=== PATIENT | female | born 1950 | race Caucasian/White ===

== ENCOUNTER 2017-03-28 01:27 | Inpatient (IN) | payer OTHER ==
[~2017-03-28] VITALS: Ht 162.6 cm; Wt 72.2 kg
[~2017-03-28 01:27] MED LIST: CALC-393 PO; CHOL2000 PO; CPR500 PO; GLIP-199 PO; INSU50IN SC; IPRA1AER2 INH; LEVO50TA PO; LISI-461 PO; METR-162 PO; PHEN32.44 PO; PHN/100 PO; PRLSR20 PO; PRT/20 PO; SIMV20TA2 PO; TRAM-10 PO; TRMCR130WC TOP; [UNRECOGNIZED DRUG - CODE] PO
[2017-03-28] MEDS ORDERED: ONDANSETRON INJ 2 MG/ML 2 ML VIAL IV STA (01:39)
[2017-03-28] MEDS ORDERED: SODIUM CHLORIDE 0.9% 1000ML 1,000 ML IV STA (01:39)
[2017-03-28] MEDS ORDERED: HYDROmorphone INJ 1 MG/ML SYR IV STA (01:39)
--- NOTE | 2017-03-28 01:47 | EMERGENCY ROOM VISIT NOTE ---
History Report prepared by Deysi: Ángel Michael Under the Supervision of: Dr. Bon Schreiber M.D. First contact with patient: 01:33 Chief Complaint: ABDOMINAL PAIN Stated Complaint: ABDOMINAL PAIN Nursing Triage Summary: Pt brought by EMS. Pt developed abdominal pain at 8pm. +vomiting. Hx colon cancer History of Present Illness The patient is a 66 year old female who presents to the Emergency Room with complaints of persistent diffuse abdominal pain since approximately 1999 tonight. The pain is rated 10/10 in severity. The patient also complains of nausea and vomiting. Her last bowel movement was this morning. She did not experience diarrhea or blood in her stool. She denies hematemesis. She has not taken anything for pain or nausea. The patient has a history of colon cancer. She had surgery on December 13 per . The patient is not currently receiving chemotherapy or radiation. The patient ate a piece of chicken prior to the onset of her symptoms tonight. Source of History: patient, spouse/significant other Onset: 1999 tonight Position: abdomen Symptom Intensity: 10/10 Timing: other (persistent) Associated Symptoms: + nausea, + vomiting, No diarrhea, No hematochezia Review of Systems See HPI for pertinent positives & negatives. A total of 10 systems reviewed and were otherwise negative. Past Medical & Surgical Medical Problems: (1) CAD (coronary artery disease) (2) Colonic diverticular abscess (3) CVA (cerebral vascular accident) (4) DM2 (diabetes mellitus, type 2) (5) HTN (hypertension) (6) Hyperlipidemia (7) Hypothyroid (8) SBO (small bowel obstruction) (9) Seizure Surgical Problems: (1) Hx of appendectomy (2) Hx of cholecystectomy Family History Diabetes mellitus FHx: heart disease Hypertension Seizures Stroke Social History Smoking Status: Former Smoker Alcohol Use: none Drug Use: none Marital Status: Housing Status: lives with family Occupation Status: retired Current/Historical Medications Scheduled Baclofen (Lioresal), 10 MG PO UD Calcium Carbonate (Calcium), 600 MG PO BID Doxycycline Hyclate (Doxycycline Hyclate), 100 MG PO BID Ferrous Sulfate (Iron), 325 MG PO BID Insulin Lispro Protamine & Lis (Humalog Mix 50/50), 40 UNITS SC BID Ipratropium-Albuterol (Combivent Respimat), 1 PUFFS INH QID Levothyroxine Sodium (Synthroid), 50 MCG PO QAM Lisinopril (Zestril), 10 MG PO QAM Loratadine (Claritin), 10 MG PO DAILY Nitroglycerin (Nitroglycerin Er), 2.5 MG PO QPM Pantoprazole (Protonix), 20 MG PO QAM Phenobarbital (Phenobarbital), 1 TAB PO TID Phenytoin Sodium (Dilantin), 200 MG PO BID Simvastatin (Zocor), 20 MG PO QPM Triamcinolone Acet (Aristocort 0.1%), 1 APPL TOP UD Scheduled PRN Docusate Sodium (Colace), 100 MG PO BID PRN for Constipation Ondansetron Hcl (Zofran), 4 MG PO Q8 PRN for Nausea Tramadol (Ultram), 50 MG PO Q6H PRN for Pain Allergies Coded Allergies: Penicillins (Verified Allergy, Intermediate, HIVES, 03/28/17) BEE STING (Verified Allergy, Mild, ANAPHYLAXIS, 03/28/17) Aspirin (Verified Allergy, Unknown, RASH, 03/28/17) Codeine (Verified Allergy, Unknown, RASH, 03/28/17) Hydrochlorothiazide (Unverified Allergy, Unknown, low calcium, 03/28/17) Iodinated Diagnostic Agents (Unverified Allergy, Unknown, DIZZY AND LIGHTHEADED, 03/28/17) Iodine (Verified Allergy, Unknown, ARM SWELLING, 03/28/17) Morphine (Unverified Allergy, Unknown, "EFFECTS MOVEMENTS", 03/28/17) NSAIDs (Unverified Allergy, Unknown, RASH, 03/28/17) Physical Exam Vital Signs Date Time Temp Pulse Resp B/P Pulse Ox O2 Delivery O2 Flow Rate FiO2 03/28/17 04:02 74 18 159/74 95 Room Air 03/28/17 02:37 74 20 157/65 93 Room Air 03/28/17 02:08 68 16 185/70 98 Room Air 03/28/17 01:44 71 03/28/17 01:31 36.5 70 20 172/91 99 Room Air Physical Exam GENERAL: Patient is uncomfortable and anxious appearing, in moderate distress. HEENT: No acute trauma, normocephalic atraumatic, mucous membranes moist, no nasal congestion, no scleral icterus. NECK: No stridor, no adenopathy, no meningismus, trachea is midline. LUNGS: No dyspnea. Clear to auscultation and equal bilaterally. No wheeze, no rhonchi. HEART: Regular rate and rhythm. No murmurs, rubs, gallops appreciated. ABDOMEN: Moderately tender to palpation over the mid abdomen, diffuse mild tenderness over the rest of the abdomen. Well-healed surgical incisions. BACK: No midline tenderness, no CVA tenderness EXTREMITIES: Normal motion all extremities, no cyanosis, no edema. NEUROLOGIC: Alert and oriented, no acute motor or sensory deficits, no focal weakness, cranial nerves grossly intact. SKIN: No rash, no jaundice, no diaphoresis. Medical Decision & Procedures ER Provider Diagnostic Interpretation: Radiology results and stated below per my review and radiologist interpretation: CT ABDOMEN & PELVIS: Bowel obstruction. Edema and mesenteric that could suggest superimposed inflammation or ischemia. No pneumatosis. Small hiatal hernia. Cholecystectomy. Low attenuation foci in the left kidney. Previous bowel surgery. 9 mm nodule in the right lung base. Radiologist: Ector Cee MD. X ray results are stated below per my interpretation: Chest: 1 view: NG tube extends below the diaphragm and appears to curl in stomach. No infiltrate or effusion. Laboratory Results 03/28/17 01:50 Red Blood Count 4.75, Mean Corpuscular Volume 74.3, Mean Corpuscular Hemoglobin 22.9, Mean Corpuscular Hemoglobin Concent 30.9, Mean Platelet Volume 8.8, Neutrophils (%) (Auto) 90.1, Lymphocytes (%) (Auto) 6.1, Monocytes (%) (Auto) 2.9, Eosinophils (%) (Auto) 0.6, Basophils (%) (Auto) 0.1, Neutrophils # (Auto) 12.79, Lymphocytes # (Auto) 0.86, Monocytes # (Auto) 0.41, Eosinophils # (Auto) 0.08, Basophils # (Auto) 0.02 03/28/17 01:50 Test 03/28/17 01:50 03/28/17 04:17 03/28/17 04:30 White Blood Count 14.19 K/uL (4.8-10.8) Red Blood Count 4.75 M/uL (4.2-5.4) Hemoglobin 10.9 g/dL (12.0-16.0) Hematocrit 35.3 % (37-47) Mean Corpuscular Volume 74.3 fL (80-100) Mean Corpuscular Hemoglobin 22.9 pg (25-34) Mean Corpuscular Hemoglobin Concent 30.9 g/dl (32-36) Platelet Count 468 K/uL (130-400) Mean Platelet Volume 8.8 fL (7.4-10.4) Neutrophils (%) (Auto) 90.1 % Lymphocytes (%) (Auto) 6.1 % Monocytes (%) (Auto) 2.9 % Eosinophils (%) (Auto) 0.6 % Basophils (%) (Auto) 0.1 % Neutrophils # (Auto) 12.79 K/uL (1.4-6.5) Lymphocytes # (Auto) 0.86 K/uL (1.2-3.4) Monocytes # (Auto) 0.41 K/uL (0.11-0.59) Eosinophils # (Auto) 0.08 K/uL (0-0.5) Basophils # (Auto) 0.02 K/uL (0-0.2) RDW Standard Deviation 49.1 fL (36.4-46.3) RDW Coefficient of Variation 18.1 % (11.5-14.5) Immature Granulocyte % (Auto) 0.2 % Immature Granulocyte # (Auto) 0.03 K/uL (0.00-0.02) Anisocytosis PRESENT Activated Partial Thromboplast Time 21.4 SECONDS (21.0-31.0) Partial Thromboplastin Ratio 0.8 Anion Gap 10.0 mmol/L (3-11) Est Creatinine Clear Calc Drug Dose 75.9 ml/min Estimated GFR () 100.9 Estimated GFR (Non- 87.0 BUN/Creatinine Ratio 36.3 (10-20) Calcium Level 8.7 mg/dl (8.5-10.1) Magnesium Level 2.1 mg/dl (1.8-2.4) Total Bilirubin 0.6 mg/dl (0.2-1) Direct Bilirubin 0.2 mg/dl (0-0.2) Aspartate Amino Transf (AST/SGOT) 9 U/L (15-37) Alanine Aminotransferase (ALT/SGPT) 19 U/L (12-78) Alkaline Phosphatase 120 U/L (45-117) Total Protein 8.2 gm/dl (6.4-8.2) Albumin 4.1 gm/dl (3.4-5.0) Lipase 213 U/L (73-393) Beta-Hydroxybutyric Acid 5.02 mg/dL (0.2-2.81) Thyroid Stimulating Hormone (TSH) 2.820 uIu/ml (0.300-4.500) Bedside Glucose 312 mg/dl (70-90) Laboratory results as reviewed by me. Medications Administered Medications (Trade) Dose Ordered Sig/[place] Route Start Time Stop Time Status Last Admin Dose Admin Sodium Chloride (Nss 1000ml) 1,000 ml @ 999 mls/hr Q1H1M STAT IV 03/28/17 01:39 03/28/17 02:39 DC 03/28/17 01:52 999 MLS/HR Hydromorphone HCl (Dilaudid Inj) 1 mg NOW STAT IV 03/28/17 01:39 03/28/17 01:41 DC 03/28/17 01:53 1 MG Ondansetron HCl (Zofran Inj) 4 mg NOW STAT IV 03/28/17 01:39 03/28/17 01:41 DC 03/28/17 01:52 4 MG Lorazepam (Ativan Inj) 0.5 mg NOW STAT IV 03/28/17 03:12 03/28/17 03:13 DC 03/28/17 03:17 0.5 MG Insulin Glargine (Lantus Solostar Pen) 10 unit ONE STAT SC 03/28/17 04:01 03/28/17 04:02 DC 03/28/17 04:17 10 UNIT ED Course 0136: The patient was evaluated in room A11b. A complete history and physical exam was performed. 0139: Ordered Zofran 4 mg IV, Dilaudid 1 mg IV, NSS 1000 ml @ 999 mls/hr. 0310: She is feeling much better after pain medication. Agrees to NG tube and coming into the hospital. 0312: Ordered Ativan 0.5 mg IV. 0336: Discussed the case with Dr. Marley, [facility] Hospitalist. The patient will be evaluated. Medical Decision Differential: Diverticulitis, PUD/Gastritis, UTI, Pyelonephritis, Renal Colic, Bowel Obstruction, Aortic Pathology, Acute Coronary Syndrome, amongst other pathologies entertained. 66 yr old female with abdominal pain/vomiting acutely worsening this evening. She has history of colon ca and surgery several months ago. Denies current chemo/radiation therapy. CT done revealing obstruction. She is vastly improved with single dose pain med and does not exam like ischemic bowel at this time. NG tube placed and will need to come in for further monitoring/ treatment. Consults Time Called: [phone] Consulting Physician: Dr. Marley [facility]. Returned Call: [phone] The patient will be evaluated. Impression Primary Impression: Small bowel obstruction Scribe Attestation The scribe's documentation has been prepared under my direction and personally reviewed by me in its entirety. I confirm that the note above accurately reflects all work, treatment, procedures, and medical decision making performed by me. Departure Information Dispostion Being Evaluated By Hospitalist Referrals Adam Metha M.D. (PCP) Patient Instructions [facility]
[2017-03-28 02:03] LABS: BASO % 0.1 %; BASO ABS # 0.02 K/uL (0-0.2); EOS % 0.6 %; HEMATOCRIT 35.3 % (37-47); IG% 0.2 %; LYMPH % 6.1 %; LYMPH ABS # 0.86 K/uL (1.2-3.4); MEAN CELL VOLUME 74.3 fL (80-100); MEAN CORPUSCULAR HEMOGLOBIN 22.9 pg (25-34); MEAN CORPUSCULAR HGB CONC 30.9 g/dl (32-36); MEAN PLATELET VOLUME 8.8 fL (7.4-10.4); MONO % 2.9 %; NEUT % 90.1 %; PLATELET COUNT 468 K/uL (130-400); RED BLOOD COUNT 4.75 M/uL (4.2-5.4); WHITE BLOOD COUNT 14.19 K/uL (4.8-10.8)
[2017-03-28] MEDS ORDERED: ONDA4TAB46 PO (02:04)
[2017-03-28] MEDS ORDERED: CLR10 PO (02:04)
[2017-03-28] MEDS ORDERED: FERR1TAB23 PO (02:06)
[2017-03-28] MEDS ORDERED: DOCU-94 PO (02:06)
[2017-03-28] MEDS ORDERED: BACL10TA PO (02:07)
[2017-03-28] MEDS ORDERED: VBRT100 PO (02:07)
[2017-03-28 02:24] LABS: ANISOCYTOSIS PRESENT; COMPLETE YES
[2017-03-28 02:26] LABS: BUN/CREATININE RATIO 36.3 (10-20); CALCIUM 8.7 mg/dl (8.5-10.1); CREATININE 0.73 mg/dl (0.60-1.20); POTASSIUM 4.5 mmol/L (3.5-5.1)
[2017-03-28 02:36] LABS: BETA-HYDROXYBUTYRATE 5.02 mg/dL (0.2-2.81)
[2017-03-28] MEDS ORDERED: LORAZEPAM 2 MG/ML 1 ML VIAL IV STA (03:12)
[2017-03-28] MEDS ORDERED: SODIUM CHLORIDE 0.9% 1000ML 1,000 ML IV SCH (04:00)
[2017-03-28] MEDS ORDERED: INSULIN GLARGINE SOLOSTAR 100 UNITS/ML 3 ML PEN SC STA (04:01)
[2017-03-28 04:03] LABS: MAGNESIUM 2.1 mg/dl (1.8-2.4)
[2017-03-28 04:06] LABS: PARTIAL THROMBOPLASTIN RATIO 0.8
[2017-03-28 04:20] LABS: THYROID STIMULATING HORMONE 2.82 uIu/ml (0.300-4.500)
[2017-03-28] MEDS ORDERED: CIPROFLOXACIN 400MG / 200ML D5W IV STA (04:24)
[2017-03-28] MEDS ORDERED: GLUCOSE 10 TABS/TUBE PO PRN (04:45)
[2017-03-28] MEDS ORDERED: OXYCODONE/ACETAMINOPHEN 5-325 TAB PO PRN (04:45)
[2017-03-28] MEDS ORDERED: GLUCOSE 40% GEL 15 GM TUBE PO PRN (04:45)
[2017-03-28] MEDS ORDERED: ACETAMINOPHEN 325 MG TAB PO PRN (04:45)
[2017-03-28] MEDS ORDERED: LORAZEPAM 2 MG/ML 1 ML VIAL IV PRN (04:45)
[2017-03-28] MEDS ORDERED: ONDANSETRON INJ 2 MG/ML 2 ML VIAL IV PRN ×2 (04:45→06:45)
[2017-03-28] MEDS ORDERED: GLUCAGON FOR INJ 1 MG VIAL SQ PRN (04:45)
[2017-03-28] MEDS ORDERED: HYDROmorphone INJ 1 MG/ML SYR IV PRN (04:45)
[2017-03-28] MEDS ORDERED: DEXTROSE 50% 50 ML SYR IV PRN (04:45)
[2017-03-28] MEDS ORDERED: PROMETHAZINE HCL INJ 12.5 MG in SODIUM CHLORIDE 0.9% 50ML 50 ML IV PRN (04:45)
[2017-03-28 05:01] LABS: URINE APPEARANCE CLEAR (CLEAR); URINE BILIRUBIN NEG (NEG); URINE COLOR YELLOW; URINE EPITHELIAL CELL AUTO 20-30 /lpf (0-5); URINE NITRITE NEG (NEG); UROBILINOGEN NEG (NEG); ZZUR CULT IF INDIC CLEAN CATCH NO
[2017-03-28 05:05] LABS: PHENOBARBITAL < 2.1 mcg/mL (15.0-40.0)
[2017-03-28 05:06] LABS: MANUAL MICROSCOPIC REQUIRED? NO; REVIEW REQ? NO
[2017-03-28 05:35] VITALS: BP 156/68; PULSE 82; TEMP 36.8; O2SAT 96; BMI 27.3
[2017-03-28] MEDS ORDERED: NURSING DECISION MEDICATION ORDER SCH (06:00)
[2017-03-28] MEDS ORDERED: PHENYTOIN IV 1,000 MG in SYRINGE 0 ML IV ONE (06:00)
[2017-03-28] MEDS ORDERED: INSULIN ASPART 100 UNITS/ML 3 ML PEN SC ONE (06:00)
[2017-03-28] MEDS ORDERED: CIPROFLOXACIN CONSULT ACTIVE PRN ×2 (06:30)
[2017-03-28] MEDS ORDERED: PHENYTOIN IV INFUSION 1,000 MG in SODIUM CHLORIDE 0.9% 100ML 100 ML IV SCH (06:30)
[2017-03-28] MEDS: PHENOBARBITAL SOD IV SCH ×2 (06:32→19:04)
[2017-03-28] MEDS: SODIUM CHLORIDE 0.9% 1000ML 1,000 ML IV SCH ×2 (06:33→19:03)
[2017-03-28] MEDS ORDERED: LORAZEPAM INJ 0.5 MG in SYRINGE 0.75 ML IV PRN (06:45)
--- NOTE | 2017-03-28 07:03 | DIAGNOSTIC IMAGING REPORT ---
CHEST ONE VIEW PORTABLE CLINICAL HISTORY: NG tube placement COMPARISON STUDY: Chest CT October 20, 2016. FINDINGS: The tip of the nasogastric tube is within the mid body of the stomach. There is no pneumothorax or pleural effusion. No consolidation is identified. Cardiomediastinal silhouette is stable. A 9 mm right middle lobe nodule is noted. This nodule is indeterminate. IMPRESSION: 1. Tip of nasogastric tube within the mid body of the stomach. 2. No acute cardiopulmonary findings. 3. Indeterminate 9 mm right middle lobe nodule. Electronically signed by: Orlando Woods M.D. 03/28/2017 7:01 AM Dictated Date/Time: 03/28/2017 6:57 AM
[2017-03-28 07:20] LABS: INR 0.9 (0.9-1.1)
--- NOTE | 2017-03-28 07:25 | History and Physical ---
History & Physical Date & Time of Service: March 28, 2017 at 07:18 Chief Complaint: SBO Primary Care Physician: Adam Mehta M.D. History of Present Illness Source: patient The patient is a 66 year old female who presents to the Emergency Room with complaints of persistent diffuse abdominal pain since approximately 1999 tonight. The pain is rated 10/10 in severity. The patient also complains of nausea and vomiting. Her last bowel movement was this morning. She did not experience diarrhea or blood in her stool. She denies hematemesis. She has not taken anything for pain or nausea. The patient has a history of colon cancer. She had surgery on December 13 per . The patient is not currently receiving chemotherapy or radiation. The patient ate a piece of chicken prior to the onset of her symptoms tonight. I did history and physical exam on pt, now pt has no abdominal pain, no nausea, no vomiting, pt is on NG tube. pt denies fever, Past Medical/Surgical History Medical Problems: (1) CAD (coronary artery disease) Permanent Comment: s/p [place], [place] per patient Status: Chronic (2) CVA (cerebral vascular accident) Permanent Comment: per patient found incidentally on CT in the Status: Chronic (3) DM2 (diabetes mellitus, type 2) Status: Chronic (4) HTN (hypertension) Status: Chronic (5) Hyperlipidemia Status: Chronic (6) Hypothyroid Status: Chronic (7) Seizure Status: Chronic Surgical Problems: (1) Hx of appendectomy Status: Chronic (2) Hx of cholecystectomy Status: Chronic Family History Diabetes mellitus FHx: heart disease Hypertension Seizures Stroke Social History Smoking Status: Former Smoker Alcohol Use: occasionally Drug Use: none Marital Status: Housing status: lives with family Occupational Status: retired Multi-Drug Resistant Organisms History of MDRO: No Allergies Coded Allergies: Penicillins (Verified Allergy, Intermediate, HIVES, 03/28/17) BEE STING (Verified Allergy, Mild, ANAPHYLAXIS, 03/28/17) Aspirin (Verified Allergy, Unknown, RASH, 03/28/17) Codeine (Verified Allergy, Unknown, RASH, 03/28/17) Hydrochlorothiazide (Unverified Allergy, Unknown, low calcium, 03/28/17) Iodinated Diagnostic Agents (Unverified Allergy, Unknown, DIZZY AND LIGHTHEADED, 03/28/17) Iodine (Verified Allergy, Unknown, ARM SWELLING, 03/28/17) Morphine (Unverified Allergy, Unknown, "EFFECTS MOVEMENTS", 03/28/17) NSAIDs (Unverified Allergy, Unknown, RASH, 03/28/17) Home Medications Scheduled Baclofen (Lioresal), 10 MG PO UD Calcium Carbonate (Calcium), 600 MG PO BID Doxycycline Hyclate (Doxycycline Hyclate), 100 MG PO BID Ferrous Sulfate (Iron), 325 MG PO BID Insulin Lispro Protamine & Lis (Humalog Mix 50/50), 40 UNITS SC BID Ipratropium-Albuterol (Combivent Respimat), 1 PUFFS INH QID Levothyroxine Sodium (Synthroid), 50 MCG PO QAM Lisinopril (Zestril), 10 MG PO QAM Loratadine (Claritin), 10 MG PO DAILY Nitroglycerin (Nitroglycerin Er), 2.5 MG PO QPM Pantoprazole (Protonix), 20 MG PO QAM Phenobarbital (Phenobarbital), 1 TAB PO TID Phenytoin Sodium (Dilantin), 200 MG PO BID Simvastatin (Zocor), 20 MG PO QPM Triamcinolone Acet (Aristocort 0.1%), 1 APPL TOP UD Scheduled PRN Docusate Sodium (Colace), 100 MG PO BID PRN for Constipation Ondansetron Hcl (Zofran), 4 MG PO Q8 PRN for Nausea Tramadol (Ultram), 50 MG PO Q6H PRN for Pain Review of Systems Constitutional: No chills, No fatigue, No fever, No problem reported, No sweats , No weakness, No weight loss Eyes: No diplopia, No discharge, No eye pain, No problem reported, No redness, No worsening of vision ENT: No dental problems, No hearing loss, No nasal symptoms, No problem reported, No sore throat, No tinnitus, No trouble swallowing, No unusual epistaxis Respiratory: No cough, No dyspnea at rest, No dyspnea on exertion, No hemoptysis, No problem reported, No shortness of breath, No sputum, No wheezing Cardiovascular: No PND, No chest pain, No claudication, No edema, No orthopnea , No palpitations, No problem reported Abdomen: No GI bleeding, No constipation, No diarrhea, No nausea, No pain, No problem reported, No vomiting Neurologic: No balance problems, No memory loss, No numbness/tingling, No paralysis, No problem reported, No vertigo, No weakness Psychiatric: No anhedonism, No anxiety, No depression symptoms, No insomnia, No problem reported, No substance abuse Endocrine: + problem reported (DM), No excessive thirst, No excessive urination , No fatigue Physical Exam Vital Signs Date Time Temp Pulse Resp B/P Pulse Ox O2 Delivery O2 Flow Rate FiO2 03/28/17 05:35 36.8 82 18 156/68 96 Room Air 03/28/17 05:19 78 18 132/96 95 03/28/17 04:02 74 18 159/74 95 Room Air 03/28/17 02:37 74 20 157/65 93 Room Air 03/28/17 02:08 68 16 185/70 98 Room Air 03/28/17 01:44 71 03/28/17 01:31 36.5 70 20 172/91 99 Room Air General Appearance: WD/WN Head: normocephalic Eyes: normal inspection Neck: supple, no JVD Respiratory/Chest: chest non-tender, lungs clear, normal breath sounds Cardiovascular: regular rate, rhythm, no edema, no gallop, no JVD Abdomen/GI: normal bowel sounds, non tender, soft, no organomegaly (middle line incision healed well, ) Extremities/Musculoskelatal: normal inspection, no calf tenderness Neurologic/Psych: alert, normal mood/affect Skin: normal color, warm/dry, no rash Diagnostics Laboratory Results Results Past 24 Hours Test 03/28/17 01:50 03/28/17 04:17 03/28/17 04:30 03/28/17 04:35 Range/Units White Blood Count 14.19 4.8-10.8 K/uL Red Blood Count 4.75 4.2-5.4 M/uL Hemoglobin 10.9 12.0-16.0 g/dL Hematocrit 35.3 37-47 % Mean Corpuscular Volume 74.3 80-100 fL Mean Corpuscular Hemoglobin 22.9 25-34 pg Mean Corpuscular Hemoglobin Concent 30.9 32-36 g/dl Platelet Count 468 130-400 K/uL Mean Platelet Volume 8.8 7.4-10.4 fL Neutrophils (%) (Auto) 90.1 % Lymphocytes (%) (Auto) 6.1 % Monocytes (%) (Auto) 2.9 % Eosinophils (%) (Auto) 0.6 % Basophils (%) (Auto) 0.1 % Neutrophils # (Auto) 12.79 1.4-6.5 K/uL Lymphocytes # (Auto) 0.86 1.2-3.4 K/uL Monocytes # (Auto) 0.41 0.11-0.59 K/uL Eosinophils # (Auto) 0.08 0-0.5 K/uL Basophils # (Auto) 0.02 0-0.2 K/uL RDW Standard Deviation 49.1 36.4-46.3 fL RDW Coefficient of Variation 18.1 11.5-14.5 % Immature Granulocyte % (Auto) 0.2 % Immature Granulocyte # (Auto) 0.03 0.00-0.02 K/uL Anisocytosis PRESENT Activated Partial Thromboplast Time 21.4 21.0-31.0 SECONDS Partial Thromboplastin Ratio 0.8 Sodium Level 133 136-145 mmol/L Potassium Level 4.5 3.5-5.1 mmol/L Chloride Level 100 98-107 mmol/L Carbon Dioxide Level 23 21-32 mmol/L Anion Gap 10.0 3-11 mmol/L Blood Urea Nitrogen 26 7-18 mg/dl Creatinine 0.73 0.60-1.20 mg/dl Est Creatinine Clear Calc Drug Dose 75.9 ml/min Estimated GFR () 100.9 Estimated GFR (Non- 87.0 BUN/Creatinine Ratio 36.3 10-20 Random Glucose 310 70-99 mg/dl Calcium Level 8.7 8.5-10.1 mg/dl Magnesium Level 2.1 1.8-2.4 mg/dl Total Bilirubin 0.6 0.2-1 mg/dl Direct Bilirubin 0.2 0-0.2 mg/dl Aspartate Amino Transf (AST/SGOT) 9 15-37 U/L Alanine Aminotransferase (ALT/SGPT) 19 12-78 U/L Alkaline Phosphatase 120 45-117 U/L Total Protein 8.2 6.4-8.2 gm/dl Albumin 4.1 3.4-5.0 gm/dl Lipase 213 73-393 U/L Beta-Hydroxybutyric Acid 5.02 0.2-2.81 mg/dL Thyroid Stimulating Hormone (TSH) 2.820 0.300-4.500 uIu/ml Bedside Glucose 312 70-90 mg/dl Lactic Acid Level 1.3 0.4-2.0 mmol/L Phenytoin (Dilantin) Level < 0.4 10-20 mcg/mL Phenobarbital Level < 2.1 15.0-40.0 mcg/mL Urine Color YELLOW Urine Appearance CLEAR CLEAR Urine pH 6.0 4.5-7.5 Urine Specific Robinson 1.030 1.000-1.030 Urine Protein NEG NEG Urine Glucose (UA) 3+ NEG Urine Ketones TRACE NEG Urine Occult Blood NEG NEG Urine Nitrite NEG NEG Urine Bilirubin NEG NEG Urine Urobilinogen NEG NEG Urine Leukocyte Esterase NEG NEG Urine WBC (Auto) 1-5 0-5 /hpf Urine RBC (Auto) 0-4 0-4 /hpf Urine Hyaline Casts (Auto) 0 0-5 /lpf Urine Epithelial Cells (Auto) 20-30 0-5 /lpf Urine Bacteria (Auto) NEG NEG Test 03/28/17 05:46 03/28/17 06:57 Range/Units Bedside Glucose 307 70-90 mg/dl Diagnostic Radiology CT ABDOMEN & PELVIS: Bowel obstruction. Edema and mesenteric that could suggest superimposed inflammation or ischemia. No pneumatosis. Small hiatal hernia. Cholecystectomy. Low attenuation foci in the left kidney. Previous bowel surgery. 9 mm nodule in the right lung base. Radiologist: Ector Cee MD. Impression Assessment and Plan IMP: SBO I agree with hospitalist treatment plan, NG tube, iv fluid, iv antibiotic, repeat labs in am, will F/U Thanks, Advanced Directives Existing Living Will: No Existing Power of [employer] Craftsman: No VTE Prophylaxis VTE Risk Assessment Done? Y/N: Yes Risk Level: Moderate
[2017-03-28 07:30] VITALS: BP 106/71; PULSE 93; TEMP 37.4; O2SAT 93
[2017-03-28] MEDS ORDERED: LEVOTHYROXINE 50 MCG TAB PO SCH (07:30)
--- NOTE | 2017-03-28 07:32 | DIAGNOSTIC IMAGING REPORT ---
ABDOMEN AND PELVIS CT WITHOUT CONTRAST CT DOSE: 895.30 mGy.cm HISTORY: diffuse abdominal pain. h/o colon ca with resection TECHNIQUE: Multiaxial CT images of the abdomen and pelvis were performed without the use of intravenous and oral contrast according to the standard department stone protocol. COMPARISON STUDY: Abdomen and pelvis CT 09/19/2016. FINDINGS: There is an 8 mm nodule within the right middle lobe which is not significantly changed. Stable 4 mm nodule within the right lower lobe. There is a 5 mm nodular density within the right middle lobe on image 14 of 463 and a possible 3 mm nodular density in image 6. These appear to be new from the prior study. No pneumoperitoneum. No pneumatosis. No suspicious lytic or blastic osseous lesions. Multiple dilated and fluid-filled loops of small bowel seen throughout the abdomen consistent with a small bowel obstruction. The transition point is located at the small bowel anastomosis within the left lower quadrant on image 280. There is mild mesenteric edema and fat stranding within the mid to lower abdomen surrounding the distended loops of small bowel. The bladder, uterus, and ovaries are unremarkable. Prior sigmoid colon resection. Cholecystectomy. Trace perihepatic ascites. No hepatic or splenic masses on this unenhanced study. Bilateral adrenal gland thickening, unchanged. The unenhanced pancreas is unremarkable. No renal stones or hydronephrosis. Small left peripelvic cysts and a small probable cyst within the left kidney measuring 1.7 cm. Technically, this is indeterminate on this noncontrast study. No retroperitoneal lymphadenopathy. IMPRESSION: 1. Small bowel obstruction with the transition point located within the left lower quadrant at the site of prior small bowel anastomosis. There is also mild mesenteric edema adjacent to the dilated loops of small bowel. This raises the possibility of superimposed ischemia. However, there is no pneumatosis at this time. 2. Trace ascites. 3. A few subcentimeter nodules within the right middle lobe and right lower lobe. Dominant nodule measures 8 mm and is not significantly changed. [address] follow-up is recommended to ensure stability. Electronically signed by: Kyler De La Cruz M.D. 03/28/2017 7:31 AM Dictated Date/Time: 03/28/2017 7:18 AM
[2017-03-28] MEDS: METRONIDAZOLE / NSS 500 MG in PREMIXED NSS 100 ML IV SCH ×3 (07:35→21:41)
--- NOTE | 2017-03-28 07:36 | HISTORY & PHYSICAL EXAMINATION ---
DATE OF ADMISSION: 03/28/2017 PRIMARY CARE DOCTOR: Dr. Mehta History was obtained from the patient and records. CHIEF COMPLAINT: Abdominal pain. HISTORY OF PRESENT ILLNESS: Medical history is significant for [place] [place] hypertension, hyperlipidemia, history of seizures, CAD sp angioplasty/CVA as per records, hypothyroidism, DM2 insulin requiring, past tobacco abuse, history of pulmonary nodules, chronic anemia (baseline hemoglobin of 7-9). Recent confinement last September 2016 for acute diverticulitis with abscess. Th Patient was transferred to [facility]. Patient had an outpatient colonoscopy in September 2016, which showed malignant partially obstructing tumor in the ascending colon. Biopsy showed moderately differentiated invasive adenocarcinoma. Last November2016, she underwent sigmoid colectomy and en bloc resection of colonic mass w/ abdominal wall and small intestine, enteroenterostomy. PX subsequently had component separation, retrorectus mesh placement and abd wall closure. Completed Doxycycline course for postop wound[place] [facility] [place] Patient adamantly refused chemotherapy as per records. Last night, after eating chicken the patient noted achy generalized abdominal pain with nausea and vomiting. She had a bowel movement yesterday. No chest pain, no shortness of breath. No fever, no chills. Patient was brought to the Emergency Room. CAT scan initial read; bowel obstruction, poss edema/mesenteric inflammation suggesting superimposed inflammation and ischemia. No pneumatosis, small hiatal hernia, cholecystectomy. Previous bowel surgery. NG tube was placed in the Emergency Room. MEDICAL HISTORY: As above. No recent seizures as per patient. SURGERIES: cholecystectomy, appendectomy, bowel surgery. HOME MEDICATIONS: Include; nitroglycerin in the ER, Protonix, Combivent, lispro, lisinopril, tramadol, phenobarbital, levothyroxine, baclofen, calcium, ferrous sulfate, docusate sodium, Zofran, loratadine, simvastatin and Dilantin. ALLERGIES: TO BEE VENOM, DYE, ASPIRIN, HCTZ, IODINE, MORPHINE, NSAIDS, NUTRITIONAL SUPPLEMENTS AND PENICILLIN. FAMILY HISTORY: Blood clots, heart disease, CVA and leukemia. PERSONAL AND SOCIAL HISTORY: Past tobacco abuse. No chronic intake of alcoholic beverages. Disabled. REVIEW OF SYSTEMS: As per HPI, all other ROS negative. PHYSICAL EXAMINATION: VITAL SIGNS: Blood pressure was noted to be 159/70, pulse rate 74, RR 18, temperature 36.5 and sats 95 on room air. GENERAL: wane, no resp distress SKIN: Pallor. HEENT: Pale palpebral conjunctivae. Dry mucosa. NG tube in place. NECK: Short. CHEST: Decreased breath sounds. HEART: Regular rate and rhythm. ABDOMEN: Abdominal distension, hypogastric tenderness. EXTREMITIES: Minimal LE edema. no tenderness NEUROLOGIC: No gross focality. LABORATORIES: Hemoglobin was noted to be 10.9, hematocrit 35.2 white cell count 14.9 and platelets of 468. Sodium 136, potassium 4.5, chloride 100, CO2 28, BUN 20 creatinine 0.7, glucose of 310. Hemoglobin A1c from February 2017 was 6.9. low phenytoin, phenobarb levels CT of abdomen and pelvis as above. CXR as per my interpretation : no infiltrate, NGT tip in the stomach ASSESSMENT: 1. SBO with question of bowel ischemia on CT initial read. hx bowel surgery for colon cancer [place], [facility] [place] (Patient refused chemotherapy.) no sepsis. 2. hypertension slightly elevated 3. past tobacco abuse 4. anemia, hemoglobin better than baseline likely from hemoconcentration 5. DM2 insulin requiring well-controlled as of recent [id number] markedly hyperglycemic in the ER 6. pulmonary nodules as per records. unrelated to colon cancer as per evaluation. 7. seizure DSO, stable on regimen AED levels markedly subtx PLAN: GMF continue NGT decompression analgesia, bowel rest, IV fluids General Surgery consult RE SBO, abn CT Basal insulin adjusted for NPO/sips status, ISS BG goal 140-180. facilitate AED meds after load, recheck AED levels DVT prophylaxis, Lovenox subQ. Full code. Case was discussed with Dr. Summers (surgeon quality control assessor). He recommends IV Cipro and Flagyl for now. MTDD
[2017-03-28] MEDS ORDERED: FERROUS SULFATE 325 MG TAB PO SCH (08:30)
[2017-03-28] MEDS: LISINOPRIL 10 MG TAB PO SCH (08:51)
[2017-03-28] MEDS ORDERED: PHENOBARBITAL SOD 65 MG/ML VIAL IV SCH (09:00)
[2017-03-28] MEDS ORDERED: PHENYTOIN SODIUM ER 100 MG CAP PO SCH (09:00)
[2017-03-28] MEDS ORDERED: LORATADINE 10 MG TAB PO SCH (09:00)
[2017-03-28] MEDS ORDERED: PANTOprazole SOD 40 MG TAB PO SCH (09:00)
[2017-03-28] MEDS ORDERED: PHENOBARBITAL 32.4 MG TAB PO SCH (09:00)
[2017-03-28] MEDS: IPRATROPIUM BROMIDE/ALBUTEROL respimat INH INH SCH ×4 (09:50→20:34)
[2017-03-28] MEDS: ENOXAPARIN 40 MG/0.4 ML SYR SQ SCH (09:53)
[2017-03-28] MEDS ORDERED: ACETAMINOPHEN IV 650 MG in EMPTY BAG 0 ML IV PRN (11:00)
--- NOTE | 2017-03-28 11:04 | Progress Note ---
Medicine Progress Note Date & Time of Visit: March 28, 2017 at 10:46. Subjective 66 yo F with CRC s/p surgery in Nov presents with SBO -NGT to low,intermittent suction overnight -patient reports feeling better with no abdominal pain or nausea at this time, however, there is pain in the LLQ on exam with palpation -she denies fevers, chest pain, or any other symptoms at this time -she denies a history of feeling poorly over the last few days and states that this issue is acute just from yesterday -she reports a BM that was normal today and yesterday -reports from nurse that there wasn't much output in NGT overnight--appears to have approx 300 out overnight Objective Last 8 Hrs Date Time Temp Pulse Resp B/P Pulse Ox O2 Delivery O2 Flow Rate FiO2 03/28/17 07:30 37.4 93 18 106/71 93 Room Air 03/28/17 07:21 Room Air 03/28/17 05:35 36.8 82 18 156/68 96 Room Air 03/28/17 05:19 78 18 132/96 95 03/28/17 04:02 74 18 159/74 95 Room Air Physical Exam: GEN: WNWD, in no acute distress, alert and appropriate HEENT: NC/AT, normal sclerae, MMM, NGT in place to low intermittent suction. CARDIO: reg rate, S1/2 heard without m/g/r LUNGS: CTA bilaterally, no crackles, rales or wheezes, good diaphragmatic excursion ABD: soft, TTP in LLQ, non-distended, no rebound or guarding, BS present throughout EXTREMITY: no LE swelling or edema, extremities are warm and well-perfused NEURO: CN 2-12 grossly intact MUSC: moves all extremities equally, sits up on her own with ease, no focal deficits SKIN: warm and dry Laboratory Results: 03/28/17 01:50 Red Blood Count 4.75, Mean Corpuscular Volume 74.3, Mean Corpuscular Hemoglobin 22.9, Mean Corpuscular Hemoglobin Concent 30.9, Mean Platelet Volume 8.8, Neutrophils (%) (Auto) 90.1, Lymphocytes (%) (Auto) 6.1, Monocytes (%) (Auto) 2.9, Eosinophils (%) (Auto) 0.6, Basophils (%) (Auto) 0.1, Neutrophils # (Auto) 12.79, Lymphocytes # (Auto) 0.86, Monocytes # (Auto) 0.41, Eosinophils # (Auto) 0.08, Basophils # (Auto) 0.02 03/28/17 01:50 Test 03/28/17 01:50 03/28/17 04:30 03/28/17 04:35 03/28/17 05:46 White Blood Count 14.19 K/uL (4.8-10.8) Red Blood Count 4.75 M/uL (4.2-5.4) Hemoglobin 10.9 g/dL (12.0-16.0) Hematocrit 35.3 % (37-47) Mean Corpuscular Volume 74.3 fL (80-100) Mean Corpuscular Hemoglobin 22.9 pg (25-34) Mean Corpuscular Hemoglobin Concent 30.9 g/dl (32-36) Platelet Count 468 K/uL (130-400) Mean Platelet Volume 8.8 fL (7.4-10.4) Neutrophils (%) (Auto) 90.1 % Lymphocytes (%) (Auto) 6.1 % Monocytes (%) (Auto) 2.9 % Eosinophils (%) (Auto) 0.6 % Basophils (%) (Auto) 0.1 % Neutrophils # (Auto) 12.79 K/uL (1.4-6.5) Lymphocytes # (Auto) 0.86 K/uL (1.2-3.4) Monocytes # (Auto) 0.41 K/uL (0.11-0.59) Eosinophils # (Auto) 0.08 K/uL (0-0.5) Basophils # (Auto) 0.02 K/uL (0-0.2) RDW Standard Deviation 49.1 fL (36.4-46.3) RDW Coefficient of Variation 18.1 % (11.5-14.5) Immature Granulocyte % (Auto) 0.2 % Immature Granulocyte # (Auto) 0.03 K/uL (0.00-0.02) Anisocytosis PRESENT Activated Partial Thromboplast Time 21.4 SECONDS (21.0-31.0) Partial Thromboplastin Ratio 0.8 Anion Gap 10.0 mmol/L (3-11) Est Creatinine Clear Calc Drug Dose 75.9 ml/min Estimated GFR () 100.9 Estimated GFR (Non- 87.0 BUN/Creatinine Ratio 36.3 (10-20) Calcium Level 8.7 mg/dl (8.5-10.1) Magnesium Level 2.1 mg/dl (1.8-2.4) Total Bilirubin 0.6 mg/dl (0.2-1) Direct Bilirubin 0.2 mg/dl (0-0.2) Aspartate Amino Transf (AST/SGOT) 9 U/L (15-37) Alanine Aminotransferase (ALT/SGPT) 19 U/L (12-78) Alkaline Phosphatase 120 U/L (45-117) Total Protein 8.2 gm/dl (6.4-8.2) Albumin 4.1 gm/dl (3.4-5.0) Lipase 213 U/L (73-393) Beta-Hydroxybutyric Acid 5.02 mg/dL (0.2-2.81) Thyroid Stimulating Hormone (TSH) 2.820 uIu/ml (0.300-4.500) Lactic Acid Level 1.3 mmol/L (0.4-2.0) Phenytoin (Dilantin) Level < 0.4 mcg/mL (10-20) Phenobarbital Level < 2.1 mcg/mL (15.0-40.0) Urine Color YELLOW Urine Appearance CLEAR (CLEAR) Urine pH 6.0 (4.5-7.5) Urine Specific Castor 1.030 (1.000-1.030) Urine Protein NEG (NEG) Urine Glucose (UA) 3+ (NEG) Urine Ketones TRACE (NEG) Urine Occult Blood NEG (NEG) Urine Nitrite NEG (NEG) Urine Bilirubin NEG (NEG) Urine Urobilinogen NEG (NEG) Urine Leukocyte Esterase NEG (NEG) Urine WBC (Auto) 1-5 /hpf (0-5) Urine RBC (Auto) 0-4 /hpf (0-4) Urine Hyaline Casts (Auto) 0 /lpf (0-5) Urine Epithelial Cells (Auto) 20-30 /lpf (0-5) Urine Bacteria (Auto) NEG (NEG) Bedside Glucose 307 mg/dl (70-90) Test 03/28/17 06:57 Prothrombin Time 10.0 SECONDS (9.0-12.0) Prothromb Time International Ratio 0.9 (0.9-1.1) Last 24 Hours Test 03/28/17 01:50 03/28/17 04:17 03/28/17 04:30 03/28/17 04:35 White Blood Count 14.19 K/uL Red Blood Count 4.75 M/uL Hemoglobin 10.9 g/dL Hematocrit 35.3 % Mean Corpuscular Volume 74.3 fL Mean Corpuscular Hemoglobin 22.9 pg Mean Corpuscular Hemoglobin Concent 30.9 g/dl Platelet Count 468 K/uL Mean Platelet Volume 8.8 fL Neutrophils (%) (Auto) 90.1 % Lymphocytes (%) (Auto) 6.1 % Monocytes (%) (Auto) 2.9 % Eosinophils (%) (Auto) 0.6 % Basophils (%) (Auto) 0.1 % Neutrophils # (Auto) 12.79 K/uL Lymphocytes # (Auto) 0.86 K/uL Monocytes # (Auto) 0.41 K/uL Eosinophils # (Auto) 0.08 K/uL Basophils # (Auto) 0.02 K/uL RDW Standard Deviation 49.1 fL RDW Coefficient of Variation 18.1 % Immature Granulocyte % (Auto) 0.2 % Immature Granulocyte # (Auto) 0.03 K/uL Anisocytosis PRESENT Activated Partial Thromboplast Time 21.4 SECONDS Partial Thromboplastin Ratio 0.8 Sodium Level 133 mmol/L Potassium Level 4.5 mmol/L Chloride Level 100 mmol/L Carbon Dioxide Level 23 mmol/L Anion Gap 10.0 mmol/L Blood Urea Nitrogen 26 mg/dl Creatinine 0.73 mg/dl Est Creatinine Clear Calc Drug Dose 75.9 ml/min Estimated GFR () 100.9 Estimated GFR (Non- 87.0 BUN/Creatinine Ratio 36.3 Random Glucose 310 mg/dl Calcium Level 8.7 mg/dl Magnesium Level 2.1 mg/dl Total Bilirubin 0.6 mg/dl Direct Bilirubin 0.2 mg/dl Aspartate Amino Transf (AST/SGOT) 9 U/L Alanine Aminotransferase (ALT/SGPT) 19 U/L Alkaline Phosphatase 120 U/L Total Protein 8.2 gm/dl Albumin 4.1 gm/dl Lipase 213 U/L Beta-Hydroxybutyric Acid 5.02 mg/dL Thyroid Stimulating Hormone (TSH) 2.820 uIu/ml Bedside Glucose 312 mg/dl Lactic Acid Level 1.3 mmol/L Phenytoin (Dilantin) Level < 0.4 mcg/mL Phenobarbital Level < 2.1 mcg/mL Urine Color YELLOW Urine Appearance CLEAR Urine pH 6.0 Urine Specific Castor 1.030 Urine Protein NEG Urine Glucose (UA) 3+ Urine Ketones TRACE Urine Occult Blood NEG Urine Nitrite NEG Urine Bilirubin NEG Urine Urobilinogen NEG Urine Leukocyte Esterase NEG Urine WBC (Auto) 1-5 /hpf Urine RBC (Auto) 0-4 /hpf Urine Hyaline Casts (Auto) 0 /lpf Urine Epithelial Cells (Auto) 20-30 /lpf Urine Bacteria (Auto) NEG Test 03/28/17 05:46 03/28/17 06:57 Bedside Glucose 307 mg/dl Prothrombin Time 10.0 SECONDS Prothromb Time International Ratio 0.9 Assessment & Plan 66 yo F with h/o CRC s/p surgery in Nov who presents with SBO s/p NGT overnight 1. SBO 2. CRC 3. HTN 4. Tobacco use 5. Anemia 6. DMII 7. h/o pulmonary nodules 8. h/o seizure d/o-subtherapeutic on two agents PLAN: cont NGT to low intermittent suction until surgery says ok to pull cont anti emetics and pain meds as needed cont maintenance IVF while NPO lactate normal and min tenderness with +BS and bowels moving this morning ISS/sliding scale for sugar control DVT proph: Lovenox SQ Full Code Dispo-cont to monitor on med/surg Marisela Alejandro DO [facility] Hospitalist Current Inpatient Medications: Current Inpatient Medications Medications (Trade) Dose Ordered Sig/Eugene Route Start Time Stop Time Status Last Admin Dose Admin Metronidazole 500 mg/Prmx 100 ml @ 100 mls/hr Q8H IV 03/28/17 06:00 04/07/17 05:59 03/28/17 07:35 100 MLS/HR Sodium Chloride (Nss 1000ml) 1,000 ml @ 75 mls/hr [id number] IV 03/28/17 06:00 04/27/17 05:59 03/28/17 06:33 75 MLS/HR Enoxaparin Sodium (Lovenox Inj) 40 mg Q24H SQ 03/28/17 09:00 04/27/17 08:59 03/28/17 09:53 40 MG Acetaminophen (Tylenol Tab) 650 mg Q4H PRN PO 03/28/17 04:45 04/27/17 04:44 Insulin Aspart (novoLOG ASPART) SLIDING SCALE If C... Q6 SC 03/28/17 12:00 04/27/17 11:59 Glucose (Glucose 40% Gel) 15-30 GRAMS 15 GRAMS... UD PRN PO 03/28/17 04:45 04/27/17 04:44 Glucose (Glucose Chew Tab) 4-8 Tablets 4 Tabl... UD PRN PO 03/28/17 04:45 04/27/17 04:44 Dextrose (Dextrose 50% 50ML Syringe) 25-50ML OF 50% DW IV FOR... UD PRN IV 03/28/17 04:45 04/27/17 04:44 Glucagon (Glucagon Inj) 1 mg UD PRN SQ 03/28/17 04:45 04/27/17 04:44 Hydromorphone HCl (Dilaudid Inj) 0.5 mg Q3H PRN IV 03/28/17 04:45 04/11/17 04:44 Ondansetron HCl 4 mg 4 mg Q6H PRN IV 03/28/17 04:45 04/27/17 04:44 Promethazine HCl/ Sodium Chloride (Phenergan Inj/ Nss 50ml) 50.5 ml @ 204 mls/hr Q6H PRN IV 03/28/17 04:45 04/27/17 04:44 03/28/17 04:56 204 MLS/HR Albuterol/ Ipratropium (Combivent Respimat Inh) 1 puffs QID INH 03/28/17 09:00 04/27/17 08:59 03/28/17 09:50 1 PUFFS Levothyroxine Sodium (Synthroid Tab) 50 mcg DAILYBB PO 03/28/17 07:30 04/27/17 07:29 03/28/17 08:51 50 MCG Lisinopril (Zestril Tab) 10 mg QAM PO 03/28/17 09:00 04/27/17 08:59 03/28/17 08:51 10 MG Loratadine (Claritin Tab) 10 mg DAILY PO 03/28/17 09:00 04/27/17 08:59 03/28/17 08:51 10 MG Nitroglycerin (Nitrobid Cap) 2.5 mg QPM PO 03/28/17 21:00 04/27/17 20:59 Phenobarbital (Phenobarbital Tab) 32.4 mg TID PO 03/29/17 09:00 04/28/17 08:59 Simvastatin (Zocor Tab) 20 mg QPM PO 03/28/17 21:00 04/27/17 20:59 Ferrous Sulfate (Feosol Tab) 325 mg BIDM PO 03/28/17 08:30 04/27/17 08:29 03/28/17 08:51 325 MG Pantoprazole Sodium (Protonix Tab) 40 mg QAM PO 03/28/17 09:00 04/27/17 08:59 03/28/17 08:51 40 MG Oxycodone/ Acetaminophen (Percocet 5-325mg Tab) pain not relieved by tylenol Q4H PRN PO 03/28/17 04:45 04/11/17 04:44 Ciprofloxacin (Consult) 1 ea UD PRN N/A 03/28/17 06:30 04/27/17 06:29 Insulin Glargine (Lantus Solostar Pen) 10 unit BID SC 03/28/17 21:00 04/27/17 20:59 Phenytoin Sodium 200 mg 200 mg BID PO 03/28/17 21:00 04/27/17 20:59 Phenobarbital Sodium 90 mg/ Syringe 1.3846 ml @ 0.923 mls/min Q12H IV 03/28/17 06:30 03/28/17 18:32 03/28/17 06:32 0.923 MLS/MIN Lorazepam 0.5 mg/ Syringe 1 ml @ 1 mls/min Q4H PRN IV 03/28/17 06:45 04/27/17 06:44 Ciprofloxacin/ Dextrose/Prmx (Cipro / D5w/ Premixed D5W) 200 ml @ 100 mls/hr Q12H IV 03/28/17 20:00 04/07/17 19:59 Ondansetron HCl (Zofran Inj) 4 mg Q6H PRN IV 03/28/17 06:45 04/27/17 06:44
[2017-03-28] MEDS: INSULIN ASPART 100 UNITS/ML 3 ML PEN SC SCH ×2 (12:54→18:05)
[2017-03-28 15:32] VITALS: BP 150/70; PULSE 90; TEMP 37.2; O2SAT 95; Ht 162.6 cm; Wt 72.2 kg
[2017-03-28] MEDS ORDERED: NURSING VERBAL MED ORDER ONE (18:30)
[2017-03-28] MEDS ORDERED: CHLORASEPTIC 1.4% SOLN 180 ML BTL MT PRN (18:30)
[2017-03-28] MEDS: CIPROFLOXACIN 400MG / D5W IV SCH (19:40)
[2017-03-28] MEDS: PHENYTOIN SODIUM ER 100 MG CAP PO SCH (20:35)
[2017-03-28] MEDS: INSULIN GLARGINE SOLOSTAR 100 UNITS/ML 3 ML PEN SC SCH (20:41)
[2017-03-28] MEDS ORDERED: SIMVASTATIN 20 MG TAB PO SCH (21:00)
[2017-03-28] MEDS ORDERED: NITROGLYCERIN 2.5 MG PO SCH (21:00)
[2017-03-28 23:46] VITALS: BP 144/76; PULSE 86; TEMP 37.6; O2SAT 97
[2017-03-29] MEDS: INSULIN ASPART 100 UNITS/ML 3 ML PEN SC SCH ×5 (00:12→20:50)
[2017-03-29] MEDS: METRONIDAZOLE / NSS 500 MG in PREMIXED NSS 100 ML IV SCH ×3 (06:04→22:35)
[2017-03-29 07:31] LABS: PHENOBARBITAL 4.6 mcg/mL (15.0-40.0)
[2017-03-29 07:37] LABS: BUN/CREATININE RATIO 25.2 (10-20); CALCIUM 7.6 mg/dl (8.5-10.1); CREATININE 0.55 mg/dl (0.60-1.20); POTASSIUM 3.7 mmol/L (3.5-5.1)
[2017-03-29 08:09] VITALS: BP 125/68; PULSE 79; TEMP 37.2; O2SAT 95
[2017-03-29 08:14] LABS: BASO % 0.1 %; BASO ABS # 0.01 K/uL (0-0.2); EOS % 3.1 %; HEMATOCRIT 31.9 % (37-47); IG% 0.2 %; LYMPH % 14.5 %; LYMPH ABS # 1.18 K/uL (1.2-3.4); MEAN CELL VOLUME 74.9 fL (80-100); MEAN CORPUSCULAR HEMOGLOBIN 21.8 pg (25-34); MEAN CORPUSCULAR HGB CONC 29.2 g/dl (32-36); MEAN PLATELET VOLUME 8.7 fL (7.4-10.4); MONO % 10.8 %; NEUT % 71.3 %; PLATELET COUNT 409 K/uL (130-400); RED BLOOD COUNT 4.26 M/uL (4.2-5.4); WHITE BLOOD COUNT 8.13 K/uL (4.8-10.8)
[2017-03-29] MEDS: LISINOPRIL 10 MG TAB PO SCH (08:22)
[2017-03-29] MEDS: SODIUM CHLORIDE 0.9% 1000ML 1,000 ML IV SCH ×2 (08:22→22:35)
[2017-03-29] MEDS: IPRATROPIUM BROMIDE/ALBUTEROL respimat INH INH SCH ×4 (08:22→20:48)
[2017-03-29] MEDS: CIPROFLOXACIN 400MG / D5W IV SCH ×2 (08:22→20:24)
[2017-03-29] MEDS: PHENYTOIN SODIUM ER 100 MG CAP PO SCH ×2 (08:23→20:49)
[2017-03-29] MEDS: ENOXAPARIN 40 MG/0.4 ML SYR SQ SCH (08:24)
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
[2017-03-29] MEDS: INSULIN GLARGINE SOLOSTAR 100 UNITS/ML 3 ML PEN SC SCH ×2 (08:48→20:50)
[2017-03-29 09:15] LABS: ANISOCYTOSIS PRESENT; COMPLETE YES; HYPOCHROMIA PRESENT
--- NOTE | 2017-03-29 09:16 | Surgery Progress Note ---
Surgery Progress Note Date of Service March 29, 2017. Subjective Post OP Day: HD # 1 + bowel movement, + feeling well, + flatus, + pain controlled, No SOB, No chest pain, No complaints, No nausea, No vomiting Objective Vital Signs: Date Time Temp Pulse Resp B/P Pulse Ox O2 Delivery O2 Flow Rate FiO2 03/29/17 08:09 37.2 79 16 125/68 95 Room Air 03/28/17 23:46 37.6 86 16 144/76 97 Room Air 03/28/17 19:05 Room Air 03/28/17 15:32 37.2 90 16 150/70 95 Room Air General Appearance: WD/WN, no apparent distress Head: normocephalic, atraumatic Neck: trachea midline Respiratory/Chest: normal breath sounds, no respiratory distress, no accessory muscle use Abdomen: non tender, non distended, soft, no organomegaly, + abnormal bowel sounds (hypoactive) Laboratory Results: Results Past 24 Hours Test 03/28/17 12:00 03/28/17 18:00 03/28/17 20:34 03/28/17 23:49 Range/Units Bedside Glucose 273 217 205 185 70-90 mg/dl Test 03/29/17 06:00 03/29/17 06:40 03/29/17 08:02 Range/Units Bedside Glucose 172 155 70-90 mg/dl White Blood Count 8.13 4.8-10.8 K/uL Red Blood Count 4.26 4.2-5.4 M/uL Hemoglobin 9.3 12.0-16.0 g/dL Hematocrit 31.9 37-47 % Mean Corpuscular Volume 74.9 80-100 fL Mean Corpuscular Hemoglobin 21.8 25-34 pg Mean Corpuscular Hemoglobin Concent 29.2 32-36 g/dl Platelet Count 409 130-400 K/uL Mean Platelet Volume 8.7 7.4-10.4 fL Neutrophils (%) (Auto) 71.3 % Lymphocytes (%) (Auto) 14.5 % Monocytes (%) (Auto) 10.8 % Eosinophils (%) (Auto) 3.1 % Basophils (%) (Auto) 0.1 % Neutrophils # (Auto) 5.79 1.4-6.5 K/uL Lymphocytes # (Auto) 1.18 1.2-3.4 K/uL Monocytes # (Auto) 0.88 0.11-0.59 K/uL Eosinophils # (Auto) 0.25 0-0.5 K/uL Basophils # (Auto) 0.01 0-0.2 K/uL RDW Standard Deviation 50.1 36.4-46.3 fL RDW Coefficient of Variation 18.2 11.5-14.5 % Immature Granulocyte % (Auto) 0.2 % Immature Granulocyte # (Auto) 0.02 0.00-0.02 K/uL Sodium Level 140 136-145 mmol/L Potassium Level 3.7 3.5-5.1 mmol/L Chloride Level 108 98-107 mmol/L Carbon Dioxide Level 23 21-32 mmol/L Anion Gap 9.0 3-11 mmol/L Blood Urea Nitrogen 14 7-18 mg/dl Creatinine 0.55 0.60-1.20 mg/dl Est Creatinine Clear Calc Drug Dose 100.7 ml/min Estimated GFR () 114.9 Estimated GFR (Non- 99.1 BUN/Creatinine Ratio 25.2 10-20 Random Glucose 170 70-99 mg/dl Calcium Level 7.6 8.5-10.1 mg/dl Phenytoin (Dilantin) Level 11.4 10-20 mcg/mL Phenobarbital Level 4.6 15.0-40.0 mcg/mL Assessment & Plan SBO History of Colon Cancer s/p resection in [place] - vitals stable - Leukocytosis resolved - abdomen soft and benign - NGT with minimal bilious output - per patient passing flatus and + bowel movement (regular this morning) Plan: D/C NGT Start clear liquids IF any nausea or abdominal pain advised patient to stop with liquids Continue current management per medicine service Dr. Summers has seen and examined patient, agrees with above
[2017-03-29] MEDS: PHENOBARBITAL 32.4 MG TAB PO SCH ×3 (10:11→20:54)
[2017-03-29] MEDS: LEVOTHYROXINE SODIUM INJ 25 MCG in SYRINGE 0 ML IV SCH (10:11)
--- NOTE | 2017-03-29 10:24 | Neurology Consultation ---
Neurology Consultation Date of Consultation: March 29, 2017. Attending Physician: Marisela Alejandro DO Primary Care Physician: Adam Mehta M.D. Reason for Consultation: Patient is a 66-year-old, who was asked to see the request of Dr. Alejandro, for neurologic consultation regarding epilepsy and anticonvulsant levels which are low. History of Present Illness Source: patient, clinic records, hospital records Apparently, the patient had some sort of significant head trauma requiring hospitalization (possible skull fracture) in her 20s or 30s. She has had seizures ever since this time. She first saw Dr. Rivers in April 2005 when she was already well controlled on Dilantin and phenobarbital. He These medications at the same doses and has been following levels intermittently since. He last saw her in October 2016. Her most recent MRI of the brain was in July 2014 and showed some diffuse nonspecific chronic ischemic changes with a 1.4 cm left frontal old area of encephalomalacia, possibly old stroke versus trauma. Dilantin level in April 2017 was 6.4 and phenobarbital level was 8.6 on her admission doses. The patient has been on Dilantin 200 mg twice a day as well as phenobarbital 32.4 mg twice a day. she has had no seizures for many years. Patient has been having issues with colon cancer and was admitted March 28 with a small bowel obstruction. Anticonvulsant levels on admission included a Dilantin level of less than 0.4 and a phenobarbital level less than 2.1 The patient herself has claimed more than once, that she is taking her medications regularly and daily. She was given 1 g of phenytoin IV and kept on 200 mg by mouth twice a day. Her level this morning was 11.4. She was also given 90 mg of phenobarbital IV but is currently on 32.4 mg 3 times a day. Her level this morning was 4.1. Patient has some fatigue and GI discomfort but has no headache, confusion, new vision problems, or any new symptoms in her arms or legs. She has had no seizures since admission. Past Medical/Surgical History Medical Problems: (1) Colitis Status: Acute (2) Dehydration Status: Acute (3) Diverticulitis Status: Acute (4) Intra-abdominal abscess Status: Acute (5) Lung nodule Status: Acute (6) Rash Status: Acute (7) Scabies Status: Acute (8) Small bowel obstruction Status: Acute Remote history of seizures controlled on Dilantin and phenobarbital. Historically she is running low levels of both and not had a seizures. Hypertension Dyslipidemia Type 2 diabetes History of colon cancer post surgery Small bowel obstruction Post appendectomy and cholecystectomy Family History Mother age 50 of an NM. Father age 93 of a blood clot Social History Patient quit cigarette smoking sometime in the past but I have no details regarding how much or how long she smoked. She does not use alcohol. 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 [employer] but has not worked for many years on disability Smoking Status: Former smoker Alcohol Use: occasionally Drug Use: none Marital Status: Housing Status: lives with family Occupation Status: retired, disabled Allergies Coded Allergies: Penicillins (Verified Allergy, Intermediate, HIVES, 03/28/17) BEE STING (Verified Allergy, Mild, ANAPHYLAXIS, 03/28/17) Aspirin (Verified Allergy, Unknown, RASH, 03/28/17) Codeine (Verified Allergy, Unknown, RASH, 03/28/17) Hydrochlorothiazide (Unverified Allergy, Unknown, low calcium, 03/28/17) Iodinated Diagnostic Agents (Unverified Allergy, Unknown, DIZZY AND LIGHTHEADED, 03/28/17) Iodine (Verified Allergy, Unknown, ARM SWELLING, 03/28/17) Morphine (Unverified Allergy, Unknown, "EFFECTS MOVEMENTS", 03/28/17) NSAIDs (Unverified Allergy, Unknown, RASH, 03/28/17) Current Inpatient Medications Current Inpatient Medications Medications (Trade) Dose Ordered Sig/[place] Route Start Time Stop Time Status Last Admin Dose Admin Metronidazole 500 mg/Prmx 100 ml @ 100 mls/hr Q8H IV 03/28/17 06:00 04/07/17 05:59 03/29/17 06:04 100 MLS/HR Sodium Chloride (Nss 1000ml) 1,000 ml @ 75 mls/hr [id number] IV 03/28/17 06:00 04/27/17 05:59 03/29/17 08:22 75 MLS/HR Enoxaparin Sodium (Lovenox Inj) 40 mg Q24H SQ 03/28/17 09:00 04/27/17 08:59 03/29/17 08:24 40 MG Insulin Aspart (novoLOG ASPART) SLIDING SCALE If C... Q6 SC 03/28/17 12:00 04/27/17 11:59 03/29/17 00:12 1 UNITS Glucose (Glucose 40% Gel) 15-30 GRAMS 15 GRAMS... UD PRN PO 03/28/17 04:45 04/27/17 04:44 Glucose (Glucose Chew Tab) 4-8 Tablets 4 Tabl... UD PRN PO 03/28/17 04:45 04/27/17 04:44 Dextrose (Dextrose 50% 50ML Syringe) 25-50ML OF 50% DW IV FOR... UD PRN IV 03/28/17 04:45 04/27/17 04:44 Glucagon (Glucagon Inj) 1 mg UD PRN SQ 03/28/17 04:45 04/27/17 04:44 Hydromorphone HCl (Dilaudid Inj) 0.5 mg Q3H PRN IV 03/28/17 04:45 04/11/17 04:44 Ondansetron HCl 4 mg 4 mg Q6H PRN IV 03/28/17 04:45 04/27/17 04:44 Promethazine HCl/ Sodium Chloride (Phenergan Inj/ Nss 50ml) 50.5 ml @ 204 mls/hr Q6H PRN IV 03/28/17 04:45 04/27/17 04:44 03/28/17 04:56 204 MLS/HR Albuterol/ Ipratropium (Combivent Respimat Inh) 1 puffs QID INH 03/28/17 09:00 04/27/17 08:59 03/29/17 08:22 1 PUFFS Lisinopril (Zestril Tab) 10 mg QAM PO 03/28/17 09:00 04/27/17 08:59 03/29/17 08:22 10 MG Phenobarbital (Phenobarbital Tab) 32.4 mg TID PO 03/29/17 09:00 04/28/17 08:59 Ciprofloxacin (Consult) 1 ea UD PRN N/A 03/28/17 06:30 04/27/17 06:29 Insulin Glargine (Lantus Solostar Pen) 10 unit BID SC 03/28/17 21:00 04/27/17 20:59 03/29/17 08:48 10 UNIT Phenytoin Sodium 200 mg 200 mg BID PO 03/28/17 21:00 04/27/17 20:59 03/29/17 08:23 200 MG Lorazepam 0.5 mg/ Syringe 1 ml @ 1 mls/min Q4H PRN IV 03/28/17 06:45 04/27/17 06:44 Ciprofloxacin/ Dextrose/Prmx (Cipro / D5w/ Premixed D5W) 200 ml @ 100 mls/hr Q12H IV 03/28/17 20:00 04/07/17 19:59 03/29/17 08:22 100 MLS/HR Ondansetron HCl 4 mg 4 mg Q6H PRN IV 03/28/17 06:45 04/27/17 06:44 Acetaminophen 650 mg/Empty Bag 65 ml @ 260 mls/hr Q6H PRN IV 03/28/17 11:00 04/27/17 10:59 Levothyroxine Sodium 25 mcg/ Syringe 1.25 ml @ 2 mls/min DAILY@09 IV 03/29/17 09:00 04/28/17 08:59 Pantoprazole Sodium/Syringe (Protonix Inj/ Syringe) 10 ml @ 5 mls/min NOW ONCE IV 03/29/17 11:00 03/29/17 11:01 Phenol (Chloraseptic 1.4% [place]) 2 sprays Q2H PRN MT 03/28/17 18:30 04/27/17 18:29 03/28/17 19:03 2 SPRAYS Review of Systems Constitutional: + fatigue, + weakness Eyes: No diplopia, No worsening of vision ENT: No hearing loss, No sore throat Respiratory: No cough, No shortness of breath Cardiovascular: No chest pain, No palpitations Abdomen: + nausea, + pain Musculoskeletal: No joint pain, No muscle pain Genitourinary - Female: No dysuria, No urinary incontinence Neurologic: + weakness, No balance problems, No memory loss, No numbness/ tingling, No vertigo Psychiatric: No anxiety, No depression symptoms Endocrine: + fatigue Hematologic / Lymphatic: No abnormal bleeding/bruising Integumentary: No rash Allergic / Immunologic: No hives Physical Exam Vital Signs (Past 24 Hrs): Date Time Temp Pulse Resp B/P Pulse Ox O2 Delivery O2 Flow Rate FiO2 03/29/17 08:09 37.2 79 16 125/68 95 Room Air 03/28/17 23:46 37.6 86 16 144/76 97 Room Air 03/28/17 19:05 Room Air 03/28/17 15:32 37.2 90 16 150/70 95 Room Air The patient is left-handed. The patient is awake and alert. Speech is normal without obvious aphasia or dysarthria. Mentation and thought processes are reasonable but I suspect some underlying cognitive problems. Mood and affect are normal and appropriate, although she appears tired. Appearance and grooming are normal. The discs to difficult to visualize because of dense cataracts bilaterally. Pupils are 2-3mm bilaterally and reactive to light. Extraocular eye muscles are intact without nystagmus, although she does not want to track for very long in any direction. Visual acuity and visual álvarez seem normal grossly to confrontation. There are no deficits to sensation of the face bilaterally. Corneal reflexes are positive bilaterally. Facial strength and symmetry is normal bilaterally. Hearing seems intact grossly to voice and finger rub. Palate moves well without asymmetry. There is normal sternocleidomastoid and trapezius strength bilaterally. Tongue is midline with good strength bilaterally. Neck is with full range of motion without discomfort. There are no cervical bruits. There are no cranial or ocular bruits. Heart is without murmur. Cervical, thoracic, and lumbar spine are nontender to palpation. Gait is narrow-based and stable With outstretched arms there is no drift. There are no resting, postural, or action tremors. There is no ataxia with [id number] testing. There is good facility in the hands. There are no abnormal involuntary movements noted. Motor strength is 5/5 diffusely in the arms bilaterally including deltoids, biceps, brachioradialis, wrist flexors and extensors, spinning mule tender, and intrinsic hand muscles. Motor strength is 5/5 diffusely in the legs bilaterally including hip flexors, quadriceps, hamstring, gastrocnemius, tibialis anterior, tibialis posterior, and peroneii muscles bilaterally. Toe extensors are normal and there is good bulk in the extensor digitorum brevis muscle bilaterally. The limbs have good tone without rigidity or spasticity, and there is no atrophy noted. Muscle bulk is normal, there is no tenderness, no myotonia noted to percussion, and no fasciculations seen. Sensory examination is intact to pin and touch throughout all four limbs. Reflexes are 1/4 in the biceps, triceps, brachioradialis, and quadriceps tendons bilaterally. Achilles reflexes were absent bilaterally. Toes are downgoing with plantar stimulation bilaterally. Peripheral pulses are present and of normal quality distally in all four limbs. There is no peripheral edema noted. Laboratory Results Past 24 Hours: 03/29/17 06:40 Red Blood Count 4.26, Mean Corpuscular Volume 74.9, Mean Corpuscular Hemoglobin 21.8, Mean Corpuscular Hemoglobin Concent 29.2, Mean Platelet Volume 8.7, Neutrophils (%) (Auto) 71.3, Lymphocytes (%) (Auto) 14.5, Monocytes (%) (Auto) 10.8, Eosinophils (%) (Auto) 3.1, Basophils (%) (Auto) 0.1, Neutrophils # (Auto ) 5.79, Lymphocytes # (Auto) 1.18, Monocytes # (Auto) 0.88, Eosinophils # (Auto ) 0.25, Basophils # (Auto) 0.01 03/29/17 06:40 Test 03/29/17 06:40 03/29/17 08:02 White Blood Count 8.13 K/uL (4.8-10.8) Red Blood Count 4.26 M/uL (4.2-5.4) Hemoglobin 9.3 g/dL (12.0-16.0) Hematocrit 31.9 % (37-47) Mean Corpuscular Volume 74.9 fL (80-100) Mean Corpuscular Hemoglobin 21.8 pg (25-34) Mean Corpuscular Hemoglobin Concent 29.2 g/dl (32-36) Platelet Count 409 K/uL (130-400) Mean Platelet Volume 8.7 fL (7.4-10.4) Neutrophils (%) (Auto) 71.3 % Lymphocytes (%) (Auto) 14.5 % Monocytes (%) (Auto) 10.8 % Eosinophils (%) (Auto) 3.1 % Basophils (%) (Auto) 0.1 % Neutrophils # (Auto) 5.79 K/uL (1.4-6.5) Lymphocytes # (Auto) 1.18 K/uL (1.2-3.4) Monocytes # (Auto) 0.88 K/uL (0.11-0.59) Eosinophils # (Auto) 0.25 K/uL (0-0.5) Basophils # (Auto) 0.01 K/uL (0-0.2) RDW Standard Deviation 50.1 fL (36.4-46.3) RDW Coefficient of Variation 18.2 % (11.5-14.5) Immature Granulocyte % (Auto) 0.2 % Immature Granulocyte # (Auto) 0.02 K/uL (0.00-0.02) Hypochromasia PRESENT Anisocytosis PRESENT Anion Gap 9.0 mmol/L (3-11) Est Creatinine Clear Calc Drug Dose 100.7 ml/min Estimated GFR () 114.9 Estimated GFR (Non- 99.1 BUN/Creatinine Ratio 25.2 (10-20) Calcium Level 7.6 mg/dl (8.5-10.1) Phenytoin (Dilantin) Level 11.4 mcg/mL (10-20) Phenobarbital Level 4.6 mcg/mL (15.0-40.0) Bedside Glucose 155 mg/dl (70-90) Impression 1. Long-standing seizure disorder likely secondary to previous head trauma She has been quite stable on low doses of both phenobarbital and Dilantin. On admission her levels were not existent. This could be secondary to noncompliance (although she denies this) or lack of absorption from her GI issues. Levels were improved with IV medication administration. 2. 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 History of colon cancer with small bowel obstruction. Overall she is stable neurologically without focal neurologic findings Plan 1. Keep Dilantin 200 mg by mouth twice a day 2. I would taper her off phenobarbital lowering her to 32.4 mg one half tablet twice a for 1 week and then stop. 3. Follow daily Dilantin levels. 4. I see no need for EEG or MRI in this patient. I will follow.
[2017-03-29] MEDS ORDERED: PANTOprazole INJ 40 MG in SYRINGE 0 ML IV ONE (11:00)
[2017-03-29 15:18] VITALS: BP 107/68; PULSE 88; TEMP 36.8; O2SAT 96
--- NOTE | 2017-03-29 16:16 | Progress Note ---
Subjective Date of Service: March 29, 2017. Subjective Pt evaluation today including: conversation w/ patient, physical exam, lab review, review of studies, review of inpatient medication list Saw/examined the patient in room 357 +passing gas, +bowel movement pain improved tolerated clears for now Problem List Medical Problems: (1) Colitis Status: Acute (2) Dehydration Status: Acute (3) Diverticulitis Status: Acute (4) Intra-abdominal abscess Status: Acute (5) Lung nodule Status: Acute (6) Rash Status: Acute (7) Scabies Status: Acute (8) Small bowel obstruction Status: Acute Review of Systems Constitutional: No chills, No fever, No weakness Respiratory: No cough, No shortness of breath, No sputum Cardiac: No chest pain Abdomen: No GI bleeding, No constipation (resolved), No diarrhea, No nausea, No pain (improved), No vomiting Medications Current Inpatient Medications Medications (Trade) Dose Ordered Sig/[place] Route Start Time Stop Time Status Last Admin Dose Admin Metronidazole 500 mg/Prmx 100 ml @ 100 mls/hr Q8H IV 03/28/17 06:00 04/07/17 05:59 03/29/17 13:59 100 MLS/HR Sodium Chloride (Nss 1000ml) 1,000 ml @ 75 mls/hr [id number] IV 03/28/17 06:00 04/27/17 05:59 03/29/17 08:22 75 MLS/HR Enoxaparin Sodium (Lovenox Inj) 40 mg Q24H SQ 03/28/17 09:00 04/27/17 08:59 03/29/17 08:24 40 MG Insulin Aspart (novoLOG ASPART) SLIDING SCALE If C... Q6 SC 03/28/17 12:00 04/27/17 11:59 03/29/17 13:25 1 UNITS Glucose (Glucose 40% Gel) 15-30 GRAMS 15 GRAMS... UD PRN PO 03/28/17 04:45 04/27/17 04:44 Glucose (Glucose Chew Tab) 4-8 Tablets 4 Tabl... UD PRN PO 03/28/17 04:45 04/27/17 04:44 Dextrose (Dextrose 50% 50ML Syringe) 25-50ML OF 50% DW IV FOR... UD PRN IV 03/28/17 04:45 6/8/17 04:44 Glucagon (Glucagon Inj) 1 mg UD PRN SQ 03/28/17 04:45 04/27/17 04:44 Hydromorphone HCl (Dilaudid Inj) 0.5 mg Q3H PRN IV 03/28/17 04:45 04/11/17 04:44 Ondansetron HCl 4 mg 4 mg Q6H PRN IV 03/28/17 04:45 04/27/17 04:44 Promethazine HCl/ Sodium Chloride (Phenergan Inj/ Nss 50ml) 50.5 ml @ 204 mls/hr Q6H PRN IV 03/28/17 04:45 04/27/17 04:44 03/28/17 04:56 204 MLS/HR Albuterol/ Ipratropium (Combivent Respimat Inh) 1 puffs QID INH 03/28/17 09:00 04/27/17 08:59 03/29/17 13:26 1 PUFFS Lisinopril (Zestril Tab) 10 mg QAM PO 03/28/17 09:00 04/27/17 08:59 03/29/17 08:22 10 MG Phenobarbital (Phenobarbital Tab) 32.4 mg TID PO 03/29/17 09:00 04/28/17 08:59 03/29/17 13:59 32.4 MG Ciprofloxacin (Consult) 1 ea UD PRN N/A 03/28/17 06:30 04/27/17 06:29 Insulin Glargine (Lantus Solostar Pen) 10 unit BID SC 03/28/17 21:00 04/27/17 20:59 03/29/17 08:48 10 UNIT Phenytoin Sodium 200 mg 200 mg BID PO 03/28/17 21:00 04/27/17 20:59 03/29/17 08:23 200 MG Lorazepam 0.5 mg/ Syringe 1 ml @ 1 mls/min Q4H PRN IV 03/28/17 06:45 04/27/17 06:44 Ciprofloxacin/ Dextrose/Prmx (Cipro / D5w/ Premixed D5W) 200 ml @ 100 mls/hr Q12H IV 03/28/17 20:00 04/07/17 19:59 03/29/17 08:22 100 MLS/HR Ondansetron HCl 4 mg 4 mg Q6H PRN IV 03/28/17 06:45 04/27/17 06:44 Acetaminophen 650 mg/Empty Bag 65 ml @ 260 mls/hr Q6H PRN IV 03/28/17 11:00 04/27/17 10:59 Levothyroxine Sodium/Syringe (Synthroid Inj/ Syringe) 1.25 ml @ 2 mls/min DAILY@09 IV 03/29/17 09:00 04/28/17 08:59 03/29/17 10:11 2 MLS/MIN Phenol (Chloraseptic 1.4% [place]) 2 sprays Q2H PRN MT 03/28/17 18:30 04/27/17 18:29 03/28/17 19:03 2 SPRAYS Objective Vital Signs Date Time Temp Pulse Resp B/P Pulse Ox O2 Delivery O2 Flow Rate FiO2 03/29/17 15:18 36.8 88 16 107/68 96 Room Air 03/29/17 08:15 Room Air 03/29/17 08:09 37.2 79 16 125/68 95 Room Air 03/28/17 23:46 37.6 86 16 144/76 97 Room Air 03/28/17 19:05 Room Air Physical Exam General Appearance: no apparent distress Respiratory/Chest: no respiratory distress, no accessory muscle use Cardiovascular: regular rate, rhythm, no murmur Abdomen: normal bowel sounds, non tender, soft, + pertinent finding (no distention, non tender, +normoactive bowel sounds) Laboratory Results Last 24 Hours Test 03/28/17 18:00 03/28/17 20:34 03/28/17 23:49 03/29/17 06:00 Bedside Glucose 217 mg/dl 205 mg/dl 185 mg/dl 172 mg/dl Test 03/29/17 06:40 03/29/17 08:02 White Blood Count 8.13 K/uL Red Blood Count 4.26 M/uL Hemoglobin 9.3 g/dL Hematocrit 31.9 % Mean Corpuscular Volume 74.9 fL Mean Corpuscular Hemoglobin 21.8 pg Mean Corpuscular Hemoglobin Concent 29.2 g/dl Platelet Count 409 K/uL Mean Platelet Volume 8.7 fL Neutrophils (%) (Auto) 71.3 % Lymphocytes (%) (Auto) 14.5 % Monocytes (%) (Auto) 10.8 % Eosinophils (%) (Auto) 3.1 % Basophils (%) (Auto) 0.1 % Neutrophils # (Auto) 5.79 K/uL Lymphocytes # (Auto) 1.18 K/uL Monocytes # (Auto) 0.88 K/uL Eosinophils # (Auto) 0.25 K/uL Basophils # (Auto) 0.01 K/uL RDW Standard Deviation 50.1 fL RDW Coefficient of Variation 18.2 % Immature Granulocyte % (Auto) 0.2 % Immature Granulocyte # (Auto) 0.02 K/uL Hypochromasia PRESENT Anisocytosis PRESENT Sodium Level 140 mmol/L Potassium Level 3.7 mmol/L Chloride Level 108 mmol/L Carbon Dioxide Level 23 mmol/L Anion Gap 9.0 mmol/L Blood Urea Nitrogen 14 mg/dl Creatinine 0.55 mg/dl Est Creatinine Clear Calc Drug Dose 100.7 ml/min Estimated GFR () 114.9 Estimated GFR (Non- 99.1 BUN/Creatinine Ratio 25.2 Random Glucose 170 mg/dl Calcium Level 7.6 mg/dl Phenytoin (Dilantin) Level 11.4 mcg/mL Phenobarbital Level 4.6 mcg/mL Bedside Glucose 155 mg/dl Assessment and Plan This is a 66 year old female with a PMH of colon carcinoma s/p partial resection , CAD s/p stents, HTN, HLD, insulin dependent DM2, hx. of CVA, hypothyroidism, hx. of pulmonary nodules, chronic anemia presents with a small bowel obstruction Small Bowel Obstruction likely secondary to adhesions has had partial resection due to colon carcinoma as well as peritoneal wall surgery was NPO, IVFs, NGT placed NGT removed this AM due to bowel movement, passing gas now on clears, will advance slowly as per general surgery currently on Cipro + Flagyl, which we can continue for now; though does not seem infectious at this time Hx. of Seizure Disorder takes Dilantin + phenobarbital appreciate neurology input will continue Dilantin 200mg BID Phenobarbital down to 37.5mg BID x 1 week, then d/c appreciate neurology input Insulin Dependent DM2 for now, on Lantus 10 units BID insulin sliding scale slowly advancing diet and will adjust insulin dose accordingly CAD s/p stents can restart statin on discharge continue SANDY-I Hypothyroidism continue Synthroid DVT ppx SCDs FULL CODE
[2017-03-29] MEDS ORDERED: NURSING VERBAL MED ORDER ONE (16:30)
[2017-03-29] MEDS ORDERED: POTASSIUM CHLORIDE 10 MEQ TABCR PO ONE (16:45)
[2017-03-29 23:43] VITALS: BP 138/71; PULSE 77; TEMP 36.9; O2SAT 98
[2017-03-30] MEDS ORDERED: NURSING DECISION MEDICATION ORDER SCH (05:30)
[2017-03-30] MEDS: METRONIDAZOLE / NSS 500 MG in PREMIXED NSS 100 ML IV SCH (05:35)
[2017-03-30 06:08] LABS: HEMATOCRIT 33.2 % (37-47); MEAN CELL VOLUME 75.5 fL (80-100); MEAN CORPUSCULAR HGB CONC 29.2 g/dl (32-36); MEAN PLATELET VOLUME 8.5 fL (7.4-10.4); PLATELET COUNT 413 K/uL (130-400); WHITE BLOOD COUNT 6.44 K/uL (4.8-10.8)
[2017-03-30 06:45] LABS: BUN/CREATININE RATIO 18.1 (10-20); CREATININE 0.59 mg/dl (0.60-1.20); MAGNESIUM 2.3 mg/dl (1.8-2.4); POTASSIUM 3.4 mmol/L (3.5-5.1)
[2017-03-30 06:57] LABS: CALCIUM 8.3 mg/dl (8.5-10.1)
[2017-03-30] MEDS: CIPROFLOXACIN 400MG / D5W IV SCH (07:44)
[2017-03-30 07:52] VITALS: BP 130/78; PULSE 72; TEMP 36.8; O2SAT 97
[2017-03-30] MEDS ORDERED: POTASSIUM CHLORIDE 10 MEQ TABCR PO STA (07:58)
[2017-03-30] MEDS: INSULIN ASPART 100 UNITS/ML 3 ML PEN SC SCH ×2 (08:00→12:00)
[2017-03-30 08:27] VITALS: BP 149/78; PULSE 78
[2017-03-30] MEDS: IPRATROPIUM BROMIDE/ALBUTEROL respimat INH INH SCH (08:27)
[2017-03-30] MEDS: ENOXAPARIN 40 MG/0.4 ML SYR SQ SCH (08:27)
[2017-03-30] MEDS: PHENYTOIN SODIUM ER 100 MG CAP PO SCH (08:28)
[2017-03-30] MEDS: LISINOPRIL 10 MG TAB PO SCH (08:28)
[2017-03-30] MEDS: LEVOTHYROXINE SODIUM INJ 25 MCG in SYRINGE 0 ML IV SCH (08:29)
[2017-03-30] MEDS: PHENOBARBITAL 32.4 MG TAB PO SCH (08:33)
[2017-03-30] MEDS: INSULIN GLARGINE SOLOSTAR 100 UNITS/ML 3 ML PEN SC SCH (08:56)
--- NOTE | 2017-03-30 09:07 | Surgery Progress Note ---
Surgery Progress Note Date of Service March 30, 2017. Subjective + feeling well pt passed gas and stool, pt has no abdominal pain, she tolerated diet, Objective Vital Signs: Date Time Temp Pulse Resp B/P Pulse Ox O2 Delivery O2 Flow Rate FiO2 03/30/17 07:52 36.8 72 16 130/78 97 Room Air 03/30/17 07:25 Room Air 03/29/17 23:43 36.9 77 16 138/71 98 Room Air 03/29/17 23:20 Room Air 03/29/17 15:18 Room Air 03/29/17 15:18 36.8 88 16 107/68 96 Room Air General Appearance: WD/WN Head: normocephalic Neck: supple, no JVD Respiratory/Chest: chest non-tender, lungs clear Cardiovascular: regular rate, rhythm, no edema, no JVD Abdomen: normal bowel sounds, non tender, non distended, soft Extremities: non-tender, normal inspection Laboratory Results: Results Past 24 Hours Test 03/29/17 12:27 03/29/17 16:48 03/29/17 20:28 03/30/17 05:41 Range/Units Bedside Glucose 196 155 186 70-90 mg/dl White Blood Count 6.44 4.8-10.8 K/uL Red Blood Count 4.40 4.2-5.4 M/uL Hemoglobin 9.7 12.0-16.0 g/dL Hematocrit 33.2 37-47 % Mean Corpuscular Volume 75.5 80-100 fL Mean Corpuscular Hemoglobin 22.0 25-34 pg Mean Corpuscular Hemoglobin Concent 29.2 32-36 g/dl RDW Standard Deviation 50.9 36.4-46.3 fL RDW Coefficient of Variation 18.3 11.5-14.5 % Platelet Count 413 130-400 K/uL Mean Platelet Volume 8.5 7.4-10.4 fL Sodium Level 142 136-145 mmol/L Potassium Level 3.4 3.5-5.1 mmol/L Chloride Level 111 98-107 mmol/L Carbon Dioxide Level 23 21-32 mmol/L Anion Gap 8.0 3-11 mmol/L Blood Urea Nitrogen 11 7-18 mg/dl Creatinine 0.59 0.60-1.20 mg/dl Est Creatinine Clear Calc Drug Dose 93.9 ml/min Estimated GFR () 112.3 Estimated GFR (Non- 96.9 BUN/Creatinine Ratio 18.1 10-20 Random Glucose 81 70-99 mg/dl Calcium Level 8.3 8.5-10.1 mg/dl Magnesium Level 2.3 1.8-2.4 mg/dl Test 03/30/17 08:14 Range/Units Bedside Glucose 99 70-90 mg/dl Assessment & Plan resolved SBO, I sign off today, pt can be discharged home today, Please call me if anything change. F/U me in 1 week, Thanks, regular diet
--- NOTE | 2017-03-30 10:28 | Progress Note ---
Subjective Date of Service: March 30, 2017. Subjective Pt evaluation today including: conversation w/ patient, physical exam, lab review, review of studies, review of inpatient medication list Saw/examined the patient in room 357 She's doing well, tolerating food No abdominal pain, no diarrhea, no nausea/vomiting Eager to go home Problem List Medical Problems: (1) Colitis Status: Acute (2) Dehydration Status: Acute (3) Diverticulitis Status: Acute (4) Intra-abdominal abscess Status: Acute (5) Lung nodule Status: Acute (6) Rash Status: Acute (7) Scabies Status: Acute (8) Small bowel obstruction Status: Acute Review of Systems Constitutional: No chills, No fever Abdomen: No diarrhea, No nausea, No pain, No vomiting Medications Current Inpatient Medications Medications (Trade) Dose Ordered Sig/[place] Route Start Time Stop Time Status Last Admin Dose Admin Metronidazole/Prmx (Flagyl / Nss/ Premixed Nss) 100 ml @ 100 mls/hr Q8H IV 03/28/17 06:00 04/07/17 05:59 03/30/17 05:35 100 MLS/HR Enoxaparin Sodium (Lovenox Inj) 40 mg Q24H SQ 03/28/17 09:00 04/27/17 08:59 03/30/17 08:27 40 MG Glucose (Glucose 40% Gel) 15-30 GRAMS 15 GRAMS... UD PRN PO 03/28/17 04:45 04/27/17 04:44 Glucose (Glucose Chew Tab) 4-8 Tablets 4 Tabl... UD PRN PO 03/28/17 04:45 04/27/17 04:44 Dextrose (Dextrose 50% 50ML Syringe) 25-50ML OF 50% DW IV FOR... UD PRN IV 03/28/17 04:45 04/27/17 04:44 Glucagon (Glucagon Inj) 1 mg UD PRN SQ 03/28/17 04:45 04/27/17 04:44 Hydromorphone HCl (Dilaudid Inj) 0.5 mg Q3H PRN IV 03/28/17 04:45 04/11/17 04:44 Ondansetron HCl 4 mg 4 mg Q6H PRN IV 03/28/17 04:45 04/27/17 04:44 Promethazine HCl/ Sodium Chloride (Phenergan Inj/ Nss 50ml) 50.5 ml @ 204 mls/hr Q6H PRN IV 03/28/17 04:45 04/27/17 04:44 03/28/17 04:56 204 MLS/HR Albuterol/ Ipratropium (Combivent Respimat Inh) 1 puffs QID INH 03/28/17 09:00 04/27/17 08:59 03/30/17 08:27 1 PUFFS Lisinopril (Zestril Tab) 10 mg QAM PO 03/28/17 09:00 04/27/17 08:59 03/30/17 08:28 10 MG Ciprofloxacin (Consult) 1 ea UD PRN N/A 03/28/17 06:30 04/27/17 06:29 Insulin Glargine (Lantus Solostar Pen) 10 unit BID SC 03/28/17 21:00 04/27/17 20:59 03/30/17 08:56 10 UNIT Phenytoin Sodium 200 mg 200 mg BID PO 03/28/17 21:00 04/27/17 20:59 03/30/17 08:28 200 MG Lorazepam 0.5 mg/ Syringe 1 ml @ 1 mls/min Q4H PRN IV 03/28/17 06:45 04/27/17 06:44 Ciprofloxacin/ Dextrose/Prmx (Cipro / D5w/ Premixed D5W) 200 ml @ 100 mls/hr Q12H IV 03/28/17 20:00 04/07/17 19:59 03/30/17 07:44 100 MLS/HR Ondansetron HCl 4 mg 4 mg Q6H PRN IV 03/28/17 06:45 04/27/17 06:44 Acetaminophen 650 mg/Empty Bag 65 ml @ 260 mls/hr Q6H PRN IV 03/28/17 11:00 04/27/17 10:59 Levothyroxine Sodium/Syringe (Synthroid Inj/ Syringe) 1.25 ml @ 2 mls/min DAILY@09 IV 03/29/17 09:00 04/28/17 08:59 03/29/17 10:11 2 MLS/MIN Phenol (Chloraseptic 1.4% [place]) 2 sprays Q2H PRN MT 03/28/17 18:30 04/27/17 18:29 03/28/17 19:03 2 SPRAYS Phenobarbital (Phenobarbital Tab) 32.4 mg BID PO 03/29/17 21:00 04/28/17 20:59 03/30/17 08:33 32.4 MG Insulin Aspart (novoLOG ASPART) SLIDING SCALE If C... ACHS SC 03/29/17 17:15 04/28/17 17:14 03/29/17 20:50 1 UNITS Objective Vital Signs Date Time Temp Pulse Resp B/P Pulse Ox O2 Delivery O2 Flow Rate FiO2 03/30/17 09:38 Room Air 03/30/17 08:27 78 149/78 03/30/17 07:52 36.8 72 16 130/78 97 Room Air 03/30/17 07:25 Room Air 03/29/17 23:43 36.9 77 16 138/71 98 Room Air 03/29/17 23:20 Room Air 03/29/17 15:18 Room Air 03/29/17 15:18 36.8 88 16 107/68 96 Room Air Physical Exam General Appearance: no apparent distress Respiratory/Chest: no respiratory distress, no accessory muscle use Abdomen: normal bowel sounds, non tender, soft Laboratory Results Last 24 Hours Test 03/29/17 12:27 03/29/17 16:48 03/29/17 20:28 03/30/17 05:41 Bedside Glucose 196 mg/dl 155 mg/dl 186 mg/dl White Blood Count 6.44 K/uL Red Blood Count 4.40 M/uL Hemoglobin 9.7 g/dL Hematocrit 33.2 % Mean Corpuscular Volume 75.5 fL Mean Corpuscular Hemoglobin 22.0 pg Mean Corpuscular Hemoglobin Concent 29.2 g/dl RDW Standard Deviation 50.9 fL RDW Coefficient of Variation 18.3 % Platelet Count 413 K/uL Mean Platelet Volume 8.5 fL Sodium Level 142 mmol/L Potassium Level 3.4 mmol/L Chloride Level 111 mmol/L Carbon Dioxide Level 23 mmol/L Anion Gap 8.0 mmol/L Blood Urea Nitrogen 11 mg/dl Creatinine 0.59 mg/dl Est Creatinine Clear Calc Drug Dose 93.9 ml/min Estimated GFR () 112.3 Estimated GFR (Non- 96.9 BUN/Creatinine Ratio 18.1 Random Glucose 81 mg/dl Calcium Level 8.3 mg/dl Magnesium Level 2.3 mg/dl Test 03/30/17 08:14 Bedside Glucose 99 mg/dl Assessment and Plan This is a 66 year old female with a PMH of colon carcinoma s/p partial resection , CAD s/p stents, HTN, HLD, insulin dependent DM2, hx. of CVA, hypothyroidism, hx. of pulmonary nodules, chronic anemia presents with a small bowel obstruction Small Bowel Obstruction 03/30 appreciate general surgery input resolved SBO will d/c home today on low residue diet 03/29 likely secondary to adhesions has had partial resection due to colon carcinoma as well as peritoneal wall surgery was NPO, IVFs, NGT placed NGT removed this AM due to bowel movement, passing gas now on clears, will advance slowly as per general surgery currently on Cipro + Flagyl, which we can continue for now; though does not seem infectious at this time Hx. of Seizure Disorder takes Dilantin + phenobarbital appreciate neurology input will continue Dilantin 200mg BID Phenobarbital down to 37.5mg BID x 1 week, then d/c appreciate neurology input Insulin Dependent DM2 for now, on Lantus 10 units BID insulin sliding scale slowly advancing diet and will adjust insulin dose accordingly CAD s/p stents can restart statin on discharge continue SANDY-I Hypothyroidism continue Synthroid DVT ppx SCDs FULL CODE Discharge planning: home
[2017-03-30] MEDS ORDERED: PHEN32.44 PO (10:46)
--- NOTE | 2017-03-30 10:54 | Discharge Instructions ---
Discharge Instructions Date of Service March 30, 2017. Admission Reason for Admission: SBO Discharge Discharge Diagnosis / Problem: Small bowel obstruction Discharge Goals Goal(s): Decrease discomfort, Improve function, Diagnostic testing, Therapeutic intervention Activity Recommendations Activity Limitations: resume your previous activity . Instructions / Follow-Up Instructions / Follow-Up Please follow-up with Dr. Mehta on April 05 @ 10:40AM Please follow-up with general surgery, Dr. Summers, in one week * please follow a low fiber diet until follow-up with general surgery * You are to take half a tablet of 37.5mg Phenobarbital twice a day x 1 week, then stop taking this medication altogether - follow-up with neurology as an outpatient * Please follow-up with oncology - you should receive chemotherapy to prevent recurrence of colon cancer Current Hospital Diet Patient's current hospital diet: Clear Liquid Diet, Diabetes Type 2 Diet Discharge Diet Recommended Diet: Low Fiber Diet Pending Studies Studies pending at discharge: no Medical Emergencies . Who to Call and When: Medical Emergencies: If at any time you feel your situation is an emergency, please call 911 immediately. . Non-Emergent Contact Non-Emergency issues call your: Primary Care Provider . . "Provider Documentation" section prepared by Ilia Tesfaye. . VTE Core Measure Inpt VTE Proph given/why not?: SCD's
--- NOTE | 2017-03-30 10:57 | Discharge Summary ---
Discharge Summary Date of Service March 30, 2017. Discharge Summary Admission Date: March 28, 2017 at 04:25 Discharge Date: March 30, 2017 Discharge Disposition: Home Principal Diagnosis: Small Bowel Obstruction Hx. of Colon Cancer s/p resection Seizure Disorder Medication Reconciliation Changed Medications: Phenobarbital (Phenobarbital) 32.4 Mg Tab 0.5 TAB PO BID for 7 Days, #7 TAB (Changed from: 1 TAB; TID) Continued Medications: Baclofen (Lioresal) 10 Mg Tab 10 MG PO UD, TAB Calcium Carbonate (Calcium) 600 Mg Tab 600 MG PO BID Docusate Sodium (Colace) 100 Mg Cap 100 MG PO BID PRN for Constipation Ferrous Sulfate (Iron) 325 Mg Tab 325 MG PO BID Insulin Lispro Protamine & Lis (Humalog Mix 50/50) 1 Inj Inj 40 UNITS SC BID Ipratropium-Albuterol (Combivent Respimat) 1 Aer Aer 1 PUFFS INH QID Levothyroxine Sodium (Synthroid) 50 Mcg Tab 50 MCG PO QAM Lisinopril (Zestril) 10 Mg Tab 10 MG PO QAM Loratadine (Claritin) 10 Mg Tab 10 MG PO DAILY, TAB Nitroglycerin (Nitroglycerin Er) 2.5 Mg Cap 2.5 MG PO QPM Ondansetron Hcl (Zofran) 4 Mg Tab 4 MG PO Q8 PRN for Nausea, TAB Pantoprazole (Protonix) 20 Mg Tab 20 MG PO QAM Phenytoin Sodium (Dilantin) 100 Mg Cap 200 MG PO BID Simvastatin (Zocor) 20 Mg Tab 20 MG PO QPM Tramadol (Ultram) 50 Mg Tab 50 MG PO Q6H PRN for Pain Triamcinolone Acet (Aristocort 0.1%) 90 Appln/30 Gm Cr 1 APPL TOP UD Discontinued Medications: Doxycycline Hyclate (Doxycycline Hyclate) 100 Mg Tab 100 MG PO BID Admission Information HPI (per Admitting provider): The patient is a 66 year old female who presents to the Emergency Room with complaints of persistent diffuse abdominal pain since approximately 1999 tonight. The pain is rated 10/10 in severity. The patient also complains of nausea and vomiting. Her last bowel movement was this morning. She did not experience diarrhea or blood in her stool. She denies hematemesis. She has not taken anything for pain or nausea. The patient has a history of colon cancer. She had surgery on December 13 per . The patient is not currently receiving chemotherapy or radiation. The patient ate a piece of chicken prior to the onset of her symptoms tonight. I did history and physical exam on pt, now pt has no abdominal pain, no nausea, no vomiting, pt is on NG tube. pt denies fever, Physical Exam (per Admitting): General Appearance: WD/WN Head: normocephalic Eyes: normal inspection Neck: supple, no JVD Respiratory/Chest: chest non-tender, lungs clear, normal breath sounds Cardiovascular: regular rate, rhythm, no edema, no gallop, no JVD Abdomen/GI: normal bowel sounds, non tender, soft, no organomegaly (middle line incision healed well, ) Extremities/Musculoskelatal: normal inspection, no calf tenderness Neurologic/Psych: alert, normal mood/affect Skin: normal color, warm/dry, no rash Hospital Course This is a 66 year old female with a PMH of colon carcinoma s/p partial resection , CAD s/p stents, HTN, HLD, insulin dependent DM2, hx. of CVA, hypothyroidism, hx. of pulmonary nodules, chronic anemia presents with a small bowel obstruction Small Bowel Obstruction 03/30 appreciate general surgery input resolved SBO will d/c home today on low residue diet 03/29 likely secondary to adhesions has had partial resection due to colon carcinoma as well as peritoneal wall surgery was NPO, IVFs, NGT placed NGT removed this AM due to bowel movement, passing gas now on clears, will advance slowly as per general surgery currently on Cipro + Flagyl, which we can continue for now; though does not seem infectious at this time Hx. of Seizure Disorder takes Dilantin + phenobarbital appreciate neurology input will continue Dilantin 200mg BID Phenobarbital down to 37.5mg BID x 1 week, then d/c appreciate neurology input Insulin Dependent DM2 for now, on Lantus 10 units BID insulin sliding scale slowly advancing diet and will adjust insulin dose accordingly CAD s/p stents can restart statin on discharge continue SANDY-I Hypothyroidism continue Synthroid DVT ppx SCDs FULL CODE Discharge planning: home Total time spent on discharge = 45 minutes This includes examination of the patient, discharge planning, medication reconciliation, and communication with other providers. Discharge Instructions Please follow-up with Dr. Mehta on April 05 @ 10:40AM Please follow-up with general surgery, Dr. Summers, in one week * please follow a low fiber diet until follow-up with general surgery * You are to take half a tablet of 37.5mg Phenobarbital twice a day x 1 week, then stop taking this medication altogether - follow-up with neurology as an outpatient * Please follow-up with oncology - you should receive chemotherapy to prevent recurrence of colon cancer
[2017-03-30 11:00] VITALS: BP 149/78; PULSE 78; TEMP 36.8; O2SAT 97
--- NOTE | 2017-03-30 11:10 | Neurology Progress Notes ---
Neurology Progress Note Date of Service March 30, 2017. Subjective Patient feels that she is doing much better. She feels better and has no pain or dizziness. She has not had any seizures since admitted to the hospital. Objective Date Time Temp Pulse Resp B/P Pulse Ox O2 Delivery O2 Flow Rate FiO2 03/30/17 11:00 36.8 78 16 97 Room Air 03/30/17 09:38 Room Air 03/30/17 08:27 78 149/78 03/30/17 07:52 36.8 72 16 130/78 97 Room Air 03/30/17 07:25 Room Air 03/29/17 23:43 36.9 77 16 138/71 98 Room Air 03/29/17 23:20 Room Air 03/29/17 15:18 Room Air 03/29/17 15:18 36.8 88 16 107/68 96 Room Air Last 24 Hours Test 03/29/17 12:27 03/29/17 16:48 03/29/17 20:28 03/30/17 05:41 Bedside Glucose 196 mg/dl 155 mg/dl 186 mg/dl White Blood Count 6.44 K/uL Red Blood Count 4.40 M/uL Hemoglobin 9.7 g/dL Hematocrit 33.2 % Mean Corpuscular Volume 75.5 fL Mean Corpuscular Hemoglobin 22.0 pg Mean Corpuscular Hemoglobin Concent 29.2 g/dl RDW Standard Deviation 50.9 fL RDW Coefficient of Variation 18.3 % Platelet Count 413 K/uL Mean Platelet Volume 8.5 fL Sodium Level 142 mmol/L Potassium Level 3.4 mmol/L Chloride Level 111 mmol/L Carbon Dioxide Level 23 mmol/L Anion Gap 8.0 mmol/L Blood Urea Nitrogen 11 mg/dl Creatinine 0.59 mg/dl Est Creatinine Clear Calc Drug Dose 93.9 ml/min Estimated GFR () 112.3 Estimated GFR (Non- 96.9 BUN/Creatinine Ratio 18.1 Random Glucose 81 mg/dl Calcium Level 8.3 mg/dl Magnesium Level 2.3 mg/dl Test 03/30/17 08:14 Bedside Glucose 99 mg/dl Exam: She is awake and alert. Speech is normal without aphasia or dysarthria. Mood and affect are normal and appropriate. Thought processes seem intact. Coordination is reasonable the arms and strength is symmetrical. Current Inpatient Medications Medications (Trade) Dose Ordered Sig/[place] Route Start Time Stop Time Status Last Admin Dose Admin Metronidazole/Prmx (Flagyl / Nss/ Premixed Nss) 100 ml @ 100 mls/hr Q8H IV 03/28/17 06:00 04/07/17 05:59 03/30/17 05:35 100 MLS/HR Enoxaparin Sodium (Lovenox Inj) 40 mg Q24H SQ 03/28/17 09:00 04/27/17 08:59 03/30/17 08:27 40 MG Glucose (Glucose 40% Gel) 15-30 GRAMS 15 GRAMS... UD PRN PO 03/28/17 04:45 04/27/17 04:44 Glucose (Glucose Chew Tab) 4-8 Tablets 4 Tabl... UD PRN PO 03/28/17 04:45 04/27/17 04:44 Dextrose (Dextrose 50% 50ML Syringe) 25-50ML OF 50% DW IV FOR... UD PRN IV 03/28/17 04:45 04/27/17 04:44 Glucagon (Glucagon Inj) 1 mg UD PRN SQ 03/28/17 04:45 04/27/17 04:44 Hydromorphone HCl (Dilaudid Inj) 0.5 mg Q3H PRN IV 03/28/17 04:45 04/11/17 04:44 Ondansetron HCl 4 mg 4 mg Q6H PRN IV 03/28/17 04:45 04/27/17 04:44 Promethazine HCl/ Sodium Chloride (Phenergan Inj/ Nss 50ml) 50.5 ml @ 204 mls/hr Q6H PRN IV 03/28/17 04:45 04/27/17 04:44 03/28/17 04:56 204 MLS/HR Albuterol/ Ipratropium (Combivent Respimat Inh) 1 puffs QID INH 03/28/17 09:00 04/27/17 08:59 03/30/17 08:27 1 PUFFS Lisinopril (Zestril Tab) 10 mg QAM PO 03/28/17 09:00 04/27/17 08:59 03/30/17 08:28 10 MG Ciprofloxacin (Consult) 1 ea UD PRN N/A 03/28/17 06:30 04/27/17 06:29 Insulin Glargine (Lantus Solostar Pen) 10 unit BID SC 03/28/17 21:00 04/27/17 20:59 03/30/17 08:56 10 UNIT Phenytoin Sodium 200 mg 200 mg BID PO 03/28/17 21:00 04/27/17 20:59 03/30/17 08:28 200 MG Lorazepam 0.5 mg/ Syringe 1 ml @ 1 mls/min Q4H PRN IV 03/28/17 06:45 04/27/17 06:44 Ciprofloxacin/ Dextrose/Prmx (Cipro / D5w/ Premixed D5W) 200 ml @ 100 mls/hr Q12H IV 03/28/17 20:00 04/07/17 19:59 03/30/17 07:44 100 MLS/HR Ondansetron HCl 4 mg 4 mg Q6H PRN IV 03/28/17 06:45 04/27/17 06:44 Acetaminophen 650 mg/Empty Bag 65 ml @ 260 mls/hr Q6H PRN IV 03/28/17 11:00 04/27/17 10:59 Levothyroxine Sodium/Syringe (Synthroid Inj/ Syringe) 1.25 ml @ 2 mls/min DAILY@09 IV 03/29/17 09:00 04/28/17 08:59 03/29/17 10:11 2 MLS/MIN Phenol (Chloraseptic 1.4% [place]) 2 sprays Q2H PRN MT 03/28/17 18:30 04/27/17 18:29 03/28/17 19:03 2 SPRAYS Phenobarbital (Phenobarbital Tab) 32.4 mg BID PO 03/29/17 21:00 04/28/17 20:59 03/30/17 08:33 32.4 MG Insulin Aspart (novoLOG ASPART) SLIDING SCALE If C... ACHS SC 03/29/17 17:15 04/28/17 17:14 03/29/17 20:50 1 UNITS Impression 1. Long-standing seizure disorder likely secondary to previous head trauma She has been quite stable on low doses of both phenobarbital and Dilantin. On admission her levels were not existent. This could be secondary to noncompliance (although she denies this) or lack of absorption from her GI issues. Levels were improved with IV medication administration. 2. 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 History of colon cancer with small bowel obstruction. Overall she is stable neurologically without focal neurologic findings Plan 1. Keep Dilantin 200 mg by mouth twice a day 2. I would taper her off phenobarbital lowering her to 32.4 mg one half tablet twice a for 1 week and then stop. 3. Follow daily Dilantin levels. 4. I see no need for EEG or MRI in this patient, unless new problems arise.. She will be followed by Dr. Rivers as an outpatient. I no further neurologic testing or treatment recommendations to make at this time, please contact me if I can be of further assistance.
== END 2017-03-30 12:45 | disposition home or self-care (01) | DRG 390 ==
LOC: ENRESERVDT → ENRESERVTM → EDBD 01:27 → C.EDA 01:28 → C.MSW 04:25
PROVIDERS: ADMIT Hospitalist; ATTEND Family Medicine
DX: K56.5 Intestinal adhesions [bands] with obstruction (postinfection) (principal); G40.909 Epilepsy, unspecified, not intractable, without status epilepticus; R91.8 Other nonspecific abnormal finding of lung field; I25.10 Atherosclerotic heart disease of native coronary artery without angina pectoris; E11.9 Type 2 diabetes mellitus without complications; I11.9 Hypertensive heart disease without heart failure; E78.5 Hyperlipidemia, unspecified; E03.9 Hypothyroidism, unspecified; D64.9 Anemia, unspecified; Z51.81 Encounter for therapeutic drug level monitoring; Z79.899 Other long term (current) drug therapy; Z79.4 Long term (current) use of insulin; Z85.038 Personal history of other malignant neoplasm of large intestine; Z98.890 Other specified postprocedural states; Z87.828 Personal history of other (healed) physical injury and trauma; Z95.5 Presence of coronary angioplasty implant and graft; Z86.73 Personal history of transient ischemic attack (TIA), and cerebral infarction without residual deficits; Z87.891 Personal history of nicotine dependence; Z83.3 Family history of diabetes mellitus; Z82.49 Family history of ischemic heart disease and other diseases of the circulatory system; Z82.3 Family history of stroke; Z80.6 Family history of leukemia

== ENCOUNTER → 2017-06-20 | Outpatient (CLI) | payer OTHER ==
[~2017-06-20] MED LIST changes: +BACL10TA PO; -CHOL2000 PO; +CLR10 PO; -CPR500 PO; +DOCU-94 PO; +FERR1TAB23 PO; -GLIP-199 PO; -METR-162 PO; +ONDA4TAB46 PO; -PRLSR20 PO
[2017-06-20 13:50] LABS: ESTIMATED AVERAGE GLUCOSE 189 mg/dl; HA1C FLAG Normal (Normal)
[2017-06-20 14:03] LABS: CALCIUM 8.6 mg/dl (8.5-10.1); PHENOBARBITAL < 2.1 mcg/mL (15.0-40.0)
[2017-06-20 14:15] LABS: THYROID STIMULATING HORMONE 4.39 uIu/ml (0.300-4.500)
== END | disposition home or self-care (01) ==
LOC: C.LAB1850 11:35
PROVIDERS: ATTEND Internal Medicine Endocrinology, Diabetes & Metabolism
DX: Z51.81 Encounter for therapeutic drug level monitoring (principal); E55.9 Vitamin D deficiency, unspecified; E03.9 Hypothyroidism, unspecified; E11.9 Type 2 diabetes mellitus without complications

== ENCOUNTER → 2017-10-05 | Outpatient (CLI) | payer OTHER ==
--- NOTE | 2017-10-05 13:47 | DIAGNOSTIC IMAGING REPORT ---
(CHEST) THORAX WITHOUT CT DOSE: 419.71 mGy.cm CLINICAL HISTORY: 67 years-old Female with R06.02 Shortness of [id number]. Acute shortness of breath. Follow-up study to assess pulmonary nodules . History of 8 mm right middle lobe pulmonary nodule. And 12/19/2008 TECHNIQUE: Multiaxial CT images of the chest were performed without contrast. A dose lowering technique was utilized adhering to the principles of ALARA. COMPARISON: CT chest 10/20/2016 FINDINGS: No dominant thyroid nodule identified. Mildly prominent nonspecific subcarinal lymph node measures 9 mm in short axis unchanged. Precarinal lymph nodes are seen measuring up to 7 mm, also likely physiologic and unchanged. The heart is normal in size without pericardial effusion. Coronary arterial calcifications are noted. There is mild atherosclerosis of the aorta without aneurysm. There is no pneumothorax, pleural effusion or focal airspace consolidation. 3 mm noncalcified pulmonary nodule is seen within the left lower lobe, image 183 series 4 which appears new from prior exam. Linear subsegmental pleural based opacity of the right lower lobe suggests pleural-parenchymal scarring or atelectasis.3 mm solid pulmonary nodule of the right lower lobe as seen on image 130 of series 4 which also is not clearly seen on comparison study. 8 x 7 mm solid pulmonary nodule of the lateral segment right middle lobe seen on image 161 of series 4 is unchanged from comparison study 10/20/2016 and measured proximally 6 mm and study dated 12/19/2008. No additional suspicious pulmonary nodules are identified. A few pericardial lymph nodes are seen adjacent to the minor fissure measuring up to 3 mm. 2 mm solid nodule of the left lower lobe is seen on image 178 series 4. Central airways are patent. No acute amount identified involving the imaged upper abdomen. The soft tissues are unremarkable. Multilevel endplate degenerative spurring throughout the spine. IMPRESSION: 1. No acute cardiopulmonary process. 2. Unchanged 8 mm solid noncalcified pulmonary nodule of the lateral segment right middle lobe, stable from comparison study 10/20/2016 and only slightly increased in size from study dated 12/19/2008. 3. A few solid pulmonary nodules of the lower lobes as above are seen measuring up to 3 mm. 4. No focal airspace consolidation or pleural effusion. Please refer to below summary of Fleischner criteria recommendations for follow-up of incidental CT nodules (H Teddy, Guidelines for management of small pulmonary nodules detected on CT scans: A statement from the Fleischner Society, Radiology 237: [id number].) SOLID NODULES Solitary nodule size: <6 mm * Low risk patients: no follow-up needed * high risk patients: optional CT at 12 months Solitary nodule size: 6-8 mm * Low risk patients: follow-up at 6-12 months, then consider further follow-up at 18-24 months * high risk patients: initial follow-up CT at 6-12 months and then at 18-24 months if no change Solitary nodule size: >8 mm * either low or high risk patients - consider follow-up CT at 3 months, and/or CT-PET, and/or biopsy Multiple nodules size: <6 mm * Low risk patients: no routine follow-up * high risk patients: optional CT at 12 months Multiple nodules size: 6-8 mm * Low risk patients: follow-up at 3-6 months, then consider further follow-up at 18-24 months * high risk patients: follow-up at 3-6 months, then at 18-24 months if no change Multiple nodules size: >8 mm * Low risk patients: follow-up at 3-6 months, then consider further follow-up at 18-24 months * high risk patients: follow-up at 3-6 months, then at 18-24 months if no change Note: newly detected indeterminate nodule in persons 35 years of age or older. * Low risk patients: minimal or absent history of smoking and/or other known risk factors * high risk patients: history of smoking or of other known risk factors (e.g. first degree relative with lung cancer, or exposure to asbestos, radon, uranium) * if a nodule up to 8 mm is partly solid or is ground glass further follow-up is required after 24 months to exclude possible slow growing adenocarcinoma ([place]) The above report was generated using voice recognition software. It may contain grammatical, syntax or spelling errors. Electronically signed by: Beau Ochoa M.D. 10/05/2017 1:45 PM Dictated Date/Time: 10/05/2017 1:35 PM
== END | disposition home or self-care (01) ==
LOC: C.CTS 13:21
PROVIDERS: ATTEND Physician Assistant
DX: R06.02 Shortness of breath (principal); R91.8 Other nonspecific abnormal finding of lung field

== ENCOUNTER 2017-11-06 23:39 | Inpatient (IN) | payer OTHER ==
[~2017-11-06] VITALS: Ht 165.1 cm; Wt 75.3 kg
[2017-11-06] MEDS ORDERED: ONDANSETRON INJ 2 MG/ML 2 ML VIAL IV STA (23:55)
[2017-11-06] MEDS ORDERED: HYDROmorphone INJ 0.5 MG/0.5 ML SYR IV STA (23:55)
[2017-11-06] MEDS ORDERED: SODIUM CHLORIDE 0.9% 500ML 500 ML IV STA (23:55)
[2017-11-07] VITALS (27 sets, daily range): BP systolic 128–178; BP diastolic 56–85; PULSE 84–104; TEMP 36.4–37.5; O2SAT 95–100; BMI 26.2; BMI 26.0
[2017-11-07 00:25] LABS: HEMATOCRIT 53.4 % (37-47); MEAN CELL VOLUME 98.3 fL (80-100); MEAN CORPUSCULAR HEMOGLOBIN 33.5 pg (25-34); MEAN CORPUSCULAR HGB CONC 34.1 g/dl (32-36); MEAN PLATELET VOLUME 10.8 fL (7.4-10.4); PLATELET COUNT 367 K/uL (130-400); RED BLOOD COUNT 5.43 M/uL (4.2-5.4); WHITE BLOOD COUNT 18.21 K/uL (4.8-10.8)
[2017-11-07] MEDS ORDERED: DiphenhydrAMINE HCL 50 MG/ML VIAL IV STA (00:28)
[2017-11-07] MEDS ORDERED: INSU50IN3 SC (00:38)
[2017-11-07] MEDS ORDERED: NTRGSL/4 UT (00:38)
[2017-11-07] MEDS ORDERED: CETI10TA84 PO (00:38)
[2017-11-07] MEDS ORDERED: OPTIRAY 320 IV PRN (00:45)
[2017-11-07 00:57] LABS: BASO % 0.3 %; BASO ABS # 0.05 K/uL (0-0.2); COMPLETE YES; EOS % 0.1 %; IG% 1.4 %; LYMPH % 10.1 %; LYMPH ABS # 1.84 K/uL (1.2-3.4); NEUT % 80.1 %
[2017-11-07 01:31] LABS: ALKALINE PHOSPHATASE 176 U/L (45-117); ALT/SGPT 36 U/L (12-78); BLOOD UREA NITROGEN 32 mg/dl (7-18); BUN/CREATININE RATIO 15.6 (10-20); CALCIUM 8.8 mg/dl (8.5-10.1); CHLORIDE 92 mmol/L (98-107); CREATININE 2.02 mg/dl (0.60-1.20); SODIUM 132 mmol/L (136-145)
[2017-11-07 01:36] LABS: CARBON DIOXIDE 5 mmol/L (21-32); GLUCOSE 845 mg/dl (70-99)
[2017-11-07] MEDS ORDERED: SODIUM CHLORIDE 0.9% 1000ML 1,000 ML IV STA ×4 (01:41→04:25)
[2017-11-07] MEDS ORDERED: INSULIN IV INFUSION PROTOCOL STA ×2 (01:42→02:01)
[2017-11-07] MEDS ORDERED: DKA GOAL RANGE 150-250 mg/dl 1 EA ONE (01:45)
[2017-11-07] MEDS ORDERED: SEVERE STRESS LEVEL ONE (01:45)
[2017-11-07] MEDS ORDERED: NovoLIN R BOLUS FROM BAG IV ONE (02:00)
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
[2017-11-07 02:13] LABS: URINE APPEARANCE CLEAR (CLEAR); URINE BILIRUBIN NEG (NEG); URINE COLOR YELLOW; URINE NITRITE NEG (NEG); URINE SPECIFIC GRAVITY 1.031 (1.000-1.030); UROBILINOGEN NEG (NEG); ZZUR CULT IF INDIC CLEAN CATCH NO
[2017-11-07] MEDS ORDERED: INSULIN PROTOCOL GOAL RANGE ONE (02:15)
[2017-11-07 02:23] LABS: ARTERIAL BLD GAS O2 SATURATION 97.8 % (90-95); ARTERIAL BLOOD GAS BASE EXCESS -23.3 mEq/L (-9-1.8); ARTERIAL BLOOD GAS HCO3 4 mmol/L (19-24); ARTERIAL BLOOD GAS PO2 123 mm/Hg (80-95)
[2017-11-07 02:25] LABS: MANUAL MICROSCOPIC REQUIRED? NO; REVIEW REQ? NO
[2017-11-07 02:26] LABS: ALLEN TEST POS (POS); O2 ADMINISTRATION ROOM AIR
[2017-11-07] MEDS: INSULIN REGULAR 250 UNITS in SODIUM CHLORIDE 0.9% 250ML 250 ML IV SCH (02:26)
[2017-11-07 02:39] LABS: PARTIAL THROMBOPLASTIN RATIO 0.9
[2017-11-07 02:44] LABS: MAGNESIUM 3.6 mg/dl (1.8-2.4); POTASSIUM 5.6 mmol/L (3.5-5.1)
--- NOTE | 2017-11-07 02:55 | Critical Care Consultation ---
Critical Care Consultation Date of Consultation: Nov 07, 2017. Attending Physician: Dr. Bey Reason for Consultation: DKA History of Present Illness Cat Weiss is a 67 yo female with a history of DM2, Reflux, HTN who presents with hyperglycemia of [854] after vomiting at home prior to arrival several times. Pt is unreliable for information as she is unable to answer questions in the same way each time. Her answers are inappropriate and mostly vulgar. She is repeatedly asking if she can go to sleep. is at the bedside but does not appear to have an understanding of the gravity of his 's ailment. When asked about central line and intubation, he deferred the decision to her despite him stating she was acting crazy. Per ED documentation the pt was complaining of shortness of breath that started today. She had experience N/V/ chest and abd pain. However, denied these same symptoms to all providers after the ED. Pt was given dilaudid for pain and 1L bolus of NSS. Insulin infusion was started for DKA as labs demonstrated Glucose 845, sodium 132, Bicarb 5, Gap 35, Cr 2.02, alk phos 176, and Osmolality of 374. Pt also has history of seizures on Dilantin for prophylaxis. states last seizure was earlier this month. History of colon Ca at which time the pt refused chemotherapy. A reliable ROS could not be obtained secondary to pts altered mental status. Past Medical/Surgical History Medical Problems: (1) CAD (coronary artery disease) (2) Colonic diverticular abscess (3) CVA (cerebral vascular accident) (4) DM2 (diabetes mellitus, type 2) (5) HTN (hypertension) (6) Hyperlipidemia (7) Hypothyroid (8) SBO (small bowel obstruction) (9) Seizure Surgical Problems: (1) Hx of appendectomy (2) Hx of cholecystectomy Family History Diabetes mellitus FHx: heart disease Hypertension Seizures Stroke Social History Smoking Status: Former Smoker Drug Use: none Marital Status: Housing Status: lives with family Occupation Status: retired, disabled Allergies Coded Allergies: BEE STING (Verified Allergy, Severe, ANAPHYLAXIS, 11/07/17) Hydrochlorothiazide (Verified Allergy, Severe, low calcium, 11/07/17) Iodinated Diagnostic Agents (Verified Allergy, Severe, ANAPHYLAXIS, ) Iodine (Verified Allergy, Severe, ARM SWELLING, 11/07/17) Penicillins (Verified Allergy, Severe, HIVES, 11/07/17) Aspirin (Verified Allergy, Intermediate, RASH, 11/07/17) Codeine (Verified Allergy, Intermediate, RASH, 11/07/17) Morphine (Verified Allergy, Intermediate, "EFFECTS MOVEMENTS", 11/07/17) NSAIDs (Verified Allergy, Intermediate, RASH, 11/07/17) Home Medications Scheduled Baclofen (Lioresal), 10 MG PO BID Calcium Carbonate (Calcium), 600 MG PO BID Cetirizine (Zyrtec), 10 MG PO DAILY Insulin Lispro Protamine & Lis (Humalog Mix 50/50 Kwikpen), 37 UNITS SC BID Ipratropium-Albuterol (Combivent Respimat), 1 PUFFS INH QID Levothyroxine Sodium (Synthroid), 50 MCG PO QAM Lisinopril (Zestril), 10 MG PO QAM Pantoprazole (Protonix), 20 MG PO QAM Phenytoin Sodium (Dilantin), 100 MG PO TID Simvastatin (Zocor), 20 MG PO QPM Scheduled PRN Docusate Sodium (Colace), 100 MG PO BID PRN for Constipation Nitroglycerin (Nitrostat), 0.4 MG UT PRN PRN for Chest Pain Tramadol (Ultram), 50 MG PO Q6H PRN for Pain Current Inpatient Medications Current Inpatient Medications Medications (Trade) Dose Ordered Sig/[place] Route Start Time Stop Time Status Last Admin Dose Admin Ioversol (Optiray 320) 100 ml UD PRN IV 11/07/17 00:45 11/11/17 00:44 Sodium Chloride 1,000 ml @ 200 mls/hr Q5H STAT IV 11/07/17 01:42 11/07/17 06:41 Insulin Human Regular 250 units/ Sodium Chloride 252.5 ml @ 0 mls/hr Q24H IV 11/07/17 02:00 12/07/17 01:59 11/07/17 02:26 2.7 MLS/HR Insulin Human Regular (Insulin IV Infusion Protocol) 1 ea NOW STAT N/A 11/07/17 02:01 11/07/17 02:02 UNV Insulin Aspart (novoLOG ASPART) SLIDING SCALE PCHS SC 11/07/17 09:00 12/07/17 08:59 UNV Miscellaneous (Insulin Protocol Goal Range (Other)) 1 ea ONE ONCE N/A 11/07/17 02:15 11/07/17 02:16 UNV Sodium Chloride 1,000 ml @ 999 mls/hr Q1H1M STAT IV 11/07/17 02:21 11/07/17 03:21 UNV Review of Systems A reliable ROS could not be obtained secondary to pts altered mental status. Physical Exam Date Time Temp Pulse Resp B/P (MAP) Pulse Ox O2 Delivery O2 Flow Rate FiO2 11/07/17 02:20 112 27 142/74 100 Room Air 11/07/17 01:39 119 18 137/81 97 Room Air 11/06/17 23:57 113 11/06/17 23:45 36.4 114 24 151/81 99 Room Air 11/06/17 23:45 99 Room Air Vital Signs - as noted Laboratory Data - as noted Physical Exam: General - NAD, Pt does not follow direction Eyes - PERRL, will not attempt to track ENT - Mucosa dry, no lesions or candidiasis Neck - Supple, trachea midline, no masses or lymphadenopathy, no JVD or bruits Lungs - No paradoxical chest wall movement, clear to auscultation bilaterally, no wheezes, rales, or rhonchi Heart - Reg rate and rhythm, No murmur, rubs, clicks, or gallops appreciated Abdomen - BS present, no bruits noted, tympanic to percussion, soft, nontender, nondistended, no organomegaly Extremities - No edema, pedal pulses intact Neuro - RASS 1 Strength Moves all extremities CN:PERRL,no facial asymmetry, uvula/tongue midline Laboratory Results Last 24 Hours Test 11/07/17 00:10 11/07/17 00:21 11/07/17 01:50 11/07/17 02:08 White Blood Count 18.21 K/uL Red Blood Count 5.43 M/uL Hemoglobin 18.2 g/dL Hematocrit 53.4 % Mean Corpuscular Volume 98.3 fL Mean Corpuscular Hemoglobin 33.5 pg Mean Corpuscular Hemoglobin Concent 34.1 g/dl Platelet Count 367 K/uL Mean Platelet Volume 10.8 fL Neutrophils (%) (Auto) 80.1 % Lymphocytes (%) (Auto) 10.1 % Monocytes (%) (Auto) 8.0 % Eosinophils (%) (Auto) 0.1 % Basophils (%) (Auto) 0.3 % Neutrophils # (Auto) 14.60 K/uL Lymphocytes # (Auto) 1.84 K/uL Monocytes # (Auto) 1.45 K/uL Eosinophils # (Auto) 0.02 K/uL Basophils # (Auto) 0.05 K/uL RDW Standard Deviation 48.4 fL RDW Coefficient of Variation 13.6 % Immature Granulocyte % (Auto) 1.4 % Immature Granulocyte # (Auto) 0.25 K/uL D-Dimer 680 ug/L FEU Sodium Level 132 mmol/L Potassium Level mmol/L 5.6 mmol/L Chloride Level 92 mmol/L Carbon Dioxide Level 5 mmol/L Anion Gap 35.0 mmol/L Blood Urea Nitrogen 32 mg/dl Creatinine 2.02 mg/dl Est Creatinine Clear Calc Drug Dose 27.5 ml/min Estimated GFR () 29.3 Estimated GFR (Non- 25.2 BUN/Creatinine Ratio 15.6 Random Glucose 845 mg/dl Calcium Level 8.8 mg/dl Magnesium Level mg/dl 3.6 mg/dl Total Bilirubin 0.7 mg/dl Direct Bilirubin mg/dl 0.2 mg/dl Aspartate Amino Transf (AST/SGOT) U/L 16 U/L Alanine Aminotransferase (ALT/SGPT) 36 U/L Alkaline Phosphatase 176 U/L Total Protein 9.5 gm/dl Albumin 4.5 gm/dl Lipase 207 U/L Beta-Hydroxybutyric Acid mg/dL Bedside Troponin I < 0.030 ng/ml Urine Color YELLOW Urine Appearance CLEAR Urine pH 5.0 Urine Specific [place] 1.031 Urine Protein 2+ Urine Glucose (UA) 3+ Urine Ketones 4+ Urine Occult Blood TRACE Urine Nitrite NEG Urine Bilirubin NEG Urine Urobilinogen NEG Urine Leukocyte Esterase NEG Urine WBC (Auto) 1-5 /hpf Urine RBC (Auto) 0-4 /hpf Urine Hyaline Casts (Auto) 1-5 /lpf Urine Epithelial Cells (Auto) 10-20 /lpf Urine Bacteria (Auto) NEG Arterial Blood pH 7.10 Arterial Blood Partial Pressure CO2 14 mmHg Arterial Blood Partial Pressure O2 123 mm/Hg Arterial Blood HCO3 4 mmol/L Arterial Blood Oxygen Saturation 97.8 % Arterial Blood Base Excess -23.3 mEq/L Arterial Blood Gas Delivery ROOM AIR Jeffry Test POS Osmolality 374 mOsm/kg Test 11/07/17 02:22 Activated Partial Thromboplast Time 23.3 SECONDS Partial Thromboplastin Ratio 0.9 Diagnostic Results Reviewed KUB and CXR. CT Abd & Pelvis: Motion Artifact. Appendix is normal. No evidence of bowel obstruction. No fee air. Moderate amount of retained stool in the colon, suggesting constipation. Gallbladder is surgically absent. Live, pancreas, spleen, and kidneys are unremarkable. Unchanged thickening of the adrenal glands. 7mm pulmonary node at the right lung base is slightly decreased from prior. Assessment & Plan (1) DKA (diabetic ketoacidoses) (2) Seizure (3) Hyperlipidemia (4) DM2 (diabetes mellitus, type 2) (5) HTN (hypertension) (6) CAD (coronary artery disease) (7) Hypothyroid Reason Critically Ill: Patient is an 67 year-old female who is transferred to the ICU for DKA. PLAN: Fluids/Renal/Endocrine: * Follow hospital DKA protocol * NSS @ 250ml/hr * Insulin infusion started * Trend Glucose according to Infusion directions * DKA Goal Range 150-250 * Severe Stress * Cr elevated: Monitor PRP * Avoid Nephrotoxic agents * Corrected Sodium 142.6 WNL Neuro: * Dilaudid for pain control when necessary * Check phenytoin level * Monitor neuro status per ICU protocol * If no improvement is noted as DKA improves, further investigating will be needed Resp: * Supplemental oxygen as required, currently adequate oxygenation on room air * Monitor closely for fluid overload and possible impend respiratory decline. CV: * Hx of CAD * Holding home ACEi and Nitroglycerin * Continue Statin * Monitor on telemetry ID: * Afebrile * Lactic Acid: Testing was performed but not reported as result was compromised due to lipemia . * No current sign of infection * Trend fever curve GI/Nutrition: * NPO currently except meds * Albumin WNL Heme: * H&H: 18.2&53.4, plts 367 * Coags: pending Access: Hand PIV Left, Left EJ, and Right Triple Lumen IJ Catheter CCT: 45 Minutes; This time is exclusive of all separately billable procedures. Thank you for involving us in the care of this patient. Please refer to Dr. Mark Stevens's addendum for further recommendations. I have personally evaluated and examined this patient. I agree with assessment and plan of Jeff Kidd PA-C. two physician consent for CVL. Hyperglycemia hyperosmolar coma.
[2017-11-07] MEDS ORDERED: PROCHLORPERAZINE INJ 5 MG in SYRINGE 4 ML IV PRN (03:15)
[2017-11-07] MEDS ORDERED: OXYCODONE/ACETAMINOPHEN 5-325 TAB PO PRN (03:15)
[2017-11-07] MEDS ORDERED: NITROGLYCERIN 0.4 MG SL PER TAB CHARGE SL PRN (03:15)
[2017-11-07] MEDS ORDERED: HYDROmorphone INJ 0.5 MG/0.5 ML SYR IV PRN (03:15)
[2017-11-07] MEDS ORDERED: D5W AND NSS 1,000 ML IV PRN (03:30)
[2017-11-07 04:06] LABS: BLOOD UREA NITROGEN 33 mg/dl (7-18); BUN/CREATININE RATIO 18.4 (10-20); CALCIUM 7.6 mg/dl (8.5-10.1); CARBON DIOXIDE < 5 mmol/L (21-32); CHLORIDE 103 mmol/L (98-107); CREATININE 1.82 mg/dl (0.60-1.20); GLUCOSE 759 mg/dl (70-99); SODIUM 136 mmol/L (136-145)
[2017-11-07] MEDS ORDERED: GLUCAGON FOR INJ 1 MG VIAL SQ PRN (04:45)
[2017-11-07] MEDS ORDERED: DEXTROSE 50% 50 ML SYR IV PRN (04:45)
[2017-11-07] MEDS ORDERED: GLUCOSE 10 TABS/TUBE PO PRN (04:45)
[2017-11-07] MEDS ORDERED: GLUCOSE 40% GEL 15 GM TUBE PO PRN (04:45)
--- NOTE | 2017-11-07 05:14 | HISTORY & PHYSICAL EXAMINATION ---
DATE OF ADMISSION: 11/07/2017 PRIMARY CARE DOCTOR: Dr. Mehta. CHIEF COMPLAINT: Abdominal pain, nausea and vomiting. HISTORY OF PRESENT ILLNESS: History obtained from patient and records. Patient is a fair historian. Disorientation noted after Benadryl administration in the ER. Medical history significant for hypertension, CAD/CVA as per records, DM2, insulin requiring hyperlipidemia, history of CVA, past tobacco abuse, colon cancer status post surgery (11/2016) (refused chemotherapy), history of pulmonary nodules. Recent confinement last 03/2017 for bowel obstruction - resolved with conservative management. Last night, patient noted generalized abdominal pain with nausea, vomiting. Good bowel movement. Patient denies chest pain, shortness of breath, no cough symptoms. Looked like she had trouble breathing as per . Brought to the Emergency Room. Blood sugars noted to be in 800, IV insulin started for DKA. As per patient's , blood sugars at home in the 100s. MEDICAL HISTORY: As above. Seen by [facility] Pulmonology last 10/05/2017, stable multiple pulmonary nodules as per documentation. R SURGERIES: Cholecystectomy, appendectomy, bowel surgery. HOME MEDICATIONS: Include Lioresal, calcium, Zyrtec, Colace, Humalog, Combivent, Zestril, Synthroid, Nitrostat, Dilantin, Protonix, Zocor, Ultram. ALLERGIES: BEE STING, ASPIRIN, CODEINE, MORPHINE, PENICILLIN, NSAIDS. FAMILY HISTORY: Blood clots, heart disease, leukemia. PERSONAL AND SOCIAL HISTORY: Past tobacco use. No chronic intake of alcohol beverages. Disabled. REVIEW OF SYSTEMS: Limited due to confusion. PHYSICAL EXAMINATION: VITAL SIGNS: Blood pressure was noted to be 151/81, pulse rate 114, RR 24, temperature 36.4, sats 99 on room air. GENERAL: Noted to be restless, disoriented. Minimal respiratory distress. Unkempt SKIN: Normal color. Warm. HEENT: [place] palpebral conjuctivae. No ptosis. Dry buccal mucosa. NECK: Short. No tenderness. CHEST: Decreased effort. No tenderness. HEART: Tachycardic. No murmur. ABDOMEN: Some distention. No overt tenderness. EXTREMITIES: No edema, no tenderness. No gross deformity. NEUROLOGIC: Coherent, but disoriented. No facial asymmetry. Gait and stance not assessed. LABORATORY DATA: Hemoglobin was noted to be 18, white cell count 18.21, platelets 367. Sodium noted to be 132, potassium 5.6, chloride 92, CO2 5, BUN 30, creatinine 2.2, glucose 845 Serum osmolality was noted to be 374. ABG showed pH 7.1, pCO2 14, pO2 103. O2 sats 97 on room air. Hemoglobin A1c from June 2017 was 8.2. UA showed ketones, occult blood. Chest x-ray as per my interpretation, atelectasis. ASSESSMENT: 1. Diabetic ketoacidosis/hyperglycemic hyperosmolar syndrome DM2, insulin requiring suboptimal control as of recent hemoglobin A1c precipitated by abdominal pain - rule out recurrent bowel obstruction history of bowel surgery for colon cancer status post surgery 2. Hypertension, elevated. 3. CAD as per records. 4. Acute renal failure. hyperkalemia secondary to above. 5. Past tobacco abuse. 6. seizure dso, stable on meds PLAN: ICU IV insulin, IV fluids. Check hemoglobin A1c. DM education (Patient family may need to be enjoined for this endeavor due to documentation of patient illiteracy from outpatient records.) Monitor creatinine response to IV fluids Hold home ACEI until creatinine at baseline. CT abdomen and pelvis RE abdominal pain May need Surgery consult pending CT results. DVT prophylaxis, Heparin subQ. Full code as per . Total critical care time was 50 minutes. MTDD
--- NOTE | 2017-11-07 05:22 | Procedure Note ---
Procedure Note Procedure Date Nov 07, 2017. Central Line Procedure time out: side/site verified, patient ID confirmed, sterile procedure used Consent obtained: emergent consent implied (2 Physician Consent Obtained 2/2 pt without insight) Time of procedure: 05:00 Performed by: physician recruiter account manager Indications: poor venous access Prep: chlorhexadine prep, sterile drape, sterile procedures used Anesthesia: local injection, lidocaine 1% without epi Volume anesthetic (ml's): 7 Central line lumen: triple Central line location: internal jugular (R) Additional details: percutaneous placement, ultrasound guidance, Selinger technique used, line sutured, good blood return CXR: appropriate position Complications: none Patient tolerated procedure: well Post-procedure vital signs: reviewed and stable Comments: Consent was obtained prior to procedure. Indication, risks, and benefits were explained at length. Procedure: Procedure was performed under strict sterile field in O.R. fashion. The right neck and chest were cleaned with chloroprep scrub and the pt was draped in sterile fashion. The internal jugular vein was identified using ultrasound. After anesthetizing the area with 7cc of lidocaine, venous blood was withdrawn after accessing the vein under ultrasound guidance. The syringe was removed and a guide wire was advanced into the introducer needle which met resistance. It was attempted a second time by Dr. Stevens with the pt place in steeper Trendelenburg with success. The dilator was advanced after being exchanged for the introducer needle. After appropriate dilation was obtained, the dilator was removed and the central catheter was placed over the guide wire using Seldinger technique. The wire was removed intact and the catheter was sutured at 15cm. A surgical dressing was placed over the catheter with a biofilm shield in place. At the time of the procedure each port was aspirated and then flushed properly. Pt tolerated the procedure well with no complications. Post procedure x-ray was completed, placement was appropriate and no pneumothorax was noted.
[2017-11-07] MEDS ORDERED: POLYETHYLENE (MIRALAX) 17 GM PACK PO PRN (05:30)
[2017-11-07] MEDS: SODIUM CHLORIDE 0.9% 1000ML 1,000 ML IV SCH ×3 (05:35→12:30)
[2017-11-07] MEDS: LEVOTHYROXINE 50 MCG TAB PO SCH (06:00)
[2017-11-07 06:28] LABS: INR 0.9 (0.9-1.1); PROTHROMBIN TIME (PATIENT) 9.6 SECONDS (9.0-12.0)
[2017-11-07 06:42] LABS: ESTIMATED AVERAGE GLUCOSE 352 mg/dl; HA1C FLAG Normal (Normal)
--- NOTE | 2017-11-07 07:02 | DIAGNOSTIC IMAGING REPORT ---
CHEST ONE VIEW PORTABLE CLINICAL HISTORY: Chest x-ray status post central line placement COMPARISON STUDY: 11/07/2017 FINDINGS: The heart is mildly enlarged. The study is rotated. There is been interval insertion of a right internal jugular central venous catheter. The tip projects over the superior vena cava. There is no pneumothorax. There is no focal pulmonary consolidation. There are no significant pleural effusions.[ IMPRESSION: Interval placement of right internal jugular central venous catheter. Tip projects over the superior vena cava. No pneumothorax is visualized. Electronically signed by: Parth Fernando M.D. 11/07/2017 7:01 AM Dictated Date/Time: 11/07/2017 7:00 AM
--- NOTE | 2017-11-07 07:03 | DIAGNOSTIC IMAGING REPORT ---
ABD/PELVIS NO IV OR ORAL CONT CLINICAL HISTORY: 67 years-old Female presenting with abd pain, shortness of breath. TECHNIQUE: Multidetector CT of the abdomen and pelvis was performed without the use of intravenous contrast. IV contrast: None. A dose lowering technique was used consistent with the principles of ALARA (as low as reasonably achievable). COMPARISON: 03/28/2017. CT DOSE (mGy.cm): The estimated cumulative dose is 437.15 mGy.cm. FINDINGS: Retail Banking Manager topogram: Cholecystectomy clips. Gaseous distention of the stomach. Lung bases: 6 mm solid pulmonary nodule in the right middle lobe, grossly unchanged from prior exam allowing for extensive motion artifact at the lung bases 6. Normal heart size. No pericardial or pleural effusion. Liver: Normal morphology. Density consistent with hepatic steatosis. Biliary: No gross biliary ductal dilatation allowing for noncontrast technique. Gallbladder surgically absent. Pancreas: Normal noncontrast appearance. Spleen: Normal noncontrast appearance. Adrenal glands: Normal noncontrast appearance. Kidneys and ureters: Normal noncontrast appearance. No nephrolithiasis. No hydronephrosis. Normal ureters. Bladder: Normal. Pelvic organs: Uterus and ovaries normal. Bowel: Post surgical changes of sigmoidectomy with a patent colocolonic anastomosis in the left lower quadrant. Moderate stool burden in the transverse and right colon. The appendix is normal. Small bowel anastomosis noted in the left mid abdomen. No convincing evidence of a bowel obstruction at this site, however, an extended length of upstream small bowel demonstrates distention up to 2.8 cm in diameter with fecal material suggesting delayed transit at the very least. The absence of oral and intravenous contrast limits evaluation for bowel obstruction, which is not excluded on the exam. Stomach is distended with fluid and gas. Peritoneal cavity: No free fluid or intraperitoneal gas. Lymph nodes: No gross lymphadenopathy allowing for noncontrast technique. Vasculature: Atherosclerosis of the normal caliber abdominal aorta. Abdominal wall: Postsurgical changes of the midline abdominal wall. Musculoskeletal: Normal. IMPRESSION: 1. The examination is limited by motion artifact as well as the absence of oral and intravenous contrast. Within these limitations, a segment of small bowel demonstrates pathologic distention and contains fecal material. This could represent delayed transit or bowel obstruction. No free fluid or inflammatory change in the abdomen. There does not appear to be a bowel obstruction focally at the small bowel anastomotic site. 2. Postsurgical changes of sigmoidectomy with patent colocolonic anastomosis. 3. Grossly stable solid pulmonary nodule in the right middle lobe allowing for motion artifact. Electronically signed by: Adam Dominguez M.D. 11/07/2017 7:01 AM Dictated Date/Time: 11/07/2017 6:54 AM
--- NOTE | 2017-11-07 07:14 | DIAGNOSTIC IMAGING REPORT ---
CHEST ONE VIEW PORTABLE CLINICAL HISTORY: 67 years-old Female presenting with SOB. TECHNIQUE: Portable upright AP view of the chest was obtained. COMPARISON: 03/28/[address] from 10/05/2017. FINDINGS: Atherosclerosis of aortic arch. Cardiac silhouette normal in size. Previously noted solid pulmonary nodule in the right middle lobe from chest CT on 10/05/2017 is not apparent on this radiograph. Neither are the pulmonary nodules in the lower lobes apparent. Lungs and pleural spaces clear on this radiograph. Degenerative changes of the acromioclavicular joints. Upper abdomen normal. IMPRESSION: 1. No acute cardiopulmonary disease. Electronically signed by: Adam Dominguez M.D. 11/07/2017 7:13 AM Dictated Date/Time: 11/07/2017 7:12 AM
--- NOTE | 2017-11-07 07:34 | DIAGNOSTIC IMAGING REPORT ---
KUB HISTORY: Generalized abdominal pain. COMPARISON: Chest and abdominal series 11/28/2014. FINDINGS: No dilated loops of small bowel to suggest an obstruction. Moderate amount well-formed stool seen throughout the abdomen. Cholecystectomy. The lung bases are clear. No renal calculi. No ureteral calculi. No pneumoperitoneum or pneumatosis. IMPRESSION: Moderate stool seen throughout the colon. No evidence for bowel obstruction. Electronically signed by: Kyler De La Cruz M.D. 11/07/2017 7:33 AM Dictated Date/Time: 11/07/2017 7:31 AM
[2017-11-07] MEDS: INSULIN ASPART 100 UNITS/ML 3 ML PEN SC SCH ×4 (08:00→21:00)
[2017-11-07] MEDS: IPRATROPIUM BROMIDE HFA INHALER INH SCH ×4 (08:30→21:58)
[2017-11-07] MEDS: HEPARIN SOD 5000 UNIT/0.5 ML CARP SQ SCH ×2 (08:30→16:08)
[2017-11-07] MEDS: LEValbuterol HFA 15GM INHALER INH SCH ×4 (08:30→21:58)
[2017-11-07] MEDS: ONDANSETRON INJ 2 MG/ML 2 ML VIAL IV PRN (08:33)
[2017-11-07] MEDS ORDERED: CETIRIZINE HCL 10 MG TAB PO SCH (09:00)
[2017-11-07] MEDS ORDERED: PANTOprazole SOD 40 MG TAB PO SCH (09:00)
[2017-11-07] MEDS: PHENYTOIN SODIUM ER 100 MG CAP PO SCH ×3 (09:06→21:58)
[2017-11-07] MEDS: BACLOFEN 10 MG TAB PO SCH ×2 (09:06→21:58)
[2017-11-07] MEDS: DOCUSATE SODIUM 100 MG CAP PO SCH (09:06)
[2017-11-07 09:43] LABS: CALCIUM 7.3 mg/dl (8.5-10.1); CREATININE 1.44 mg/dl (0.60-1.20)
[2017-11-07 10:16] LABS: BETA-HYDROXYBUTYRATE 82.78 mg/dL (0.2-2.81)
[2017-11-07 10:17] LABS: GLUCOSE 612 mg/dl (70-99)
[2017-11-07 10:18] LABS: POTASSIUM 4.7 mmol/L (3.5-5.1)
[2017-11-07 12:39] LABS: BUN/CREATININE RATIO 21.9 (10-20); CALCIUM 7.3 mg/dl (8.5-10.1); CREATININE 1.27 mg/dl (0.60-1.20)
[2017-11-07] MEDS ORDERED: D5W AND 1/2NSS 1,000 ML IV SCH (14:15)
[2017-11-07] MEDS ORDERED: PENDING D5 1/2NS+20mEq KCL IVF SCH ×2 (14:15)
[2017-11-07] MEDS: PENDING 1/2NSS+20mEq KCL IVF SCH ×5 (15:00→22:03)
[2017-11-07 15:01] LABS: BETA-HYDROXYBUTYRATE 31.73 mg/dL (0.2-2.81); POTASSIUM 5.2 mmol/L (3.5-5.1)
[2017-11-07 17:21] LABS: BUN/CREATININE RATIO 24.3 (10-20); CALCIUM 7.5 mg/dl (8.5-10.1); CREATININE 1.12 mg/dl (0.60-1.20)
--- NOTE | 2017-11-07 18:10 | Progress Note ---
Internal Med Progress Note Date of Service: Nov 07, 2017. Provider Documentation: SUBJECTIVE: sleepy says tired and wants to go back to sleep\denies any pain or nausea afebrile hemodynamics stable in room OBJECTIVE: Vital Signs-as noted below Exam: General-sleepy. not in distress ENT-Normal hearing Neck-no neck masses Lungs-Cta b/l no wheezing or crackles Heart-S1 and S2 heard regular No murmurs Abdomen-Soft Bowel sounds present Non tender No distension Extremities-No edema No erythema Neuro- drowsy moves extremities Lab data as noted below. ASSESSMENT & PLAN: 1. Diabetic ketoacidosis/hyperglycemic hyperosmolar syndrome DM2, insulin requiring HBA1C 13.9 on Dka protocol with insulin drip and fluids. diabetic teaching appreciate pharmacy consult appreciate critical care inputs 2. Hypertension. Lisinopril on hold. Will monitor. 3. CAD as per records.asymptomatic 4. Acute renal failure. hyperkalemia secondary to above.Resolved. 5. Past tobacco abuse. 6. Hx of colon cancer s/p surgery ct scan sbo? will monitor DVT PROPHYLAXIS hep sub q DISPOSITION monitor in ICU Vital Signs: Date Time Temp Pulse Resp B/P (MAP) Pulse Ox O2 Delivery O2 Flow Rate FiO2 11/07/17 16:15 91 18 97 11/07/17 16:01 89 19 149/67 (94) 96 11/07/17 16:00 88 20 96 11/07/17 15:45 89 22 97 11/07/17 15:36 37.5 92 20 139/62 (87) 97 Room Air 11/07/17 15:30 91 17 97 11/07/17 15:30 97 Room Air 11/07/17 15:15 91 21 96 11/07/17 15:01 91 19 139/62 (87) 97 11/07/17 15:00 90 22 96 11/07/17 14:31 90 18 140/63 (88) 96 Room Air 11/07/17 12:00 92 22 153/56 (88) 96 Room Air 11/07/17 12:00 Room Air 11/07/17 10:27 94 18 137/61 (86) 96 Room Air 11/07/17 09:00 Room Air 11/07/17 09:00 97 24 128/66 (86) 97 Room Air 11/07/17 06:00 96 20 138/65 (89) 99 Room Air 11/07/17 04:05 36.4 104 24 142/71 100 Room Air 11/07/17 03:21 36.4 108 27 142/78 100 11/07/17 03:09 102 11/07/17 02:20 112 27 142/74 100 Room Air 11/07/17 01:39 119 18 137/81 97 Room Air 11/06/17 23:57 113 11/06/17 23:45 36.4 114 24 151/81 99 Room Air 11/06/17 23:45 99 Room Air Lab Results: Results Past 24 Hours Test 11/07/17 00:10 11/07/17 00:21 11/07/17 01:50 11/07/17 02:08 Range/Units White Blood Count 18.21 4.8-10.8 K/uL Red Blood Count 5.43 4.2-5.4 M/uL Hemoglobin 18.2 12.0-16.0 g/dL Hematocrit 53.4 37-47 % Mean Corpuscular Volume 98.3 80-100 fL Mean Corpuscular Hemoglobin 33.5 25-34 pg Mean Corpuscular Hemoglobin Concent 34.1 32-36 g/dl Platelet Count 367 130-400 K/uL Mean Platelet Volume 10.8 7.4-10.4 fL Neutrophils (%) (Auto) 80.1 % Lymphocytes (%) (Auto) 10.1 % Monocytes (%) (Auto) 8.0 % Eosinophils (%) (Auto) 0.1 % Basophils (%) (Auto) 0.3 % Neutrophils # (Auto) 14.60 1.4-6.5 K/uL Lymphocytes # (Auto) 1.84 1.2-3.4 K/uL Monocytes # (Auto) 1.45 0.11-0.59 K/uL Eosinophils # (Auto) 0.02 0-0.5 K/uL Basophils # (Auto) 0.05 0-0.2 K/uL RDW Standard Deviation 48.4 36.4-46.3 fL RDW Coefficient of Variation 13.6 11.5-14.5 % Immature Granulocyte % (Auto) 1.4 % Immature Granulocyte # (Auto) 0.25 0.00-0.02 K/uL D-Dimer 680 0-500 ug/L FEU Sodium Level 132 136-145 mmol/L Potassium Level 5.6 3.5-5.1 mmol/L Chloride Level 92 98-107 mmol/L Carbon Dioxide Level 5 21-32 mmol/L Anion Gap 35.0 3-11 mmol/L Blood Urea Nitrogen 32 7-18 mg/dl Creatinine 2.02 0.60-1.20 mg/dl Est Creatinine Clear Calc Drug Dose 27.5 ml/min Estimated GFR () 29.3 Estimated GFR (Non- 25.2 BUN/Creatinine Ratio 15.6 10-20 Random Glucose 845 70-99 mg/dl Calcium Level 8.8 8.5-10.1 mg/dl Magnesium Level 3.6 1.8-2.4 mg/dl Total Bilirubin 0.7 0.2-1 mg/dl Direct Bilirubin 0.2 0-0.2 mg/dl Aspartate Amino Transf (AST/SGOT) 16 15-37 U/L Alanine Aminotransferase (ALT/SGPT) 36 12-78 U/L Alkaline Phosphatase 176 45-117 U/L Total Protein 9.5 6.4-8.2 gm/dl Albumin 4.5 3.4-5.0 gm/dl Lipase 207 73-393 U/L Beta-Hydroxybutyric Acid 0.2-2.81 mg/dL Bedside Troponin I < 0.030 0-0.045 ng/ml Urine Color YELLOW Urine Appearance CLEAR CLEAR Urine pH 5.0 4.5-7.5 Urine Specific [place] 1.031 1.000-1.030 Urine Protein 2+ NEG Urine Glucose (UA) 3+ NEG Urine Ketones 4+ NEG Urine Occult Blood TRACE NEG Urine Nitrite NEG NEG Urine Bilirubin NEG NEG Urine Urobilinogen NEG NEG Urine Leukocyte Esterase NEG NEG Urine WBC (Auto) 1-5 0-5 /hpf Urine RBC (Auto) 0-4 0-4 /hpf Urine Hyaline Casts (Auto) 1-5 0-5 /lpf Urine Epithelial Cells (Auto) 10-20 0-5 /lpf Urine Bacteria (Auto) NEG NEG Arterial Blood pH 7.10 7.35-7.45 Arterial Blood Partial Pressure CO2 14 35-46 mmHg Arterial Blood Partial Pressure O2 123 80-95 mm/Hg Arterial Blood HCO3 4 19-24 mmol/L Arterial Blood Oxygen Saturation 97.8 90-95 % Arterial Blood Base Excess -23.3 -9-1.8 mEq/L Arterial Blood Gas Delivery ROOM AIR Jeffry Test POS POS Estimated Average Glucose 352 mg/dl Hemoglobin A1c 13.9 4.5-5.6 % Osmolality 374 280-300 mOsm/kg Test 11/07/17 02:22 11/07/17 03:21 11/07/17 03:35 11/07/17 05:55 Range/Units Activated Partial Thromboplast Time 23.3 21.0-31.0 SECONDS Partial Thromboplastin Ratio 0.9 Lactic Acid Level 0.4-2.0 mmol/L Phenytoin (Dilantin) Level 10.6 10-20 mcg/mL Bedside Glucose > 600 70-90 mg/dl Sodium Level 136 136-145 mmol/L Potassium Level 3.5-5.1 mmol/L Chloride Level 103 98-107 mmol/L Carbon Dioxide Level < 5 21-32 mmol/L Anion Gap 30.0 3-11 mmol/L Blood Urea Nitrogen 33 7-18 mg/dl Creatinine 1.82 0.60-1.20 mg/dl Est Creatinine Clear Calc Drug Dose 30.5 ml/min Estimated GFR () 33.2 Estimated GFR (Non- 28.6 BUN/Creatinine Ratio 18.4 10-20 Random Glucose 759 612 70-99 mg/dl Calcium Level 7.6 8.5-10.1 mg/dl Beta-Hydroxybutyric Acid 91.40 0.2-2.81 mg/dL Prothrombin Time 9.6 9.0-12.0 SECONDS Prothromb Time International Ratio 0.9 0.9-1.1 Test 11/07/17 07:29 11/07/17 08:08 11/07/17 09:13 11/07/17 10:12 Range/Units Sodium Level 143 136-145 mmol/L Potassium Level 4.7 3.5-5.1 mmol/L Chloride Level 114 98-107 mmol/L Carbon Dioxide Level 7 21-32 mmol/L Anion Gap 22.0 3-11 mmol/L Blood Urea Nitrogen 32 7-18 mg/dl Creatinine 1.44 0.60-1.20 mg/dl Est Creatinine Clear Calc Drug Dose 38.5 ml/min Estimated GFR () 44.1 Estimated GFR (Non- 38.0 BUN/Creatinine Ratio 22.0 10-20 Random Glucose 563 70-99 mg/dl Calcium Level 7.3 8.5-10.1 mg/dl Troponin I < 0.015 0-0.045 ng/ml Beta-Hydroxybutyric Acid 82.78 0.2-2.81 mg/dL Chemistry Specimen Hemolysis Bedside Glucose (other) 522 465 406 70-99 mg/dl Test 11/07/17 11:23 11/07/17 11:49 11/07/17 12:30 11/07/17 13:24 Range/Units Bedside Glucose (other) 344 261 70-99 mg/dl Sodium Level 147 136-145 mmol/L Potassium Level 3.5-5.1 mmol/L Chloride Level 120 98-107 mmol/L Carbon Dioxide Level 8 21-32 mmol/L Anion Gap 19.0 3-11 mmol/L Blood Urea Nitrogen 28 7-18 mg/dl Creatinine 1.27 0.60-1.20 mg/dl Est Creatinine Clear Calc Drug Dose 43.6 ml/min Estimated GFR () 51.3 Estimated GFR (Non- 44.3 BUN/Creatinine Ratio 21.9 10-20 Random Glucose 329 70-99 mg/dl Calcium Level 7.3 8.5-10.1 mg/dl Beta-Hydroxybutyric Acid 0.2-2.81 mg/dL Test 11/07/17 14:19 11/07/17 16:21 11/07/17 17:37 Range/Units Potassium Level 5.2 3.5-5.1 mmol/L Beta-Hydroxybutyric Acid 31.73 0.2-2.81 mg/dL Chemistry Specimen Hemolysis Sodium Level 148 136-145 mmol/L Chloride Level 123 98-107 mmol/L Carbon Dioxide Level 11 21-32 mmol/L Anion Gap 14.0 3-11 mmol/L Blood Urea Nitrogen 27 7-18 mg/dl Creatinine 1.12 0.60-1.20 mg/dl Est Creatinine Clear Calc Drug Dose 49.5 ml/min Estimated GFR () 59.7 Estimated GFR (Non- 51.5 BUN/Creatinine Ratio 24.3 10-20 Random Glucose 226 70-99 mg/dl Calcium Level 7.5 8.5-10.1 mg/dl Microbiology Results 11/07/17 Blood Culture - Preliminary, Resulted Gram Positive Cocci 11/07/17 Blood Culture, Received Pending 12/19/17 MRSA DNA Surveillance Screen - Final, Complete Specimen Negative for MRSA by DNA Probe
[2017-11-07] MEDS ORDERED: VANCOMYCIN CONSULT ACTIVE PRN (18:45)
[2017-11-07] MEDS ORDERED: D5W NORMOSOL-R 1,000 ML IV SCH (18:45)
[2017-11-07] MEDS ORDERED: VANCOMYCIN INJ 1,750 MG in SODIUM CHLORIDE 0.9% 500ML 500 ML IV ONE (19:00)
--- NOTE | 2017-11-07 21:11 | Pharmacy Progress Note ---
Pharmacy Antibiotic Consult Date of Service: Nov 07, 2017. Pharmacy Dosing Scope Pharmacy is consulted to initiate vancomycin IV dosing therapy, order appropriate labs and adjust drug dose/frequency. Subjective The patient is a 67 year old female admitted on Nov 07, 2017 at 02:51 with confirmed bacteremia (gm positive cocci), r/o SBO, hx colon cancer s/p surgery. Objective Height (Feet): 5 Height (Inches): 5.00 Weight (Kilograms): 70.900 Lab Results (24hrs): Test 11/07/17 00:10 11/07/17 00:21 11/07/17 01:50 11/07/17 02:08 White Blood Count 18.21 K/uL (4.8-10.8) Red Blood Count 5.43 M/uL (4.2-5.4) Hemoglobin 18.2 g/dL (12.0-16.0) Hematocrit 53.4 % (37-47) Mean Corpuscular Volume 98.3 fL (80-100) Mean Corpuscular Hemoglobin 33.5 pg (25-34) Mean Corpuscular Hemoglobin Concent 34.1 g/dl (32-36) Platelet Count 367 K/uL (130-400) Mean Platelet Volume 10.8 fL (7.4-10.4) Neutrophils (%) (Auto) 80.1 % Lymphocytes (%) (Auto) 10.1 % Monocytes (%) (Auto) 8.0 % Eosinophils (%) (Auto) 0.1 % Basophils (%) (Auto) 0.3 % Neutrophils # (Auto) 14.60 K/uL (1.4-6.5) Lymphocytes # (Auto) 1.84 K/uL (1.2-3.4) Monocytes # (Auto) 1.45 K/uL (0.11-0.59) Eosinophils # (Auto) 0.02 K/uL (0-0.5) Basophils # (Auto) 0.05 K/uL (0-0.2) RDW Standard Deviation 48.4 fL (36.4-46.3) RDW Coefficient of Variation 13.6 % (11.5-14.5) Immature Granulocyte % (Auto) 1.4 % Immature Granulocyte # (Auto) 0.25 K/uL (0.00-0.02) D-Dimer 680 ug/L FEU (0-500) Magnesium Level mg/dl (1.8-2.4) 3.6 mg/dl (1.8-2.4) Total Bilirubin 0.7 mg/dl (0.2-1) Direct Bilirubin mg/dl (0-0.2) 0.2 mg/dl (0-0.2) Aspartate Amino Transf (AST/SGOT) U/L (15-37) 16 U/L (15-37) Alanine Aminotransferase (ALT/SGPT) 36 U/L (12-78) Alkaline Phosphatase 176 U/L (45-117) Total Protein 9.5 gm/dl (6.4-8.2) Albumin 4.5 gm/dl (3.4-5.0) Lipase 207 U/L (73-393) Bedside Troponin I < 0.030 ng/ml (0-0.045) Urine Color YELLOW Urine Appearance CLEAR (CLEAR) Urine pH 5.0 (4.5-7.5) Urine Specific [place] 1.031 (1.000-1.030) Urine Protein 2+ (NEG) Urine Glucose (UA) 3+ (NEG) Urine Ketones 4+ (NEG) Urine Occult Blood TRACE (NEG) Urine Nitrite NEG (NEG) Urine Bilirubin NEG (NEG) Urine Urobilinogen NEG (NEG) Urine Leukocyte Esterase NEG (NEG) Urine WBC (Auto) 1-5 /hpf (0-5) Urine RBC (Auto) 0-4 /hpf (0-4) Urine Hyaline Casts (Auto) 1-5 /lpf (0-5) Urine Epithelial Cells (Auto) 10-20 /lpf (0-5) Urine Bacteria (Auto) NEG (NEG) Arterial Blood pH 7.10 (7.35-7.45) Arterial Blood Partial Pressure CO2 14 mmHg (35-46) Arterial Blood Partial Pressure O2 123 mm/Hg (80-95) Arterial Blood HCO3 4 mmol/L (19-24) Arterial Blood Oxygen Saturation 97.8 % (90-95) Arterial Blood Base Excess -23.3 mEq/L (-9-1.8) Arterial Blood Gas Delivery ROOM AIR Jeffry Test POS (POS) Estimated Average Glucose 352 mg/dl Hemoglobin A1c 13.9 % (4.5-5.6) Osmolality 374 mOsm/kg (280-300) Test 11/07/17 02:22 11/07/17 05:55 11/07/17 07:29 11/07/17 11:23 Activated Partial Thromboplast Time 23.3 SECONDS (21.0-31.0) Partial Thromboplastin Ratio 0.9 Lactic Acid Level mmol/L (0.4-2.0) mmol/L (0.4-2.0) Phenytoin (Dilantin) Level 10.6 mcg/mL (10-20) Prothrombin Time 9.6 SECONDS (9.0-12.0) Prothromb Time International Ratio 0.9 (0.9-1.1) Troponin I < 0.015 ng/ml (0-0.045) Chemistry Specimen Hemolysis Bedside Glucose (other) 344 mg/dl (70-99) Test 11/07/17 11:49 11/07/17 12:30 11/07/17 13:24 11/07/17 14:19 Est Creatinine Clear Calc Drug Dose 43.6 ml/min Bedside Glucose (other) 261 mg/dl (70-99) Beta-Hydroxybutyric Acid mg/dL (0.2-2.81) 31.73 mg/dL (0.2-2.81) Chemistry Specimen Hemolysis Test 11/07/17 16:21 11/07/17 19:37 11/07/17 20:40 11/07/17 20:41 Sodium Level 148 mmol/L (136-145) Potassium Level mmol/L (3.5-5.1) Chloride Level 123 mmol/L (98-107) Carbon Dioxide Level 11 mmol/L (21-32) Anion Gap 14.0 mmol/L (3-11) Blood Urea Nitrogen 27 mg/dl (7-18) Creatinine 1.12 mg/dl (0.60-1.20) Est Creatinine Clear Calc Drug Dose 49.5 ml/min Estimated GFR () 59.7 Estimated GFR (Non- 51.5 BUN/Creatinine Ratio 24.3 (10-20) Random Glucose 226 mg/dl (70-99) Calcium Level 7.5 mg/dl (8.5-10.1) Bedside Glucose 152 mg/dl (70-90) 144 mg/dl (70-90) Micro Results: Blood CX are pending--one grew GPC MRSA swab negative Assessment & Plan Vancomycin: Loading dose: 1750 mg IV X 1 dose (25mg/kg) then: 1000 mg IV every 18 hours. Goal trough level estimate: between 15 - 20 mcg/mL. Peak and trough or random level has been ordered for: 11/09 prior to 1800 dose. Pharmacy will continue to follow and will adjust dose/frequency as necessary. Thank you
[2017-11-07 21:49] LABS: BUN/CREATININE RATIO 22.2 (10-20); CALCIUM 7.7 mg/dl (8.5-10.1); CREATININE 1.17 mg/dl (0.60-1.20)
[2017-11-07] MEDS: SIMVASTATIN 20 MG TAB PO SCH (21:59)
[2017-11-07 22:56] LABS: POTASSIUM 3.8 mmol/L (3.5-5.1)
[2017-11-08] VITALS (17 sets, daily range): BP systolic 117–170; BP diastolic 48–73; PULSE 80–104; TEMP 36–36.9; O2SAT 93–99
[2017-11-08] MEDS: ONDANSETRON INJ 2 MG/ML 2 ML VIAL IV PRN (00:03)
[2017-11-08] MEDS: SODIUM CHLOR 0.45% + 20MEQ KCL 1,000 ML IV SCH ×3 (00:03→15:45)
[2017-11-08] MEDS: HEPARIN SOD 5000 UNIT/0.5 ML CARP SQ SCH ×2 (00:04→09:26)
[2017-11-08 00:59] LABS: BUN/CREATININE RATIO 25.8 (10-20); CALCIUM 7.3 mg/dl (8.5-10.1); CREATININE 0.94 mg/dl (0.60-1.20)
[2017-11-08] MEDS: INSULIN REGULAR 250 UNITS in SODIUM CHLORIDE 0.9% 250ML 250 ML IV SCH (02:38)
[2017-11-08] MEDS: LEVOTHYROXINE 50 MCG TAB PO SCH (06:00)
[2017-11-08] MEDS ORDERED: POTASSIUM CHLR 20 MEQ / WTR 20 MEQ in PREMIXED WATER 100 ML IV SCH (06:45)
[2017-11-08 06:50] LABS: BUN/CREATININE RATIO 30.4 (10-20); CALCIUM 7.1 mg/dl (8.5-10.1); CREATININE 0.72 mg/dl (0.60-1.20); MAGNESIUM 2.5 mg/dl (1.8-2.4); POTASSIUM 3.8 mmol/L (3.5-5.1)
[2017-11-08 07:04] LABS: BASO % 0.1 %; BASO ABS # 0.01 K/uL (0-0.2); COMPLETE YES; EOS % 0.4 %; HEMATOCRIT 40.7 % (37-47); IG% 0.3 %; LYMPH % 9.4 %; LYMPH ABS # 0.65 K/uL (1.2-3.4); MEAN CELL VOLUME 89.8 fL (80-100); MEAN CORPUSCULAR HEMOGLOBIN 31.3 pg (25-34); MEAN CORPUSCULAR HGB CONC 34.9 g/dl (32-36); MEAN PLATELET VOLUME 9.5 fL (7.4-10.4); MONO % 16.4 %; NEUT % 73.4 %; PLATELET COUNT 203 K/uL (130-400); RED BLOOD COUNT 4.53 M/uL (4.2-5.4)
[2017-11-08 07:05] LABS: PHOSPHORUS 1.3 mg/dl (2.5-4.9)
[2017-11-08 08:15] LABS: GASTRIC OCCULT BLOOD POS (NEG); GASTRIC OCCULT BLOOD PH 3
--- NOTE | 2017-11-08 08:46 | Clinical Documentation Query ---
CLINICAL DOCUMENTATION QUERY Dr. RENNER, In your clinical opinion is this patient being managed for: ( ) Metabolic encephalopathy due to diabetic hyperglycemic hyperosmolar syndrome and LUCAS ( ) Not Agree ( ) Other explanation of clinical findings (Please Explain) ( ) Unable to determine (Please Define) ( ) Need to Discuss The medical record reflects the following clinical findings, treatment, and risk factors. Clinical Indicators: 67 yo female presenting with HHS. H/P indicates pt disoriented following benadryl administration, however EMR indicates benadryl not administered. Nursing notes indicate pt moaning when questioned/thrashing in bed/not following commands per ER notes, and drowsy and intermittently confused after arrival to unit. Cr 2.02, ABG pH 7.1, pCO2 14, pO2 123, HCO3 4. Glucose 845. WBC 18.21 Treatment: IV fluids with boluses, IV insulin bolus then gtt, ICU, IV vancomycin Risk Factors: HHS, LUCAS, acidosis Please clarify and document your clinical opinion in the progress notes and discharge summary. Terms such as "probable", "suspected", "likely", "questionable", "possible", or "still to be ruled out" are acceptable. IF IN AGREEMENT, YOU MUST DOCUMENT ABOVE DIAGNOSTIC STATEMENT IN DAILY PROGRESS NOTES AND DISCHARGE SUMMARY. This document is not part of the patient's record. Thank You, Digna Estevez RN [phone]
[2017-11-08] MEDS: INSULIN ASPART 100 UNITS/ML 3 ML PEN SC SCH ×4 (09:24→20:36)
[2017-11-08] MEDS: IPRATROPIUM BROMIDE HFA INHALER INH SCH ×4 (09:26→20:37)
[2017-11-08] MEDS: LEValbuterol HFA 15GM INHALER INH SCH ×4 (09:26→20:37)
--- NOTE | 2017-11-08 09:39 | DIAGNOSTIC IMAGING REPORT ---
KUB HISTORY: Abdominal distention COMPARISON: KUB 11/07/2017. FINDINGS: Nasogastric tube terminates in the proximal stomach. Moderate well-formed stool seen within the colon. A few mildly dilated gas-filled loops of small bowel within the left side the abdomen. These measure up to 4 cm in diameter. Cholecystectomy. No renal calculi. No ureteral calculi. No pneumoperitoneum or pneumatosis. IMPRESSION: A few mildly dilated gas-filled loops of small bowel within the left side the abdomen. This is similar to the prior study could represent a partial small bowel obstruction. Nasogastric tube terminates in the proximal stomach. Electronically signed by: Kyler De La Cruz M.D. 11/08/2017 9:38 AM Dictated Date/Time: 11/08/2017 9:36 AM
[2017-11-08] MEDS ORDERED: POTASSIUM PHOS 3 MMOL/1 ML INFUSION IV STA (12:20)
[2017-11-08] MEDS ORDERED: FAMOTIDINE IV INJ 20 MG in DEXTROSE 5% 100ML 100 ML IV SCH (13:00)
[2017-11-08] MEDS ORDERED: ENALAPRILAT IV 1.25 MG in DEXTROSE 5% 25ML 25 ML IV ONE (13:00)
[2017-11-08] MEDS: DOCUSATE SODIUM 100 MG CAP PO SCH (13:05)
[2017-11-08] MEDS: BACLOFEN 10 MG TAB PO SCH (13:06)
[2017-11-08] MEDS: VANCOMYCIN INJ 1,000 MG in SODIUM CHLORIDE 0.9% 250ML 250 ML IV SCH (13:07)
[2017-11-08] MEDS ORDERED: POTASSIUM PHOSPHATE INJ 24 MMOL in SODIUM CHLORIDE 0.9% 500ML 500 ML IV ONE (13:15)
[2017-11-08] MEDS ORDERED: PHENYTOIN IV 100 MG in SYRINGE 0 ML IV ONE (13:30)
[2017-11-08] MEDS ORDERED: SODIUM CHLOR 0.9% 10ML FLUSH 20 ML in SYRINGE 0 ML IV SCH (13:30)
[2017-11-08] MEDS ORDERED: ENOXAPARIN 40 MG/0.4 ML SYR SQ ONE (14:00)
[2017-11-08] MEDS ORDERED: LEVOTHYROXINE SODIUM INJ 37.5 MCG in SYRINGE 0 ML IV ONE (14:00)
--- NOTE | 2017-11-08 17:36 | Progress Note ---
Internal Med Progress Note Date of Service: Nov 08, 2017. Provider Documentation: SUBJECTIVE: alert and awake today denies any pain feels thirsty afebrile hemodynamics stable no sob or cough OBJECTIVE: Vital Signs-as noted below Exam: General-sleepy. not in distress ENT-Normal hearing Neck-no neck masses Lungs-Cta b/l no wheezing or crackles Heart-S1 and S2 heard regular No murmurs Abdomen-Soft Bowel sounds present Non tender No distension Extremities-No edema No erythema Neuro- drowsy moves extremities Lab data as noted below. ASSESSMENT & PLAN: 1. Diabetic ketoacidosis/hyperglycemic hyperosmolar syndrome DM2, insulin requiring HBA1C 13.9 on Dka protocol with insulin drip and fluids. diabetic teaching still on insulin gtt appreciate pharmacy consult appreciate critical care inputs close monitor 2. Hypertension. on iv Vasotec. Will monitor. 3. PSBO o kub on ng tube fluids and antiemetics continue to monitor 4. CAD as per records.asymptomatic 5. Acute renal failure. hyperkalemia secondary to above.Resolved. 6. Past tobacco abuse. 7. Hx of colon cancer s/p surgery DVT PROPHYLAXIS hep sub q DISPOSITION monitor in ICU Vital Signs: Date Time Temp Pulse Resp B/P (MAP) Pulse Ox O2 Delivery O2 Flow Rate FiO2 11/08/17 16:00 36.8 88 20 159/51 (87) 96 Room Air 11/08/17 16:00 97 Room Air 11/08/17 14:15 88 18 138/49 (78) 97 Room Air 11/08/17 12:00 36.9 89 20 170/68 (102) 96 Room Air 11/08/17 12:00 Room Air 11/08/17 10:04 92 22 140/59 (86) 96 Room Air 11/08/17 08:00 104 18 169/68 (101) 99 Room Air 11/08/17 08:00 Room Air 11/08/17 06:01 93 19 146/62 (90) 96 Room Air 11/08/17 05:01 36.7 95 22 164/71 (102) 96 Room Air 11/08/17 04:01 92 23 160/73 (102) 96 Room Air 11/08/17 04:00 Room Air 11/08/17 03:01 93 19 152/65 (94) 96 Room Air 11/08/17 02:01 92 20 161/69 (99) 95 Room Air 11/08/17 01:01 90 18 135/71 (92) 94 Room Air 11/08/17 00:01 88 21 151/66 (94) 93 Room Air 11/07/17 23:59 Room Air 11/07/17 23:01 36.6 90 13 178/85 (116) 95 Room Air 11/07/17 21:01 85 23 162/66 (98) 95 Room Air 11/07/17 21:00 84 20 95 11/07/17 20:01 36.9 89 21 158/73 (101) 96 Room Air 11/07/17 20:00 89 19 97 11/07/17 19:30 96 Room Air 11/07/17 19:13 91 22 148/69 (95) 96 Room Air 11/07/17 19:00 94 18 11/07/17 18:01 90 20 147/71 (96) 96 11/07/17 18:00 89 18 96 Lab Results: Results Past 24 Hours Test 11/07/17 17:34 11/07/17 18:42 11/07/17 19:37 11/07/17 20:40 Range/Units Bedside Glucose 205 169 152 144 70-90 mg/dl Test 11/07/17 20:41 11/07/17 21:31 11/07/17 22:16 11/07/17 22:35 Range/Units Sodium Level 146 136-145 mmol/L Potassium Level 3.8 3.5-5.1 mmol/L Chloride Level 122 98-107 mmol/L Carbon Dioxide Level 18 21-32 mmol/L Anion Gap 6.0 3-11 mmol/L Blood Urea Nitrogen 26 7-18 mg/dl Creatinine 1.17 0.60-1.20 mg/dl Est Creatinine Clear Calc Drug Dose 47.3 ml/min Estimated GFR () 56.6 Estimated GFR (Non- 48.9 BUN/Creatinine Ratio 22.2 10-20 Random Glucose 159 70-99 mg/dl Calcium Level 7.7 8.5-10.1 mg/dl Bedside Glucose 154 141 70-90 mg/dl Chemistry Specimen Hemolysis Test 11/07/17 23:36 11/08/17 00:04 11/08/17 00:23 11/08/17 02:35 Range/Units Bedside Glucose 129 130 77 70-90 mg/dl Sodium Level 149 136-145 mmol/L Potassium Level 3.0 3.5-5.1 mmol/L Chloride Level 124 98-107 mmol/L Carbon Dioxide Level 18 21-32 mmol/L Anion Gap 7.0 3-11 mmol/L Blood Urea Nitrogen 24 7-18 mg/dl Creatinine 0.94 0.60-1.20 mg/dl Est Creatinine Clear Calc Drug Dose 58.9 ml/min Estimated GFR () 73.8 Estimated GFR (Non- 63.7 BUN/Creatinine Ratio 25.8 09-08 Random Glucose 140 70-99 mg/dl Calcium Level 7.3 8.5-10.1 mg/dl Test 11/08/17 03:02 11/08/17 03:49 11/08/17 04:50 11/08/17 05:56 Range/Units Bedside Glucose 137 149 122 112 70-90 mg/dl Test 11/08/17 06:03 11/08/17 07:28 11/08/17 08:00 11/08/17 08:43 Range/Units White Blood Count 6.90 4.8-10.8 K/uL Red Blood Count 4.53 4.2-5.4 M/uL Hemoglobin 14.2 12.0-16.0 g/dL Hematocrit 40.7 37-47 % Mean Corpuscular Volume 89.8 80-100 fL Mean Corpuscular Hemoglobin 31.3 25-34 pg Mean Corpuscular Hemoglobin Concent 34.9 32-36 g/dl Platelet Count 203 130-400 K/uL Mean Platelet Volume 9.5 7.4-10.4 fL Neutrophils (%) (Auto) 73.4 % Lymphocytes (%) (Auto) 9.4 % Monocytes (%) (Auto) 16.4 % Eosinophils (%) (Auto) 0.4 % Basophils (%) (Auto) 0.1 % Neutrophils # (Auto) 5.06 1.4-6.5 K/uL Lymphocytes # (Auto) 0.65 1.2-3.4 K/uL Monocytes # (Auto) 1.13 0.11-0.59 K/uL Eosinophils # (Auto) 0.03 0-0.5 K/uL Basophils # (Auto) 0.01 0-0.2 K/uL RDW Standard Deviation 44.9 36.4-46.3 fL RDW Coefficient of Variation 13.7 11.5-14.5 % Immature Granulocyte % (Auto) 0.3 % Immature Granulocyte # (Auto) 0.02 0.00-0.02 K/uL Sodium Level 149 136-145 mmol/L Potassium Level 3.8 3.5-5.1 mmol/L Chloride Level 122 98-107 mmol/L Carbon Dioxide Level 17 21-32 mmol/L Anion Gap 10.0 3-11 mmol/L Blood Urea Nitrogen 22 7-18 mg/dl Creatinine 0.72 0.60-1.20 mg/dl Est Creatinine Clear Calc Drug Dose 77.6 ml/min Estimated GFR () 101.9 Estimated GFR (Non- 87.9 BUN/Creatinine Ratio 30.4 10 Random Glucose 146 70-99 mg/dl Calcium Level 7.1 8.5-10.1 mg/dl Phosphorus Level 1.3 2.5-4.9 mg/dl Magnesium Level 2.5 1.8-2.4 mg/dl Bedside Glucose 133 147 70-90 mg/dl Gastric Fluid pH 3 Gastric Fluid Occult Blood POS NEG Test 11/08/17 10:44 11/08/17 12:56 11/08/17 16:10 Range/Units Bedside Glucose 154 138 142 70-90 mg/dl Microbiology Results 11/07/17 Blood Culture, Received Pending 11/07/17 Blood Culture, Received Pending
[2017-11-08] MEDS: SIMVASTATIN 20 MG TAB PO SCH (20:39)
[2017-11-08] MEDS: FAMOTIDINE IV INJ 20 MG in SYRINGE 3 ML IV SCH (20:39)
--- NOTE | 2017-11-08 23:43 | Critical Care Progress Note ---
Critical Care Progress Note Date of Service Nov 08, 2017. ICU Day ICU Day Number: [address] Stevens Subjective Nauseous and vomiting lack substance Objective General: Drowsy Neck-no neck masses Lungs-Cta b/l no wheezing or crackles Heart-S1 and S2 no murmurs rubs gallops Abdomen-Soft Bowel sounds present mild epigastric tenderness Extremities-No edema No erythema moves extremities Assessment & Plan (1) DKA (diabetic ketoacidoses) (2) Seizure (3) Hyperlipidemia (4) DM2 (diabetes mellitus, type 2) (5) HTN (hypertension) (6) CAD (coronary artery disease) (7) Hypothyroid Reason Critically Ill: Critically ill due to bacteremia and possible small bowel obstruction, improved from hyperosmolar nonketotic coma PLAN: Neuro: Improved mental status CV: Start IV SANDY inhibitor Fluids/Renal: Hypernatremia * Approximately 2.5 L water deficit continue with half normal saline with 20 of K ID: Bacteremia coag-negative staph versus skin contaminant * Repeat blood cultures pending continue vancomycin at the present time GI/Nutrition: Reviewed KUB, NG tube placed for possible small bowel obstruction given findings on CT scan as well Heme: Convert to Lovenox for DVT prophylaxis Endocrine: Insulin infusion I have personally spent 35 minutes of critical care time in the direct management of this patient. This is a life/limb threatening event. This includes time spent evaluating patient, direct bedside care, chart review, placing orders, interpretation of diagnostic studies, discussion with consultants, patient, and family members, as well as other required patient management activities. This time is exclusive of all separately billable procedures, and teaching time and separate from and in addition to any other critical care service time. Consults & Procedures Consultants: Diabetes education Procedures: Right IJ central line 11/07/2017 Data Medications: Current Inpatient Medications Medications (Trade) Dose Ordered Sig/[place] Route Start Time Stop Time Status Last Admin Dose Admin Ioversol (Optiray 320) 100 ml UD PRN IV 11/07/17 00:45 11/11/17 00:44 Insulin Human Regular 250 units/ Sodium Chloride 252.5 ml @ 0 mls/hr Q24H IV 11/07/17 02:00 12/07/17 01:59 11/08/17 02:38 4.9 MLS/HR Insulin Aspart (novoLOG ASPART) SLIDING SCALE [facility] 11/07/17 08:00 12/07/17 08:59 Nitroglycerin (Nitrostat Tab) 0.4 mg UD PRN SL 11/07/17 03:15 12/07/17 03:14 Hydromorphone HCl (Dilaudid Inj) 0.5 mg Q4H PRN IV 11/07/17 03:15 11/21/17 03:14 Prochlorperazine Edisylate 5 mg/ Syringe 5 ml @ 5 mls/min Q6H PRN IV 11/07/17 03:15 12/07/17 03:14 11/08/17 04:29 5 MLS/MIN Oxycodone/ Acetaminophen (Percocet 5-325mg Tab) 1 tab Q6H PRN PO 11/07/17 03:15 11/21/17 03:14 Baclofen (Lioresal Tab) 10 mg BID PO 11/07/17 09:00 12/07/17 08:59 Future Hold 11/07/17 21:58 10 MG Simvastatin (Zocor Tab) 20 mg QPM PO 11/07/17 21:00 12/07/17 20:59 11/08/17 20:39 20 MG Ondansetron HCl (Zofran Inj) 4 mg Q6H PRN IV 11/07/17 03:15 12/07/17 03:14 11/08/17 00:03 4 MG Levalbuterol (Xopenex Hfa Inhaler) 1 puffs QID INH 11/07/17 09:00 12/07/17 08:59 11/08/17 13:07 1 PUFFS Ipratropium [place] (Atrovent Hfa Inhaler) 1 puffs QID INH 11/07/17 09:00 12/07/17 08:59 11/08/17 13:07 1 PUFFS Glucose (Glucose 40% Gel) 15-30 GRAMS 15 GRAMS... UD PRN PO 11/07/17 04:45 12/07/17 04:44 Glucose (Glucose Chew Tab) 4-8 Tablets 4 Tabl... UD PRN PO 11/07/17 04:45 12/07/17 04:44 Dextrose (Dextrose 50% 50ML Syringe) 25-50ML OF 50% DW IV FOR... UD PRN IV 11/07/17 04:45 12/07/17 04:44 11/08/17 02:48 25 ML Glucagon (Glucagon Inj) 1 mg UD PRN SQ 11/07/17 04:45 12/07/17 04:44 Docusate Sodium (coLACE CAP) 100 mg DAILY PO 11/07/17 09:00 12/07/17 08:59 Future Hold 11/07/17 09:06 100 MG Polyethylene (Miralax Powder Packet) 17 gm DAILY PRN PO 11/07/17 05:30 12/07/17 05:29 Future Hold Vancomycin HCl 1000 mg/Sodium Chloride 270 ml @ 125 mls/hr Q18H IV 11/08/17 12:00 11/22/17 11:59 11/08/17 13:07 125 MLS/HR Vancomycin HCl (Consult) 1 ea UD PRN N/A 11/07/17 18:45 12/07/17 18:44 Potassium Chloride/Sodium Chloride 1,000 ml @ 125 mls/hr Q8H IV 11/07/17 23:45 12/07/17 23:44 11/08/17 15:45 125 MLS/HR Heparin Sodium (Porcine) (Heparin 10 Unit/ ml 5 ml Flush) 5 ml PRN PRN FLUSH 11/08/17 01:00 12/08/17 00:59 Enalaprilat 1.25 mg/Dextrose 26 ml @ 100 mls/hr DAILY@0900 IV 11/09/17 09:00 12/09/17 08:59 Enoxaparin Sodium (Lovenox Inj) 40 mg QAM SQ 11/09/17 09:00 12/09/17 08:59 Levothyroxine Sodium 37.5 mcg/ Syringe 1.875 ml @ 2 mls/min DAILY@09 IV 11/09/17 09:00 12/09/17 08:59 Phenytoin Sodium 100 mg/Syringe 2 ml @ 1 mls/min DAILY@0900 IV 11/09/17 09:00 12/09/17 08:59 Sodium Chloride 20 ml/Syringe 20 ml @ 0 mls/min DAILY@0900 IV 11/09/17 09:00 12/09/17 08:59 Famotidine 20 mg/ Syringe 5 ml @ 2.5 mls/min Q12@0900,2100 IV 11/08/17 21:00 12/08/17 20:59 11/08/17 20:39 2.5 MLS/MIN I & O: 24-Hour Column 11/09/17 07:59 Intake Total 1927 ml Output Total 1200 ml Balance 727 ml Vital Signs: Date Time Temp Pulse Resp B/P (MAP) Pulse Ox O2 Delivery O2 Flow Rate FiO2 11/08/17 22:00 90 22 144/51 (82) 96 Room Air 11/08/17 20:00 81 18 162/48 (86) 98 Room Air 11/08/17 20:00 98 Room Air 11/08/17 18:00 36.0 85 18 117/48 (71) 95 Room Air 11/08/17 16:00 36.8 88 20 159/51 (87) 96 Room Air 11/08/17 16:00 97 Room Air 11/08/17 14:15 88 18 138/49 (78) 97 Room Air 11/08/17 12:00 36.9 89 20 170/68 (102) 96 Room Air 11/08/17 12:00 Room Air 11/08/17 10:04 92 22 140/59 (86) 96 Room Air 11/08/17 08:00 104 18 169/68 (101) 99 Room Air 11/08/17 08:00 Room Air 11/08/17 06:01 93 19 146/62 (90) 96 Room Air 11/08/17 05:01 36.7 95 22 164/71 (102) 96 Room Air 11/08/17 04:01 92 23 160/73 (102) 96 Room Air 11/08/17 04:00 Room Air 11/08/17 03:01 93 19 152/65 (94) 96 Room Air 11/08/17 02:01 92 20 161/69 (99) 95 Room Air 11/08/17 01:01 90 18 135/71 (92) 94 Room Air 11/08/17 00:01 88 21 151/66 (94) 93 Room Air 11/07/17 23:59 Room Air Laboratory Results: Last 24 Hours Test 11/07/17 23:36 11/08/17 00:04 11/08/17 00:23 11/08/17 02:35 Bedside Glucose 129 mg/dl 130 mg/dl 77 mg/dl Sodium Level 149 mmol/L Potassium Level 3.0 mmol/L Chloride Level 124 mmol/L Carbon Dioxide Level 18 mmol/L Anion Gap 7.0 mmol/L Blood Urea Nitrogen 24 mg/dl Creatinine 0.94 mg/dl Est Creatinine Clear Calc Drug Dose 58.9 ml/min Estimated GFR () 73.8 Estimated GFR (Non- 63.7 BUN/Creatinine Ratio 25.8 Random Glucose 140 mg/dl Calcium Level 7.3 mg/dl Test 11/08/17 03:02 11/08/17 03:49 11/08/17 04:50 11/08/17 05:56 Bedside Glucose 137 mg/dl 149 mg/dl 122 mg/dl 112 mg/dl Test 11/08/17 06:03 11/08/17 07:28 11/08/17 08:00 11/08/17 08:43 White Blood Count 6.90 K/uL Red Blood Count 4.53 M/uL Hemoglobin 14.2 g/dL Hematocrit 40.7 % Mean Corpuscular Volume 89.8 fL Mean Corpuscular Hemoglobin 31.3 pg Mean Corpuscular Hemoglobin Concent 34.9 g/dl Platelet Count 203 K/uL Mean Platelet Volume 9.5 fL Neutrophils (%) (Auto) 73.4 % Lymphocytes (%) (Auto) 9.4 % Monocytes (%) (Auto) 16.4 % Eosinophils (%) (Auto) 0.4 % Basophils (%) (Auto) 0.1 % Neutrophils # (Auto) 5.06 K/uL Lymphocytes # (Auto) 0.65 K/uL Monocytes # (Auto) 1.13 K/uL Eosinophils # (Auto) 0.03 K/uL Basophils # (Auto) 0.01 K/uL RDW Standard Deviation 44.9 fL RDW Coefficient of Variation 13.7 % Immature Granulocyte % (Auto) 0.3 % Immature Granulocyte # (Auto) 0.02 K/uL Sodium Level 149 mmol/L Potassium Level 3.8 mmol/L Chloride Level 122 mmol/L Carbon Dioxide Level 17 mmol/L Anion Gap 10.0 mmol/L Blood Urea Nitrogen 22 mg/dl Creatinine 0.72 mg/dl Est Creatinine Clear Calc Drug Dose 77.6 ml/min Estimated GFR () 101.9 Estimated GFR (Non- 87.9 BUN/Creatinine Ratio 30.4 Random Glucose 146 mg/dl Calcium Level 7.1 mg/dl Phosphorus Level 1.3 mg/dl Magnesium Level 2.5 mg/dl Bedside Glucose 133 mg/dl 147 mg/dl Gastric Fluid pH 3 Gastric Fluid Occult Blood POS Test 11/08/17 10:44 11/08/17 12:56 11/08/17 16:10 11/08/17 20:34 Bedside Glucose 154 mg/dl 138 mg/dl 142 mg/dl 87 mg/dl Test 11/08/17 21:09 11/08/17 22:33 Bedside Glucose 111 mg/dl 172 mg/dl
[2017-11-09] VITALS (16 sets, daily range): BP systolic 110–163; BP diastolic 45–68; PULSE 79–97; TEMP 36.5–37; O2SAT 94–99
[2017-11-09] MEDS: SODIUM CHLOR 0.45% + 20MEQ KCL 1,000 ML IV SCH ×2 (00:22→07:13)
[2017-11-09] MEDS: INSULIN REGULAR 250 UNITS in SODIUM CHLORIDE 0.9% 250ML 250 ML IV SCH (01:35)
[2017-11-09 06:00] LABS: MEAN CELL VOLUME 90.9 fL (80-100); MEAN CORPUSCULAR HEMOGLOBIN 31.4 pg (25-34); MEAN CORPUSCULAR HGB CONC 34.6 g/dl (32-36); MEAN PLATELET VOLUME 9.3 fL (7.4-10.4); PLATELET COUNT 143 K/uL (130-400); RED BLOOD COUNT 3.85 M/uL (4.2-5.4); WHITE BLOOD COUNT 5.62 K/uL (4.8-10.8)
[2017-11-09] MEDS: VANCOMYCIN INJ 1,000 MG in SODIUM CHLORIDE 0.9% 250ML 250 ML IV SCH ×2 (06:10→18:15)
[2017-11-09 06:38] LABS: BUN/CREATININE RATIO 22.3 (10-20); CALCIUM 6.5 mg/dl (8.5-10.1); CREATININE 0.53 mg/dl (0.60-1.20); MAGNESIUM 2.1 mg/dl (1.8-2.4); POTASSIUM 3.2 mmol/L (3.5-5.1)
[2017-11-09] MEDS ORDERED: POTASSIUM CHLORIDE 20 MEQ/15 ML UDC NG STA (06:42)
[2017-11-09 06:48] LABS: PHOSPHORUS 1.4 mg/dl (2.5-4.9)
[2017-11-09] MEDS ORDERED: SODIUM PHOSPHATE 3 MMOL/1 ML INFUSION IV STA (06:48)
[2017-11-09] MEDS ORDERED: POTASSIUM PHOS 3 MMOL/1 ML INFUSION IV STA (06:57)
[2017-11-09] MEDS ORDERED: POTASSIUM PHOSPHATE INJ 30 MMOL in SODIUM CHLORIDE 0.9% 500ML 500 ML IV ONE (07:30)
[2017-11-09] MEDS: INSULIN ASPART 100 UNITS/ML 3 ML PEN SC SCH ×4 (08:00→21:04)
[2017-11-09] MEDS: LEValbuterol HFA 15GM INHALER INH SCH ×4 (08:30→20:30)
[2017-11-09] MEDS: IPRATROPIUM BROMIDE HFA INHALER INH SCH ×4 (08:31→20:30)
[2017-11-09] MEDS: FAMOTIDINE IV INJ 20 MG in SYRINGE 3 ML IV SCH (08:32)
[2017-11-09] MEDS: ENOXAPARIN 40 MG/0.4 ML SYR SQ SCH (08:34)
[2017-11-09] MEDS ORDERED: LEVOTHYROXINE SODIUM INJ 37.5 MCG in SYRINGE 0 ML IV SCH (09:00)
[2017-11-09] MEDS ORDERED: ENALAPRILAT IV 1.25 MG in DEXTROSE 5% 25ML 25 ML IV SCH (09:00)
[2017-11-09] MEDS ORDERED: PHENYTOIN IV 100 MG in SYRINGE 0 ML IV SCH (09:00)
[2017-11-09] MEDS ORDERED: SODIUM CHLOR 0.9% 10ML FLUSH 20 ML in SYRINGE 0 ML IV SCH (09:00)
[2017-11-09] MEDS ORDERED: PHARMACY GLYCEMIC MGMT CONSULT PRN (09:19)
[2017-11-09] MEDS ORDERED: LANTUS PER UNIT CHARGE SQ ONE (09:45)
[2017-11-09] MEDS ORDERED: INSULIN ASPART 100 UNITS/ML 3 ML PEN SC SCH (11:00)
[2017-11-09] MEDS ORDERED: INSULIN ASPART 100 UNITS/ML 3 ML PEN SC ONE (12:15)
--- NOTE | 2017-11-09 14:10 | Critical Care Progress Note ---
Critical Care Progress Note Date of Service Nov 09, 2017. ICU Day ICU Day Number: [address] Stevens Subjective Much improved, no nausea no vomiting no complaints. Objective General: Alert and oriented 3 Abdomen-Soft nontender nondistended moves extremities Current SOFA Score SOFA Score Response (Comments) Value Platelets (x10) < 150 1 Bilirubin (mg/dL) < 1.2 0 [place] Coma Score 15 0 Level of Hypotension No Hypotension 0 Creatinine (mg/dL) < 1.2 0 Total 1 Assessment & Plan (1) DKA (diabetic ketoacidoses) (2) Seizure (3) Hyperlipidemia (4) DM2 (diabetes mellitus, type 2) (5) HTN (hypertension) (6) CAD (coronary artery disease) (7) Hypothyroid PLAN: CV: Restart home oral meds Fluids/Renal: Improved hypernatremia, we will discontinue IV fluids now that tolerating oral nutrition ID: No growth and repeat blood cultures, coag negative staph out of 1, no further evidence of bacteremia will wait for final blood cultures and discontinue vancomycin at that time GI/Nutrition: Minimal NG output, this was discontinued and she is tolerated eating breakfast Heme: Lovenox prophylaxis, there has been a decrease in her platelet count however I believe she is at low risk for hit Endocrine: Transitioning off insulin infusion Stable for downgrade out of the ICU Consults & Procedures Consultants: Diabetes education Procedures: Right IJ central line 11/07/2017; discontinued 11/09/2017 Data Medications: Current Inpatient Medications Medications (Trade) Dose Ordered Sig/[place] Route Start Time Stop Time Status Last Admin Dose Admin Ioversol (Optiray 320) 100 ml UD PRN IV 11/07/17 00:45 11/11/17 00:44 Insulin Human Regular 250 units/ Sodium Chloride 252.5 ml @ 0 mls/hr Q24H IV 11/07/17 02:00 12/07/17 01:59 11/09/17 01:35 2.7 MLS/HR Nitroglycerin (Nitrostat Tab) 0.4 mg UD PRN SL 11/07/17 03:15 12/07/17 03:14 Hydromorphone HCl (Dilaudid Inj) 0.5 mg Q4H PRN IV 11/07/17 03:15 11/21/17 03:14 Prochlorperazine Edisylate 5 mg/ Syringe 5 ml @ 5 mls/min Q6H PRN IV 11/07/17 03:15 12/07/17 03:14 11/08/17 04:29 5 MLS/MIN Oxycodone/ Acetaminophen (Percocet 5-325mg Tab) 1 tab Q6H PRN PO 11/07/17 03:15 11/21/17 03:14 Baclofen (Lioresal Tab) 10 mg BID PO 11/07/17 09:00 12/07/17 08:59 Future Hold 11/07/17 21:58 10 MG Simvastatin (Zocor Tab) 20 mg QPM PO 11/07/17 21:00 12/07/17 20:59 11/08/17 20:39 20 MG Ondansetron HCl (Zofran Inj) 4 mg Q6H PRN IV 11/07/17 03:15 12/07/17 03:14 11/08/17 00:03 4 MG Levalbuterol (Xopenex Hfa Inhaler) 1 puffs QID INH 11/07/17 09:00 12/07/17 08:59 11/09/17 08:30 1 PUFFS Ipratropium [place] (Atrovent Hfa Inhaler) 1 puffs QID INH 11/07/17 09:00 12/07/17 08:59 11/09/17 08:31 1 PUFFS Glucose (Glucose 40% Gel) 15-30 GRAMS 15 GRAMS... UD PRN PO 11/07/17 04:45 12/07/17 04:44 Glucose (Glucose Chew Tab) 4-8 Tablets 4 Tabl... UD PRN PO 11/07/17 04:45 12/07/17 04:44 Dextrose (Dextrose 50% 50ML Syringe) 25-50ML OF 50% DW IV FOR... UD PRN IV 11/07/17 04:45 12/07/17 04:44 11/08/17 02:48 25 ML Glucagon (Glucagon Inj) 1 mg UD PRN SQ 11/07/17 04:45 12/07/17 04:44 Docusate Sodium (coLACE CAP) 100 mg DAILY PO 11/07/17 09:00 12/07/17 08:59 Future Hold 11/07/17 09:06 100 MG Polyethylene (Miralax Powder Packet) 17 gm DAILY PRN PO 11/07/17 05:30 12/07/17 05:29 Future Hold Vancomycin HCl 1000 mg/Sodium Chloride 270 ml @ 125 mls/hr Q18H IV 11/08/17 12:00 18 11:59 11/09/17 06:10 125 MLS/HR Vancomycin HCl (Consult) 1 ea PRN N/A 11/07/17 18:45 12/07/17 18:44 Potassium Chloride/Sodium Chloride 1,000 ml @ 125 mls/hr Q8H IV 11/07/17 23:45 12/07/17 23:44 11/09/17 07:13 125 MLS/HR Heparin Sodium (Porcine) (Heparin 10 Unit/ ml 5 ml Flush) 5 ml PRN PRN FLUSH 11/08/17 01:00 12/08/17 00:59 Enoxaparin Sodium (Lovenox Inj) 40 mg QAM SQ 11/09/17 09:00 12/09/17 08:59 11/09/17 08:34 40 MG Famotidine 20 mg/ Syringe 5 ml @ 2.5 mls/min Q12@0900,2100 IV 11/08/17 21:00 12/08/17 20:59 11/09/17 08:32 2.5 MLS/MIN Miscellaneous Information (Consult Glycemic Management Pharmacy) 1 ea PRN N/A 11/09/17 09:19 12/09/17 09:18 Insulin Aspart (novoLOG ASPART) SLIDING SCALE [facility] [place] 11/09/17 16:00 12/09/17 15:59 Insulin Aspart (novoLOG ASPART) SLIDING SCALE TODAY@0000,0400 [place] 11/10/17 00:00 11/10/17 04:01 Lisinopril (Zestril Tab) 10 mg QAM PO 11/10/17 09:00 12/10/17 08:59 Simvastatin (Zocor Tab) 20 mg PM PO 11/09/17 21:00 12/09/17 20:59 Levothyroxine Sodium (Synthroid Tab) 50 mcg DAILYBB PO 11/10/17 06:00 12/10/17 05:59 Phenytoin Sodium (Dilantin Er Cap) 100 mg TID PO 11/09/17 14:00 12/09/17 13:59 Miscellaneous Information (Dc Iv Insulin Infusion) 1 ea ONE ONCE N/A 11/09/17 17:00 11/09/17 17:01 Vital Signs: Date Time Temp Pulse Resp B/P (MAP) Pulse Ox O2 Delivery O2 Flow Rate FiO2 11/09/17 12:00 36.8 97 16 110/51 (70) 97 Room Air 11/09/17 12:00 Room Air 11/09/17 10:00 95 16 127/45 (72) 97 Room Air 11/09/17 08:00 Room Air 11/09/17 08:00 36.6 87 14 153/61 (91) 97 Room Air 11/09/17 06:01 83 16 163/62 (95) 96 Room Air 11/09/17 05:01 79 18 160/54 (89) 97 Room Air 11/09/17 04:01 36.5 84 19 160/53 (88) 97 Room Air 11/09/17 04:00 Room Air 11/09/17 03:02 80 19 156/56 (89) 97 Room Air 11/09/17 02:01 82 16 124/48 (73) 96 Room Air 11/09/17 01:01 79 19 155/56 (89) 96 Room Air 11/09/17 00:01 Room Air 11/09/17 00:01 36.6 79 17 152/51 (84) 94 Room Air 11/08/17 23:01 84 17 159/56 (90) 96 Room Air 11/08/17 22:01 80 18 162/48 (86) 97 Room Air 11/08/17 22:00 90 22 144/51 (82) 96 Room Air 11/08/17 20:00 81 18 162/48 (86) 98 Room Air 11/08/17 20:00 98 Room Air 11/08/17 18:00 36.0 85 18 117/48 (71) 95 Room Air 11/08/17 16:00 36.8 88 20 159/51 (87) 96 Room Air 11/08/17 16:00 97 Room Air 11/08/17 14:15 88 18 138/49 (78) 97 Room Air Laboratory Results: Last 24 Hours Test 11/08/17 16:10 11/08/17 20:34 11/08/17 21:09 11/08/17 22:33 Bedside Glucose 142 mg/dl 87 mg/dl 111 mg/dl 172 mg/dl Test 11/08/17 23:14 11/09/17 00:17 11/09/17 01:16 11/09/17 02:16 Bedside Glucose 200 mg/dl 205 mg/dl 169 mg/dl 158 mg/dl Test 11/09/17 03:29 11/09/17 04:34 11/09/17 05:36 11/09/17 05:45 Bedside Glucose 128 mg/dl 137 mg/dl 106 mg/dl White Blood Count 5.62 K/uL Red Blood Count 3.85 M/uL Hemoglobin 12.1 g/dL Hematocrit 35.0 % Mean Corpuscular Volume 90.9 fL Mean Corpuscular Hemoglobin 31.4 pg Mean Corpuscular Hemoglobin Concent 34.6 g/dl RDW Standard Deviation 46.5 fL RDW Coefficient of Variation 14.1 % Platelet Count 143 K/uL Mean Platelet Volume 9.3 fL Sodium Level 147 mmol/L Potassium Level 3.2 mmol/L Chloride Level 120 mmol/L Carbon Dioxide Level 20 mmol/L Anion Gap 7.0 mmol/L Blood Urea Nitrogen 12 mg/dl Creatinine 0.53 mg/dl Est Creatinine Clear Calc Drug Dose 105.4 ml/min Estimated GFR () 115.5 Estimated GFR (Non- 99.6 BUN/Creatinine Ratio 22.3 Random Glucose 118 mg/dl Calcium Level 6.5 mg/dl Phosphorus Level 1.4 mg/dl Magnesium Level 2.1 mg/dl Test 11/09/17 06:30 11/09/17 07:34 11/09/17 08:25 11/09/17 09:40 Bedside Glucose 115 mg/dl 91 mg/dl 105 mg/dl 134 mg/dl Test 11/09/17 10:37 Bedside Glucose 268 mg/dl
--- NOTE | 2017-11-09 14:23 | Pharmacy Progress Note ---
Glycemic Control Intl Consult Date of Service Nov 09, 2017. Scope Glycemic Pharmacist consulted by Dr Stevens on 11/09 for glycemic control and to write orders per [facility] inpatient glycemic control protocol Objective Weight (Kilograms): 72.300 Accuchecks BSG (last 24hrs): Test 11/08/17 16:10 11/08/17 20:34 11/08/17 21:09 11/08/17 22:33 Bedside Glucose 142 mg/dl (70-90) 87 mg/dl (70-90) 111 mg/dl (70-90) 172 mg/dl (70-90) Test 11/08/17 23:14 11/09/17 00:17 11/09/17 01:16 11/09/17 02:16 Bedside Glucose 200 mg/dl (70-90) 205 mg/dl (70-90) 169 mg/dl (70-90) 158 mg/dl (70-90) Test 11/09/17 03:29 11/09/17 04:34 11/09/17 05:36 11/09/17 05:45 Bedside Glucose 128 mg/dl (70-90) 137 mg/dl (70-90) 106 mg/dl (70-90) Random Glucose 118 mg/dl (70-99) Test 11/09/17 06:30 11/09/17 07:34 11/09/17 08:25 11/09/17 09:40 Bedside Glucose 115 mg/dl (70-90) 91 mg/dl (70-90) 105 mg/dl (70-90) 134 mg/dl (70-90) Test 11/09/17 10:37 Bedside Glucose 268 mg/dl (70-90) Laboratory Data (last 24hrs) Test 11/09/17 05:45 Anion Gap 7.0 mmol/L BUN/Creatinine Ratio 22.3 Blood Urea Nitrogen 12 mg/dl Creatinine 0.53 mg/dl Potassium Level 3.2 mmol/L Sodium Level 147 mmol/L White Blood Count 5.62 K/uL HbA1c Test 11/07/17 02:08 Hemoglobin A1c 13.9 % (4.5-5.6) H Recent Pertinent Medications Outpatient Anti-diabetic Regimen: * Humalog 50/50 37 units BID * A1c = 13.9 % on 11/07/17 The patient is currently receiving: * Insulin gtt Risk Factors for Insulin Resistance: * Diet: Full liquid Assessment & Plan ASSESSMENT: * 67 yo F admitted w DKA - has been on insulin gtt since 11/07. OK to transition to basal/bolus today per Dr. Stevens * Will give one-time Lantus dose weight-based stress of 3 this AM to provide coverage for 24 hours. * Concern that this may not have been aggressive enough as insulin gtt has titrated up since that time * Stop insulin gtt 6 hr after Lantus admin, or sooner per protocol * Will transition to NPH to make transition back to outpatient regimen easier. Start when insulin gtt stops * Weight based stress 2 or 3 depending on insulin gtt rate * Novolog between weight-based stress of 2 and 3 with overnight checks * High goal range per ICU status PLAN FOR INPATIENT GLYCEMIC CONTROL: * LANTUS 18 units SQ x1 given @ 1100 this AM * Discontinue IV insulin infusion at 1700 today (or sooner per protocol) * NPH at dinner tonight * 10 units if insulin drip less than 2 units/hr * 18 units if insulin drip greater than 2 units/hr * Ongoing basal insulin with NPH SC BIDM starting tomorrow AM * 0 units for BSG < 120 mg/dL * 15 units for BSG 120-180 mg/dL * 20 units for BSG > 180 mg/dL * Correctional Insulin with NOVOLOG per scale ACHS w additional checks at 0000, 0400 * Goal Range: Low 140 mg/dL - High 180 mg/dL * Correction Factor: 25 mg/dL/unit * Nutritional / Prandial insulin per carb ratio of 1 unit per 8 grams CHO consumed * Please note that the plan above was derived based on current level of insulin resistance and hospital stress. These recommendations are appropriate for inpatient admission only. Plan of care upon discharge will need to be reassessed to avoid potential outpatient hypo/hyperglycemia. Thank you.
[2017-11-09] MEDS: PHENYTOIN SODIUM ER 100 MG CAP PO SCH ×2 (14:40→20:29)
[2017-11-09] MEDS ORDERED: INSULIN HUMAN NPH SC ONE ×2 (16:00)
--- NOTE | 2017-11-09 16:33 | Progress Note ---
Internal Med Progress Note Date of Service: Nov 09, 2017. Provider Documentation: SUBJECTIVE: alert and awake says passing gas denies any pain or nausea afebrile no sob hemodynamics stable OBJECTIVE: Vital Signs-as noted below Exam: General-sleepy. not in distress ENT-Normal hearing Neck-no neck masses Lungs-Cta b/l no wheezing or crackles Heart-S1 and S2 heard regular No murmurs Abdomen-Soft Bowel sounds present Non tender No distension Extremities-No edema No erythema Neuro- drowsy moves extremities Lab data as noted below. ASSESSMENT & PLAN: 1. Diabetic ketoacidosis/hyperglycemic hyperosmolar syndrome DM2, insulin requiring HBA1C 13.9 on Dka protocol with insulin drip and fluids. diabetic teaching appreciate pharmacy consult appreciate critical care inputs tolerated breakfast today off of insulin drip today started on Novolin N and iss close monitor 2. Hypertension. lisinopril. iv hydralazine prn 3. PSBO o kub on ng tube fluids and antiemetics improved tolerating diet 4. CAD as per records.asymptomatic 5. Acute renal failure. hyperkalemia secondary to above.Resolved. 6. Past tobacco abuse. 7. Hx of colon cancer s/p surgery DVT PROPHYLAXIS hep sub q DISPOSITION transfer to tele floor pt/ot Vital Signs: Date Time Temp Pulse Resp B/P (MAP) Pulse Ox O2 Delivery O2 Flow Rate FiO2 11/09/17 15:13 36.8 96 18 97 11/09/17 14:00 96 18 125/52 (76) 97 Room Air 11/09/17 12:00 36.8 97 16 110/51 (70) 97 Room Air 11/09/17 12:00 Room Air 11/09/17 10:00 95 16 127/45 (72) 97 Room Air 11/09/17 08:00 Room Air 11/09/17 08:00 36.6 87 14 153/61 (91) 97 Room Air 11/09/17 06:01 83 16 163/62 (95) 96 Room Air 11/09/17 05:01 79 18 160/54 (89) 97 Room Air 11/09/17 04:01 36.5 84 19 160/53 (88) 97 Room Air 11/09/17 04:00 Room Air 11/09/17 03:02 80 19 156/56 (89) 97 Room Air 11/09/17 02:01 82 16 124/48 (73) 96 Room Air 11/09/17 01:01 79 19 155/56 (89) 96 Room Air 11/09/17 00:01 Room Air 11/09/17 00:01 36.6 79 17 152/51 (84) 94 Room Air 11/08/17 23:01 84 17 159/56 (90) 96 Room Air 11/08/17 22:01 80 18 162/48 (86) 97 Room Air 11/08/17 22:00 90 22 144/51 (82) 96 Room Air 11/08/17 20:00 81 18 162/48 (86) 98 Room Air 11/08/17 20:00 98 Room Air 11/08/17 18:00 36.0 85 18 117/48 (71) 95 Room Air Lab Results: Results Past 24 Hours Test 11/08/17 20:34 11/08/17 21:09 11/08/17 22:33 11/08/17 23:14 Range/Units Bedside Glucose 87 111 172 200 70-90 mg/dl Test 11/09/17 00:17 11/09/17 01:16 11/09/17 02:16 11/09/17 03:29 Range/Units Bedside Glucose 205 169 158 128 70-90 mg/dl Test 11/09/17 04:34 11/09/17 05:36 11/09/17 05:45 11/09/17 06:30 Range/Units Bedside Glucose 137 106 115 70-90 mg/dl White Blood Count 5.62 4.8-10.8 K/uL Red Blood Count 3.85 4.2-5.4 M/uL Hemoglobin 12.1 12.0-16.0 g/dL Hematocrit 35.0 37-47 % Mean Corpuscular Volume 90.9 80-100 fL Mean Corpuscular Hemoglobin 31.4 25-34 pg Mean Corpuscular Hemoglobin Concent 34.6 32-36 g/dl RDW Standard Deviation 46.5 36.4-46.3 fL RDW Coefficient of Variation 14.1 11.5-14.5 % Platelet Count 143 130-400 K/uL Mean Platelet Volume 9.3 7.4-10.4 fL Sodium Level 147 136-145 mmol/L Potassium Level 3.2 3.5-5.1 mmol/L Chloride Level 120 98-107 mmol/L Carbon Dioxide Level 20 21-32 mmol/L Anion Gap 7.0 3-11 mmol/L Blood Urea Nitrogen 12 7-18 mg/dl Creatinine 0.53 0.60-1.20 mg/dl Est Creatinine Clear Calc Drug Dose 105.4 ml/min Estimated GFR () 115.5 Estimated GFR (Non- 99.6 BUN/Creatinine Ratio 22.3 10-20 Random Glucose 118 70-99 mg/dl Calcium Level 6.5 8.5-10.1 mg/dl Phosphorus Level 1.4 2.5-4.9 mg/dl Magnesium Level 2.1 1.8-2.4 mg/dl Test 11/09/17 07:34 11/09/17 08:25 11/09/17 09:40 11/09/17 10:37 Range/Units Bedside Glucose 91 105 134 268 70-90 mg/dl Test 11/09/17 16:04 Range/Units Bedside Glucose 159 70-90 mg/dl
[2017-11-09] MEDS ORDERED: TRAMADOL HCL 50 MG TAB PO PRN (16:45)
[2017-11-09] MEDS ORDERED: DC IV INSULIN INFUSION ONE (17:00)
[2017-11-09] MEDS ORDERED: VANCOMYCIN TROUGH ONE ×3 (17:30→23:30)
[2017-11-09] MEDS: IPRATROPIUM BROMIDE/ALBUTEROL respimat INH INH SCH ×2 (18:17→21:40)
[2017-11-09] MEDS: SIMVASTATIN 20 MG TAB PO SCH (20:28)
[2017-11-09] MEDS ORDERED: SIMVASTATIN 20 MG TAB PO SCH (21:00)
[2017-11-10] VITALS (8 sets, daily range): BP systolic 95–139; BP diastolic 57–75; PULSE 85–94; TEMP 36.6–36.9; O2SAT 97–98; Ht 165.1 cm; Wt 75.3 kg
[2017-11-10] MEDS: INSULIN ASPART 100 UNITS/ML 3 ML PEN SC SCH ×7 (04:30→23:44)
[2017-11-10 04:57] LABS: HEMATOCRIT 33.9 % (37-47); MEAN CELL VOLUME 91.9 fL (80-100); MEAN CORPUSCULAR HEMOGLOBIN 31.7 pg (25-34); MEAN CORPUSCULAR HGB CONC 34.5 g/dl (32-36); MEAN PLATELET VOLUME 9.6 fL (7.4-10.4); PLATELET COUNT 131 K/uL (130-400); RED BLOOD COUNT 3.69 M/uL (4.2-5.4); WHITE BLOOD COUNT 4.79 K/uL (4.8-10.8)
[2017-11-10 05:26] LABS: BUN/CREATININE RATIO 17.4 (10-20); CALCIUM 6.7 mg/dl (8.5-10.1); CREATININE 0.52 mg/dl (0.60-1.20); POTASSIUM 3.5 mmol/L (3.5-5.1)
[2017-11-10] MEDS: LEVOTHYROXINE 50 MCG TAB PO SCH (06:14)
[2017-11-10] MEDS: VANCOMYCIN INJ 1,000 MG in SODIUM CHLORIDE 0.9% 250ML 250 ML IV SCH (06:16)
[2017-11-10] MEDS: IPRATROPIUM BROMIDE/ALBUTEROL respimat INH INH SCH ×4 (07:36→21:35)
[2017-11-10] MEDS: IPRATROPIUM BROMIDE HFA INHALER INH SCH ×4 (07:36→21:00)
[2017-11-10] MEDS: LEValbuterol HFA 15GM INHALER INH SCH ×4 (07:36→21:35)
[2017-11-10] MEDS: PHENYTOIN SODIUM ER 100 MG CAP PO SCH ×3 (07:38→21:35)
[2017-11-10] MEDS: LISINOPRIL 10 MG TAB PO SCH (07:38)
[2017-11-10] MEDS: ENOXAPARIN 40 MG/0.4 ML SYR SQ SCH (07:39)
[2017-11-10] MEDS: INSULIN HUMAN NPH SC SCH ×2 (07:49→17:10)
[2017-11-10] MEDS ORDERED: LISINOPRIL 10 MG TAB PO SCH (09:00)
--- NOTE | 2017-11-10 10:34 | Pharmacy Progress Note ---
Glycemic Control Progress Note Date of Service Nov 10, 2017. Scope Glycemic Pharmacist consulted for glycemic control to write orders per [facility] inpatient glycemic control protocol. Objective Accuchecks BSG (last 24hrs): Test 11/09/17 10:37 11/09/17 11:33 11/09/17 12:33 11/09/17 13:30 Bedside Glucose 268 mg/dl (70-90) 294 mg/dl (70-90) 318 mg/dl (70-90) 300 mg/dl (70-90) Test 11/09/17 14:37 11/09/17 16:04 11/09/17 17:04 11/09/17 20:39 Bedside Glucose 237 mg/dl (70-90) 159 mg/dl (70-90) 191 mg/dl (70-90) 223 mg/dl (70-90) Test 11/10/17 00:00 11/10/17 04:06 11/10/17 04:19 11/10/17 04:48 Bedside Glucose 181 mg/dl (70-90) 248 mg/dl (70-90) 221 mg/dl (70-90) Random Glucose 241 mg/dl (70-99) HbA1c: Test 11/07/17 02:08 Hemoglobin A1c 13.9 % (4.5-5.6) H Recent Pertinent Medications Outpatient Anti-diabetic Regimen: * Humalog 50/50 37 units BID * A1c = 13.9 % on 11/07/17 The patient is currently receiving: * Insulin gtt Risk Factors for Insulin Resistance: * Diet: Full liquid Outpatient Anti-Diabetic Meds Basal Insulin Bolus Insulin Assessment & Plan ASSESSMENT: 11/09/17 * 67 yo F admitted w DKA - has been on insulin gtt since 11/07. OK to transition to basal/bolus today per Dr. Stevens * Will give one-time Lantus dose weight-based stress of 3 this AM to provide coverage for 24 hours. * Concern that this may not have been aggressive enough as insulin gtt has titrated up since that time * Stop insulin gtt 6 hr after Lantus admin, or sooner per protocol * Will transition to NPH to make transition back to outpatient regimen easier. Start when insulin gtt stops * Weight based stress 2 or 3 depending on insulin gtt rate * Novolog between weight-based stress of 2 and 3 with overnight checks * High goal range per ICU status 11/10/17 * Insulin gtt stopped @ ~1600 yesterday. BSG's ranging 159-248 mg/dL since that time. Etiology of hyperglycemia is likely 2nd basal deficiency as patient was ordered to receive NPH 10-18 units at 1600 yesterday when insulin gtt d/c but this was not administered * Will continue same NPH orders for now as this is similar to home regimen * Will tighten correction factor and carb ratio as BSG's increased from dinner to HS yesterday (missing NPH may have contributed but can still tighten Novolog * Will give bolus IV insulin x1 at lunch for BSG > 250 mg/dL * Continue overnight BSG checks x2 PLAN FOR INPATIENT GLYCEMIC CONTROL: * Regular insulin IV 5 units IV x1 * Basal insulin with NPH SC BIDM * 0 units for BSG < 120 mg/dL * 15 units for BSG 120-180 mg/dL * 20 units for BSG > 180 mg/dL * Correctional Insulin with NOVOLOG per scale ACHS w additional checks at 0000, 0400 * Goal Range: Low 140 mg/dL - High 180 mg/dL * Tighten Correction Factor: 20 mg/dL/unit * Tighten Nutritional / Prandial insulin per carb ratio of 1 unit per 7 grams CHO consumed * Please note that the plan above was derived based on current level of insulin resistance and hospital stress. These recommendations are appropriate for inpatient admission only. Plan of care upon discharge will need to be reassessed to avoid potential outpatient hypo/hyperglycemia. Thank you.
[2017-11-10] MEDS ORDERED: INSULIN HUMAN REGULAR PER UNIT 5 UNITS in SYRINGE 4.95 ML IV ONE (12:30)
--- NOTE | 2017-11-10 17:51 | Progress Note ---
Internal Med Progress Note Date of Service: Nov 10, 2017. Provider Documentation: SUBJECTIVE: alert and awake and sitting bon chair comfortably tolerating diet ok' moved bowels today denies any pain or sob afebrile does not want to to rehab or snf OBJECTIVE: Vital Signs-as noted below Exam: General-alert and oriented. not in distress ENT-Normal hearing Neck-no neck masses Lungs-Cta b/l no wheezing or crackles Heart-S1 and S2 heard regular No murmurs Abdomen-Soft Bowel sounds present Non tender No distension Extremities-No edema No erythema Neuro- alert and awake moves extremities Lab data as noted below. ASSESSMENT & PLAN: 1. Diabetic ketoacidosis/hyperglycemic hyperosmolar syndrome DM2, insulin requiring HBA1C 13.9 on Dka protocol with insulin drip and fluids. diabetic teaching appreciate pharmacy consult appreciate critical care inputs tolerated breakfast today off of insulin drip today resolved started on Novolin N and iss will d/w pharmacy for home regimen on discharge close monitor 2. Hypertension. lisinopril. iv hydralazine prn 3. PSBO o kub on ng tube fluids and antiemetics resolved tolerating diet 4. CAD as per records.asymptomatic 5. Acute renal failure. hyperkalemia secondary to above.Resolved. 6. Past tobacco abuse. 7. Hx of colon cancer s/p surgery DVT PROPHYLAXIS hep sub q DISPOSITION transfer to medical floor pt/ot refusing rehab possible d/c home with home health in am Vital Signs: Date Time Temp Pulse Resp B/P (MAP) Pulse Ox O2 Delivery O2 Flow Rate FiO2 11/10/17 16:46 36.6 94 18 101/70 (80) 97 11/10/17 16:27 36.9 85 16 97 11/10/17 16:16 36.9 85 16 102/62 (75) 97 Room Air 11/10/17 16:00 Room Air 11/10/17 13:00 36.9 93 18 95/57 (70) 97 Room Air 11/10/17 12:00 Room Air 11/10/17 08:05 36.7 85 20 130/60 (83) 98 Room Air 11/10/17 08:00 Room Air 11/10/17 04:00 98 Room Air 11/10/17 03:30 36.8 88 18 139/75 (96) 98 Room Air 11/10/17 00:34 98 Room Air 11/09/17 23:00 36.8 90 20 133/68 (89) 99 Room Air 11/09/17 21:16 Room Air 11/09/17 19:30 37.0 90 17 138/65 (89) 98 Room Air Lab Results: Results Past 24 Hours Test 11/09/17 20:20 11/09/17 20:39 11/10/17 00:00 11/10/17 04:06 Range/Units Vancomycin Level Trough 26.4 SEE COMMENT mcg/ml Bedside Glucose 223 181 248 70-90 mg/dl Test 11/10/17 04:19 11/10/17 04:48 11/10/17 06:45 11/10/17 11:13 Range/Units Bedside Glucose 221 214 279 70-90 mg/dl White Blood Count 4.79 4.8-10.8 K/uL Red Blood Count 3.69 4.2-5.4 M/uL Hemoglobin 11.7 12.0-16.0 g/dL Hematocrit 33.9 37-47 % Mean Corpuscular Volume 91.9 80-100 fL Mean Corpuscular Hemoglobin 31.7 25-34 pg Mean Corpuscular Hemoglobin Concent 34.5 32-36 g/dl RDW Standard Deviation 46.2 36.4-46.3 fL RDW Coefficient of Variation 13.9 11.5-14.5 % Platelet Count 131 130-400 K/uL Mean Platelet Volume 9.6 7.4-10.4 fL Sodium Level 140 136-145 mmol/L Potassium Level 3.5 3.5-5.1 mmol/L Chloride Level 110 98-107 mmol/L Carbon Dioxide Level 24 21-32 mmol/L Anion Gap 6.0 3-11 mmol/L Blood Urea Nitrogen 9 7-18 mg/dl Creatinine 0.52 0.60-1.20 mg/dl Est Creatinine Clear Calc Drug Dose 107.5 ml/min Estimated GFR () 116.2 Estimated GFR (Non- 100.3 BUN/Creatinine Ratio 17.4 10-20 Random Glucose 241 70-99 mg/dl Calcium Level 6.7 8.5-10.1 mg/dl Test 11/10/17 17:01 Range/Units Bedside Glucose 154 70-90 mg/dl
[2017-11-10] MEDS: SIMVASTATIN 20 MG TAB PO SCH (21:35)
[2017-11-11 00:26] VITALS: BP 131/76; PULSE 77; TEMP 36.6; O2SAT 98
[2017-11-11] MEDS: INSULIN ASPART 100 UNITS/ML 3 ML PEN SC SCH ×2 (04:00→08:44)
[2017-11-11 05:56] LABS: BASO % 0.2 %; BASO ABS # 0.01 K/uL (0-0.2); COMPLETE YES; EOS % 3.2 %; HEMATOCRIT 35.2 % (37-47); IG% 1.4 %; LYMPH % 30.2 %; LYMPH ABS # 1.72 K/uL (1.2-3.4); MEAN CELL VOLUME 91.7 fL (80-100); MEAN CORPUSCULAR HGB CONC 33.8 g/dl (32-36); MEAN PLATELET VOLUME 9.6 fL (7.4-10.4); MONO % 7.9 %; NEUT % 57.1 %; PLATELET COUNT 151 K/uL (130-400); RED BLOOD COUNT 3.84 M/uL (4.2-5.4); WHITE BLOOD COUNT 5.69 K/uL (4.8-10.8)
[2017-11-11] MEDS: LEVOTHYROXINE 50 MCG TAB PO SCH (06:15)
[2017-11-11 06:24] LABS: BUN/CREATININE RATIO 17.7 (10-20); CALCIUM 7.2 mg/dl (8.5-10.1); CREATININE 0.45 mg/dl (0.60-1.20); POTASSIUM 3.4 mmol/L (3.5-5.1)
[2017-11-11 07:09] VITALS: BP 147/73; PULSE 78; TEMP 36.8; O2SAT 97
[2017-11-11] MEDS: INSULIN HUMAN NPH SC SCH (08:45)
[2017-11-11] MEDS: IPRATROPIUM BROMIDE/ALBUTEROL respimat INH INH SCH (08:47)
[2017-11-11] MEDS: IPRATROPIUM BROMIDE HFA INHALER INH SCH (08:47)
[2017-11-11] MEDS: LEValbuterol HFA 15GM INHALER INH SCH (08:47)
[2017-11-11] MEDS: PHENYTOIN SODIUM ER 100 MG CAP PO SCH (08:48)
[2017-11-11] MEDS: LISINOPRIL 10 MG TAB PO SCH (08:48)
[2017-11-11] MEDS: ENOXAPARIN 40 MG/0.4 ML SYR SQ SCH (08:50)
--- NOTE | 2017-11-11 11:00 | Pharmacy Progress Note ---
Glycemic Control Progress Note Date of Service Nov 11, 2017. Scope Glycemic Pharmacist consulted for glycemic control to write orders per [facility] inpatient glycemic control protocol. Objective Accuchecks BSG (last 24hrs): Test 11/10/17 11:13 11/10/17 17:01 11/10/17 20:22 11/10/17 23:44 Bedside Glucose 279 mg/dl (70-90) 154 mg/dl (70-90) 150 mg/dl (70-90) 125 mg/dl (70-90) Test 11/11/17 04:30 11/11/17 05:25 11/11/17 07:19 Bedside Glucose 152 mg/dl (70-90) 174 mg/dl (70-90) Random Glucose 164 mg/dl (70-99) HbA1c: Test 11/07/17 02:08 Hemoglobin A1c 13.9 % (4.5-5.6) H Recent Pertinent Medications The patient is currently receiving: * Basal insulin: NPH SQ BID w/ meals: 0 units if less than 120; 15 units if 120-180; 20 units if above 180 * Correctional Insulin: Novolog Correction per scale ACHS Goal Range: Low 140 mg/dL - High 180 mg/dL Correction Factor: 20 mg/dL/unit * Prandial insulin: Per carb ratio of 1 unit per 7 grams CHO consumed * Oral Agents: None currently Outpatient Anti-Diabetic Meds * Humalog 50/50 37 units BID * A1c = 13.9 % on 11/07/17 Assessment & Plan ASSESSMENT: 11/11/17 * BSGs have ranged 125-279 over the last 24 hrs. BSGs were elevated the first half of the day yesterday, likely secondary to the patient not receiving the evening dose of NPH the previous evening. BSGs were well controlled the second half of the day yesterday thru this AM with the full NPH dose on board. Will continue a similar NPH dose going into tomorrow * The current Novolog CF and CR have also performed well since the adjustments made yesterday. Continue the same for now. PLAN FOR INPATIENT GLYCEMIC CONTROL: * Changing NPH to 18 units SQ BID w/ meals * Continuing correction factor of 20 mg/dl/unit * Continuing carb ratio of 1 unit per 7 grams CHO consumed * Changing goal range to Low 120 mg/dL - High 160 mg/dL * Please note that the plan above was derived based on current level of insulin resistance and hospital stress. These recommendations are appropriate for inpatient admission only. Plan of care upon discharge will need to be reassessed to avoid potential outpatient hypo/hyperglycemia. Thank you.
[2017-11-11 11:04] VITALS: BP 147/73; PULSE 78; TEMP 36.8; O2SAT 97
--- NOTE | 2017-11-11 11:50 | Discharge Instructions ---
Discharge Instructions Date of Service Nov 11, 2017. Admission Reason for Admission: DKA Discharge Discharge Diagnosis / Problem: DKA Discharge Goals Goal(s): Decrease discomfort, Improve function Activity Recommendations Activity Limitations: resume your previous activity . Instructions / Follow-Up Instructions / Follow-Up FOLLOWUP WITH FAMILY DOCTOR Adam Ignacio ON Oct AT 10:25AM. TO CHECK BLOOD SUGARS TWICE DAILY AND NOTE THE READINGS IN A BOOK AND TO SHOW THEM TO FAMILY DOCTOR FOR FURTHER ADJUSTMENTS. IF BLOOD SUGARS >300 OR LESS THAN 80 TO CALL FAMILY DOCTOR. IF BLOOD SUGARS LESS THAN 80 TO TAKE ORANGE JUICE OR SUGAR AND TO CALL FAMILY DOCTOR. ADVICE TO TAKE ALL THE MEDICATIONS INCLUDING INSULIN PRESCRIBED REGULARLY Current Hospital Diet Patient's current hospital diet: Full Liquid Diet, Diabetes Type 2 Diet Discharge Diet Recommended Diet: Diabetes Type 2 Diet Pending Studies Studies pending at discharge: no Laboratory Results Hemoglobin A1c Test 11/07/17 02:08 Range/Units Estimated Average Glucose 352 mg/dl Hemoglobin A1c 13.9 H 4.5-5.6 % Medical Emergencies . Who to Call and When: Medical Emergencies: If at any time you feel your situation is an emergency, please call 911 immediately. . Non-Emergent Contact Non-Emergency issues call your: Primary Care Provider . . "Provider Documentation" section prepared by Duane Saab. . VTE Core Measure Inpt VTE Proph given/why not?: Enoxaparin (Lovenox)SQ
[2017-11-11] MEDS ORDERED: INSULIN HUMAN NPH SC SCH (17:00)
--- NOTE | 2017-11-11 18:34 | Progress Note ---
Internal Med Progress Note Date of Service: Nov 11, 2017. Provider Documentation: SUBJECTIVE: alert and awake and wants to go home refused rehab tolerating diet fine denies any pain or sob gives her insulin shot and the day before admission she was sick and did not take insulin all day OBJECTIVE: Vital Signs-as noted below Exam: General-alert and oriented. not in distress ENT-Normal hearing Neck-no neck masses Lungs-Cta b/l no wheezing or crackles Heart-S1 and S2 heard regular No murmurs Abdomen-Soft Bowel sounds present Non tender No distension Extremities-No edema No erythema Neuro- alert and awake moves extremities Lab data as noted below. ASSESSMENT & PLAN: 1. Diabetic ketoacidosis/hyperglycemic hyperosmolar syndrome DM2, insulin requiring HBA1C 13.9 on Dka protocol with insulin drip and fluids. diabetic teaching appreciate pharmacy consult appreciate critical care inputs tolerated breakfast today off of insulin drip today resolved started on Novolin N and iss discussed with pharmacy and recommends to continue home regimen on discharge based on hospital insulin requirements-. question of compliance as hba1c is elevated d/w who gives her insulin and he sas he gives regularly and only on one day before of admission patient was sick and did not take insulin whole day he says when sugars are low he wont give it until the come up advised to check blood sugars twice daily and follow up closely with pcp close monitor 2. Hypertension. lisinopril. iv hydralazine prn 3. PSBO on kub on ng tube fluids and antiemetics resolved tolerating diet 4. CAD as per records.asymptomatic 5. Acute renal failure. hyperkalemia secondary to above.Resolved. 6. Past tobacco abuse. 7. Hx of colon cancer s/p surgery discharged home with home health Vital Signs: Date Time Temp Pulse Resp B/P (MAP) Pulse Ox O2 Delivery O2 Flow Rate FiO2 11/11/17 11:04 36.8 78 20 97 Room Air 11/11/17 08:00 Room Air 11/11/17 07:09 36.8 78 20 147/73 (97) 97 11/11/17 00:26 36.6 77 18 131/76 (94) 98 Room Air 11/11/17 00:00 Room Air 11/10/17 20:00 Room Air Lab Results: Results Past 24 Hours Test 11/10/17 20:22 11/10/17 23:44 11/11/17 04:30 11/11/17 05:25 Range/Units Bedside Glucose 150 125 152 70-90 mg/dl White Blood Count 5.69 4.8-10.8 K/uL Red Blood Count 3.84 4.2-5.4 M/uL Hemoglobin 11.9 12.0-16.0 g/dL Hematocrit 35.2 37-47 % Mean Corpuscular Volume 91.7 80-100 fL Mean Corpuscular Hemoglobin 31.0 25-34 pg Mean Corpuscular Hemoglobin Concent 33.8 32-36 g/dl Platelet Count 151 130-400 K/uL Mean Platelet Volume 9.6 7.4-10.4 fL Neutrophils (%) (Auto) 57.1 % Lymphocytes (%) (Auto) 30.2 % Monocytes (%) (Auto) 7.9 % Eosinophils (%) (Auto) 3.2 % Basophils (%) (Auto) 0.2 % Neutrophils # (Auto) 3.25 1.4-6.5 K/uL Lymphocytes # (Auto) 1.72 1.2-3.4 K/uL Monocytes # (Auto) 0.45 0.11-0.59 K/uL Eosinophils # (Auto) 0.18 0-0.5 K/uL Basophils # (Auto) 0.01 0-0.2 K/uL RDW Standard Deviation 45.0 36.4-46.3 fL RDW Coefficient of Variation 13.5 11.5-14.5 % Immature Granulocyte % (Auto) 1.4 % Immature Granulocyte # (Auto) 0.08 0.00-0.02 K/uL Sodium Level 142 136-145 mmol/L Potassium Level 3.4 3.5-5.1 mmol/L Chloride Level 110 98-107 mmol/L Carbon Dioxide Level 25 21-32 mmol/L Anion Gap 7.0 3-11 mmol/L Blood Urea Nitrogen 8 7-18 mg/dl Creatinine 0.45 0.60-1.20 mg/dl Est Creatinine Clear Calc Drug Dose 126.6 ml/min Estimated GFR () 121.9 Estimated GFR (Non- 105.1 BUN/Creatinine Ratio 17.7 10-20 Random Glucose 164 70-99 mg/dl Calcium Level 7.2 8.5-10.1 mg/dl Test 11/11/17 07:19 11/11/17 11:43 Range/Units Bedside Glucose 174 192 70-90 mg/dl
--- NOTE | 2017-11-11 18:55 | Discharge Summary ---
Discharge Summary Date of Service Nov 11, 2017. Discharge Summary Admission Date: Nov 07, 2017 at 02:51 Discharge Date: Nov 11, 2017 Discharge Disposition: Home with services Principal Diagnosis: DKA Secondary Diagnoses/Problems: hypertension, CAD/CVA as per records, DM2, insulin requiring hyperlipidemia, history of CVA, past tobacco abuse, colon cancer status post surgery (11/2016) (refused chemotherapy), history of pulmonary nodules Procedures: KUB:Moderate stool seen throughout the colon. No evidence for bowel obstruction. CT ABD/PELVIS: 1. The examination is limited by motion artifact as well as the absence of oral and intravenous contrast. Within these limitations, a segment of small bowel demonstrates pathologic distention and contains fecal material. This could represent delayed transit or bowel obstruction. No free fluid or inflammatory change in the abdomen. There does not appear to be a bowel obstruction focally at the small bowel anastomotic site. 2. Postsurgical changes of sigmoidectomy with patent colocolonic anastomosis. 3. Grossly stable solid pulmonary nodule in the right middle lobe allowing for motion artifact. Consultations: CRITICAL CARE Medication Reconciliation Continued Medications: Baclofen (Lioresal) 10 Mg Tab 10 MG PO BID, TAB Calcium Carbonate (Calcium) 600 Mg Tab 600 MG PO BID Cetirizine (Zyrtec) 10 Mg Tab 10 MG PO DAILY, TAB Docusate Sodium (Colace) 100 Mg Cap 100 MG PO BID PRN for Constipation Insulin Lispro Protamine & Lis (Humalog Mix 50/50 Kwikpen) 1 Inj Inj 37 UNITS SC BID Ipratropium-Albuterol (Combivent Respimat) 1 Aer Aer 1 PUFFS INH QID Levothyroxine Sodium (Synthroid) 50 Mcg Tab 50 MCG PO QAM Lisinopril (Zestril) 10 Mg Tab 10 MG PO QAM Nitroglycerin (Nitrostat) 0.4 Mg Tab 0.4 MG UT PRN PRN for Chest Pain, BTL Pantoprazole (Protonix) 20 Mg Tab 20 MG PO QAM Phenytoin Sodium (Dilantin) 100 Mg Cap 100 MG PO TID Simvastatin (Zocor) 20 Mg Tab 20 MG PO QPM Tramadol (Ultram) 50 Mg Tab 50 MG PO Q6H PRN for Pain Admission Information HPI (per Admitting provider): History obtained from patient and records. Patient is a fair historian. Disorientation noted after Benadryl administration in the ER. Medical history significant for hypertension, CAD/CVA as per records, DM2, insulin requiring hyperlipidemia, history of CVA, past tobacco abuse, colon cancer status post surgery (11/2016) (refused chemotherapy), history of pulmonary nodules. Recent confinement last 03/2017 for bowel obstruction - resolved with conservative management. Last night, patient noted generalized abdominal pain with nausea, vomiting. Good bowel movement. Patient denies chest pain, shortness of breath, no cough symptoms. Looked like she had trouble breathing as per . Brought to the Emergency Room. Blood sugars noted to be in 800, IV insulin started for DKA. As per patient's , blood sugars at home in the 100s. Physical Exam (per Admitting): VITAL SIGNS: Blood pressure was noted to be 151/81, pulse rate 114, RR 24, temperature 36.4, sats 99 on room air. GENERAL: Noted to be restless, disoriented. Minimal respiratory distress. Unkempt SKIN: Normal color. Warm. HEENT: [place] palpebral conjuctivae. No ptosis. Dry buccal mucosa. NECK: Short. No tenderness. CHEST: Decreased effort. No tenderness. HEART: Tachycardic. No murmur. ABDOMEN: Some distention. No overt tenderness. EXTREMITIES: No edema, no tenderness. No gross deformity. NEUROLOGIC: Coherent, but disoriented. No facial asymmetry. Gait and stance not assessed. Hospital Course 1. Diabetic ketoacidosis/hyperglycemic hyperosmolar syndrome DM2, insulin requiring HBA1C 13.9 on Dka protocol with insulin drip and fluids. diabetic teaching appreciate pharmacy consult appreciate critical care inputs tolerated breakfast today off of insulin drip today resolved started on Novolin N and iss discussed with pharmacy and recommends to continue home regimen on discharge based on hospital insulin requirements-. question of compliance as hba1c is elevated d/w who gives her insulin and he sas he gives regularly and only on one day before of admission patient was sick and did not take insulin whole day he says when sugars are low he wont give it until the come up advised to check blood sugars twice daily and follow up closely with pcp close monitor 2. Hypertension. lisinopril. iv hydralazine prn 3. PSBO on kub on ng tube fluids and antiemetics resolved tolerating diet 4. CAD as per records.asymptomatic 5. Acute renal failure. hyperkalemia secondary to above.Resolved. 6. Past tobacco abuse. 7. Hx of colon cancer s/p surgery 8.LUNG NODULE F/U WITH PCP discharged home with home health Total time spent on discharge = 40MINUTES This includes examination of the patient, discharge planning, medication reconciliation, and communication with other providers. Discharge Instructions Discharge Instructions Date of Service Nov 11, 2017. Admission Reason for Admission: DKA Discharge Discharge Diagnosis / Problem: DKA Discharge Goals Goal(s): Decrease discomfort, Improve function Activity Recommendations Activity Limitations: resume your previous activity . Instructions / Follow-Up Instructions / Follow-Up FOLLOWUP WITH FAMILY DOCTOR Adam Ignacio ON Oct AT 10:25AM. TO CHECK BLOOD SUGARS TWICE DAILY AND NOTE THE READINGS IN A BOOK AND TO SHOW THEM TO FAMILY DOCTOR FOR FURTHER ADJUSTMENTS. IF BLOOD SUGARS >300 OR LESS THAN 80 TO CALL FAMILY DOCTOR. IF BLOOD SUGARS LESS THAN 80 TO TAKE ORANGE JUICE OR SUGAR AND TO CALL FAMILY DOCTOR. ADVICE TO TAKE ALL THE MEDICATIONS INCLUDING INSULIN PRESCRIBED REGULARLY Current Hospital Diet Patient's current hospital diet: Full Liquid Diet, Diabetes Type 2 Diet Discharge Diet Recommended Diet: Diabetes Type 2 Diet Pending Studies Studies pending at discharge: no Laboratory Results Hemoglobin A1c Test 11/07/17 02:08 Range/Units Estimated Average Glucose 352 mg/dl Hemoglobin A1c 13.9 H 4.5-5.6 % Medical Emergencies . Who to Call and When: Medical Emergencies: If at any time you feel your situation is an emergency, please call 911 immediately. . Non-Emergent Contact Non-Emergency issues call your: Primary Care Provider . . "Provider Documentation" section prepared by Duane Saab. . VTE Core Measure Inpt VTE Proph given/why not?: Enoxaparin (Lovenox)SQ
== END 2017-11-11 12:33 | disposition home health service (06) | DRG 638 ==
LOC: EDBD 23:39 → C.EDB 23:40 → C.MSICU 11-07 02:51 → ENRESERV 11-07 03:14 → CANRESERV 11-07 03:14 → ENRESERV 11-07 03:25 → C.2E 11-09 15:39 → ENRESERV 11-10 15:51 → C.MED 11-10 16:37
PROVIDERS: ADMIT Internal Medicine; ATTEND Internal Medicine
PROC: 05HM33Z Insertion of Infusion Device into Right Internal Jugular Vein, Percutaneous Approach (ICD-10-PCS; principal; 2017-11-07)
DX: E11.10 Type 2 diabetes mellitus with ketoacidosis without coma (principal); N17.9 Acute kidney failure, unspecified; K56.600 Partial intestinal obstruction, unspecified as to cause; E87.6 Hypokalemia; I11.9 Hypertensive heart disease without heart failure; I25.10 Atherosclerotic heart disease of native coronary artery without angina pectoris; E03.9 Hypothyroidism, unspecified; E78.5 Hyperlipidemia, unspecified; R56.9 Unspecified convulsions; Z51.81 Encounter for therapeutic drug level monitoring; Z79.899 Other long term (current) drug therapy; Z79.4 Long term (current) use of insulin; Z86.73 Personal history of transient ischemic attack (TIA), and cerebral infarction without residual deficits; Z85.038 Personal history of other malignant neoplasm of large intestine; Z87.891 Personal history of nicotine dependence; Z83.3 Family history of diabetes mellitus; Z82.49 Family history of ischemic heart disease and other diseases of the circulatory system; Z82.3 Family history of stroke; Z84.89 Family history of other specified conditions; Z80.6 Family history of leukemia

== ENCOUNTER 2021-11-21 11:17 | Inpatient (IN) ==
[2021-11-21] MEDS ORDERED: SODIUM CHLORIDE 0.9% 1000ML 2,000 ML IV ONE (11:32)
[2021-11-21] MEDS ORDERED: CEFEPIME 2,000 MG/20 ML VIAL IV STA (11:37)
[2021-11-21 11:57] LABS: Hematocrit (blood only) 57.2 % (37-47); Hemoglobin 17.8 g/dL (12.0-16.0); Mean Corpuscular Hemoglobin 32.5 pg (25-34); Mean Corpuscular Volume 104.6 fL (80-100); Platelet Count 354 K/uL (130-400); RDW Coefficient of Variation 13.6 % (11.5-14.5); RDW Standard Deviation 52.2 fL (36.4-46.3); Red Blood Count 5.47 M/uL (4.2-5.4)
[2021-11-21] MEDS ORDERED: PANTOprazole 40 MG in SYRINGE 0 ML IV ONE (12:02)
[2021-11-21] MEDS ORDERED: FAMOTIDINE 20MG/5ML IV PUSH IV STA (12:02)
--- NOTE | 2021-11-21 12:10 | Emergency Department Note ---
Impression & Plan DKA (diabetic ketoacidosis), Acute metabolic encephalopathy, Acute alteration in mental status, LUCAS (acute kidney injury), Hypothermia ED Provider Note NAME: ERI DUNN AGE: 71 SEX: F : 1950 ARRIVES VIA: Ambulance INFORMANT: EMS personnel ED PROVIDER(S): Leandro Lal DO CHIEF COMPLAINT: Altered mental status HPI: The patient is a 71-year-old female who presented to emergency department f or an evaluation of altered mental status. The patient was obtunded and unable to give any history. The patient apparently had a fall through the night when she was getting up out of bed. Her significant other found her wedged between the bed and the nightstand. He called 911 because she was obtunded and appeared to be having trouble breathing. According to prehospital personnel she was immobilized in usual fashion and then brought to the emergency department. They were unable to obtain IV access. They noted that her blood sugar was high. There is no other reported trauma. There is no reported fever or coughing. According to the prehospital personnel the significant other stated that the symptoms began overnight and the patient was at her baseline yesterday. They state that the house was then significant disarray with the odor of PET urine. The patient had to be extricated. There is no reported fever. Prehospital personnel did report that she had dried emesis around her mouth. ROS: See above HPI for pertinent positives & negatives. A total of 10 systems reviewed and were otherwise negative. PAST MEDICAL HISTORY: See Below PAST SURGICAL HISTORY: See Below FAMILY HISTORY: See Below SOCIAL HISTORY: See Below HOME MEDICATIONS: See Below ALLERGIES: See Below VITALS: See Below PHYSICAL EXAMINATION: GENERAL: The patient is obtunded and not able to answer questions. She does not follow commands. EYES: The conjunctivae are clear. The pupils are round and reactive. EARS, NOSE, MOUTH AND THROAT: The nose is without any evidence of any deformity. Mucous membranes are dry with what appears to be dried blood around the oropharynx. NECK: The neck is nontender and supple. RESPIRATORY: Tachypnea was noted. Shallow respirations were noted. There were no abnormal lung sounds noted to auscultation. CARDIOVASCULAR: Regular rate and rhythm noted there no murmurs rubs or gallops normal S1 normal S2. GASTROINTESTINAL: The abdomen is mildly distended but soft. There is no tenderness guarding rigidity. MUSCULOSKELETAL/EXTREMITIES: There is no evidence of gross deformity full range of motion is noted in the hips and shoulders. SKIN: Skin was cool and dry. There is no significant skin breakdown. Pedal edema was noted bilaterally. NEUROLOGIC: The patient does not follow commands and does not appear to be awake. It is difficult to ascertain orientation at this time. Patient appears to be moving extremities well. MEDICAL DECISION MAKING: The patient is a 71-year-old female who presented to emergency department via ambulance for an evaluation of altered mental status. The gave most of the history and states that she fell overnight and could not stand. She presented to the emergency department obtunded but was very tachypneic. Chest x- ray was not consistent with infiltrate and the patient's lung sounds were normal. The patient was found to have significant electrolyte abnormality with DKA. She was also found of a very elevated white blood cell count as well as an elevated creatinine compared to baseline. She was treated with multiple fluid boluses. She was also hypothermic. She had a warming blanket placed. She received IV insulin as well. I discussed the patient's laboratory and radiographic studies with her significant other. I also discussed this case with the billboard installer as well as the hospitalist group. They will evaluate the patient in the emergency department for further management and disposition. Triage Nursing notes reviewed. Prior medical records reviewed Vital Signs: reviewed and remarkable for hypotension and hypothermia. Differential diagnosis: Infection, hypoglycemia, electrolyte abnormalities, overdose, toxicologic, cardiac sources, intracerebral event, neurologic, trauma, as well as other pathologies. ER treatment provided: See below Diagnostics interpreted by me: ECG: EKG was obtained in the emergency department. My interpretation is normal sinus rhythm at 88 bpm. LVH was noted by voltage criteria. There is no ectopy. This was compared to a tracing from November [id number]. No changes were noted. Cardiac Monitoring: An order was placed for continuous cardiac monitoring. The monitor shows a rate of 79 bpm with sinus rhythm. Laboratory studies: As stated above and show below. Imaging studies: See below Consultation(s): I discussed this case with Dr. Stevens who is on-call for the billboard installer group. I discussed this case with Meg woods who is on-call for the [facility] hospitalist group. They will evaluate the patient in the emergency department. ED COURSE: Procedures: Femoral Central Venous Catheter Indication: DKA Catheter Type: Triple-lumen Location: Left femoral vein Verbal consent was obtained after the risks and benefits were explained, including but not limited to intra-abdominal injury, vessel injury, bleeding, scarring, infection, pain, and bone/joint/nerve damage. At this time, the risks of the procedure are less than the risks of NOT performing the procedure. A time out was taken and the correct patient and site identified. The patient was placed in the supine position and the skin was prepped in the standard fashion with chlorhexidine and full sterile drapes applied. The proper landmarks were identified with landmarks and the needle was inserted through the skin in the standard fashion. The needle was carefully advanced into blood vessel lumen with guidance. The guidewire was placed uneventfully. The vessel is dilated and the catheter was placed. It was sutured into position. There was good blood return from all ports. The patient tolerated the procedure well and there were no complications. Critical Care: I have personally spent greater than 60 minutes of critical care time in the direct management of this patient. This includes bedside care, interpretation of diagnostic studies, and testing, discussion with consultants, patient, and family members, and other required patient management activities. This 60 minutes is in excess of all separately billable procedures. Past Med/Surg History Medical History Asthma inhaler daily CAD (coronary artery disease) "s/p [place]" Chronic back pain Colonic diverticular abscess CVA (cerebral vascular accident) "per patient found incidentally on CT in the " DM2 (diabetes mellitus, type 2) History of colon cancer 2016 ?--sx HTN (hypertension) Hyperlipidemia Hypothyroid Myocardial Infarction X7?---last 3-5yrs ago follows with Dr. Castillo Partial small bowel obstruction Poor historian Seizure grand mal type---last 10-15yrs ago--no neurologist Surgical History History of cardiac cath 2001 @ [facility], no stents History of cholecystectomy History of colon resection 2016? for colon cancer History of colonoscopy History of coronary angioplasty History of tooth extraction all teeth Hx of appendectomy Family History (Updated 11/21/21 @ 19:18 by CHANTAL Nichols) Brother Heart disease Mother Heart disease Other No family history of adverse response to anesthesia Social History (Updated 11/21/21 @ 19:18 by CHANTAL Nichols) Smoking Status: Former smoker Hx Alcohol Use: No Preferred Language: [place] Communication Ability: Unable Distillation Operator Helper Required: No Beliefs That Will Affect Care: None marital status: Current Living Situation: Spouse Current Living Situation Comment: Unable to assess current occupational status: disabled Feels Safe at Home: Yes Assistive Devices: Cane, CPAP and Glasses Allergies Allergies Allergy/AdvReac Type Severity Reaction Status Date / Time bee venom protein (honey bee) Allergy Severe ANAPHYLAXIS Verified 01/20/20 14:35 hydrochlorothiazide Allergy Severe low calcium Verified 01/20/20 14:35 Iodinated Contrast Media Allergy Severe ANAPHYLAXIS Verified 01/20/20 14:35 iodine Allergy Severe ARM Verified 01/20/20 14:35 SWELLING Penicillins Allergy Severe HIVES Verified 01/20/20 14:35 aspirin Allergy Intermediate RASH Verified 01/20/20 14:35 codeine Allergy Intermediate RASH Verified 01/20/20 14:35 morphine Allergy Intermediate "EFFECTS Verified 01/20/20 14:35 MOVEMENTS" NSAIDS (Non-Steroidal Allergy Intermediate RASH Verified 01/20/20 14:35 Anti-Inflamma lisinopril AdvReac Unknown Cough Verified 01/20/20 14:47 metformin AdvReac Unknown Diarrhea Verified 01/20/20 14:47 Home Meds Home Medications Medication Instructions Recorded Confirmed empagliflozin 25 mg tablet 25 mg PO QPM 07/25/18 11/21/21 (Jardiance) insulin lispro protamine-lispro 46 unit SUBCUT QAM 07/25/18 11/21/21 100 unit/mL (50-50) subcutaneous pen (Humalog Mix 50-50 KwikPen) insulin lispro protamine-lispro 48 unit SUBCUT QPM 07/25/18 11/21/21 100 unit/mL (50-50) subcutaneous pen (Humalog Mix 50-50 KwikPen) phenytoin sodium extended 100 mg 200 mg PO DAILY 07/25/18 11/21/21 capsule (Dilantin Extended) ipratropium 20 mcg-albuterol 100 1 puff INHALATION QID 08/12/18 11/21/21 mcg/actuation mist for inhalation (Combivent Respimat) levothyroxine 75 mcg tablet 75 mcg PO QAM 11/17/19 11/21/21 potassium chloride 20 mEq 20 meq PO QAM 12/17/19 11/21/21 tablet,extended release atorvastatin 40 mg tablet 40 mg PO DAILY 11/21/21 11/21/21 calcium carb-ergocalciferol (vit 1 tab PO DAILY 11/21/21 11/21/21 D2) 600 mg calcium-200 unit tablet phenytoin sodium extended 100 mg 300 mg PO HS 11/21/21 11/21/21 capsule semaglutide (Ozempic) 0.5 mg SUBCUT WK 11/21/21 11/21/21 Results & Data (ED) Vital Signs Vital Signs - 24 hr 11/21/21 11:41 11/21/21 12:01 11/21/21 12:03 Temperature Temperature Source Pulse Rate 88 88 88 Pulse Rate [Finger] Pulse Rate from SpO2 Sensor 89 89 Respiratory Rate 21 18 21 Respiratory Effort / Characteristics Blood Pressure 85/60 L Blood Pressure [Left Arm] Blood Pressure Mean 68 69 Blood Pressure Mean [Left Arm] Pulse Oximetry 94 96 Oxygen Delivery Method Sepsis Recent Fever Within 48 Hours Sepsis New/Unexplained Change in Mental Status Sepsis Action Taken by Nursing 11/21/21 12:06 11/21/21 12:10 11/21/21 12:15 Temperature Temperature Source Pulse Rate 88 83 Pulse Rate [Finger] 87 Pulse Rate from SpO2 Sensor 90 84 Respiratory Rate 21 24 19 Respiratory Effort / Characteristics Blood Pressure 82/53 L 80/47 L Blood Pressure [Left Arm] 82/53 L Blood Pressure Mean 62 58 Blood Pressure Mean [Left Arm] 62 Pulse Oximetry 95 99 98 Oxygen Delivery Method Room Air Sepsis Recent Fever Within 48 Hours Sepsis New/Unexplained Change in Mental Status Sepsis Action Taken by Nursing 11/21/21 12:21 11/21/21 12:38 11/21/21 12:39 Temperature Temperature Source Pulse Rate 82 80 80 Pulse Rate [Finger] Pulse Rate from SpO2 Sensor 82 80 81 Respiratory Rate 19 19 19 Respiratory Effort / Characteristics Blood Pressure 94/50 L 84/54 L Blood Pressure [Left Arm] Blood Pressure Mean 64 64 Blood Pressure Mean [Left Arm] Pulse Oximetry 98 99 99 Oxygen Delivery Method Sepsis Recent Fever Within 48 Hours Sepsis New/Unexplained Change in Mental Status Sepsis Action Taken by Nursing 11/21/21 12:45 11/21/21 12:48 11/21/21 12:49 Temperature 33.9 C L Temperature Source Rectal Pulse Rate 79 79 Pulse Rate [Finger] Pulse Rate from SpO2 Sensor 80 Respiratory Rate 19 24 Respiratory Effort / Characteristics Labored Moaning Blood Pressure 98/50 L 98/50 L Blood Pressure [Left Arm] Blood Pressure Mean 66 66 Blood Pressure Mean [Left Arm] Pulse Oximetry 97 98 99 Oxygen Delivery Method Room Air Room Air Sepsis Recent Fever Within 48 Hours No Sepsis New/Unexplained Change in Mental Status Yes Sepsis Action Taken by Nursing Physician Notified 11/21/21 12:51 11/21/21 13:00 11/21/21 13:15 Temperature Temperature Source Pulse Rate 78 79 Pulse Rate [Finger] Pulse Rate from SpO2 Sensor 78 79 Respiratory Rate 19 18 Respiratory Effort / Characteristics Blood Pressure 97/68 L 104/44 L Blood Pressure [Left Arm] Blood Pressure Mean 77 64 Blood Pressure Mean [Left Arm] Pulse Oximetry 98 99 99 Oxygen Delivery Method Room Air Sepsis Recent Fever Within 48 Hours Sepsis New/Unexplained Change in Mental Status Sepsis Action Taken by Nursing 11/21/21 13:16 11/21/21 13:30 11/21/21 13:31 Temperature Temperature Source Pulse Rate 79 80 81 Pulse Rate [Finger] Pulse Rate from SpO2 Sensor 79 80 81 Respiratory Rate 21 17 18 Respiratory Effort / Characteristics Blood Pressure 104/44 L 103/45 L Blood Pressure [Left Arm] Blood Pressure Mean 64 64 Blood Pressure Mean [Left Arm] Pulse Oximetry 99 99 99 Oxygen Delivery Method Sepsis Recent Fever Within 48 Hours Sepsis New/Unexplained Change in Mental Status Sepsis Action Taken by Nursing 11/21/21 13:45 11/21/21 14:00 11/21/21 14:05 Temperature Temperature Source Pulse Rate 82 84 87 Pulse Rate [Finger] Pulse Rate from SpO2 Sensor 81 85 87 Respiratory Rate 19 21 23 Respiratory Effort / Characteristics Blood Pressure 110/52 L 91/48 L Blood Pressure [Left Arm] Blood Pressure Mean 71 40 62 Blood Pressure Mean [Left Arm] Pulse Oximetry 99 100 99 Oxygen Delivery Method Sepsis Recent Fever Within 48 Hours Sepsis New/Unexplained Change in Mental Status Sepsis Action Taken by Nursing 11/21/21 14:15 11/21/21 14:22 11/21/21 14:30 Temperature Temperature Source Pulse Rate 82 82 82 Pulse Rate [Finger] Pulse Rate from SpO2 Sensor 82 82 82 Respiratory Rate 20 20 20 Respiratory Effort / Characteristics Blood Pressure 89/58 L Blood Pressure [Left Arm] Blood Pressure Mean 68 Blood Pressure Mean [Left Arm] Pulse Oximetry 99 99 99 Oxygen Delivery Method Sepsis Recent Fever Within 48 Hours Sepsis New/Unexplained Change in Mental Status Sepsis Action Taken by Nursing 11/21/21 14:32 11/21/21 14:45 Temperature Temperature Source Pulse Rate 83 Pulse Rate [Finger] Pulse Rate from SpO2 Sensor 83 Respiratory Rate 23 Respiratory Effort / Characteristics Blood Pressure 79/63 L 118/78 Blood Pressure [Left Arm] Blood Pressure Mean 68 91 Blood Pressure Mean [Left Arm] Pulse Oximetry 100 Oxygen Delivery Method Sepsis Recent Fever Within 48 Hours Sepsis New/Unexplained Change in Mental Status Sepsis Action Taken by Prison Medications Current Medication List: was personally reviewed by me Laboratory Data Attestation: I reviewed the patient's lab results. Result diagrams: 11/22/21 04:46 11/22/21 08:36 Lab Results 11/21/21 11/21/21 11/21/21 Range/Units 11:42 11:42 11:42 WBC (4.8-10.8) K/uL RBC (4.2-5.4) M/uL Hgb (12.0-16.0) g/dL Hct (37-47) % MCV (80-100) fL MCH (25-34) pg MCHC (32-36) g/dL RDW Std Deviation (36.4-46.3) fL RDW Coeff of Fab (11.5-14.5) % Plt Count (130-400) K/uL MPV (7.4-10.4) fL Immature Gran % (Auto) % Neut % (Auto) % Lymph % (Auto) % Wallace % (Auto) % Eos % (Auto) % Baso % (Auto) % Neut # (Auto) (1.4-6.5) K/uL Lymph # (Auto) (1.2-3.4) K/uL Wallace # (Auto) (0.11-0.59) K/uL Eos # (Auto) (0-0.5) K/uL Baso # (Auto) (0-0.2) K/uL Immature Gran # (Auto) (0.00-0.02) K/uL PT Cancelled INR Cancelled APTT Cancelled PTT Ratio Cancelled VBG pH (7.36-7.41) VBG pCO2 (38-50) mmHg VBG pO2 mmHg VBG HCO3 mmol/L VBG O2 Saturation % VBG Base Excess mEq/L Barometric Pressure mm/Hg Sodium Cancelled Potassium Cancelled Chloride Cancelled Carbon Dioxide Cancelled Anion Gap Cancelled BUN Cancelled Creatinine Cancelled Est Cr Clr Drug Dosing Cancelled Est GFR ( Amer) Cancelled Est GFR (Non-Af Amer) Cancelled BUN/Creatinine Ratio Cancelled Glucose Cancelled Estimat Average Glucose mg/dl Hemoglobin A1c (4.5-5.6) % Lactate (0.4-2.0) mmol/L Calcium Cancelled Magnesium Cancelled Total Bilirubin Cancelled AST Cancelled ALT Cancelled Alkaline Phosphatase Cancelled Total Creatine Kinase Cancelled CK-MB (CK-2) Cancelled CK/CKMB % Calc Cancelled Troponin I Cancelled Total Protein Cancelled Albumin Cancelled Globulin Cancelled Albumin/Globulin Ratio Cancelled Beta-Hydroxybutyric Acd (0.2-2.81) mg/dl Procalcitonin Cancelled TSH (0.300-4.500) uIu/ml Urine Color Urine Appearance (Clear) Urine pH (4.5-7.5) Ur Specific [place] (1.000-1.030) Urine Protein (Negative) Urine Glucose (UA) (Negative) Urine Ketones (Negative) Urine Blood (Negative) Urine Nitrite (Negative) Urine Bilirubin (Negative) Urine Urobilinogen (Negative) Ur Leukocyte Esterase (Negative) Urine WBC (Auto) (0-5) /hpf Urine RBC (Auto) (0-4) /hpf U Hyaline Cast (Auto) (0-5) /lpf U Epithel Cells (Auto) (0-5) /lpf Urine Bacteria (Auto) (Negative) Urine Opiates Screen (Neg) Ur Methadone, Qual (Neg) Urine Barbiturates (Neg) Phenytoin Ur Phencyclidine (PCP) (Neg) U Amphetamin/Meth Scrn (Neg) MDMA (Ecstasy) Screen (Neg) U Benzodiazepines Scrn (Neg) Ur Cocaine Metabolite (Neg) U Marijuana (THC) Screen (Neg) SARS-CoV-2 (PCR) (Negative) Influenza Type A (PCR) (Neg) Influenza Type B (PCR) (Neg) RSV (RT-PCR) (Neg) 11/21/21 11/21/21 11/21/21 Range/Units 11:46 11:46 11:46 WBC 23.40 H (4.8-10.8) K/uL RBC 5.47 H (4.2-5.4) M/uL Hgb 17.8 H (12.0-16.0) g/dL Hct 57.2 H (37-47) % MCV 104.6 H (80-100) fL MCH 32.5 (25-34) pg MCHC 31.1 L (32-36) g/dL RDW Std Deviation 52.2 H (36.4-46.3) fL RDW Coeff of Fab 13.6 (11.5-14.5) % Plt Count 354 (130-400) K/uL MPV 11.0 H (7.4-10.4) fL Immature Gran % (Auto) 2.6 % Neut % (Auto) 78.3 % Lymph % (Auto) 11.0 % Wallace % (Auto) 7.6 % Eos % (Auto) 0.3 % Baso % (Auto) 0.2 % Neut # (Auto) 18.31 H (1.4-6.5) K/uL Lymph # (Auto) 2.58 (1.2-3.4) K/uL Wallace # (Auto) 1.78 H (0.11-0.59) K/uL Eos # (Auto) 0.08 (0-0.5) K/uL Baso # (Auto) 0.05 (0-0.2) K/uL Immature Gran # (Auto) 0.60 H (0.00-0.02) K/uL PT INR APTT PTT Ratio VBG pH (7.36-7.41) VBG pCO2 (38-50) mmHg VBG pO2 mmHg VBG HCO3 mmol/L VBG O2 Saturation % VBG Base Excess mEq/L Barometric Pressure mm/Hg Sodium Potassium Chloride Carbon Dioxide Anion Gap BUN Creatinine Est Cr Clr Drug Dosing Est GFR ( Amer) Est GFR (Non-Af Amer) BUN/Creatinine Ratio Glucose Estimat Average Glucose 301 mg/dl Hemoglobin A1c 12.1 H (4.5-5.6) % Lactate (0.4-2.0) mmol/L Calcium Magnesium Total Bilirubin AST ALT Alkaline Phosphatase Total Creatine Kinase CK-MB (CK-2) CK/CKMB % Calc Troponin I Total Protein Albumin Globulin Albumin/Globulin Ratio Beta-Hydroxybutyric Acd (0.2-2.81) mg/dl Procalcitonin TSH (0.300-4.500) uIu/ml Urine Color Urine Appearance (Clear) Urine pH (4.5-7.5) Ur Specific [place] (1.000-1.030) Urine Protein (Negative) Urine Glucose (UA) (Negative) Urine Ketones (Negative) Urine Blood (Negative) Urine Nitrite (Negative) Urine Bilirubin (Negative) Urine Urobilinogen (Negative) Ur Leukocyte Esterase (Negative) Urine WBC (Auto) (0-5) /hpf Urine RBC (Auto) (0-4) /hpf U Hyaline Cast (Auto) (0-5) /lpf U Epithel Cells (Auto) (0-5) /lpf Urine Bacteria (Auto) (Negative) Urine Opiates Screen (Neg) Ur Methadone, Qual (Neg) Urine Barbiturates (Neg) Phenytoin Cancelled Ur Phencyclidine (PCP) (Neg) U Amphetamin/Meth Scrn (Neg) MDMA (Ecstasy) Screen (Neg) U Benzodiazepines Scrn (Neg) Ur Cocaine Metabolite (Neg) U Marijuana (THC) Screen (Neg) SARS-CoV-2 (PCR) (Negative) Influenza Type A (PCR) (Neg) Influenza Type B (PCR) (Neg) RSV (RT-PCR) (Neg) 11/21/21 11/21/21 11/21/21 Range/Units 12:03 12:18 12:18 WBC (4.8-10.8) K/uL RBC (4.2-5.4) M/uL Hgb (12.0-16.0) g/dL Hct (37-47) % MCV (80-100) fL MCH (25-34) pg MCHC (32-36) g/dL RDW Std Deviation (36.4-46.3) fL RDW Coeff of Fab (11.5-14.5) % Plt Count (130-400) K/uL MPV (7.4-10.4) fL Immature Gran % (Auto) % Neut % (Auto) % Lymph % (Auto) % Wallace % (Auto) % Eos % (Auto) % Baso % (Auto) % Neut # (Auto) (1.4-6.5) K/uL Lymph # (Auto) (1.2-3.4) K/uL Wallace # (Auto) (0.11-0.59) K/uL Eos # (Auto) (0-0.5) K/uL Baso # (Auto) (0-0.2) K/uL Immature Gran # (Auto) (0.00-0.02) K/uL PT INR APTT PTT Ratio VBG pH (7.36-7.41) VBG pCO2 (38-50) mmHg VBG pO2 mmHg VBG HCO3 mmol/L VBG O2 Saturation % VBG Base Excess mEq/L Barometric Pressure mm/Hg Sodium Potassium Chloride Carbon Dioxide Anion Gap BUN Creatinine Est Cr Clr Drug Dosing Est GFR ( Amer) Est GFR (Non-Af Amer) BUN/Creatinine Ratio Glucose Estimat Average Glucose mg/dl Hemoglobin A1c (4.5-5.6) % Lactate (0.4-2.0) mmol/L Calcium Magnesium Total Bilirubin AST ALT Alkaline Phosphatase Total Creatine Kinase CK-MB (CK-2) CK/CKMB % Calc Troponin I Total Protein Albumin Globulin Albumin/Globulin Ratio Beta-Hydroxybutyric Acd (0.2-2.81) mg/dl Procalcitonin TSH (0.300-4.500) uIu/ml Urine Color Yellow Urine Appearance Clear (Clear) Urine pH 5.0 (4.5-7.5) Ur Specific [place] 1.026 (1.000-1.030) Urine Protein 1+ H (Negative) Urine Glucose (UA) 3+ H (Negative) Urine Ketones 4+ H (Negative) Urine Blood Negative (Negative) Urine Nitrite Negative (Negative) Urine Bilirubin Negative (Negative) Urine Urobilinogen Negative (Negative) Ur Leukocyte Esterase Negative (Negative) Urine WBC (Auto) 1-5 (0-5) /hpf Urine RBC (Auto) 0-4 (0-4) /hpf U Hyaline Cast (Auto) 1-5 (0-5) /lpf U Epithel Cells (Auto) 10-20 H (0-5) /lpf Urine Bacteria (Auto) Negative (Negative) Urine Opiates Screen Neg (Neg) Ur Methadone, Qual Neg (Neg) Urine Barbiturates Neg (Neg) Phenytoin Ur Phencyclidine (PCP) Neg (Neg) U Amphetamin/Meth Scrn Neg (Neg) MDMA (Ecstasy) Screen Neg (Neg) U Benzodiazepines Scrn Neg (Neg) Ur Cocaine Metabolite Neg (Neg) U Marijuana (THC) Screen Neg (Neg) SARS-CoV-2 (PCR) NEGATIVE (Negative) Influenza Type A (PCR) Negative (Neg) Influenza Type B (PCR) Negative (Neg) RSV (RT-PCR) Negative (Neg) 11/21/21 11/21/21 11/21/21 Range/Units 12:53 12:53 12:53 WBC (4.8-10.8) K/uL RBC (4.2-5.4) M/uL Hgb (12.0-16.0) g/dL Hct (37-47) % MCV (80-100) fL MCH (25-34) pg MCHC (32-36) g/dL RDW Std Deviation (36.4-46.3) fL RDW Coeff of Fab (11.5-14.5) % Plt Count (130-400) K/uL MPV (7.4-10.4) fL Immature Gran % (Auto) % Neut % (Auto) % Lymph % (Auto) % Wallace % (Auto) % Eos % (Auto) % Baso % (Auto) % Neut # (Auto) (1.4-6.5) K/uL Lymph # (Auto) (1.2-3.4) K/uL Wallace # (Auto) (0.11-0.59) K/uL Eos # (Auto) (0-0.5) K/uL Baso # (Auto) (0-0.2) K/uL Immature Gran # (Auto) (0.00-0.02) K/uL PT 10.2 INR 1.0 APTT 26.9 PTT Ratio 1.0 VBG pH (7.36-7.41) VBG pCO2 (38-50) mmHg VBG pO2 mmHg VBG HCO3 mmol/L VBG O2 Saturation % VBG Base Excess mEq/L Barometric Pressure mm/Hg Sodium 135 L Potassium 4.4 Chloride 91 L Carbon Dioxide 5 L* Anion Gap 40.0 H BUN 50 H Creatinine 2.56 H Est Cr Clr Drug Dosing 18.7 Est GFR ( Amer) 21.4 Est GFR (Non-Af Amer) 18.4 BUN/Creatinine Ratio 19.4 Glucose 1029 H* Estimat Average Glucose mg/dl Hemoglobin A1c (4.5-5.6) % Lactate (0.4-2.0) mmol/L Calcium 8.8 Magnesium 4.1 H Total Bilirubin 0.6 AST 27 ALT 62 Alkaline Phosphatase 146 H Total Creatine Kinase 232 H CK-MB (CK-2) 6.2 H CK/CKMB % Calc 2.7 Troponin I < 0.015 Total Protein 8.1 Albumin 3.8 Globulin 4.3 H Albumin/Globulin Ratio 0.9 Beta-Hydroxybutyric Acd > 138.00 H (0.2-2.81) mg/dl Procalcitonin 0.26 TSH 1.030 (0.300-4.500) uIu/ml Urine Color Urine Appearance (Clear) Urine pH (4.5-7.5) Ur Specific [place] (1.000-1.030) Urine Protein (Negative) Urine Glucose (UA) (Negative) Urine Ketones (Negative) Urine Blood (Negative) Urine Nitrite (Negative) Urine Bilirubin (Negative) Urine Urobilinogen (Negative) Ur Leukocyte Esterase (Negative) Urine WBC (Auto) (0-5) /hpf Urine RBC (Auto) (0-4) /hpf U Hyaline Cast (Auto) (0-5) /lpf U Epithel Cells (Auto) (0-5) /lpf Urine Bacteria (Auto) (Negative) Urine Opiates Screen (Neg) Ur Methadone, Qual (Neg) Urine Barbiturates (Neg) Phenytoin Ur Phencyclidine (PCP) (Neg) U Amphetamin/Meth Scrn (Neg) MDMA (Ecstasy) Screen (Neg) U Benzodiazepines Scrn (Neg) Ur Cocaine Metabolite (Neg) U Marijuana (THC) Screen (Neg) SARS-CoV-2 (PCR) (Negative) Influenza Type A (PCR) (Neg) Influenza Type B (PCR) (Neg) RSV (RT-PCR) (Neg) 11/21/21 11/21/21 Range/Units 12:55 13:07 WBC (4.8-10.8) K/uL RBC (4.2-5.4) M/uL Hgb (12.0-16.0) g/dL Hct (37-47) % MCV (80-100) fL MCH (25-34) pg MCHC (32-36) g/dL RDW Std Deviation (36.4-46.3) fL RDW Coeff of Fab (11.5-14.5) % Plt Count (130-400) K/uL MPV (7.4-10.4) fL Immature Gran % (Auto) % Neut % (Auto) % Lymph % (Auto) % Wallace % (Auto) % Eos % (Auto) % Baso % (Auto) % Neut # (Auto) (1.4-6.5) K/uL Lymph # (Auto) (1.2-3.4) K/uL Wallace # (Auto) (0.11-0.59) K/uL Eos # (Auto) (0-0.5) K/uL Baso # (Auto) (0-0.2) K/uL Immature Gran # (Auto) (0.00-0.02) K/uL PT INR APTT PTT Ratio VBG pH 6.96 L (7.36-7.41) VBG pCO2 28 L (38-50) mmHg VBG pO2 52 mmHg VBG HCO3 6 mmol/L VBG O2 Saturation 76.6 % VBG Base Excess -24.8 mEq/L Barometric Pressure 724.9 mm/Hg Sodium Potassium Chloride Carbon Dioxide Anion Gap BUN Creatinine Est Cr Clr Drug Dosing Est GFR ( Amer) Est GFR (Non-Af Amer) BUN/Creatinine Ratio Glucose Estimat Average Glucose mg/dl Hemoglobin A1c (4.5-5.6) % Lactate 6.3 H* (0.4-2.0) mmol/L Calcium Magnesium Total Bilirubin AST ALT Alkaline Phosphatase Total Creatine Kinase CK-MB (CK-2) CK/CKMB % Calc Troponin I Total Protein Albumin Globulin Albumin/Globulin Ratio Beta-Hydroxybutyric Acd (0.2-2.81) mg/dl Procalcitonin TSH (0.300-4.500) uIu/ml Urine Color Urine Appearance (Clear) Urine pH (4.5-7.5) Ur Specific [place] (1.000-1.030) Urine Protein (Negative) Urine Glucose (UA) (Negative) Urine Ketones (Negative) Urine Blood (Negative) Urine Nitrite (Negative) Urine Bilirubin (Negative) Urine Urobilinogen (Negative) Ur Leukocyte Esterase (Negative) Urine WBC (Auto) (0-5) /hpf Urine RBC (Auto) (0-4) /hpf U Hyaline Cast (Auto) (0-5) /lpf U Epithel Cells (Auto) (0-5) /lpf Urine Bacteria (Auto) (Negative) Urine Opiates Screen (Neg) Ur Methadone, Qual (Neg) Urine Barbiturates (Neg) Phenytoin Ur Phencyclidine (PCP) (Neg) U Amphetamin/Meth Scrn (Neg) MDMA (Ecstasy) Screen (Neg) U Benzodiazepines Scrn (Neg) Ur Cocaine Metabolite (Neg) U Marijuana (THC) Screen (Neg) SARS-CoV-2 (PCR) (Negative) Influenza Type A (PCR) (Neg) Influenza Type B (PCR) (Neg) RSV (RT-PCR) (Neg) Administered Medications Heparin Sodium (Porcine) (Heparin Sod 5,000 Unit/0.5 Ml Vial) 5,000 units SQ Q8 [facility] Stop: 12/21/21 21:59 Last Admin: 11/22/21 05:06 Dose: 5,000 units Documented by: [id number] Admin: 11/21/21 20:36 Dose: 5,000 units Documented by: [id number] Insulin Human Regular 250 (units/ Sodium Chloride) 250 mls @ 3.2 mls/hr IV .Q24H [facility]; Protocol Stop: 12/21/21 14:14 Last Titration: 11/22/21 07:15 Dose: 3.2 units/hr, 3.2 mls/hr Documented by: [id number] Cosigned by: [id number] Titration: 11/22/21 06:00 Dose: 4 units/hr, 4 mls/hr Documented by: [id number] Cosigned by: [id number] Titration: 11/22/21 04:53 Dose: 5 units/hr, 5 mls/hr Documented by: [id number] Cosigned by: [id number] Titration: 11/22/21 03:00 Dose: 6.2 units/hr, 6.2 mls/hr Documented by: [id number] Cosigned by: [id number] Titration: 11/22/21 00:58 Dose: 6.2 units/hr, 6.2 mls/hr Documented by: [id number] Cosigned by: [id number] Titration: 11/21/21 23:00 Dose: 6.2 units/hr, 6.2 mls/hr Documented by: [id number] Cosigned by: [id number] Titration: 11/21/21 22:00 Dose: 6.2 units/hr, 6.2 mls/hr Documented by: [id number] Cosigned by: [id number] Titration: 11/21/21 21:00 Dose: 6.2 units/hr, 6.2 mls/hr Documented by: [id number] Cosigned by: [id number] Titration: 11/21/21 19:57 Dose: 6.2 units/hr, 6.2 mls/hr Documented by: [id number] Cosigned by: [id number] Titration: 11/21/21 19:01 Dose: 6.2 units/hr, 6.2 mls/hr Documented by: [id number] Cosigned by: [id number] Titration: 11/21/21 18:12 Dose: 6.2 units/hr, 6.2 mls/hr Documented by: [id number] Cosigned by: [id number] Titration: 11/21/21 17:00 Dose: 7.7 units/hr, 7.7 mls/hr Documented by: [id number] Cosigned by: [id number] Admin: 11/21/21 14:25 Dose: 6.4 units/hr, 6.4 mls/hr Documented by: [id number] Cosigned by: [id number] Potassium Chloride/Dextrose/Sod Cl (D5w And 1/2nss + 20meq Kcl) 20 meq in 1,000 mls @ 200 mls/hr IV .Q5H [facility] Stop: 12/21/21 21:44 Last Admin: 11/22/21 07:37 Dose: 200 mls/hr Documented by: [id number] Infusion: 11/22/21 07:37 Dose: 200 mls/hr Documented by: [id number] Admin: 11/22/21 03:04 Dose: 200 mls/hr Documented by: [id number] Infusion: 11/22/21 03:02 Dose: 200 mls/hr Documented by: [id number] Admin: 11/21/21 22:02 Dose: 200 mls/hr Documented by: [id number] Potassium Phosphate 15 mmol/ (Sodium Chloride) 255 mls @ 88 mls/hr IV ONE ONE Stop: 11/22/21 12:23 Last Admin: 11/22/21 09:47 Dose: 88 mls/hr Documented by: [id number] Insulin Aspart (Insulin Aspart Per Unit) 0 units SC ACHS [facility] Stop: 12/21/21 16:29 Last Admin: 11/22/21 11:34 Dose: Not Given Documented by: [id number] Admin: 11/22/21 07:36 Dose: Not Given Documented by: [id number] Admin: 11/21/21 22:04 Dose: Not Given Documented by: [id number] Admin: 11/21/21 16:57 Dose: Not Given Documented by: [id number] Cosigned by: [id number] Discontinued Medications Famotidine (Famotidine 20mg/5ml Iv Push) 20 mg IV ONE STA Stop: 11/21/21 12:03 Last Admin: 11/21/21 12:23 Dose: 20 mg Documented by: [id number] Sodium Chloride (Nss 1000ml) 2,000 mls @ 999 mls/hr IV .Q2H1M ONE Stop: 11/21/21 13:32 Last Infusion: 11/21/21 14:20 Dose: 0 mls/hr Documented by: [id number] Admin: 11/21/21 12:23 Dose: 999 mls/hr Documented by: [id number] Cefepime HCl (Maxipime) 2,000 mg in 20 mls @ 5 mls/min IV NOW STA; Protocol Stop: 11/21/21 11:40 Last Admin: 11/21/21 13:12 Dose: 5 mls/min Documented by: [id number] Pantoprazole Sodium 40 mg/ (Syringe) 10 mls @ 5 mls/min IV NOW ONE Stop: 11/21/21 12:03 Last Admin: 11/21/21 13:31 Dose: 5 mls/min Documented by: [id number] Sodium Chloride (Nss 1000ml) 1,000 mls @ 999 mls/hr IV .Q1H1M ONE Stop: 11/21/21 14:00 Last Infusion: 11/21/21 14:19 Dose: 0 mls/hr Documented by: [id number] Admin: 11/21/21 13:12 Dose: 999 mls/hr Documented by: [id number] Lactated Ringer's (Lr) 1,000 mls @ 999 mls/hr IV .Q1H1M ONE Stop: 11/21/21 14:55 Last Infusion: 11/21/21 16:56 Dose: 0 mls/hr Documented by: [id number] Admin: 11/21/21 14:20 Dose: 999 mls/hr Documented by: [id number] Phenytoin 200 mg/ Syringe 4 mls @ 1 mls/min IV DAILY [facility] Stop: 12/22/21 08:59 Last Admin: 11/22/21 08:27 Dose: 1 mls/min Documented by: [id number] Phenytoin 300 mg/ Syringe 6 mls @ 1 mls/min IV HS [facility] Stop: 12/21/21 20:59 Last Admin: 11/21/21 20:28 Dose: 1 mls/min Documented by: [id number] Pantoprazole Sodium 40 mg/ (Syringe) 10 mls @ 5 mls/min IV BID [facility] Stop: 12/21/21 20:59 Last Admin: 11/22/21 08:26 Dose: 5 mls/min Documented by: [id number] Admin: 11/21/21 20:30 Dose: 5 mls/min Documented by: [id number] Potassium Chloride/Sodium Chloride (1/2 Nss + 20meq Kcl 1000ml) 20 meq in 1,000 mls @ 150 mls/hr IV .Q6H40M [facility] Stop: 12/21/21 17:14 Last Infusion: 11/21/21 20:42 Dose: 0 mls/hr Documented by: [id number] Admin: 11/21/21 17:39 Dose: 150 mls/hr Documented by: [id number] Potassium Chloride (K Brian / Wtr) 20 meq in 100 mls @ 50 mls/hr IV ONE ONE; Pr otocol Stop: 11/21/21 21:36 Last Infusion: 11/21/21 22:04 Dose: 0 mls/hr Documented by: [id number] Admin: 11/21/21 20:01 Dose: 50 mls/hr Documented by: [id number] Potassium Chloride 40 meq/ (Sodium Chloride) 1,020 mls @ 200 mls/hr IV .Q5H6M [facility] Stop: 12/21/21 20:29 Last Infusion: 11/21/21 22:05 Dose: 0 mls/hr Documented by: [id number] Admin: 11/21/21 20:39 Dose: 200 mls/hr Documented by: [id number] Insulin Aspart (Insulin Aspart Per Unit) 0 units SC ACHS [facility] Stop: 12/21/21 16:49 Last Admin: 11/21/21 16:58 Dose: Not Given Documented by: [id number] Cosigned by: [id number] Insulin Human Regular (Novolin-R Bolus From Bag) 6 units IV ONE ONE Stop: 11/21/21 14:16 Last Admin: 11/21/21 14:27 Dose: 6 units Documented by: [id number] Cosigned by: [id number] Teresaaneous (Stat Iv Infusion Titration Per Protocol) 1 ea N/A NOW STA Stop: 11/21/21 13:59 Last Admin: 11/21/21 16:57 Dose: 1 ea Documented by: [id number] Brielle (Hhs Goal Range 250-350 Mg/Dl) 1 ea N/A ONE ONE Stop: 11/21/21 13:59 Last Admin: 11/21/21 16:57 Dose: Not Given Documented by: [id number] Brielle (Stat Iv Infusion Titration Per Protocol) 1 ea N/A NOW STA Stop: 11/21/21 16:08 Last Admin: 11/21/21 16:57 Dose: 1 ea Documented by: [id number] Brielle (Stat Iv Infusion Titration Per Protocol) 1 ea N/A NOW STA Stop: 11/21/21 16:08 Last Admin: 11/21/21 16:57 Dose: 1 ea Documented by: [id number] Brielle (Dka Goal Range 150-250 Mg/Dl) 1 ea N/A ONE ONE Stop: 11/21/21 16:51 Last Admin: 11/21/21 16:58 Dose: 1 ea Documented by: [id number] Teresaaneous (Pending 1/2nss+20meq Kcl Ivf) 1 ea N/A Q2H [facility] Stop: 12/21/21 17:14 Last Admin: 11/21/21 17:40 Dose: Not Given Documented by: [id number] Teresaaneous (Pending D5 1/2ns+20meq Kcl Ivf) 1 ea N/A Q2H [facility] Stop: 12/21/21 17:14 Last Admin: 11/21/21 21:15 Dose: 1 ea Documented by: [id number] Admin: 11/21/21 18:28 Dose: Not Given Documented by: [id number] Sodium Chloride (Sodium Chloride 0.9% 10ml Flush) 20 ml IV HS [facility] Stop: 12/21/21 20:59 Last Admin: 11/21/21 20:29 Dose: 20 ml Documented by: [id number] Sodium Chloride (Sodium Chloride 0.9% 10ml Flush) 20 ml IV DAILY [facility] Stop: 12/22/21 08:59 Last Admin: 11/22/21 08:28 Dose: 20 ml Documented by: [id number] Imaging Data Radiologist's Impression: Cervical Spine CT 11/21/21 11:32 CT SCAN OF THE CERVICAL SPINE CLINICAL HISTORY: Fall. COMPARISON STUDY: CT of the cervical spine dated 08/12/2018. TECHNIQUE: CT scan of the cervical spine is performed from the skull base to the upper thoracic spine. Images are reviewed in the axial, sagittal, and coronal planes. IV contrast was not administered for this examination. A dose lowering technique was utilized adhering to the principles of ALARA. CT DOSE: 969.55 mGy.cm FINDINGS: Skeletal structures: The skeletal structures are osteopenic. There is no evidence of fracture or subluxation involving the cervical spine. Vertebral body height and alignment are maintained. Anterior osteophytes are seen throughout. The odontoid process and lateral masses are intact. The atlantoaxial articulation is preserved noting productive degenerative change. The spinous processes appear intact. There is mild to moderate multilevel cervical spondylosis. Uncovertebral and facet arthropathy contribute to neural foraminal narrowing at several levels. Intervertebral discs: There is moderate disc space narrowing at C6-C7. Mild disc space narrowing is seen at the remaining cervical levels. Central canal: Posterior disc osteophyte complexes at C4-C5, C5-C6, and C6-C7 likely contribute to multilevel acquired compromise of the central canal. Soft tissues: The prevertebral and paraspinous soft tissues are within normal limits. Calvarium: The visualized calvarium at the skull base appears intact. Brain parenchyma: Partially visualized brain parenchyma at the skull base is within normal limits. Sinuses and mastoids: The visualized paranasal sinuses are clear. The mastoid air cells are well pneumatized. Lung apices: Clear as visualized. IMPRESSION: 1. There is no evidence of fracture or subluxation involving the cervical spine. 2. Osteopenia and spondylotic change as above. ACT 112: Negative or not required by law. Electronically signed by: Adonis Evans M.D. 11/21/2021 12:42 PM Chest X-Ray 11/21/21 11:32 SINGLE VIEW CHEST CLINICAL HISTORY: Sepsis. Fall. FINDINGS: Upright and supine portable chest radiographs are compared to study dated 10/24/2018 and correlated with chest CT dated 10/05/2017. The examination is degraded by portable technique and patient rotation. The cardiomediastinal silhouette is unremarkable. Chronic interstitial thickening is similar to pre vious. No airspace consolidation or large pleural effusion is identified. No pneumothorax is seen. The skeletal structures are osteopenic. The bony thorax is grossly intact. Arthritic change is seen in the shoulders. Cholecystectomy clips are noted in the right upper quadrant. IMPRESSION: No acute cardiopulmonary abnormality. ACT 112: Negative or not required by law. Electronically signed by: Adonis Evans M.D. 11/21/2021 12:[address] 11/21/21 11:32 CT SCAN OF THE BRAIN WITHOUT IV CONTRAST CLINICAL HISTORY: Fall. COMPARISON STUDY: CT of the brain dated 10/24/2018. TECHNIQUE: Unenhanced axial CT scan of the brain is performed from the vertex to the skull base. A dose lowering technique was utilized adhering to the principles of ALARA. The examination is modestly degraded by motion artifact. FINDINGS: Brain parenchyma: There are age-related involutional changes noting mild subcortical and periventricular microangiopathic change. There is no hemorrhage, mass effect, or evidence of acute territorial ischemia by CT criteria. A small focus of left frontal encephalomalacia is unchanged and consistent with a remote infarct. Bowser-white matter differentiation is preserved. No extra-axial fluid collection is seen. Ventricles, sulci, cisterns: Prominent secondary to involutional change. Intracranial vasculature: There is atherosclerotic calcification of the cavernous carotid arteries. Calvarium: The skeletal structures are osteopenic. No depressed calvarial fracture is identified. Sinuses and mastoids: The paranasal sinuses are clear. The mastoid air cells are well pneumatized. Orbits: The bony orbits are grossly intact. IMPRESSION: There is no hemorrhage, mass effect, or evidence of acute territorial ischemia by CT criteria. ACT 112: Negative or not required by law. Electronically signed by: Adonis Evans M.D. 11/21/2021 12:38 PM Pelvis X-Ray 11/21/21 11:32 SINGLE VIEW PELVIS CLINICAL HISTORY: Fall. FINDINGS: 2 AP, portable, supine pelvic radiographs are compared to study dated 02/21/2013 and correlated with pelvic CT dated 11/08/2019. The skeletal structures are osteopenic. There is no radiographic evidence of acute fracture involving the hips or bony pelvis. Mild degenerative change and joint space narrowing is seen in the hips. Sclerotic change is observed in the sacroiliac joints and pubic symphysis. The overlying soft tissues are normal as imaged. There is no evidence of bowel obstruction. Suture material projects over the pelvis. IMPRESSION: No fracture is identified. Electronically signed by: Adonis Evans M.D. 11/21/2021 12:33 PM Discharge Plan Visit Data Chief Complaint: Unresponsive ED Provider: Leandro Lal Discharge Problem: DKA (diabetic ketoacidosis), Acute metabolic encephalopathy, Acute alteration in mental status, LUCAS (acute kidney injury), Hypothermia Patient Disposition: Admitted As Inpatient Discharge Instructions Interventions: ED Discharge Assessment Last Done: 11/21/21 19:16 Discharge Problem: DKA (diabetic ketoacidosis) Qualifiers: Diabetes mellitus type: type 1 Diabetes mellitus complication detail: with coma Qualified Code(s): E10.11 - Type 1 diabetes mellitus with ketoacidosis with coma Hypothermia Qualifiers: Encounter type: initial encounter Qualified Code(s): T68.XXXA - Hypothermia, initial encounter
[2021-11-21 12:27] LABS: Mean Corpuscular Hgb Conc 31.1 g/dL (32-36)
[2021-11-21 12:31] LABS: Appearance Urine Clear (Clear); Bacteria Urine Automated Negative (Negative); Bilirubin Urine Negative (Negative); Blood Urine Negative (Negative); Color Urine Yellow; Glucose Urine UA 3+ (Negative); Ketones Urine 4+ (Negative); Leukocyte Esterase Urine Negative (Negative); Nitrite Urine Negative (Negative); Protein Urine 1+ (Negative); RBC Urine Automated 0-4 /hpf (0-4); Specific Gravity Urine 1.026 (1.000-1.030); Urobilinogen Urine Negative (Negative)
--- NOTE | 2021-11-21 12:32 | XRay Report ---
SINGLE VIEW CHEST CLINICAL HISTORY: Sepsis. Fall. FINDINGS: Upright and supine portable chest radiographs are compared to study dated 10/24/2018 and cor related with chest CT dated 10/05/2017. The examination is degraded by portable technique and patient rotation. The cardiomediastinal silhouette is unremarkable. Chronic interstitial thickening is sim ilar to previous. No airspace consolidation or large pleural effusion is identified. No pneumothorax is seen. The skeletal structures are osteopenic. The bony thorax is grossly intact. Arthritic change is seen in the shoulders. Cholecystectomy clips are noted in the right upper quadrant. IMPRESSION: No acute cardiopulmonary abnormality. ACT 112: Negative or not required by law. Electronically signed by: Adonis Evans M.D. 11/21/2021 12:31 PM
--- NOTE | 2021-11-21 12:34 | XRay Report ---
SINGLE VIEW PELVIS CLINICAL HISTORY: Fall. FINDINGS: 2 AP, portable, supine pelvic radiographs are compared to study dated 02/21/2013 and correlat ed with pelvic CT dated 11/08/2019. The skeletal structures are osteopenic. There is no radiographic evidence of acute fracture involving the hips or bony pelvis. Mild degenerative change and joint spac e narrowing is seen in the hips. Sclerotic change is observed in the sacroiliac joints and pubic symp hysis. The overlying soft tissues are normal as imaged. There is no evidence of bowel obstruction. Carbajal ture material projects over the pelvis. IMPRESSION: No fracture is identified. Electronically signed by: Adonis Evans M.D. 11/21/2021 12:33 PM
--- NOTE | 2021-11-21 12:39 | CT Scan Report ---
CT SCAN OF THE BRAIN WITHOUT IV CONTRAST CLINICAL HISTORY: Fall. COMPARISON STUDY: CT of the brain dated 10/24/2018. TECHNIQUE: Unenhanced axial CT scan of the brain is performed from the vertex to the skull base. A do se lowering technique was utilized adhering to the principles of ALARA. The examination is modestly d egraded by motion artifact. FINDINGS: Brain parenchyma: There are age-related involutional changes noting mild subcortical and periventric ular microangiopathic change. There is no hemorrhage, mass effect, or evidence of acute territorial i schemia by CT criteria. A small focus of left frontal encephalomalacia is unchanged and consistent wi th a remote infarct. Bowser-white matter differentiation is preserved. No extra-axial fluid collection is seen. Ventricles, sulci, cisterns: Prominent secondary to involutional change. Intracranial vasculature: There is atherosclerotic calcification of the cavernous carotid arteries. Calvarium: The skeletal structures are osteopenic. No depressed calvarial fracture is identified. Sinuses and mastoids: The paranasal sinuses are clear. The mastoid air cells are well pneumatized. Orbits: The bony orbits are grossly intact. IMPRESSION: There is no hemorrhage, mass effect, or evidence of acute territorial ischemia by CT maddit joe. ACT 112: Negative or not required by law. Electronically signed by: Adonis Evans M.D. 11/21/2021 12:38 PM
--- NOTE | 2021-11-21 12:43 | CT Scan Report ---
CT SCAN OF THE CERVICAL SPINE CLINICAL HISTORY: Fall. COMPARISON STUDY: CT of the cervical spine dated 08/12/2018. TECHNIQUE: CT scan of the cervical spine is performed from the skull base to the upper thoracic spine . Images are reviewed in the axial, sagittal, and coronal planes. IV contrast was not administered fo r this examination. A dose lowering technique was utilized adhering to the principles of ALARA. CT DOSE: 969.55 mGy.cm FINDINGS: Skeletal structures: The skeletal structures are osteopenic. There is no evidence of fracture or subl uxation involving the cervical spine. Vertebral body height and alignment are maintained. Anterior os teophytes are seen throughout. The odontoid process and lateral masses are intact. The atlantoaxial a rticulation is preserved noting productive degenerative change. The spinous processes appear intact. There is mild to moderate multilevel cervical spondylosis. Uncovertebral and facet arthropathy contri bute to neural foraminal narrowing at several levels. Intervertebral discs: There is moderate disc space narrowing at C6-C7. Mild disc space narrowing is s een at the remaining cervical levels. Central canal: Posterior disc osteophyte complexes at C4-C5, C5-C6, and C6-C7 likely contribute to mu ltilevel acquired compromise of the central canal. Soft tissues: The prevertebral and paraspinous soft tissues are within normal limits. Calvarium: The visualized calvarium at the skull base appears intact. Brain parenchyma: Partially visualized brain parenchyma at the skull base is within normal limits. Sinuses and mastoids: The visualized paranasal sinuses are clear. The mastoid air cells are well pneu matized. Lung apices: Clear as visualized. IMPRESSION: 1. There is no evidence of fracture or subluxation involving the cervical spine. 2. Osteopenia and spondylotic change as above. ACT 112: Negative or not required by law. Electronically signed by: Adonis Evans M.D. 11/21/2021 12:42 PM
[2021-11-21 12:59] LABS: Influenza A virus by PCR Negative (Neg); Influenza B virus by PCR Negative (Neg); RSV by PCR Negative (Neg); SARS CoV2 RNA(COVID-19) InHosp NEGATIVE (Negative)
[2021-11-21] MEDS ORDERED: SODIUM CHLORIDE 0.9% 1000ML 1,000 ML IV ONE (13:00)
[2021-11-21 13:06] LABS: Basophils # (auto) 0.05 K/uL (0-0.2); Basophils % (auto) 0.2 %; Eosinophils # (auto) 0.08 K/uL (0-0.5); Eosinophils % (auto) 0.3 %; Immature Granulocytes % (auto) 2.6 %; Lymphocytes # (auto) 2.58 K/uL (1.2-3.4); Monocytes # (auto) 1.78 K/uL (0.11-0.59); Monocytes % (auto) 7.6 %; Neutrophils # (auto) 18.31 K/uL (1.4-6.5); Neutrophils % (auto) 78.3 %
[2021-11-21 13:12] LABS: Amphetamines+Metham, Urine Neg (Neg); Barbiturates, Urine Neg (Neg); Benzodiazepine, Urine Neg (Neg); Cocaine, Urine Neg (Neg); MDMA (Ecstacy), Urine Neg (Neg); Methadone, Urine Neg (Neg); Opiate, Urine Neg (Neg); Phencyclidine, Urine Neg (Neg)
[2021-11-21 13:17] LABS: Partial Thromboplastin Time 26.9 Seconds (21.0-31.0); Prothrombin Time 10.2 Seconds (9.0-12.0)
[2021-11-21 13:32] LABS: Base Excess VBG -24.8 mEq/L; Oxygen Saturation VBG 76.6 %; pH VBG 6.96 (7.36-7.41)
[2021-11-21] MEDS ORDERED: LACTATED RINGER'S 1,000 ML IV ONE (13:55)
[2021-11-21 13:56] LABS: Alanine Aminotransferase 62 (12-78); Albumin Globulin Ratio 0.9 (0.9-2); Albumin Level 3.8 gm/dl (3.4-5.0); Alkaline Phosphatase 146 U/L (45-117); Aspartate Aminotransferase 27 U/L (15-37); BUN Creatinine Ratio 19.4 (10-20); Bilirubin,Total 0.6 mg/dl (0.2-1); Blood Urea Nitrogen 50 mg/dl (7-18); Calcium 8.8 mg/dl (8.5-10.1); Carbon Dioxide 5 mmol/L (21-32); Chloride 91 mmol/L (98-107); Creatine Kinase 232 U/L (26-192); Creatinine Clr Calc Pharmacy 18.7 ml/min; Est GFR (African American) 21.4 ml/min; Est GFR (Non-African American) 18.4 ml/min; Globulin 4.3 gm/dl (2.5-4.0); Glucose 1029 mg/dl (70-99); Magnesium 4.1 mg/dl (1.8-2.4); Potassium 4.4 mmol/L (3.5-5.1); Sodium 135 mmol/L (136-145); Total Protein 8.1 gm/dl (6.4-8.2); Troponin I < 0.015 ng/ml (0-0.045)
[2021-11-21] MEDS ORDERED: GLUCOSE 40% GEL 15 GM TUBE PO PRN (13:58)
[2021-11-21] MEDS ORDERED: GLUCOSE 10 TABS/TUBE PO PRN (13:58)
[2021-11-21] MEDS ORDERED: DEXTROSE 50% 50 ML SYRINGE IV PRN (13:58)
[2021-11-21] MEDS ORDERED: GLUCAGON FOR INJ 1 MG VIAL SQ PRN (13:58)
[2021-11-21] MEDS ORDERED: HHS GOAL RANGE 250-350 mg/dl ONE (13:58)
[2021-11-21] MEDS ORDERED: CARBOHYDRATES FOR HYPOGLYCEMIA PO PRN (13:58)
[2021-11-21] MEDS ORDERED: STAT IV Infusion **Titration per Protocol STA ×3 (13:58→16:07)
[2021-11-21] MEDS ORDERED: NovoLIN-R BOLUS FROM BAG IV ONE (14:15)
[2021-11-21] MEDS: INSULIN REGULAR 250 UNITS in SODIUM CHLORIDE 0.9% 247.5 ML IV SCH (14:25)
[2021-11-21 14:39] LABS: Creatine Kinase MB 6.2 ng/ml (0.5-3.6)
[2021-11-21 14:59] LABS: Beta-Hydroxybutyrate > 138.00 mg/dl (0.2-2.81)
[2021-11-21 16:47] LABS: BUN Creatinine Ratio 22.1 (10-20); Calcium 8.6 mg/dl (8.5-10.1); Creatinine Clr Calc Pharmacy 21.9 ml/min; Est GFR (African American) 25.9 ml/min; Est GFR (Non-African American) 22.4 ml/min; Potassium 4.5 mmol/L (3.5-5.1)
[2021-11-21] MEDS ORDERED: INSULIN REGULAR 250 UNITS in SODIUM CHLORIDE 0.9% 247.5 ML IV SCH (16:50)
[2021-11-21] MEDS ORDERED: CEFEPIME 1,000 MG in SYRINGE 0 ML IV SCH (16:50)
[2021-11-21] MEDS ORDERED: PHARMACY GLYCEMIC MGMT CONSULT PRN (16:50)
[2021-11-21] MEDS ORDERED: INSULIN ASPART PER UNIT SC SCH (16:50)
[2021-11-21] MEDS ORDERED: NORMOSOL-R 1,000 ML IV SCH (16:50)
[2021-11-21] MEDS ORDERED: ICU PROTOCOL FOR HYPERGLYCEMIA PRN (16:50)
[2021-11-21] MEDS ORDERED: DKA GOAL RANGE 150-250 mg/dl ONE (16:50)
[2021-11-21 16:51] LABS: Beta-Hydroxybutyrate 131.78 mg/dl (0.2-2.81)
[2021-11-21] MEDS: INSULIN ASPART PER UNIT SC SCH ×2 (16:57→22:04)
[2021-11-21] MEDS ORDERED: PENDING 1/2NSS+20mEq KCL IVF SCH (17:15)
[2021-11-21] MEDS ORDERED: SODIUM CHLOR 0.45% + 20MEQ KCL 20 MEQ/1,000 ML BAG IV SCH (17:15)
[2021-11-21] MEDS: PENDING D5 1/2NS+20mEq KCL IVF SCH ×2 (18:28→21:15)
[2021-11-21 18:38] LABS: BUN Creatinine Ratio 27.4 (10-20); Calcium 7.3 mg/dl (8.5-10.1); Creatinine Clr Calc Pharmacy 24.8 ml/min; Est GFR (African American) 30.1 ml/min; Est GFR (Non-African American) 25.9 ml/min; Phosphorus 7.8 mg/dl (2.5-4.9); Potassium 3.7 mmol/L (3.5-5.1)
--- NOTE | 2021-11-21 19:11 | History & Physical Report ---
Date of Service November 21, 2021 Assessment & Plan (1) DKA (diabetic ketoacidosis): (2) Acute metabolic encephalopathy: Plan: -Admit to ICU -Patient presenting after being found on the floor by her -In the ED, patient was found to be in severe DKA. Glucose 1029, pH 6.96, HCO3 5, anion gap 40 -Insulin drip and IVF as per protocol -Serial BMP and VBG -Further management as per ICU Possible sepsis -Temp on presentation 33.9, WBC 23.4K -Hemoconcentration may be contributing to leukocytosis -No obvious signs of infection at this time -S/p cefepime in the ED, will continue with for now -Noted negative MRSA nasal swab (3) LUCAS (acute kidney injury): Plan: -Creatinine 2.5 -Prerenal in nature due to dehydration from DKA -IVF -Follow renal functions (4) Seizure: Plan: -History of seizure disorder -Noted to have dried blood in mouth, ?? If patient had a seizure at home -On Dilantin, check level -Convert Dilantin to IV (5) Hypothyroid: Plan: -Consider converting levothyroxine to IV if patient not taking p.o. in the next 1 to 2 days (6) CVA (cerebral vascular accident): Plan: -History of (7) DVT prophylaxis: Plan: -SQ heparin Admission and Anticipated Discharge Date Admission Date: November 21, 2021 History of Present Illness Chief Complaint: Unresponsive, DKA Primary Care Provider: Adam Mehta MD 71-year-old female with PMH DM type II, hypothyroidism, COPD, remote history of CAD, HTN, history of CVA, seizure disorder, history of colon cancer s/p partial colectomy, and other problems listed below who presents the ED after being found on the floor by her . History is currently unobtainable from the patient. I attempted to reach the patient's by telephone however he did not answer. Patient was apparently found on the floor in her bedroom by her . EMS was called and patient was brought to the ED for further evalua tion. In the ED, patient was found to be in severe DKA. Glucose 1029, pH 6.96, HCO3 5, anion gap 40. Creatinine 2.5. Patient was given IV cefepime, IV famotidine, IV Protonix, IVF, and started on IV insulin drip. Allergies Allergy/AdvReac Type Severity Reaction Status Date / Time bee venom protein (honey bee) Allergy Severe ANAPHYLAXIS Verified 01/20/20 14:35 hydrochlorothiazide Allergy Severe low calcium Verified 01/20/20 14:35 Iodinated Contrast Media Allergy Severe ANAPHYLAXIS Verified 01/20/20 14:35 iodine Allergy Severe ARM Verified 01/20/20 14:35 SWELLING Penicillins Allergy Severe HIVES Verified 01/20/20 14:35 aspirin Allergy Intermediate RASH Verified 01/20/20 14:35 codeine Allergy Intermediate RASH Verified 01/20/20 14:35 morphine Allergy Intermediate "EFFECTS Verified 01/20/20 14:35 MOVEMENTS" NSAIDS (Non-Steroidal Allergy Intermediate RASH Verified 01/20/20 14:35 Anti-Inflamma lisinopril AdvReac Unknown Cough Verified 01/20/20 14:47 metformin AdvReac Unknown Diarrhea Verified 01/20/20 14:47 Home Medications Medication Instructions Recorded Confirmed Type empagliflozin 25 mg tablet 25 mg PO QPM 07/25/18 11/21/21 History (Jardiance) insulin lispro protamine-lispro 46 unit SUBCUT QAM 07/25/18 11/21/21 History 100 unit/mL (50-50) subcutaneous pen (Humalog Mix 50-50 KwikPen) insulin lispro protamine-lispro 48 unit SUBCUT QPM 07/25/18 11/21/21 History 100 unit/mL (50-50) subcutaneous pen (Humalog Mix 50-50 KwikPen) phenytoin sodium extended 100 mg 200 mg PO DAILY 07/25/18 11/21/21 History capsule (Dilantin Extended) ipratropium 20 mcg-albuterol 100 1 puff INHALATION QID 08/12/18 11/21/21 History mcg/actuation mist for inhalation (Combivent Respimat) levothyroxine 75 mcg tablet 75 mcg PO QAM 11/17/19 11/21/21 History potassium chloride 20 mEq 20 meq PO QAM 12/17/19 11/21/21 History tablet,extended release atorvastatin 40 mg tablet 40 mg PO DAILY 11/21/21 11/21/21 History calcium carb-ergocalciferol (vit 1 tab PO DAILY 11/21/21 11/21/21 History D2) 600 mg calcium-200 unit tablet phenytoin sodium extended 100 mg 300 mg PO HS 11/21/21 11/21/21 History capsule semaglutide (Ozempic) 0.5 mg SUBCUT WK 11/21/21 11/21/21 History Past Med/Surg History Medical History Asthma inhaler daily CAD (coronary artery disease) "s/p [place]" Chronic back pain Colonic diverticular abscess CVA (cerebral vascular accident) "per patient found incidentally on CT in the " DM2 (diabetes mellitus, type 2) History of colon cancer 2016 ?--sx HTN (hypertension) Hyperlipidemia Hypothyroid Myocardial Infarction X7?---last 3-5yrs ago follows with Dr. Castillo Partial small bowel obstruction Poor historian Seizure grand mal type---last 10-15yrs ago--no neurologist Surgical History History of cardiac cath 2001 @ [facility], no stents History of cholecystectomy History of colon resection 2016? for colon cancer History of colonoscopy History of coronary angioplasty History of tooth extraction all teeth Hx of appendectomy Family History (Updated 11/21/21 @ 19:18 by CHANTAL Nichols) Brother Heart disease Mother Heart disease Other No family history of adverse response to anesthesia Social History (Updated 11/21/21 @ 19:18 by CHANTAL Nichols) Smoking Status: Former smoker Hx Alcohol Use: No Preferred Language: Italian Communication Ability: Effective Program Management Analyst Required: No Beliefs That Will Affect Care: None marital status: Current Living Situation: Spouse Current Living Situation Comment: Unable to assess current occupational status: disabled Feels Safe at Home: Yes Assistive Devices: Cane, Walker and Wheelchair Review of Systems Review of Systems: Unobtainable due to altered mental status Physical Exam Constitutional: + ill appearing Eyes: PERRL, conjunctivae normal, anicteric sclerae ENMT: Ears: no external ear abnormality Nose: no external nose abnormality Mouth: + dry oral mucous membranes Dried blood noted in mouth Respiratory: + labored breathing Auscultation: lungs clear to auscultation bilaterally Cardiovascular: Rate/Rhythm: regular rate and regular rhythm Vessels: normal peripheral pulses Extremities: no edema Gastrointestinal (Abdomen): normal bowel sounds, soft, nontender, no hepatosplenomegaly Musculoskeletal: Extremities: no cyanosis and no clubbing Unable to assess strength Skin: no rashes, warm and dry Neurologic: + obtunded Psychiatric: Orientation: + not alert Results & Data Results & Data ([facility]) Vital Signs (Past 12 Hours) Vital Signs Temp Pulse Pulse Resp BP BP Pulse Ox 11/21/21 18:00 34.5 C L 86 24 112/82 99 11/21/21 17:30 34.3 C L 90 24 98/68 L 99 11/21/21 17:23 34.3 C L 89 20 108/62 99 11/21/21 17:00 34.1 C L 90 20 108/62 98 11/21/21 16:43 34.1 C L 91 H 20 104/63 98 11/21/21 16:39 34.0 C L 90 21 128/64 99 11/21/21 16:30 91 H 13 11/21/21 16:00 89 20 104/71 98 11/21/21 15:46 91 H 18 138/79 82 L 11/21/21 15:45 90 20 83 L 11/21/21 15:30 87 19 110/68 99 11/21/21 15:15 85 19 133/71 100 11/21/21 15:00 85 21 122/93 99 11/21/21 14:45 83 23 118/78 100 11/21/21 14:32 79/63 L 11/21/21 14:30 82 20 99 11/21/21 14:22 82 20 89/58 L 99 11/21/21 14:15 82 20 99 11/21/21 14:05 87 23 91/48 L 99 11/21/21 14:00 84 21 100 11/21/21 13:45 82 19 110/52 L 99 11/21/21 13:31 81 18 103/45 L 99 11/21/21 13:30 80 17 99 11/21/21 13:16 79 21 104/44 L 99 11/21/21 13:15 79 18 104/44 L 99 11/21/21 13:00 78 19 97/68 L 99 11/21/21 12:51 98 11/21/21 12:49 33.9 C L 79 24 98/50 L 99 11/21/21 12:48 98 11/21/21 12:45 79 19 98/50 L 97 11/21/21 12:39 80 19 84/54 L 99 11/21/21 12:38 80 19 99 11/21/21 12:21 82 19 94/50 L 98 11/21/21 12:15 83 19 80/47 L 98 11/21/21 12:10 87 24 82/53 L 99 11/21/21 12:06 88 21 82/53 L 95 11/21/21 12:03 88 21 96 11/21/21 12:01 88 18 94 11/21/21 11:41 88 21 85/60 L 11/21/21 11:30 93 H 19 11/21/21 11:25 93 H 22 Laboratory Results Short CBC 11/21/21 Range/Units 11:46 WBC 23.40 H (4.8-10.8) K/uL Hgb 17.8 H (12.0-16.0) g/dL Hct 57.2 H (37-47) % Plt Count 354 (130-400) K/uL BMP 11/21/21 11/21/21 11/21/21 11:42 12:53 15:59 Sodium Cancelled 135 L 139 Potassium Cancelled 4.4 4.5 Chloride Cancelled 91 L 100 Carbon Dioxide Cancelled 5 L* 3 L* BUN Cancelled 50 H 48 H Creatinine Cancelled 2.56 H 2.18 H D Glucose Cancelled 1029 H* 788 H* Calcium Cancelled 8.8 8.6 11/21/21 18:01 Sodium 147 H D Potassium 3.7 D Chloride 111 H Carbon Dioxide 2 L* BUN 53 H Creatinine 1.93 H Glucose 549 H* Calcium 7.3 L D Cardiac Enzymes 11/21/21 11/21/21 Range/Units 11:42 12:53 Total Creatine Kinase Cancelled 232 H CK-MB (CK-2) Cancelled 6.2 H Troponin I Cancelled < 0.015 Liver Function 11/21/21 11/21/21 Range/Units 11:42 12:53 Total Bilirubin Cancelled 0.6 AST Cancelled 27 ALT Cancelled 62 Alkaline Phosphatase Cancelled 146 H Albumin Cancelled 3.8 Urine 11/21/21 Range/Units 12:18 Urine Color Yellow Urine Appearance Clear (Clear) Urine pH 5.0 (4.5-7.5) Ur Specific [place] 1.026 (1.000-1.030) Urine Protein 1+ H (Negative) Urine Glucose (UA) 3+ H (Negative) Diagnostic Findings Cervical Spine CT 11/21/21 11:32 CT SCAN OF THE CERVICAL SPINE CLINICAL HISTORY: Fall. COMPARISON STUDY: CT of the cervical spine dated 08/12/2018. TECHNIQUE: CT scan of the cervical spine is performed from the skull base to the upper thoracic spine. Images are reviewed in the axial, sagittal, and coronal planes. IV contrast was not administered for this examination. A dose lowering technique was utilized adhering to the principles of ALARA. CT DOSE: 969.55 mGy.cm FINDINGS: Skeletal structures: The skeletal structures are osteopenic. There is no evidence of fracture or subluxation involving the cervical spine. Vertebral body height and alignment are maintained. Anterior osteophytes are seen throughout. The odontoid process and lateral masses are intact. The atlantoaxial articulation is preserved noting productive degenerative change. The spinous processes appear intact. There is mild to moderate multilevel cervical spondylosis. Uncovertebral and facet arthropathy contribute to neural foraminal narrowing at several levels. Intervertebral discs: There is moderate disc space narrowing at C6-C7. Mild disc space narrowing is seen at the remaining cervical levels. Central canal: Posterior disc osteophyte complexes at C4-C5, C5-C6, and C6-C7 likely contribute to multilevel acquired compromise of the central canal. Soft tissues: The prevertebral and paraspinous soft tissues are within normal limits. Calvarium: The visualized calvarium at the skull base appears intact. Brain parenchyma: Partially visualized brain parenchyma at the skull base is within normal limits. Sinuses and mastoids: The visualized paranasal sinuses are clear. The mastoid air cells are well pneumatized. Lung apices: Clear as visualized. IMPRESSION: 1. There is no evidence of fracture or subluxation involving the cervical spine. 2. Osteopenia and spondylotic change as above. ACT 112: Negative or not required by law. Electronically signed by: Adonis Evans M.D. 11/21/2021 12:42 PM Chest X-Ray 11/21/21 11:32 SINGLE VIEW CHEST CLINICAL HISTORY: Sepsis. Fall. FINDINGS: Upright and supine portable chest radiographs are compared to study dated 10/24/2018 and correlated with chest CT dated 10/05/2017. The examination is degraded by portable technique and patient rotation. The cardiomediastinal silhouette is unremarkable. Chronic interstitial thickening is similar to previous. No airspace consolidation or large pleural effusion is identified. No pneumothorax is seen. The skeletal structures are osteopenic. The bony thorax is grossly intact. Arthritic change is seen in the shoulders. Cholecystectomy clips are noted in the right upper quadrant. IMPRESSION: No acute cardiopulmonary abnormality. ACT 112: Negative or not required by law. Electronically signed by: Adonis Evans M.D. 11/21/2021 12:[address] 11/21/21 11:32 CT SCAN OF THE BRAIN WITHOUT IV CONTRAST CLINICAL HISTORY: Fall. COMPARISON STUDY: CT of the brain dated 10/24/2018. TECHNIQUE: Unenhanced axial CT scan of the brain is performed from the vertex to the skull base. A dose lowering technique was utilized adhering to the principles of ALARA. The examination is modestly degraded by motion artifact. FINDINGS: Brain parenchyma: There are age-related involutional changes noting mild subcortical and periventricular microangiopathic change. There is no hemorrhage, mass effect, or evidence of acute territorial ischemia by CT criteria. A small focus of left frontal encephalomalacia is unchanged and consistent with a remote infarct. Bowser-white matter differentiation is preserved. No extra-axial fluid collection is seen. Ventricles, sulci, cisterns: Prominent secondary to involutional change. Intracranial vasculature: There is atherosclerotic calcification of the cavernous carotid arteries. Calvarium: The skeletal structures are osteopenic. No depressed calvarial fracture is identified. Sinuses and mastoids: The paranasal sinuses are clear. The mastoid air cells are well pneumatized. Orbits: The bony orbits are grossly intact. IMPRESSION: There is no hemorrhage, mass effect, or evidence of acute territorial ischemia by CT criteria. ACT 112: Negative or not required by law. Electronically signed by: Adonis Evans M.D. 11/21/2021 12:38 PM Pelvis X-Ray 11/21/21 11:32 SINGLE VIEW PELVIS CLINICAL HISTORY: Fall. FINDINGS: 2 AP, portable, supine pelvic radiographs are compared to study dated 02/21/2013 and correlated with pelvic CT dated 11/08/2019. The skeletal structures are osteopenic. There is no radiographic evidence of acute fracture involving the hips or bony pelvis. Mild degenerative change and joint space narrowing is seen in the hips. Sclerotic change is observed in the sacroiliac joints and pubic symphysis. The overlying soft tissues are normal as imaged. There is no evidence of bowel obstruction. Suture material projects over the pelvis. IMPRESSION: No fracture is identified. Electronically signed by: Adonis Evans M.D. 11/21/2021 12:33 PM Code Status & VTE Plan VTE Prophylaxis Plan VTE Prophylaxis will be ordered: Yes Supervising Physician Co-Signing Physician Notes Pt seen and examined by me, care coordinated with Mariam CORNEJO, pls refer to her note above for further detail. 71 yo F w/DM type II, hypothyroidism, COPD, remote history of CAD, HTN, history of CVA, seizure disorder, history of colon cancer s/p partial colectomy, who presents after being found unresponsive on the floor by her . EMS was ca lled and patient was brought to the ED for further evaluation. In the ED, patient was found to be in severe DKA. Glucose 1029, pH 6.96, HCO3 5, anion gap 40. Creatinine 2.5. Patient was given IVF, IV cefepime, and started on IV insulin drip. She was also given IV famotidine, and IV Protonix. Pt is laying in bed, tachypneic, able to open her eyes but not able to answer questions. She is moving her upper extremities. There is dry blood noted in her mouth, pt has very dry mucous membranes. Lungs seem CTAB. RRR. Abdomen soft, seems nontender, nondistended. No LE edema. Pt found hypothermic, now bear hugger applied. ICU contacted, cont. IVF, IV Abx and insulin. Rule out infectious etiology. Check BMP every 4 hrs, monitor sodium level and other electrolytes. Replete electrolytes as needed. Concern for possible seizure given dry blood in mouth, this was also discussed with ICU. Further care per ICU team. Bhupendra Peters MD (1) DKA (diabetic ketoacidosis) Diabetes mellitus complication detail: with coma Diabetes mellitus type: type 1 Qualified Code(s): E10.11 - Type 1 diabetes mellitus with ketoacidosis with coma
--- NOTE | 2021-11-21 19:31 | Critical Care Consultation ---
Date of Consultation November 21, 2021 Assessment & Plan (1) DKA (diabetic ketoacidosis): Reason Critically Ill: 71-year-old female presents to the ICU with severe metabolic acidosis and DKA, currently undergoing DKA protocol treatment with fluids and insulin drip. Neuro - Metabolic encephalopathyimproving, patient was reportedly obtunded in the ED now arousable but confused. Suspect this is likely due to severe DKA, expect to continue to improve with resolution. -History of seizure disorder and there was questionable seizure activity. Will monitor for now and Dilantin converted to IV. - CT head and cervical spine unremarkable for acute process Cardiac - Currently normal sinus rhythm and hemodynamically stable. Continue statin once taking p.o. Continuous monitor on telemetry Respiratory - Tachypnea likely compensatory to metabolic acidosis. No respiratory distress. Expect to improve with resolution of acidosis Continuous monitoring on pulse ox GI - N.p.o. RENAL/LYTES - AKIinitial creatinine 2.56, previous baseline 0.54. Improving on repeat BMP and now 1.93 -Likely prerenal in the setting of DKA -Continue with IV fluid resuscitation -Maintain maps greater than 65 -Monitor with routine BMPs - Foleystrict I's and O's ENDO - DKAinitial BHA greater than 138, positive ketones in urine, bicarb 3, pH 7.06 -DKA protocol with glucose goal range 2 50-3 50 -Every 4 hours BMPs and VBG's -No indication for bicarb drip at this time of his pH greater than 7 -Pharmacy glycemic management protocol. Convert to sliding scale once gap closed and bicarb greater than 15. Hypothyroidcontinue Synthroid HEME - H&H stable, monitor routine CBCs ID - Empirically started on cefepime. Patient with leukocytosis, hypothermic, elevated lactate. Blood cultures pending -Nasal MRSA negative -Urinalysis unremarkable -No clear source of infection but continue empiric antibiotics for now LINES/IV ACCESS - Left femoral CVL DVT PROPHYLAXIS - SCDs I have personally spent 45 minutes of critical care time in the direct management of this patient. This is a life/limb threatening event. This includes time spent evaluating patient, direct bedside care, chart review, placing orders, interpretation of diagnostic studies, discussion with consultants, patie nt, and family members, as well as other required patient management activities. This time is exclusive of all separately billable procedures, and teaching time and separate from and in addition to any other critical care service time. Thank you for allowing us to participate in the care of this patient. Please refer to my attending physician's documentation for any further recommendations. (2) Hyperlipidemia: (3) Seizure: (4) LUCAS (acute kidney injury): (5) Acute metabolic encephalopathy: (6) DVT prophylaxis: (7) Hypothermia: (8) HTN (hypertension): (9) CAD (coronary artery disease): (10) CVA (cerebral vascular accident): (11) Hypothyroid: History of Present Illness Attending Physician: Skyler Peters MD History of Present Illness Patient is a 71-year-old female past medical history including hypothyroid, COPD, CAD, HTN, history of colon cancer s/p partial colectomy, history of CVA, and DM type II. Was reported by EMS in the ED that patient was found on floor by the who called 911. She was found to be DKA in the ED with pH 6.96, HCO3 5 glucose 1029, beta hydroxybutyrate greater than 138. She received 3 L crystalloid bolus and was started on insulin drip and DKA protocol. Patient also had questionable seizure and was started on IV Dilantin. History was unable to be obtained from the patient as she was obtunded on arrival to the ED. She is also started on empiric cefepime. Patient was then transferred to the ICU for further management. On arrival to the ICU patient's neurological status appears to be somewhat improving and she is now confused. She is maintaining her airway and does not appear to be in any significant respiratory distress although she is somewhat tachypneic with respiratory rate in the low 20s. Patient does state that she feels somewhat nauseous. She denies headache, dizziness, chest pain, palpit ations, shortness of breath, sore throat, cough, abdominal pain. Repeat lab work showed some improvement in pH and anion gap, and glucose correcting appropriately. We will continue with current management at this time in ICU. Allergies Allergy/AdvReac Type Severity Reaction Status Date / Time bee venom protein (honey bee) Allergy Severe ANAPHYLAXIS Verified 01/20/20 14:35 hydrochlorothiazide Allergy Severe low calcium Verified 01/20/20 14:35 Iodinated Contrast Media Allergy Severe ANAPHYLAXIS Verified 01/20/20 14:35 iodine Allergy Severe ARM Verified 01/20/20 14:35 SWELLING Penicillins Allergy Severe HIVES Verified 01/20/20 14:35 aspirin Allergy Intermediate RASH Verified 01/20/20 14:35 codeine Allergy Intermediate RASH Verified 01/20/20 14:35 morphine Allergy Intermediate "EFFECTS Verified 01/20/20 14:35 MOVEMENTS" NSAIDS (Non-Steroidal Allergy Intermediate RASH Verified 01/20/20 14:35 Anti-Inflamma lisinopril AdvReac Unknown Cough Verified 01/20/20 14:47 metformin AdvReac Unknown Diarrhea Verified 01/20/20 14:47 Home Medications Medication Instructions Recorded Confirmed Type empagliflozin 25 mg tablet 25 mg PO QPM 07/25/18 11/21/21 History (Jardiance) insulin lispro protamine-lispro 46 unit SUBCUT QAM 07/25/18 11/21/21 History 100 unit/mL (50-50) subcutaneous pen (Humalog Mix 50-50 KwikPen) insulin lispro protamine-lispro 48 unit SUBCUT QPM 07/25/18 11/21/21 History 100 unit/mL (50-50) subcutaneous pen (Humalog Mix 50-50 KwikPen) phenytoin sodium extended 100 mg 200 mg PO DAILY 07/25/18 11/21/21 History capsule (Dilantin Extended) ipratropium 20 mcg-albuterol 100 1 puff INHALATION QID 08/12/18 11/21/21 History mcg/actuation mist for inhalation (Combivent Respimat) levothyroxine 75 mcg tablet 75 mcg PO QAM 11/17/19 11/21/21 History potassium chloride 20 mEq 20 meq PO QAM 12/17/19 11/21/21 History tablet,extended release atorvastatin 40 mg tablet 40 mg PO DAILY 11/21/21 11/21/21 History calcium carb-ergocalciferol (vit 1 tab PO DAILY 11/21/21 11/21/21 History D2) 600 mg calcium-200 unit tablet phenytoin sodium extended 100 mg 300 mg PO HS 11/21/21 11/21/21 History capsule semaglutide (Ozempic) 0.5 mg SUBCUT WK 11/21/21 11/21/21 History Patient History Medical History Asthma inhaler daily CAD (coronary artery disease) "s/p MT" Chronic back pain Colonic diverticular abscess CVA (cerebral vascular accident) "per patient found incidentally on CT in the 90s " DM2 (diabetes mellitus, type 2) History of colon cancer 2016 ?--sx HTN (hypertension) Hyperlipidemia Hypothyroid Myocardial Infarction X7?---last 3-5yrs ago follows with Dr. Castillo Partial small bowel obstruction Poor historian Seizure grand mal type---last 10-15yrs ago--no neurologist Surgical History History of cardiac cath 2001 @ [facility], no stents History of cholecystectomy History of colon resection 2016? for colon cancer History of colonoscopy History of coronary angioplasty History of tooth extraction all teeth Hx of appendectomy Family History (Updated 11/21/21 @ 19:18 by CHANTAL Nichols) Brother Heart disease Mother Heart disease Other No family history of adverse response to anesthesia Social History (Updated 11/21/21 @ 19:18 by CHANTAL Nichols) Smoking Status: Former smoker Hx Alcohol Use: No Preferred Language: Faroese Communication Ability: Unable Assistant Front Office Manager Required: No Beliefs That Will Affect Care: None marital status: Current Living Situation: Spouse Current Living Situation Comment: Unable to assess current occupational status: disabled Feels Safe at Home: Yes Assistive Devices: Cane, CPAP and Glasses Review of Systems Review of Systems: All systems reviewed & are unremarkable except as noted in HPI & below Physical Exam Constitutional: + altered mental status and cooperative; no acute distress Eyes: PERRL, conjunctivae normal, anicteric sclerae ENMT: external ear and nose normal, oropharynx normal Neck: trachea midline, no thyromegaly Respiratory: normal respiratory effort, lungs clear to auscultation Cardiovascular: RRR, no murmur, no edema Heart Sounds: normal S1 and normal S2 Vessels: no JVD Extremities: normal capillary refill; no edema Gastrointestinal (Abdomen): normal bowel sounds, soft, nontender, no hepatosplenomegaly Skin: no rashes, warm and dry Neurologic: PERRL, EOMI, accommodation nl, no face palsy, no dysarthria Psychiatric: A+Ox3, euthymic affect Results & Data Results & Data ([facility]) Vital Signs (Past 12 Hours) Vital Signs Temp Pulse Pulse Resp BP BP Pulse Ox 11/21/21 18:00 34.5 C L 86 24 112/82 99 11/21/21 17:30 34.3 C L 90 24 98/68 L 99 11/21/21 17:23 34.3 C L 89 20 108/62 99 11/21/21 17:00 34.1 C L 90 20 108/62 98 11/21/21 16:43 34.1 C L 91 H 20 104/63 98 11/21/21 16:39 34.0 C L 90 21 128/64 99 11/21/21 16:30 91 H 13 11/21/21 16:00 89 20 104/71 98 11/21/21 15:46 91 H 18 138/79 82 L 11/21/21 15:45 90 20 83 L 11/21/21 15:30 87 19 110/68 99 11/21/21 15:15 85 19 133/71 100 11/21/21 15:00 85 21 122/93 99 11/21/21 14:45 83 23 118/78 100 11/21/21 14:32 79/63 L 11/21/21 14:30 82 20 99 11/21/21 14:22 82 20 89/58 L 99 11/21/21 14:15 82 20 99 11/21/21 14:05 87 23 91/48 L 99 11/21/21 14:00 84 21 100 11/21/21 13:45 82 19 110/52 L 99 11/21/21 13:31 81 18 103/45 L 99 11/21/21 13:30 80 17 99 11/21/21 13:16 79 21 104/44 L 99 11/21/21 13:15 79 18 104/44 L 99 11/21/21 13:00 78 19 97/68 L 99 11/21/21 12:51 98 11/21/21 12:49 33.9 C L 79 24 98/50 L 99 11/21/21 12:48 98 11/21/21 12:45 79 19 98/50 L 97 11/21/21 12:39 80 19 84/54 L 99 11/21/21 12:38 80 19 99 11/21/21 12:21 82 19 94/50 L 98 11/21/21 12:15 83 19 80/47 L 98 11/21/21 12:10 87 24 82/53 L 99 11/21/21 12:06 88 21 82/53 L 95 11/21/21 12:03 88 21 96 11/21/21 12:01 88 18 94 11/21/21 11:41 88 21 85/60 L 11/21/21 11:30 93 H 19 11/21/21 11:25 93 H 22 Coding Level of Care Code Critical Care 1st 30-74 mins Diagnoses Hyperlipidemia E78.5 Seizure R56.9 LUCAS (acute kidney injury) N17.9 Acute metabolic encephalopathy G93.41 DKA (diabetic ketoacidosis) E10.11 Diabetes mellitus complication detail: with coma Diabetes mellitus type: type 1 DVT prophylaxis Z29.9 Hypothermia T68.XXXA Encounter type: initial encounter HTN (hypertension) I10 CAD (coronary artery disease) I25.10 CVA (cerebral vascular accident) I63.9 Hypothyroid E03.9 (1) DKA (diabetic ketoacidosis) Diabetes mellitus complication detail: with coma Diabetes mellitus type: type 1 Qualified Code(s): E10.11 - Type 1 diabetes mellitus with ketoacidosis with coma (2) Hypothermia Encounter type: initial encounter Qualified Code(s): T68.XXXA - Hypothermia, initial encounter
[2021-11-21] MEDS ORDERED: POTASSIUM CHLORIDE / WTR 20 MEQ/100 ML PLCT IV ONE (19:37)
[2021-11-21] MEDS ORDERED: POTASSIUM CHLORIDE 40 MEQ in SODIUM CHLORIDE 0.45 % 1,000 ML IV SCH (20:30)
[2021-11-21] MEDS: PANTOprazole 40 MG in SYRINGE 0 ML IV SCH (20:30)
[2021-11-21] MEDS: HEPARIN SOD 5,000 UNIT/0.5 ML VIAL SQ SCH (20:36)
[2021-11-21] MEDS ORDERED: SODIUM CHLORIDE 0.9% 10ML FLUSH IV SCH (21:00)
[2021-11-21] MEDS ORDERED: PHENYTOIN IV SCH (21:00)
[2021-11-21] MEDS ORDERED: POTASSIUM CHLORIDE 40 MEQ in DEXTROSE 5% 1,000 ML IV SCH (21:15)
[2021-11-21 21:40] LABS: Calcium 7.2 mg/dl (8.5-10.1); Creatinine Clr Calc Pharmacy 25.8 ml/min; Est GFR (African American) 31.6 ml/min; Est GFR (Non-African American) 27.3 ml/min; Magnesium 2.7 mg/dl (1.8-2.4)
[2021-11-21 21:52] LABS: Beta-Hydroxybutyrate 94.78 mg/dl (0.2-2.81)
[2021-11-21] MEDS: D5W AND 1/2NSS + 20MEQ KCL 20 MEQ/1,000 ML BAG IV SCH (22:02)
[2021-11-22 01:41] LABS: BUN Creatinine Ratio 29.6 (10-20); Calcium 7.2 mg/dl (8.5-10.1); Creatinine Clr Calc Pharmacy 26.8 ml/min; Est GFR (African American) 33.2 ml/min; Est GFR (Non-African American) 28.6 ml/min; Phosphorus 1.5 mg/dl (2.5-4.9)
[2021-11-22 01:48] LABS: Potassium 4.4 mmol/L (3.5-5.1)
[2021-11-22 01:52] LABS: Magnesium 2.6 mg/dl (1.8-2.4)
[2021-11-22 01:53] LABS: Beta-Hydroxybutyrate 39.15 mg/dl (0.2-2.81)
[2021-11-22] MEDS: D5W AND 1/2NSS + 20MEQ KCL 20 MEQ/1,000 ML BAG IV SCH ×4 (03:04→16:22)
[2021-11-22] MEDS: HEPARIN SOD 5,000 UNIT/0.5 ML VIAL SQ SCH ×3 (05:06→20:30)
[2021-11-22 05:31] LABS: BUN Creatinine Ratio 27.6 (10-20); Calcium 7.5 mg/dl (8.5-10.1); Est GFR (African American) 33.4 ml/min; Est GFR (Non-African American) 28.8 ml/min; Magnesium 2.5 mg/dl (1.8-2.4); Phosphorus 1.7 mg/dl (2.5-4.9); Potassium 4.4 mmol/L (3.5-5.1)
[2021-11-22 05:48] LABS: Basophils # (auto) 0.01 K/uL (0-0.2); Basophils % (auto) 0.1 %; Eosinophils # (auto) 0.03 K/uL (0-0.5); Eosinophils % (auto) 0.3 %; Hemoglobin 14.5 g/dL (12.0-16.0); Immature Granulocytes # (auto) 0.07 K/uL (0.00-0.02); Immature Granulocytes % (auto) 0.6 %; Lymphocytes # (auto) 1.35 K/uL (1.2-3.4); Mean Corpuscular Hemoglobin 31.9 pg (25-34); Mean Corpuscular Hgb Conc 34.5 g/dL (32-36); Mean Corpuscular Volume 92.3 fL (80-100); Mean Platelet Volume 9.8 fL (7.4-10.4); Monocytes # (auto) 0.95 K/uL (0.11-0.59); Monocytes % (auto) 8.4 %; Neutrophils # (auto) 8.85 K/uL (1.4-6.5); Neutrophils % (auto) 78.6 %; Platelet Count 266 K/uL (130-400); RDW Coefficient of Variation 13.1 % (11.5-14.5); RDW Standard Deviation 43.9 fL (36.4-46.3); Red Blood Count 4.55 M/uL (4.2-5.4); White Blood Count 11.26 K/uL (4.8-10.8)
[2021-11-22] MEDS: INSULIN ASPART PER UNIT SC SCH ×4 (07:36→20:38)
[2021-11-22 07:44] LABS: Estimated Average Glucose 301 mg/dl; Hemoglobin A1C 12.1 % (4.5-5.6)
--- NOTE | 2021-11-22 07:49 | Electrocardiogram Report ---
Test Reason : Blood Pressure : / mmHG Vent. Rate : 088 BPM Atrial Rate : 088 BPM P-R Int : 156 ms QRS Dur : 084 ms QT Int : 392 ms P-R-T Axes : 073 070 072 degrees QTc Int : 474 ms Poor data quality, interpretation may be adversely affected Normal sinus rhythm Normal ECG When compared with ECG of 17-NOV-2019 19:07, Nonspecific T wave abnormality no longer evident in Inferior leads Nonspecific T wave abnormality no longer evident in Anterior leads Confirmed by Francisco Burton ([id number]) on 11/22/2021 7:48:37 AM Referred By: REFERRED SELF Confirmed By:Francisco Burton
[2021-11-22] MEDS: PANTOprazole 40 MG in SYRINGE 0 ML IV SCH (08:26)
[2021-11-22] MEDS ORDERED: SODIUM CHLORIDE 0.9% 10ML FLUSH IV SCH (09:00)
[2021-11-22] MEDS ORDERED: PNEUMOCOCCAL Polysaccharide Vaccine 25mcg/0.5mL vial/Syr IM ONE (09:00)
[2021-11-22] MEDS ORDERED: Flu Vaccine-High Dose (Fluzone-HD) PF 65+ 0.7mL SYR IM ONE (09:00)
[2021-11-22] MEDS ORDERED: PHENYTOIN 200 MG in SYRINGE 0 ML IV SCH (09:00)
[2021-11-22] MEDS ORDERED: POTASSIUM PHOS 3 MMOL/1 ML INFUSION IV STA (09:01)
[2021-11-22] MEDS ORDERED: POTASSIUM PHOSPHATE 15 MMOL in SODIUM CHLORIDE 0.9% 250 ML IV ONE (09:30)
[2021-11-22 10:17] LABS: BUN Creatinine Ratio 29.1 (10-20); Calcium 7.4 mg/dl (8.5-10.1); Creatinine Clr Calc Pharmacy 30.6 ml/min; Est GFR (African American) 38.9 ml/min; Est GFR (Non-African American) 33.6 ml/min; Magnesium 2.5 mg/dl (1.8-2.4); Phosphorus 1.9 mg/dl (2.5-4.9); Potassium 4.4 mmol/L (3.5-5.1)
--- NOTE | 2021-11-22 12:24 | Pharmacy Report ---
Pharmacy Glycemic Short Note 2 - Date of Service November 22, 2021 - Glycemic Short BSG Results (Last 24 hours): 11/21/21 11/21/21 11/21/21 11:42 12:53 15:38 Glucose Cancelled 1029 H* POC Glucose > 600 H* 11/21/21 11/21/21 11/21/21 15:59 18:01 18:10 Glucose 788 H* 549 H* POC Glucose 485 H* 11/21/21 11/21/21 11/21/21 18:11 18:58 18:59 Glucose POC Glucose 516 H* 492 H* 453 H* 11/21/21 11/21/21 11/21/21 19:55 20:50 20:53 Glucose 396 H* POC Glucose 402 H* 351 H* 11/21/21 11/21/21 11/21/21 20:54 22:09 22:10 Glucose POC Glucose 345 H* 302 H* 301 H* 11/21/21 11/21/21 11/22/21 23:14 23:15 00:54 Glucose POC Glucose 317 H* 317 H* 307 H* 11/22/21 11/22/21 11/22/21 00:55 01:06 03:02 Glucose 336 H* POC Glucose 319 H* 278 H 11/22/21 11/22/21 11/22/21 04:46 04:47 06:10 Glucose 277 H POC Glucose 243 H 238 H 11/22/21 11/22/21 11/22/21 07:16 08:31 08:36 Glucose 287 H POC Glucose 230 H 291 H 11/22/21 11/22/21 11/22/21 09:24 10:41 11:32 Glucose POC Glucose 258 H 219 H 214 H OUTPATIENT ANTIDIABETIC REGIMEN: * Humalog 50/50 mix: 46 units AM + 48 units PM * Semaglutide 0.5mg SQ weekly * Jardiance 25mg PO HS * A1c = 12.1% 11/21/21 ASSESSMENT: * Type 2 diabetic admitted to ICU for altered mental status, severe DKA * Initial labs: GLU 1029, AG 40, Bicarb 5, BOHB >138, Na 135 (corrected Na 154) * Patient was given IV fluid resuscitation and started on IV insulin drip per DKA/HHS protocol. * Drip infusing at 3.2 units/hr and BSGs in the mid-200s. AG closed, Bicarb now > 15. Per discussion at ICU rounds, patient will be transitioned to SQ regimen once BSG less than 200. Goal range on IV insulin drip is being changed to 140-180 at this time. If patient is not able to tolerate a diet, IVFs with dextrose will continue during the transition to SQ. PLAN FOR INPATIENT GLYCEMIC CONTROL: * Hold outpatient oral diabetes medications * Continue IV insulin drip per protocol, change goal to 140 - 180 mg/dL * Basal insulin * Lantus 32 units SQ x 1 when BSG less than 200, then per scale 6-16 units Q HS depending on BSG * Plan to overlap with IV insulin drip 4 hrs * Bolus insulin * NovoLog per scale Q 4 hrs initially * Goal Range: Low 110 mg/dL - High 140 mg/dL * Correction Factor: 18 mg/dL/unit * Nutritional / Prandial insulin per carb ratio of 1 unit per 7 grams CHO consumed PLAN FOR DISCHARGE: * to be determined
[2021-11-22] MEDS ORDERED: CEFEPIME 2,000 MG in SYRINGE 0 ML IV SCH (13:00)
--- NOTE | 2021-11-22 13:40 | Critical Care Progress Note ---
Date of Service November 22, 2021 Assessment & Plan (1) DKA (diabetic ketoacidosis): (2) Acute metabolic encephalopathy: (3) LUCAS (acute kidney injury): (4) Hypothermia: Plan: Reason Critically Ill: 71-year-old female presents to the ICU with severe metabolic acidosis and DKA, currently undergoing DKA protocol treatment with fluids and insulin drip. Neuro - Metabolic encephalopathy Likely secondary to DKA, improving TSH within normal limit CT head and cervical spine unremarkable for acute process History of seizure disorder Continue with phenytoin IV for the time being Cardiac - Currently normal sinus rhythm and hemodynamically stable. Continue statin once taking p.o. Respiratory - -History of COPD Not on any standing inhaler at home Outpatient follow-up with a general maintenance technician GI - Start p.o. feeds once able RENAL/LYTES - -- LUACS --> improving Likely prerenal Monitor BUN/creatinine Avoid nephrotoxic medications Strict ins and outs - Foleystrict I's and O's ENDO - DKA initial BHA greater than 138, positive ketones in urine, bicarb 3, pH 7.06 -DKA protocol with glucose goal range 2 50-3 50 -Every 4 hours BMPs while on insulin drip -No indication for bicarb drip at this time of his pH greater than 7 -Pharmacy glycemic management protocol. Hypothyroid continue Synthroid HEME - H&H stable, monitor routine CBCs ID - No clear source of infection. Chest x-ray is clean. -Nasal MRSA negative -Urinalysis unremarkable --Prophylaxis VTE: Heparin GI: Protonix Lines: Peripheral Diet: N.p.o. Plan: In/out: +6.8 L, urine output 1250 Patient's anion gap has closed. We will start bridging to subcu insulin. Patient is still not better alert. If she is not waking up and there is a risk of aspiration if given given any food right now Continue with D5 half NS at a lower rate once the patient is off insulin drip DC cefepime as there is no clear source of infection Phenytoin level was on the higher side. Will hold the evening dose and decrease the IV dose to 200 twice daily Hypophosphatemia is being replaced I have personally spent 35 minutes of critical care time in the direct management of this patient. This is a life/limb threatening event. This includes time spent evaluating patient, direct bedside care, chart review, placing orders, interpretation of diagnostic studies, discussion with consultants, patient, and family members, as well as other required patient management activities. This time is exclusive of all separately billable procedures, and teaching time and separate from and in addition to any other critical care service time. Please note the above document was generated using voice recognition software. It may contain grammatical, syntax or spelling errors. Admission and Anticipated Discharge Date Admission Date: November 21, 2021 Subjective Patient seen and bedside. No acute distress, no adverse events overnight Patient was still on insulin drip at the time of examination She was difficult to arouse but on waking up she denied any headache, no nausea, no vomiting, no abdominal pain, no chest pain Denied any shortness of breath Review of Systems Review of Systems: Unobtainable due to mental health condition Physical Exam Physical Exam: Constitutional: No acute distress HEENT: EOMI, PERRLA Respiratory system: Decreased air entry bilaterally, no wheeze, rhonchi, no crackles CVS: S1-S2 positive, no murmurs or gallops Abdomen: Soft, nontender, nondistended, positive bowel sounds x4, obese Extremities: +2 pulses bilaterally radialis/ dorsalis pedis, no cyanosis, no edema Neuro: Awake alert oriented to self and place Psych: Flat mood and affect G/U: Positive Castaneda Skin: no rashes, warm and dry Lymphatic: no cervical or axillary lymphadenopathy Results & Data Results & Data ([facility]) Vital Signs (Past 12 Hours) Vital Signs Temp Pulse Resp BP Pulse Ox 11/22/21 10:00 37.5 C 95 H 26 H 134/64 96 11/22/21 09:30 37.6 C H 97 H 19 138/68 96 11/22/21 09:00 37.6 C H 101 H 25 H 147/64 H 97 11/22/21 08:30 37.6 C H 103 H 22 147/68 H 96 11/22/21 08:00 37.6 C H 106 H 23 149/72 H 97 11/22/21 07:30 37.7 C H 109 H 16 142/72 H 97 11/22/21 07:00 37.7 C H 103 H 27 H 144/65 H 96 11/22/21 06:30 37.7 C H 106 H 20 144/66 H 96 11/22/21 06:00 37.8 C H 107 H 16 132/75 96 11/22/21 05:30 37.7 C H 110 H 18 137/70 97 11/22/21 05:00 37.7 C H 109 H 17 122/65 95 11/22/21 04:30 37.7 C H 105 H 18 139/68 96 11/22/21 04:00 37.7 C H 103 H 19 129/61 96 11/22/21 03:30 37.6 C H 107 H 15 127/55 L 96 11/22/21 03:00 37.5 C 108 H 17 124/65 96 11/22/21 02:30 37.6 C H 106 H 20 137/64 96 11/22/21 02:00 37.5 C 103 H 22 123/63 97 11/22/21 04:46 Coding Level of Care Code Critical Care 1st 30-74 mins Diagnoses DKA (diabetic ketoacidosis) E10.11 Diabetes mellitus complication detail: with coma Diabetes mellitus type: type 1 Acute metabolic encephalopathy G93.41 LUCAS (acute kidney injury) N17.9 Hypothermia T68.XXXA Encounter type: initial encounter Time Spent (min) 35 (1) DKA (diabetic ketoacidosis) Diabetes mellitus complication detail: with coma Diabetes mellitus type: type 1 Qualified Code(s): E10.11 - Type 1 diabetes mellitus with ketoacidosis with coma (2) Hypothermia Encounter type: initial encounter Qualified Code(s): T68.XXXA - Hypothermia, initial encounter
[2021-11-22 13:44] LABS: Calcium 7.4 mg/dl (8.5-10.1); Creatinine Clr Calc Pharmacy 37.3 ml/min; Est GFR (African American) 49.4 ml/min; Est GFR (Non-African American) 42.6 ml/min; Magnesium 2.5 mg/dl (1.8-2.4); Potassium 4.6 mmol/L (3.5-5.1)
[2021-11-22 14:15] LABS: Phosphorus 3.4 mg/dl (2.5-4.9)
--- NOTE | 2021-11-22 15:10 | Hospitalist Progress Note ---
Date of Service November 22, 2021 Assessment & Plan (1) Acute metabolic encephalopathy: Plan: 2/2 DKA, resolved with resolution of DKA. Appears to be mentating more clearly today and is oriented. (2) DKA (diabetic ketoacidosis): Plan: Severe metabolic acidosis treated with fluids and insulin drip. Currently gap is closed and patient is hungry. Remains n.p.o. on insulin drip now. We will likely transition to basal bolus insulin and start food again tomorrow. She is still in ICU status will defer to chemical processing supervisor. (3) LUCAS (acute kidney injury): Plan: Creatinine improved after fluid resuscitation.Last creatinine is 1.3, trend BMP in a.m. (4) Seizure: Plan: She has a history of seizure disorder. No witnessed seizure activity but this was considered in the differential. CT head and cervical spine CT were unremarkable for acute process on admission. Continues on Dilantin intravenously converted from her home dosage. At this point it appears her encephalopathy was from her severe metabolic acidosis which is resolved. (5) SIRS (systemic inflammatory response syndrome): Plan: Patient met SIRS criteria with hypothermia and leukocytosis on admission. Also tachycardic. No clear source of sepsis and she was placed initially on cefepime which has now been stopped. Continues to remain afebrile and clinically improved. (6) Hypothyroidism: Plan: Chronic, stable, continue Synthroid per home regimen. (7) DVT prophylaxis: Plan: Heparin Full Code Dispo-to home pending PT/OT recs and continued clinical improvement. [facility] and Anticipated Discharge Date Admission Date: November 21, 2021 Subjective 71-year-old female presents with acute metabolic encephalopathy secondary to d iabetic ketoacidosis. She remains n.p.o. on an insulin drip with a closed gap in the ICU. She is answering questions appropriately but exhibits some memory loss. Hyperglycemia has resolved and later sugar is 155. She denies any pain or trouble breathing. She denies abdominal pain or discomfort. She reports feeling hungry and denies any nausea. Review of Systems Review of Systems: All systems reviewed and negative except as indicated above. Physical Exam Physical Exam: CONSTITUTIONAL: WNWD, vitals as above, NAD EYES: normal conjunctivae, no scleral icterus ENT: external ear and nose normal, MMM NECK: trachea midline RESPIRATORY: clear to auscultation bilaterally, no crackles, rales or wheezes, normal respiratory effort CARDIOVASCULAR: regular rate and rhythm, S1 and 2 heard without murmurs, gallops or rubs, no JVD, no peripheral edema GASTROINTESTINAL: soft, nontender, protuberant, nondistended, no guarding. MUSCULOSKELETAL: generalized weakness with no gross focal deficit. SKIN: warm and dry NEUROLOGIC: CN 2-12 grossly intact, no sensory deficit, normal cognition, normal speech, no tremor, no gross focal deficits. PSYCHIATRIC: alert cooperative and oriented to person and place, answering questions appropriately and following commands. Results & Data Results & Data ([facility]) Vital Signs (Past 12 Hours) Vital Signs Temp Pulse Resp BP Pulse Ox 11/22/21 10:00 37.5 C 95 H 26 H 134/64 96 11/22/21 09:30 37.6 C H 97 H 19 138/68 96 11/22/21 09:00 37.6 C H 101 H 25 H 147/64 H 97 11/22/21 08:30 37.6 C H 103 H 22 147/68 H 96 11/22/21 08:00 37.6 C H 106 H 23 149/72 H 97 11/22/21 07:30 37.7 C H 109 H 16 142/72 H 97 11/22/21 07:00 37.7 C H 103 H 27 H 144/65 H 96 11/22/21 06:30 37.7 C H 106 H 20 144/66 H 96 11/22/21 06:00 37.8 C H 107 H 16 132/75 96 11/22/21 05:30 37.7 C H 110 H 18 137/70 97 11/22/21 05:00 37.7 C H 109 H 17 122/65 95 11/22/21 04:30 37.7 C H 105 H 18 139/68 96 11/22/21 04:00 37.7 C H 103 H 19 129/61 96 11/22/21 03:30 37.6 C H 107 H 15 127/55 L 96 Laboratory Results Short CBC 11/22/21 Range/Units 04:46 WBC 11.26 H D (4.8-10.8) K/uL Hgb 14.5 D (12.0-16.0) g/dL Hct 42.0 (37-47) % Plt Count 266 (130-400) K/uL BMP 11/21/21 11/21/21 11/21/21 15:59 18:01 20:50 Sodium 139 147 H D 148 H Potassium 4.5 3.7 D 4.0 Chloride 100 111 H 115 H Carbon Dioxide 3 L* 2 L* 6 L* BUN 48 H 53 H 54 H Creatinine 2.18 H D 1.93 H 1.85 H Glucose 788 H* 549 H* 396 H* Calcium 8.6 7.3 L D 7.2 L 11/22/21 11/22/21 11/22/21 01:06 04:46 08:36 Sodium 147 H 146 H 146 H Potassium 4.4 4.4 4.4 Chloride 119 H 119 H 119 H Carbon Dioxide 13 L 17 L 16 L BUN 53 H 49 H 45 H Creatinine 1.78 H 1.77 H 1.56 H Glucose 336 H* 277 H 287 H Calcium 7.2 L 7.5 L 7.4 L 11/22/21 12:43 Sodium 146 H Potassium 4.6 Chloride 121 H Carbon Dioxide 17 L BUN 40 H Creatinine 1.28 H Glucose 296 H Calcium 7.4 L Cardiac Enzymes 11/21/21 11/22/21 Range/Units 20:50 04:46 Total Creatine Kinase 639 H 614 H (26-192) U/L Medications Administered Current Inpatient Medications Dextrose (Dextrose 50% 50 Ml Syringe) 25 - 50 ml IV UD PRN; Protocol PRN Reason: Hypoglycemia Protocol Stop: 12/21/21 13:57 Glucagon (Glucagon For Inj 1 Mg Vial) 1 mg SQ UD PRN; Protocol PRN Reason: Hypoglycemia Protocol Stop: 12/21/21 13:57 Glucose (Glucose 10 Tabs/Tube) 4 - 8 tabs PO UD PRN; Protocol PRN Reason: Hypoglycemia Protocol Stop: 12/21/21 13:57 Glucose (Glucose 40% Gel 15 Gm Tube) 15 - 30 gm PO UD PRN; Protocol PRN Reason: Hypoglycemia Protocol Stop: 12/21/21 13:57 Heparin Sodium (Porcine) (Heparin Sod 5,000 Unit/0.5 Ml Vial) 5,000 units SQ Q8 [facility] Stop: 12/21/21 21:59 Last Admin: 11/22/21 14:35 Dose: 5,000 units Documented by: Insulin Human Regular 250 (units/ Sodium Chloride) 250 mls @ 5.3 mls/hr IV .Q24H DULCE MARIA; Protocol Stop: 12/21/21 14:14 Last Titration: 11/22/21 13:32 Dose: 5.3 units/hr, 5.3 mls/hr Documented by: Potassium Chloride/Dextrose/Sod Cl (D5w And 1/2nss + 20meq Kcl) 20 meq in 1,000 mls @ 125 mls/hr IV .Q8H [facility] Stop: 12/21/21 21:44 Last Admin: 11/22/21 11:56 Dose: 200 mls/hr Documented by: Pantoprazole Sodium 40 mg/ (Syringe) 10 mls @ 5 mls/min IV DAILY [facility] Stop: 12/23/21 08:59 Phenytoin 200 mg/ Syringe 4 mls @ 1 mls/min IV Q12H [facility] Stop: 12/23/21 08:59 Sodium Chloride 20 ml/ Syringe 20 mls @ 10 mls/min IV Q12H [facility] Stop: 12/23/21 09:03 Insulin Aspart (Insulin Aspart Per Unit) 0 units SC ACHS [facility] Stop: 12/21/21 16:29 Last Admin: 11/22/21 11:34 Dose: Not Given Documented by: Miscellaneous (Carbohydrates For Hypoglycemia ) 15 - 30 gm PO UD PRN PRN Reason: Hypoglycemia Protocol Stop: 12/21/21 13:57 Miscellaneous Information (Pharmacy Glycemic Mgmt Consult) 1 ea N/A UD PRN PRN Reason: Consult Stop: 12/21/21 16:49 (1) DKA (diabetic ketoacidosis) Diabetes mellitus complication detail: with coma Diabetes mellitus type: type 1 Qualified Code(s): E10.11 - Type 1 diabetes mellitus with ketoacidosis with coma
[2021-11-22] MEDS ORDERED: INSULIN GLARGINE SOLOSTAR 100 UNITS/ML 3 ML PEN SC ONE ×2 (18:15→21:45)
[2021-11-22] MEDS: INSULIN REGULAR 250 UNITS in SODIUM CHLORIDE 0.9% 247.5 ML IV SCH (18:29)
[2021-11-22] MEDS ORDERED: COUGH DROP (SUGAR FREE) LOZ 24 LOZ/1 BOX BUCCAL STA (19:23)
[2021-11-23] MEDS: INSULIN ASPART PER UNIT SC SCH ×6 (01:18→21:01)
[2021-11-23] MEDS: D5W AND 1/2NSS + 20MEQ KCL 20 MEQ/1,000 ML BAG IV SCH (02:55)
[2021-11-23] MEDS ORDERED: bisacodyL 10 MG SUPP PR STA (04:46)
[2021-11-23 04:52] LABS: Basophils # (auto) 0.02 K/uL (0-0.2); Basophils % (auto) 0.2 %; Eosinophils # (auto) 0.08 K/uL (0-0.5); Eosinophils % (auto) 0.9 %; Hematocrit (blood only) 36.3 % (37-47); Hemoglobin 12.5 g/dL (12.0-16.0); Immature Granulocytes # (auto) 0.05 K/uL (0.00-0.02); Immature Granulocytes % (auto) 0.6 %; Lymphocytes # (auto) 1.01 K/uL (1.2-3.4); Lymphocytes % (auto) 11.9 %; Mean Corpuscular Hemoglobin 31.6 pg (25-34); Mean Corpuscular Hgb Conc 34.4 g/dL (32-36); Mean Corpuscular Volume 91.7 fL (80-100); Mean Platelet Volume 9.7 fL (7.4-10.4); Monocytes # (auto) 0.72 K/uL (0.11-0.59); Monocytes % (auto) 8.5 %; Neutrophils # (auto) 6.58 K/uL (1.4-6.5); Neutrophils % (auto) 77.9 %; Platelet Count 185 K/uL (130-400); RDW Coefficient of Variation 13.6 % (11.5-14.5); RDW Standard Deviation 45.2 fL (36.4-46.3); Red Blood Count 3.96 M/uL (4.2-5.4); White Blood Count 8.46 K/uL (4.8-10.8)
[2021-11-23] MEDS: HEPARIN SOD 5,000 UNIT/0.5 ML VIAL SQ SCH ×3 (05:45→20:59)
--- NOTE | 2021-11-23 07:16 | XRay Report ---
KUB CLINICAL HISTORY: Generalized abdominal pain. FINDINGS: 2 AP, portable, supine abdominal radiographs are compared to study dated 11/18/2019 and cor related with abdominal CT dated 11/17/2019. Cholecystectomy clips are seen in the right upper quadran t. A left femoral central venous catheter is in place. A rectal temperature probe is noted. There is no bowel obstruction. Moderate fecal retention is seen throughout the colon. No evidence of intraperi toneal free air is seen on these supine images. There are no abnormal abdominal calcifications. The s keletal structures are osteopenic and appear intact. There is mild to moderate lumbosacral spondylosi s. IMPRESSION: No acute abnormality is identified. Electronically signed by: Adonis Evans M.D. 11/23/2021 7:15 AM
[2021-11-23 07:30] LABS: BUN Creatinine Ratio 31.6 (10-20); Calcium 7.4 mg/dl (8.5-10.1); Creatinine Clr Calc Pharmacy 85.3 ml/min; Est GFR (African American) 110.3 ml/min; Est GFR (Non-African American) 95.1 ml/min; Magnesium 2.5 mg/dl (1.8-2.4); Phosphorus 1.7 mg/dl (2.5-4.9); Potassium 3.2 mmol/L (3.5-5.1)
[2021-11-23] MEDS: PANTOprazole 40 MG in SYRINGE 0 ML IV SCH (08:12)
--- NOTE | 2021-11-23 08:33 | Critical Care Progress Note ---
Date of Service November 23, 2021 Assessment & Plan (1) DKA (diabetic ketoacidosis): (2) Acute metabolic encephalopathy: (3) LUCAS (acute kidney injury): (4) Hypothermia: Plan: Reason Critically Ill: 71-year-old female presents to the ICU with severe metabolic acidosis and DKA, currently undergoing DKA protocol treatment with fluids and insulin drip. Neuro - Metabolic encephalopathy Likely secondary to DKA, improving TSH within normal limit CT head and cervical spine unremarkable for acute process History of seizure disorder Continue with phenytoin IV for the time being Cardiac - Currently normal sinus rhythm and hemodynamically stable. Continue statin once taking p.o. Respiratory - -History of COPD Not on any standing inhaler at home Outpatient follow-up with a behavioral health assistant GI - Start p.o. feeds once able RENAL/LYTES - -- LUCAS --> improving Likely prerenal Monitor BUN/creatinine Avoid nephrotoxic medications Strict ins and outs --Hypernatremia with hyperchloremia Likely from IV fluids Give free water p.o. - Foleystrict I's and O's ENDO - DKA initial BHA greater than 138, positive ketones in urine, bicarb 3, pH 7.06 -DKA protocol with glucose goal range 2 50-3 50 -Every 4 hours BMPs while on insulin drip -No indication for bicarb drip at this time of his pH greater than 7 -Pharmacy glycemic management protocol. Hypothyroid continue Synthroid HEME - H&H stable, monitor routine CBCs ID - No clear source of infection. Chest x-ray is clean. -Nasal MRSA negative -Urinalysis unremarkable --Prophylaxis VTE: Heparin GI: Protonix Lines: Peripheral Diet: Diabetic Plan: In/out: +1.6 L, urine output 1350 Patient insulin has been bridged. Hypokalemia and hypophosphatemia being replaced For hypernatremia we will give free water 200 mL every 6 hours for 24 hours and reassess Patient is hemodynamically stable to be downgraded to medical floor Please note the above document was generated using voice recognition software. It may contain grammatical, syntax or spelling errors. Admission and Anticipated Discharge Date Admission Date: November 21, 2021 Subjective Patient seen and examined at bedside. No acute distress, no adverse events overnight. Patient is more alert today. Answering all the questions appropriately Complains of mild nausea. Did not throw up Denies any headache Urinating well No shortness of breath. Review of Systems Review of Systems: All systems reviewed & are unremarkable except as noted in Subjective Physical Exam Physical Exam: Constitutional: No acute distress HEENT: EOMI, PERRLA Respiratory system: Decreased air entry bilaterally, no wheeze, rhonchi, no crackles CVS: S1-S2 positive, no murmurs or gallops Abdomen: Soft, nontender, nondistended, positive bowel sounds x4, obese Extremities: +2 pulses bilaterally radialis/ dorsalis pedis, no cyanosis, no edema Neuro: Awake alert oriented x3 Psych: Normal mood and affect G/U: Positive Castaneda Skin: no rashes, warm and dry Lymphatic: no cervical or axillary lymphadenopathy Results & Data Results & Data ([facility]) Vital Signs (Past 12 Hours) Vital Signs Temp Pulse Pulse Resp BP BP Pulse Ox 11/23/21 07:57 36.8 C 94 H 18 141/60 H 97 11/23/21 04:00 37.4 C 86 15 143/60 H 11/23/21 03:30 37.5 C 86 18 134/59 L 96 11/23/21 03:00 37.4 C 81 19 136/50 L 97 11/23/21 02:53 80 11/23/21 02:30 37.3 C 88 23 150/67 H 96 11/23/21 02:00 37.3 C 84 17 134/61 98 11/23/21 01:30 83 15 139/60 96 11/23/21 01:00 85 14 138/57 L 97 11/23/21 00:31 89 7 L 98 11/23/21 00:30 85 21 97 11/23/21 00:00 94 H 25 H 144/74 H 99 11/22/21 23:30 37.3 C 86 15 132/69 97 11/22/21 23:00 37.3 C 95 H 20 147/71 H 98 11/22/21 22:30 37.2 C 92 H 21 141/64 H 98 11/22/21 22:00 37.2 C 88 17 144/60 H 97 11/22/21 21:30 37.1 C 85 10 L 150/73 H 98 11/22/21 21:00 37.0 C 84 15 152/72 H 97 11/23/21 04:25 11/23/21 04:24 Coding Level of Care Code 39831 Subs Hosp Care Lvl 3 Diagnoses DKA (diabetic ketoacidosis) E10.11 Diabetes mellitus complication detail: with coma Diabetes mellitus type: type 1 Acute metabolic encephalopathy G93.41 LUCAS (acute kidney injury) N17.9 Hypothermia T68.XXXA Encounter type: initial encounter (1) DKA (diabetic ketoacidosis) Diabetes mellitus complication detail: with coma Diabetes mellitus type: type 1 Qualified Code(s): E10.11 - Type 1 diabetes mellitus with ketoacidosis with coma (2) Hypothermia Encounter type: initial encounter Qualified Code(s): T68.XXXA - Hypothermia, initial encounter
[2021-11-23] MEDS ORDERED: POTASSIUM PHOS 3 MMOL/1 ML INFUSION IV STA (08:35)
[2021-11-23] MEDS ORDERED: PHENYTOIN 200 MG in SYRINGE 0 ML IV SCH (09:00)
[2021-11-23] MEDS ORDERED: POTASSIUM PHOSPHATE 21 MMOL in SODIUM CHLORIDE 0.9% 500 ML IV ONE (09:00)
[2021-11-23] MEDS ORDERED: 0.9 % SODIUM CHLORIDE FLUSH 20 ML in SYRINGE 0 ML IV SCH (09:04)
[2021-11-23] MEDS ORDERED: ONDANSETRON INJ 2 MG/ML 2 ML VIAL IV PRN (09:28)
[2021-11-23] MEDS ORDERED: INSULIN GLARGINE SOLOSTAR 100 UNITS/ML 3 ML PEN SC ONE (11:45)
--- NOTE | 2021-11-23 11:56 | Pharmacy Report ---
Pharmacy Glycemic Short Note 2 - Date of Service November 23, 2021 - Glycemic Short BSG Results (Last 24 hours): 11/22/21 11/22/21 11/22/21 12:29 12:43 13:28 Glucose 296 H POC Glucose 263 H 304 H* 11/22/21 11/22/21 11/22/21 14:27 15:34 16:40 Glucose POC Glucose 266 H 261 H 224 H 11/22/21 11/22/21 11/22/21 17:34 18:32 19:36 Glucose POC Glucose 181 H 169 H 114 H 11/22/21 11/22/21 11/22/21 20:12 20:37 21:33 Glucose POC Glucose 125 H 155 H 225 H 11/22/21 11/22/21 11/23/21 22:33 23:41 00:12 Glucose POC Glucose 239 H 113 H 234 H 11/23/21 11/23/21 11/23/21 01:16 01:55 04:24 Glucose 124 H POC Glucose 72 172 H 11/23/21 11/23/21 11/23/21 04:28 07:35 11:16 Glucose POC Glucose 112 H 79 161 H OUTPATIENT ANTIDIABETIC REGIMEN: * Humalog 50/50 mix: 46 units AM + 48 units PM * Semaglutide 0.5mg SQ weekly * Jardiance 25mg PO HS * A1c = 12.1% 11/21/21 ASSESSMENT: 11/23 * Patient successfully transitioned off the IV insulin drip last evening * Fasting BSG 79 this AM w/ 47 units Lantus on board. Will delay next dose of basal until BSG > 110. Will dose Lantus per weight given uncertain compliance with outpt regimen. Will utilize weight and "severe" stress level for today's Lantus doses. Will need to be cautious as pt does not appear to be eating well yet. May need some dextrose containing IVF's if BSGs trend lower today. * Continue Novolog CF and CR for now - again dosing based upon weight and "severe" stressors 1/3 * Type 2 diabetic admitted to ICU for altered mental status, severe DKA * Initial labs: GLU 1029, AG 40, Bicarb 5, BOHB >138, Na 135 (corrected Na 154) * Patient was given IV fluid resuscitation and started on IV insulin drip per DKA/HHS protocol. * Drip infusing at 3.2 units/hr and BSGs in the mid-200s. AG closed, Bicarb now > 15. Per discussion at ICU rounds, patient will be transitioned to SQ regimen once BSG less than 200. Goal range on IV insulin drip is being romo ed to 140-180 at this time. If patient is not able to tolerate a diet, IVFs with dextrose will continue during the transition to SQ. PLAN FOR INPATIENT GLYCEMIC CONTROL: * Hold outpatient oral diabetes medications (semaglutide, Jardiance) * Basal insulin * Lantus 16 units BID * Bolus insulin * NovoLog per scale ACHS and at 0000 + 0400 * Goal Range: Low 110 mg/dL - High 140 mg/dL * Correction Factor: 18 mg/dL/unit * Nutritional / Prandial insulin per carb ratio of 1 unit per 7 grams CHO consumed PLAN FOR DISCHARGE: * to be determined, given A1c of 12.1% patient is not at goal with current outpt regimen, pt follows with [facility] clinic - would defer regimen adjustments to [facility] clinic as there is concern that pt may be noncompliant with medications.
--- NOTE | 2021-11-23 15:46 | Hospitalist Progress Note ---
Date of Service November 23, 2021 Assessment & Plan (1) Acute metabolic encephalopathy: Plan: 2/2 DKA, resolved with resolution of DKA. Appears to be mentating more clearly today and is oriented. (2) Type 2 diabetes mellitus with ketoacidosis with coma: Plan: Severe metabolic acidosis treated with fluids and insulin drip. Resolved and she is eating and on basal bolus insulin therappy with glucose at goal. Mentating at baseline. Cont current therapy. (3) LUCAS (acute kidney injury): Plan: Creatinine improved after fluid resuscitation. Now at baseline. (4) Seizure: Plan: She has a history of seizure disorder. No witnessed seizure activity but this was considered in the differential. CT head and cervical spine CT were unremarkable for acute process on admission. Continues on Dilantin, will switch to PO. (5) SIRS (systemic inflammatory response syndrome): Plan: SIRS with acute organ dysfunction Patient met SIRS criteria with hypothermia and leukocytosis on admission. Also tachycardic. No clear source of sepsis and she was placed initially on cefepime which has now been stopped. Continues to remain afebrile and clinically improved. (6) Hypothyroidism: Plan: Chronic, stable, continue Synthroid per home regimen. (7) DVT prophylaxis: Plan: Heparin Full Code Dispo-to home pending PT/OT recs and continued clinical improvement. Marisela Alejandro DO [facility] Hospitalist Admission and Anticipated Discharge Date Admission Date: November 21, 2021 Subjective 71-year-old female presents with acute metabolic encephalopathy secondary to diabetic ketoacidosis. +large BM with resolution of abdominal discomfort denies pain/nausea/tolerating PO states she wants to get her legs back Review of Systems Review of Systems: all systems were reviewed and negative except as indicated in subjective above. Physical Exam Physical Exam: CONSTITUTIONAL: WNWD, vitals as above, NAD EYES: normal conjunctivae, no scleral icterus ENT: external ear and nose normal, MMM NECK: trachea midline RESPIRATORY: clear to auscultation bilaterally, no crackles, rales or wheezes, normal respiratory effort CARDIOVASCULAR: regular rate and rhythm, S1 and 2 heard without murmurs, gallops or rubs, no JVD, no peripheral edema GASTROINTESTINAL: soft, nontender, protuberant, nondistended, no guarding. MUSCULOSKELETAL: generalized weakness with no gross focal deficit. SKIN: warm and dry NEUROLOGIC: CN 2-12 grossly intact, no sensory deficit, normal cognition, normal speech, no tremor, no gross focal deficits. PSYCHIATRIC: alert cooperative and oriented to person and place, answering questions appropriately and following commands. Results & Data Results & Data ([facility]) Vital Signs (Past 12 Hours) Vital Signs Temp Pulse Pulse Resp BP BP Pulse Ox 11/23/21 13:00 37.6 C H 102 H 14 140/68 98 11/23/21 12:30 37.6 C H 90 17 149/67 H 98 11/23/21 12:00 37.6 C H 96 H 20 132/62 97 11/23/21 11:30 37.5 C 98 H 21 135/71 98 11/23/21 11:19 36.5 C 92 H 18 148/59 H 97 11/23/21 11:07 97 H 11/23/21 11:00 37.5 C 91 H 17 148/59 H 96 11/23/21 10:31 37.4 C 96 H 17 140/77 97 11/23/21 10:00 37.3 C 86 14 149/68 H 98 11/23/21 09:30 37.3 C 86 14 147/60 H 98 11/23/21 09:00 37.3 C 91 H 14 146/64 H 97 11/23/21 08:30 37.4 C 86 17 142/93 H 97 11/23/21 08:00 37.3 C 90 19 139/83 98 11/23/21 07:57 36.8 C 94 H 18 141/60 H 97 11/23/21 07:30 37.4 C 90 10 L 141/60 H 96 11/23/21 07:14 37.5 C 94 H 15 134/58 L 96 11/23/21 07:00 37.5 C 94 H 11 L 136/61 96 11/23/21 04:00 37.4 C 86 15 143/60 H Laboratory Results Short CBC 11/23/21 Range/Units 04:25 WBC 8.46 (4.8-10.8) K/uL Hgb 12.5 (12.0-16.0) g/dL Hct 36.3 L (37-47) % Plt Count 185 (130-400) K/uL BMP 11/23/21 04:24 Sodium 148 H Potassium 3.2 L D Chloride 122 H Carbon Dioxide 18 L BUN 18 D Creatinine 0.56 L D Glucose 124 H Calcium 7.4 L Diagnostic Findings KUB X-Ray 11/23/21 01:35 KUB CLINICAL HISTORY: Generalized abdominal pain. FINDINGS: 2 AP, portable, supine abdominal radiographs are compared to study dated 11/18/2019 and correlated with abdominal CT dated 11/17/2019. Cholecystectomy clips are seen in the right upper quadrant. A left femoral central venous catheter is in place. A rectal temperature probe is noted. There is no bowel obstruction. Moderate fecal retention is seen throughout the colon. No evidence of intraperitoneal free air is seen on these supine images. There are no abnormal abdominal calcifications. The skeletal structures are osteopenic and appear intact. There is mild to moderate lumbosacral spondylosis. IMPRESSION: No acute abnormality is identified. Electronically signed by: Adonis Evans M.D. 11/23/2021 7:15 AM Medications Administered Current Inpatient Medications Atorvastatin Calcium (Atorvastatin 40 Mg Tab) 40 mg PO DAILY [facility]UL[facility]IA Stop: 12/24/21 08:59 Dextrose (Dextrose 50% 50 Ml Syringe) 25 - 50 ml IV UD PRN; Protocol PRN Reason: Hypoglycemia Protocol Stop: 12/21/21 13:57 Last Admin: 11/23/21 01:21 Dose: 50 ml Documented by: Glucagon (Glucagon For Inj 1 Mg Vial) 1 mg SQ UD PRN; Protocol PRN Reason: Hypoglycemia Protocol Stop: 12/21/21 13:57 Glucose (Glucose 10 Tabs/Tube) 4 - 8 tabs PO UD PRN; Protocol PRN Reason: Hypoglycemia Protocol Stop: 12/21/21 13:57 Glucose (Glucose 40% Gel 15 Gm Tube) 15 - 30 gm PO UD PRN; Protocol PRN Reason: Hypoglycemia Protocol Stop: 12/21/21 13:57 Heparin Sodium (Porcine) (Heparin Sod 5,000 Unit/0.5 Ml Vial) 5,000 units SQ Q8 DULCE MARIA Stop: 12/21/21 21:59 Last Admin: 11/23/21 13:51 Dose: 5,000 units Documented by: Pantoprazole Sodium 40 mg/ (Syringe) 10 mls @ 5 mls/min IV DAILY DULCE MARIA Stop: 12/23/21 08:59 Last Admin: 11/23/21 08:12 Dose: 5 mls/min Documented by: Sodium Chloride 20 ml/ Syringe 20 mls @ 10 mls/min IV Q12H [facility] Stop: 12/23/21 09:03 Last Admin: 11/23/21 08:15 Dose: 10 mls/min Documented by: Insulin Aspart (Insulin Aspart Per Unit) 0 units SC ACHS [facility] Stop: 12/23/21 16:29 Insulin Aspart (Insulin Aspart Per Unit) 0 units SC TODAY@0000,0400 [facility] Stop: 11/24/21 04:01 Insulin Glargine (Insulin Glargine Solostar 100 Units/Ml 3 Ml Pen) 16 units SC BID [facility] Stop: 12/23/21 20:59 Levothyroxine Sodium (Levothyroxine Sodium 75 Mcg Tablet) 75 mcg PO DAILYBB [facility] Stop: 12/24/21 06:29 Miscellaneous (Carbohydrates For Hypoglycemia ) 15 - 30 gm PO UD PRN PRN Reason: Hypoglycemia Protocol Stop: 12/21/21 13:57 Miscellaneous Information (Pharmacy Glycemic Mgmt Consult) 1 ea N/A UD PRN PRN Reason: Consult Stop: 12/21/21 16:49 Ondansetron HCl (Ondansetron Inj 2 Mg/Ml 2 Ml Vial) 4 mg IV Q6H PRN PRN Reason: Nausea And Vomiting Stop: 12/23/21 09:27 Last Admin: 11/23/21 09:49 Dose: 4 mg Documented by: Phenytoin Sodium (Phenytoin Sodium Er 100 Mg Cap) 300 mg PO HS [facility] Stop: 12/23/21 20:59 Phenytoin Sodium (Phenytoin Sodium Er 100 Mg Cap) 200 mg PO DAILY [facility] Stop: 12/24/21 08:59
[2021-11-23] MEDS ORDERED: GLYCERIN ADULT 12 SUPP/BOX SUPP PR ONE (15:50)
[2021-11-23] MEDS: POLYETHYLENE (MIRALAX) 17 GM PACK PO SCH (20:57)
[2021-11-23] MEDS ORDERED: PHENYTOIN SODIUM ER 100 MG CAP PO SCH (21:00)
[2021-11-23] MEDS ORDERED: INSULIN GLARGINE SOLOSTAR 100 UNITS/ML 3 ML PEN SC SCH (21:00)
[2021-11-24] MEDS: INSULIN ASPART PER UNIT SC SCH ×5 (00:17→16:56)
[2021-11-24] MEDS: POLYETHYLENE (MIRALAX) 17 GM PACK PO SCH ×3 (01:50→16:56)
[2021-11-24] MEDS ORDERED: LACTULOSE SYRUP 30 GM/45 ML UDP PO STA (02:09)
[2021-11-24] MEDS ORDERED: DOCUSATE SODIUM/SENNA 50/8.6MG TAB PO SCH (02:10)
[2021-11-24 04:29] LABS: Eosinophils # (auto) 0.11 K/uL (0-0.5); Eosinophils % (auto) 1.3 %; Hematocrit (blood only) 37.2 % (37-47); Hemoglobin 12.6 g/dL (12.0-16.0); Immature Granulocytes # (auto) 0.02 K/uL (0.00-0.02); Immature Granulocytes % (auto) 0.2 %; Lymphocytes # (auto) 1.29 K/uL (1.2-3.4); Lymphocytes % (auto) 15.1 %; Mean Corpuscular Hemoglobin 31.3 pg (25-34); Mean Corpuscular Hgb Conc 33.9 g/dL (32-36); Mean Corpuscular Volume 92.5 fL (80-100); Mean Platelet Volume 9.3 fL (7.4-10.4); Monocytes # (auto) 0.49 K/uL (0.11-0.59); Monocytes % (auto) 5.7 %; Neutrophils # (auto) 6.62 K/uL (1.4-6.5); Neutrophils % (auto) 77.7 %; Platelet Count 165 K/uL (130-400); RDW Coefficient of Variation 13.7 % (11.5-14.5); RDW Standard Deviation 46.6 fL (36.4-46.3); Red Blood Count 4.02 M/uL (4.2-5.4); White Blood Count 8.53 K/uL (4.8-10.8)
[2021-11-24 04:55] VITALS: TEMP 98.2; O2SAT 97
[2021-11-24 05:02] LABS: BUN Creatinine Ratio 17.3 (10-20); Calcium 7.7 mg/dl (8.5-10.1); Creatinine Clr Calc Pharmacy 99.5 ml/min; Est GFR (Non-African American) 100.1 ml/min; Magnesium 2.4 mg/dl (1.8-2.4); Phosphorus 2.4 mg/dl (2.5-4.9); Potassium 3.1 mmol/L (3.5-5.1)
[2021-11-24] MEDS ORDERED: ACETAMINOPHEN 1000 MG/100 ML IV IV ONE (05:37)
[2021-11-24] MEDS ORDERED: POTASSIUM CHLORIDE PWD 20 MEQ PACK PO STA (05:40)
[2021-11-24] MEDS ORDERED: POTASSIUM PHOS 3 MMOL/1 ML INFUSION IV STA (05:41)
[2021-11-24] MEDS: HEPARIN SOD 5,000 UNIT/0.5 ML VIAL SQ SCH ×2 (05:51→16:56)
[2021-11-24] MEDS ORDERED: POTASSIUM PHOSPHATE 15 MMOL in SODIUM CHLORIDE 0.9% 250 ML IV ONE (06:00)
[2021-11-24] MEDS ORDERED: LEVOTHYROXINE SODIUM 75 MCG TABLET PO SCH (06:30)
--- NOTE | 2021-11-24 06:33 | Communication Note ---
Date of Service: November 24, 2021 Patient complaining of abdominal pain in a.m. Constipation symptoms earlier as per RN. Continue bowel regimen CT abdomen pelvis N.p.o. until CT abdomen pelvis results noted
[2021-11-24 06:46] LABS: Albumin Level 2.4 gm/dl (3.4-5.0); Bilirubin Direct 0.2 mg/dl (0-0.2); Bilirubin,Total 0.5 mg/dl (0.2-1)
--- NOTE | 2021-11-24 07:37 | CT Scan Report ---
ABDOMEN AND PELVIS CT WITHOUT CONTRAST CT DOSE: 422.86 mGy.cm HISTORY: Generalized abdominal pain. Diarrhea. TECHNIQUE: Multiaxial CT images of the abdomen and pelvis were performed without contrast. A dose lo wering technique was utilized adhering to the principles of ALARA. COMPARISON STUDY: Abdomen and pelvis CT 11/17/2019. FINDINGS: There is an irregular 8 mm nodule within the right middle lobe. This demonstrate greater th an 2 year stability. Trace bilateral pleural effusions. No pneumoperitoneum. No pneumatosis. No fract ures within the visualized osseous structures. Postoperative changes again noted within the anterior abdominal wall. Cholecystectomy. The unenhanced liver, spleen, and pancreas unremarkable. There is a 1 cm right adrenal adenoma, unchanged. Mild thickening of the left adrenal gland remains stable. A fe w small bilateral peripelvic renal cysts. No renal or ureteral stones. No hydronephrosis. Trace gas w ithin the bladder lumen. This could be due to recent catheterization. There are 2 hypodense lesions w ithin the left kidney with the largest measuring 1.6 cm. These are incompletely characterized on this noncontrast study but statistically represent cysts. No retroperitoneal lymphadenopathy. Mild calcif ied plaque within the normal caliber abdominal aorta. The bladder, uterus, and bilateral adnexa are w ithin normal limits. There is presacral edema which is new from the prior study. There is mild thicke corky of the rectum. Prior sigmoid anastomosis. There is mild perirectal fat stranding. Moderate to la rge amount of stool seen throughout the colon resulting in a mildly distended colon. No evidence for bowel obstruction. Prior small bowel anastomosis seen within the left side of the abdomen. Question m ild thickening of the proximal sigmoid colon. Normal caliber appendix measures up to 5 mm. IMPRESSION: 1. Mild thickening of the rectum with perirectal fat stranding and presacral edema. There is also que stionable mild thickening of the proximal sigmoid colon. Findings suggest a low-grade distal proctoco litis. 2. Moderate to large amount of stool seen throughout the colon. 3. No evidence for bowel obstruction. 4. Trace bilateral pleural effusions. 5. An 8 mm nodule within the right middle lobe. This demonstrates greater than 2 year stability. 6. Trace gas within the bladder lumen. This could be due to recent catheterization. Clinical correlat ion recommended. 7. Additional findings as described above. ACT 112: Negative or not required by law. Electronically signed by: Kyler De La Cruz M.D. 11/24/2021 7:36 AM
[2021-11-24] MEDS ORDERED: INSULIN GLARGINE SOLOSTAR 100 UNITS/ML 3 ML PEN SC ONE ×2 (09:00)
[2021-11-24] MEDS ORDERED: PHENYTOIN SODIUM ER 100 MG CAP PO SCH (09:00)
[2021-11-24] MEDS ORDERED: ATORVASTATIN 40 MG TAB PO SCH (09:00)
[2021-11-24] MEDS ORDERED: INSULIN GLARGINE SOLOSTAR 100 UNITS/ML 3 ML PEN SC SCH ×2 (09:00→21:00)
[2021-11-24] MEDS: PANTOprazole 40 MG in SYRINGE 0 ML IV SCH (10:42)
--- NOTE | 2021-11-24 11:26 | Pharmacy Report ---
Pharmacy Glycemic Short Note 2 - Date of Service November 24, 2021 - Glycemic Short BSG Results (Last 24 hours): 11/23/21 11/23/21 11/24/21 16:17 21:00 00:16 Glucose POC Glucose 133 H 103 H 85 11/24/21 11/24/21 11/24/21 04:15 04:21 07:28 Glucose 121 H POC Glucose 131 H 124 H OUTPATIENT ANTIDIABETIC REGIMEN: * Humalog 50/50 mix: 46 units AM + 48 units PM * Semaglutide 0.5mg SQ weekly * Jardiance 25mg PO HS * A1c = 12.1% 11/21/21 ASSESSMENT: 11/24 * BSGs well controlled over last 24 hrs * Fasting BSG 124 this AM w/ 32 units basal on board. Will reduce dose slightly today given BSGs of 85-103 last evening. * Post-prandial BSGs well controlled yesterday. She did consume 2 of 3 meals yesterday and tolerated breakfast well today. Will reduce Novolog doses slightly as well given we are now 2 days out from DKA resolution and insulin sensitivity may be improving. 11/23 * Patient successfully transitioned off the IV insulin drip last evening * Fasting BSG 79 this AM w/ 47 units Lantus on board. Will delay next dose of basal until BSG > 110. Will dose Lantus per weight given uncertain compliance with outpt regimen. Will utilize weight and "severe" stress level for today's Lantus doses. Will need to be cautious as pt does not appear to be eating well yet. May need some dextrose containing IVF's if BSGs trend lower today. * Continue Novolog CF and CR for now - again dosing based upon weight and "severe" stressors /3 * Type 2 diabetic admitted to ICU for altered mental status, severe DKA * Initial labs: GLU 1029, AG 40, Bicarb 5, BOHB >138, Na 135 (corrected Na 154) * Patient was given IV fluid resuscitation and started on IV insulin drip per DKA/HHS protocol. * Drip infusing at 3.2 units/hr and BSGs in the mid-200s. AG closed, Bicarb now > 15. Per discussion at ICU rounds, patient will be transitioned to SQ regimen once BSG less than 200. Goal range on IV insulin drip is being changed to 140-180 at this time. If patient is not able to tolerate a diet, IVFs with dextrose will continue during the transition to . PLAN FOR INPATIENT GLYCEMIC CONTROL: * Hold outpatient oral diabetes medications (semaglutide, Jardiance) * Basal insulin - decrease * Lantus 13 units BID * Bolus insulin - decrease * NovoLog per scale ACHS and at 0000 + 0400 * Goal Range: Low 110 mg/dL - High 140 mg/dL * Correction Factor: 20 mg/dL/unit * Nutritional / Prandial insulin per carb ratio of 1 unit per 8 grams CHO consumed PLAN FOR DISCHARGE: * to be determined, given A1c of 12.1% patient is not at goal with current outpt regimen, pt follows with [facility] - would defer regimen adjustments to [facility] as there is concern that pt may be noncompliant with medications.
--- NOTE | 2021-11-24 12:05 | Hospitalist Progress Note ---
Date of Service November 24, 2021 Assessment & Plan (1) Acute metabolic encephalopathy: Plan: 2/2 DKA, resolved with resolution of DKA. She has been mentating at her baseline for the last couple of days. (2) Type 2 diabetes mellitus with ketoacidosis with coma: Plan: Severe metabolic acidosis treated with fluids and insulin drip. Resolved and she is eating and on basal bolus insulin therappy with glucose at goal. Mentating at baseline. Cont current therapy. Diabetic nurse educator made recommendations and provided education. Close follow-up with [facility] warranted for monitoring and adjustment of medication as needed with recent A1c level greater then 12. Slightly low potassium and phosphorus this morning which have been replaced. Repeat electrolytes in 1 week in the clinic would be helpful, including a magnesium and phosphorus. (3) LUCAS (acute kidney injury): Plan: Creatinine improved after fluid resuscitation. Now at baseline. (4) Seizure: Plan: She has a history of seizure disorder. No witnessed seizure activity but this was considered in the differential. Suspect confusion secondary to metabolic abnormalities from DKA as opposed to seizure. CT head and cervical spine CT were unremarkable for acute process on admission. Continues on Dilantin, will switch to PO. (5) SIRS (systemic inflammatory response syndrome): Plan: SIRS with acute organ dysfunction Patient met SIRS criteria with hypothermia and leukocytosis on admission. Also tachycardic. No clear source of sepsis and she was placed initially on cefepime which has now been stopped. Continues to remain afebrile and clinically improved. (6) Hypothyroidism: Plan: Chronic, stable, continue Synthroid per home regimen. (7) DVT prophylaxis: Plan: Heparin Full Code Dispo-to home pending PT/OT recs DO Dereje Ortega Hospitalist Admission and Anticipated Discharge Date Admission Date: November 21, 2021 Subjective 71-year-old female presents with acute metabolic encephalopathy and coma secondary to diabetic ketoacidosis. abdominal pain overnight with subsequent CT a/p. This revealed mild thickening of the rectum with perirectal fat stranding and questionable thickening of the proximal sigmoid colon. Moderate to large amount of stool was seen throughout the colon with no evidence of bowel obstruction. There was trace gas within the bladder lumen which could be due to recent catheterization. Lipase was slightly elevated at 700. She subsequently had a couple of large bowel movements that were normal consistency with a resolution of abdominal discomfort completely. At this point she denies pain, nausea and is eating heartily. She states that she walked around with therapy and feels well and wants to go home. Awaiting therapy notes at this time. Review of Systems Review of Systems: All systems were reviewed and negative except as indicated above. Physical Exam Physical Exam: CONSTITUTIONAL: WNWD, vitals as above, NAD EYES: normal conjunctivae, no scleral icterus ENT: external ear and nose normal, MMM NECK: trachea midline RESPIRATORY: clear to auscultation bilaterally, no crackles, rales or wheezes, normal respiratory effort CARDIOVASCULAR: regular rate and rhythm, S1 and 2 heard without murmurs, gallops or rubs, no JVD, no peripheral edema GASTROINTESTINAL: soft, nontender, protuberant, nondistended, no guarding. MUSCULOSKELETAL: generalized weakness with no gross focal deficit. SKIN: warm and dry NEUROLOGIC: CN 2-12 grossly intact, no sensory deficit, normal cognition, normal speech, no tremor, no gross focal deficits. PSYCHIATRIC: alert cooperative and oriented to person and place, answering questions appropriately and following commands. Results & Data Results & Data ([facility]) Vital Signs (Past 12 Hours) Vital Signs Temp Pulse Resp BP Pulse Ox 11/24/21 04:55 36.8 C 11/24/21 04:42 85 13 141/71 H 97 11/24/21 00:16 87 15 159/76 H 98 11/24/21 00:00 36.9 C Laboratory Results Short CBC 11/24/21 Range/Units 04:15 WBC 8.53 (4.8-10.8) K/uL Hgb 12.6 (12.0-16.0) g/dL Hct 37.2 (37-47) % Plt Count 165 (130-400) K/uL BMP 11/24/21 04:15 Sodium 143 Potassium 3.1 L Chloride 115 H Carbon Dioxide 23 BUN 8 D Creatinine 0.48 L Glucose 121 H Calcium 7.7 L Liver Function 11/24/21 11/24/21 Range/Units 04:15 04:15 Total Bilirubin 0.5 Cancelled (0.2-1) mg/dl Direct Bilirubin 0.2 Cancelled (0-0.2) mg/dl AST 59 H Cancelled (15-37) U/L ALT 42 Cancelled (12-78) Alkaline Phosphatase 90 D Cancelled (45-117) U/L Albumin 2.4 L Cancelled (3.4-5.0) gm/dl Diagnostic Findings Abdomen/Pelvis CT 11/24/21 05:[address] WITHOUT CONTRAST CT DOSE: 422.86 mGy.cm HISTORY: Generalized abdominal pain. Diarrhea. TECHNIQUE: Multiaxial CT images of the abdomen and pelvis were performed without contrast. A dose lowering technique was utilized adhering to the principles of ALARA. COMPARISON STUDY: Abdomen and pelvis CT 11/17/2019. FINDINGS: There is an irregular 8 mm nodule within the right middle lobe. This demonstrate greater than 2 year stability. Trace bilateral pleural effusions. No pneumoperitoneum. No pneumatosis. No fractures within the visualized osseous structures. Postoperative changes again noted within the anterior abdominal wall. Cholecystectomy. The unenhanced liver, spleen, and pancreas unremarkable. There is a 1 cm right adrenal adenoma, unchanged. Mild thickening of the left adrenal gland remains stable. A few small bilateral peripelvic renal cysts. No renal or ureteral stones. No hydronephrosis. Trace gas within the bladder lumen. This could be due to recent catheterization. There are 2 hypodense lesions within the left kidney with the largest measuring 1.6 cm. These are incompletely characterized on this noncontrast study but statistically represent cysts. No retroperitoneal lymphadenopathy. Mild calcified plaque within the normal caliber abdominal aorta. The bladder, uterus, and bilateral adnexa are within normal limits. There is presacral edema which is new from the prior study. There is mild thickening of the rectum. Prior sigmoid anastomosis. There is mild perirectal fat stranding. Moderate to large amount of stool seen throughout the colon resulting in a mildly distended colon. No evidence for bowel obstruction. Prior small bowel anastomosis seen within the left side of the abdomen. Question mild thickening of the proximal sigmoid colon. Normal caliber appendix measures up to 5 mm. IMPRESSION: 1. Mild thickening of the rectum with perirectal fat stranding and presacral edema. There is also questionable mild thickening of the proximal sigmoid colon. Findings suggest a low-grade distal proctocolitis. 2. Moderate to large amount of stool seen throughout the colon. 3. No evidence for bowel obstruction. 4. Trace bilateral pleural effusions. 5. An 8 mm nodule within the right middle lobe. This demonstrates greater than 2 year stability. 6. Trace gas within the bladder lumen. This could be due to recent catheterization. Clinical correlation recommended. 7. Additional findings as described above. ACT 112: Negative or not required by law. Electronically signed by: Kyler De La Cruz M.D. 11/24/2021 7:36 AM Medications Administered Current Inpatient Medications Atorvastatin Calcium (Atorvastatin 40 Mg Tab) 40 mg PO DAILY [facility] Stop: 12/24/21 08:59 Last Admin: 11/24/21 10:41 Dose: 40 mg Documented by: Dextrose (Dextrose 50% 50 Ml Syringe) 25 - 50 ml IV UD PRN; Protocol PRN Reason: Hypoglycemia Protocol Stop: 12/21/21 13:57 Last Admin: 11/23/21 01:21 Dose: 50 ml Documented by: Glucagon (Glucagon For Inj 1 Mg Vial) 1 mg SQ UD PRN; Protocol PRN Reason: Hypoglycemia Protocol Stop: 12/21/21 13:57 Glucose (Glucose 10 Tabs/Tube) 4 - 8 tabs PO UD PRN; Protocol PRN Reason: Hypoglycemia Protocol Stop: 12/21/21 13:57 Glucose (Glucose 40% Gel 15 Gm Tube) 15 - 30 gm PO UD PRN; Protocol PRN Reason: Hypoglycemia Protocol Stop: 12/21/21 13:57 Heparin Sodium (Porcine) (Heparin Sod 5,000 Unit/0.5 Ml Vial) 5,000 units SQ Q8 [facility] Stop: 12/21/21 21:59 Last Admin: 11/24/21 05:51 Dose: 5,000 units Documented by: Insulin Aspart (Insulin Aspart Per Unit) 0 units SC ACHS [facility] Stop: 12/23/21 16:29 Last Admin: 11/24/21 09:19 Dose: 4 units Documented by: Insulin Aspart (Insulin Aspart Per Unit) 0 units SC TODAY@0200 ONE Stop: 11/25/21 02:01 Insulin Glargine (Insulin Glargine Solostar 100 Units/Ml 3 Ml Pen) 13 units SC BID [facility] Stop: 12/24/21 20:59 Levothyroxine Sodium (Levothyroxine Sodium 75 Mcg Tablet) 75 mcg PO DAILYBB [facility] Stop: 12/24/21 06:29 Last Admin: 11/24/21 05:51 Dose: 75 mcg Documented by: Miscellaneous (Carbohydrates For Hypoglycemia ) 15 - 30 gm PO UD PRN PRN Reason: Hypoglycemia Protocol Stop: 12/21/21 13:57 Miscellaneous Information (Pharmacy Glycemic Mgmt Consult) 1 ea N/A UD PRN PRN Reason: Consult Stop: 12/21/21 16:49 Ondansetron HCl (Ondansetron Inj 2 Mg/Ml 2 Ml Vial) 4 mg IV Q6H PRN PRN Reason: Nausea And Vomiting Stop: 12/23/21 09:27 Last Admin: 11/23/21 09:49 Dose: 4 mg Documented by: Pantoprazole Sodium (Pantoprazole 40 Mg Tab) 40 mg PO DAILY [facility]; Protocol Stop: 12/25/21 08:59 Phenytoin Sodium (Phenytoin Sodium Er 100 Mg Cap) 300 mg PO HS [facility] Stop: 12/23/21 20:59 Last Admin: 11/23/21 20:55 Dose: 300 mg Documented by: Phenytoin Sodium (Phenytoin Sodium Er 100 Mg Cap) 200 mg PO DAILY [facility] Stop: 12/24/21 08:59 Last Admin: 11/24/21 10:42 Dose: 200 mg Documented by: Polyethylene Glycol (Polyethylene (Miralax) 17 Gm Pack) 17 gm PO TID [facility] Stop: 12/23/21 20:59 Last Admin: 11/24/21 10:43 Dose: Not Given Documented by: Senna/Docusate Sodium (Docusate Sodium/Senna 50/8.6mg Tab) 1 tab PO QAM [facility] Stop: 12/24/21 02:09 Last Admin: 11/24/21 02:17 Dose: 1 tab Documented by:
--- NOTE | 2021-11-24 15:47 | Discharge Summary ---
Date of Service November 24, 2021 Admission HPI Per Admitting Provider 71-year-old female with PMH DM type II, hypothyroidism, COPD, remote history of CAD, HTN, history of CVA, seizure disorder, history of colon cancer s/p partial colectomy, and other problems listed below who presents the ED after being found on the floor by her . History is currently unobtainable from the patient. I attempted to reach the patient's by telephone however he did not answer. Patient was apparently found on the floor in her bedroom by her . EMS was called and patient was brought to the ED for further evaluation. In the ED, patient was found to be in severe DKA. Glucose 1029, pH 6.96, HCO3 5, anion gap 40. Creatinine 2.5. Patient was given IV cefepime, IV famotidine, IV Protonix, IVF, and started on IV insulin drip. Admission Exam Per Admitting Provider Constitutional: + ill appearing Eyes: PERRL, conjunctivae normal, anicteric sclerae ENMT: Ears: no external ear abnormality Nose: no external nose abnormality Mouth: + dry oral mucous membranes Dried blood noted in mouth Respiratory: + labored breathing Auscultation: lungs clear to auscultation bilaterally Cardiovascular: Rate/Rhythm: regular rate and regular rhythm Vessels: normal peripheral pulses Extremities: no edema Gastrointestinal (Abdomen): normal bowel sounds, soft, nontender, no hepatosplenomegaly Musculoskeletal: Extremities: no cyanosis and no clubbing Unable to assess strength Skin: no rashes, warm and dry Neurologic: + obtunded Psychiatric: Orientation: + not alert Principal Diagnosis Acute metabolic encephalopathy Type 2 diabetes mellitus with ketoacidosis with coma Acute kidney injury Epilepsy SIRS with acute organ dysfunction Discharge Exam CONSTITUTIONAL: WNWD, vitals as above, NAD EYES: normal conjunctivae, no scleral icterus ENT: external ear and nose normal, MMM NECK: trachea midline RESPIRATORY: clear to auscultation bilaterally, no crackles, rales or wheezes, normal respiratory effort CARDIOVASCULAR: regular rate and rhythm, S1 and 2 heard without murmurs, gallops or rubs, no JVD, no peripheral edema GASTROINTESTINAL: soft, nontender, protuberant, nondistended, no guarding. MUSCULOSKELETAL: generalized weakness with no gross focal deficit. SKIN: warm and dry NEUROLOGIC: CN 2-12 grossly intact, no sensory deficit, normal cognition, normal speech, no tremor, no gross focal deficits. PSYCHIATRIC: alert cooperative and oriented to person and place, answering questions appropriately and following commands. Discharge Data Allergies Allergy/AdvReac Type Severity Reaction Status Date / Time bee venom protein (honey bee) Allergy Severe ANAPHYLAXIS Verified 01/20/20 14:35 hydrochlorothiazide Allergy Severe low calcium Verified 01/20/20 14:35 Iodinated Contrast Media Allergy Severe ANAPHYLAXIS Verified 01/20/20 14:35 iodine Allergy Severe ARM Verified 01/20/20 14:35 SWELLING Penicillins Allergy Severe HIVES Verified 01/20/20 14:35 aspirin Allergy Intermediate RASH Verified 01/20/20 14:35 codeine Allergy Intermediate RASH Verified 01/20/20 14:35 morphine Allergy Intermediate "EFFECTS Verified 01/20/20 14:35 MOVEMENTS" NSAIDS (Non-Steroidal Allergy Intermediate RASH Verified 01/20/20 14:35 Anti-Inflamma lisinopril AdvReac Unknown Cough Verified 01/20/20 14:47 metformin AdvReac Unknown Diarrhea Verified 01/20/20 14:47 Consultations 11/21/21 14:24 Consult Tube Tester Stat 11/21/21 14:44 ED Decision to Admit Stat 11/21/21 16:50 Consult Tube Tester Routine Ordered Studies Laboratory Results WBC 8.53 K/uL (4.8-10.8) 11/24/21 04:15 RBC 4.02 M/uL (4.2-5.4) L 11/24/21 04:15 Hgb 12.6 g/dL (12.0-16.0) 11/24/21 04:15 Hct 37.2 % (37-47) 11/24/21 04:15 MCV 92.5 fL (80-100) 11/24/21 04:15 MCH 31.3 pg (25-34) 11/24/21 04:15 MCHC 33.9 g/dL (32-36) 11/24/21 04:15 RDW Std Deviation 46.6 fL (36.4-46.3) H 11/24/21 04:15 RDW Coeff of Fab 13.7 % (11.5-14.5) 11/24/21 04:15 Plt Count 165 K/uL (130-400) 11/24/21 04:15 MPV 9.3 fL (7.4-10.4) 11/24/21 04:15 Immature Gran % (Auto) 0.2 % 11/24/21 04:15 Neut % (Auto) 77.7 % 11/24/21 04:15 Lymph % (Auto) 15.1 % 11/24/21 04:15 [place] % (Auto) 5.7 % 11/24/21 04:15 Eos % (Auto) 1.3 % 11/24/21 04:15 Baso % (Auto) 0.0 % 11/24/21 04:15 Neut # (Auto) 6.62 K/uL (1.4-6.5) H 11/24/21 04:15 Lymph # (Auto) 1.29 K/uL (1.2-3.4) 11/24/21 04:15 [place] # (Auto) 0.49 K/uL (0.11-0.59) 11/24/21 04:15 Eos # (Auto) 0.11 K/uL (0-0.5) 11/24/21 04:15 Baso # (Auto) 0.00 K/uL (0-0.2) 11/24/21 04:15 Immature Gran # (Auto) 0.02 K/uL (0.00-0.02) 11/24/21 04:15 PT 10.2 Seconds (9.0-12.0) 11/21/21 12:53 INR 1.0 (0.9-1.1) 11/21/21 12:53 APTT 26.9 Seconds (21.0-31.0) 11/21/21 12:53 PTT Ratio 1.0 11/21/21 12:53 VBG pH 7.38 (7.36-7.41) 11/22/21 04:46 VBG pCO2 28 mmHg (38-50) L 11/21/21 12:55 VBG pO2 52 mmHg 11/21/21 12:55 VBG HCO3 6 mmol/L 11/21/21 12:55 VBG O2 Saturation 76.6 % 11/21/21 12:55 VBG Base Excess -24.8 mEq/L 11/21/21 12:55 Barometric Pressure 724.9 mm/Hg 11/21/21 12:55 Sodium 143 mmol/L (136-145) 11/24/21 04:15 Potassium 3.1 mmol/L (3.5-5.1) L 11/24/21 04:15 Chloride 115 mmol/L (98-107) H 11/24/21 04:15 Carbon Dioxide 23 mmol/L (21-32) 11/24/21 04:15 Anion Gap 5.0 (3-11) 11/24/21 04:15 BUN 8 mg/dl (7-18) D 11/24/21 04:15 Creatinine 0.48 mg/dl (0.6-1.2) L 11/24/21 04:15 Est Cr Clr Drug Dosing 99.5 ml/min 11/24/21 04:15 Est GFR ( Amer) 116.0 ml/min 11/24/21 04:15 Est GFR (Non-Af Amer) 100.1 ml/min 11/24/21 04:15 BUN/Creatinine Ratio 17.3 (10-20) 11/24/21 04:15 Glucose 121 mg/dl (70-99) H 11/24/21 04:15 POC Glucose 120 mg/dl (70-99) H 11/24/21 11:30 Estimat Average Glucose 301 mg/dl 11/21/21 11:46 Hemoglobin A1c 12.1 % (4.5-5.6) H 11/21/21 11:46 Lactate 3.5 mmol/L (0.4-2.0) H* 11/21/21 15:27 Calcium 7.7 mg/dl (8.5-10.1) L 11/24/21 04:15 Phosphorus 2.4 mg/dl (2.5-4.9) L 11/24/21 04:15 Magnesium 2.4 mg/dl (1.8-2.4) 11/24/21 04:15 Total Bilirubin 0.5 mg/dl (0.2-1) 11/24/21 04:15 Total Bilirubin Cancelled 11/24/21 04:15 Direct Bilirubin 0.2 mg/dl (0-0.2) 11/24/21 04:15 Direct Bilirubin Cancelled 11/24/21 04:15 AST 59 U/L (15-37) H 11/24/21 04:15 AST Cancelled 11/24/21 04:15 ALT 42 (12-78) 11/24/21 04:15 ALT Cancelled 11/24/21 04:15 Alkaline Phosphatase 90 U/L (45-117) D 11/24/21 04:15 Alkaline Phosphatase Cancelled 11/24/21 04:15 Total Creatine Kinase 614 U/L (26-192) H 11/22/21 04:46 CK-MB (CK-2) 6.2 ng/ml (0.5-3.6) H 11/21/21 12:53 CK/CKMB % Calc 2.7 (0-3.0) 11/21/21 12:53 Troponin I < 0.015 ng/ml (0-0.045) 11/21/21 12:53 Total Protein 6.0 gm/dl (6.4-8.2) L 11/24/21 04:15 Total Protein Cancelled 11/24/21 04:15 Albumin 2.4 gm/dl (3.4-5.0) L 11/24/21 04:15 Albumin Cancelled 11/24/21 04:15 Globulin 4.3 gm/dl (2.5-4.0) H 11/21/21 12:53 Albumin/Globulin Ratio 0.9 (0.9-2) 11/21/21 12:53 Lipase 788 U/L (73-393) H 11/24/21 04:15 Lipase Cancelled 11/24/21 04:15 Beta-Hydroxybutyric Acd 39.15 mg/dl (0.2-2.81) H 11/22/21 01:06 Procalcitonin 0.26 ng/ml (0-0.5) 11/21/21 12:53 TSH 1.030 uIu/ml (0.300-4.500) 11/21/21 12:53 Specimen Hemolysis 11/22/21 08:36 Urine Color Yellow 11/21/21 12:18 Urine Appearance Clear (Clear) 11/21/21 12:18 Urine pH 5.0 (4.5-7.5) 11/21/21 12:18 Ur Specific [place] 1.026 (1.000-1.030) 11/21/21 12:18 Urine Protein 1+ (Negative) H 11/21/21 12:18 Urine Glucose (UA) 3+ (Negative) H 11/21/21 12:18 Urine Ketones 4+ (Negative) H 11/21/21 12:18 Urine Blood Negative (Negative) 11/21/21 12:18 Urine Nitrite Negative (Negative) 11/21/21 12:18 Urine Bilirubin Negative (Negative) 11/21/21 12:18 Urine Urobilinogen Negative (Negative) 11/21/21 12:18 Ur Leukocyte Esterase Negative (Negative) 11/21/21 12:18 Urine WBC (Auto) 1-5 /hpf (0-5) 11/21/21 12:18 Urine RBC (Auto) 0-4 /hpf (0-4) 11/21/21 12:18 U Hyaline Cast (Auto) 1-5 /lpf (0-5) 11/21/21 12:18 U Epithel Cells (Auto) 10-20 /lpf (0-5) H 11/21/21 12:18 Urine Bacteria (Auto) Negative (Negative) 11/21/21 12:18 Nasal Screen MRSA (PCR) Negative (Negative) 11/21/21 16:48 Urine Opiates Screen Neg (Neg) 11/21/21 12:18 Ur Methadone, Qual Neg (Neg) 11/21/21 12:18 Urine Barbiturates Neg (Neg) 11/21/21 12:18 Phenytoin 12.6 mcg/ml (10-20) 11/21/21 18:01 Ur Phencyclidine (PCP) Neg (Neg) 11/21/21 12:18 U Amphetamin/Meth Scrn Neg (Neg) 11/21/21 12:18 MDMA (Ecstasy) Screen Neg (Neg) 11/21/21 12:18 U Benzodiazepines Scrn Neg (Neg) 11/21/21 12:18 Ur Cocaine Metabolite Neg (Neg) 11/21/21 12:18 U Marijuana (THC) Screen Neg (Neg) 11/21/21 12:18 SARS-CoV-2 (PCR) NEGATIVE (Negative) 11/21/21 12:03 Influenza Type A (PCR) Negative (Neg) 11/21/21 12:03 Influenza Type B (PCR) Negative (Neg) 11/21/21 12:03 RSV (RT-PCR) Negative (Neg) 11/21/21 12:[address] 11/21/21 11:32 CT SCAN OF THE CERVICAL SPINE CLINICAL HISTORY: Fall. COMPARISON STUDY: CT of the cervical spine dated 08/12/2018. TECHNIQUE: CT scan of the cervical spine is performed from the skull base to the upper thoracic spine. Images are reviewed in the axial, sagittal, and coronal planes. IV contrast was not administered for this examination. A dose lowering technique was utilized adhering to the principles of ALARA. CT DOSE: 969.55 mGy.cm FINDINGS: Skeletal structures: The skeletal structures are osteopenic. There is no evidence of fracture or subluxation involving the cervical spine. Vertebral body height and alignment are maintained. Anterior osteophytes are seen throughout. The odontoid process and lateral masses are intact. The atlantoaxial articulation is preserved noting productive degenerative change. The spinous processes appear intact. There is mild to moderate multilevel cervical spondylosis. Uncovertebral and facet arthropathy contribute to neural foraminal narrowing at several levels. Intervertebral discs: There is moderate disc space narrowing at C6-C7. Mild disc space narrowing is seen at the remaining cervical levels. Central canal: Posterior disc osteophyte complexes at C4-C5, C5-C6, and C6-C7 likely contribute to multilevel acquired compromise of the central canal. Soft tissues: The prevertebral and paraspinous soft tissues are within normal limits. Calvarium: The visualized calvarium at the skull base appears intact. Brain parenchyma: Partially visualized brain parenchyma at the skull base is within normal limits. Sinuses and mastoids: The visualized paranasal sinuses are clear. The mastoid air cells are well pneumatized. Lung apices: Clear as visualized. IMPRESSION: 1. There is no evidence of fracture or subluxation involving the cervical spine. 2. Osteopenia and spondylotic change as above. ACT 112: Negative or not required by law. Electronically signed by: Adonis Evans M.D. 11/21/2021 12:42 PM Chest X-Ray 11/21/21 11:32 SINGLE VIEW CHEST CLINICAL HISTORY: Sepsis. Fall. FINDINGS: Upright and supine portable chest radiographs are compared to study dated 10/24/2018 and correlated with chest CT dated 10/05/2017. The examination is degraded by portable technique and patient rotation. The cardiomediastinal silhouette is unremarkable. Chronic interstitial thickening is similar to previous. No airspace consolidation or large pleural effusion is identified. No pneumothorax is seen. The skeletal structures are osteopenic. The bony thorax is grossly intact. Arthritic change is seen in the shoulders. Cholecystectomy clips are noted in the right upper quadrant. IMPRESSION: No acute cardiopulmonary abnormality. ACT 112: Negative or not required by law. Electronically signed by: Adonis Evans M.D. 11/21/2021 12:[address] 11/21/21 11:32 CT SCAN OF THE BRAIN WITHOUT IV CONTRAST CLINICAL HISTORY: Fall. COMPARISON STUDY: CT of the brain dated 10/24/2018. TECHNIQUE: Unenhanced axial CT scan of the brain is performed from the vertex to the skull base. A dose lowering technique was utilized adhering to the principles of ALARA. The examination is modestly degraded by motion artifact. FINDINGS: Brain parenchyma: There are age-related involutional changes noting mild subcortical and periventricular microangiopathic change. There is no hemorrhage, mass effect, or evidence of acute territorial ischemia by CT criteria. A small focus of left frontal encephalomalacia is unchanged and consistent with a remote infarct. Bowser-white matter differentiation is preserved. No extra-axial fluid collection is seen. Ventricles, sulci, cisterns: Prominent secondary to involutional change. Intracranial vasculature: There is atherosclerotic calcification of the cavernous carotid arteries. Calvarium: The skeletal structures are osteopenic. No depressed calvarial fracture is identified. Sinuses and mastoids: The paranasal sinuses are clear. The mastoid air cells are well pneumatized. Orbits: The bony orbits are grossly intact. IMPRESSION: There is no hemorrhage, mass effect, or evidence of acute territorial ischemia by CT criteria. ACT 112: Negative or not required by law. Electronically signed by: Adonis Evans M.D. 11/21/2021 12:38 PM Pelvis X-Ray 11/21/21 11:32 SINGLE VIEW PELVIS CLINICAL HISTORY: Fall. FINDINGS: 2 AP, portable, supine pelvic radiographs are compared to study dated 02/21/2013 and correlated with pelvic CT dated 11/08/2019. The skeletal structures are osteopenic. There is no radiographic evidence of acute fracture involving the hips or bony pelvis. Mild degenerative change and joint space narrowing is seen in the hips. Sclerotic change is observed in the sacroiliac joints and pubic symphysis. The overlying soft tissues are normal as imaged. There is no evidence of bowel obstruction. Suture material projects over the pelvis. IMPRESSION: No fracture is identified. Electronically signed by: Adonis Evans M.D. 11/21/2021 12:33 PM KUB X-Ray 11/23/21 01:35 KUB CLINICAL HISTORY: Generalized abdominal pain. FINDINGS: 2 AP, portable, supine abdominal radiographs are compared to study dated 11/18/2019 and correlated with abdominal CT dated 11/17/2019. Cholecystectomy clips are seen in the right upper quadrant. A left femoral central venous catheter is in place. A rectal temperature probe is noted. There is no bowel obstruction. Moderate fecal retention is seen throughout the colon. No evidence of intraperitoneal free air is seen on these supine images. There are no abnormal abdominal calcifications. The skeletal structures are osteopenic and appear intact. There is mild to moderate lumbosacral spondylosis. IMPRESSION: No acute abnormality is identified. Electronically signed by: Adonis Evans M.D. 11/23/2021 7:15 AM Abdomen/Pelvis CT 11/24/21 05:[address] WITHOUT CONTRAST CT DOSE: 422.86 mGy.cm HISTORY: Generalized abdominal pain. Diarrhea. TECHNIQUE: Multiaxial CT images of the abdomen and pelvis were performed without contrast. A dose lowering technique was utilized adhering to the principles of ALARA. COMPARISON STUDY: Abdomen and pelvis CT 11/17/2019. FINDINGS: There is an irregular 8 mm nodule within the right middle lobe. This demonstrate greater than 2 year stability. Trace bilateral pleural effusions. No pneumoperitoneum. No pneumatosis. No fractures within the visualized osseous structures. Postoperative changes again noted within the anterior abdominal wall. Cholecystectomy. The unenhanced liver, spleen, and pancreas unremarkable. There is a 1 cm right adrenal adenoma, unchanged. Mild thickening of the left adrenal gland remains stable. A few small bilateral peripelvic renal cysts. No renal or ureteral stones. No hydronephrosis. Trace gas within the bladder lumen. This could be due to recent catheterization. There are 2 hypodense lesions within the left kidney with the largest measuring 1.6 cm. These are incompletely characterized on this noncontrast study but statistically represent cysts. No retroperitoneal lymphadenopathy. Mild calcified plaque within the normal caliber abdominal aorta. The bladder, uterus, and bilateral adnexa are within normal limits. There is presacral edema which is new from the prior study. There is mild thickening of the rectum. Prior sigmoid anastomosis. There is mild perirectal fat stranding. Moderate to large amount of stool seen throughout the colon resulting in a mildly distended colon. No evidence for bowel obstruction. Prior small bowel anastomosis seen within the left side of the abdomen. Question mild thickening of the proximal sigmoid colon. Normal caliber appendix measures up to 5 mm. IMPRESSION: 1. Mild thickening of the rectum with perirectal fat stranding and presacral edema. There is also questionable mild thickening of the proximal sigmoid colon. Findings suggest a low-grade distal proctocolitis. 2. Moderate to large amount of stool seen throughout the colon. 3. No evidence for bowel obstruction. 4. Trace bilateral pleural effusions. 5. An 8 mm nodule within the right middle lobe. This demonstrates greater than 2 year stability. 6. Trace gas within the bladder lumen. This could be due to recent catheterization. Clinical correlation recommended. 7. Additional findings as described above. ACT 112: Negative or not required by law. Electronically signed by: Kyler De La Cruz M.D. 11/24/2021 7:36 AM Diabetes Follow up Diabetes Follow-up Needed for HgbA1c >9% Hospital Course (1) Acute metabolic encephalopathy: 2/2 DKA, resolved with IVF and insulin and resolution of acidosis. (2) Type 2 diabetes mellitus with ketoacidosis with coma: Severe metabolic acidosis treated with fluids and insulin drip. Resolved and she started eating again after a couple of days when she was more alert. She was transitioned to basal bolus insulin therapy with glucose at goal and acidosis resolved. She was mentating at her baseline for 2-3 days prior to discharge and was tolerating food without issue. She did have some abdominal discomfort which was totally resolved with bowel movements. Incidental lipasemia, however, there was no evidence of pancreatitis. Abdominal CT scan did reveal some thickening of the proximal sigmoid colon, however, there was a complete resolution of abdominal discomfort with bowel movements. She was tolerating diet, afebrile and there was no leukocytosis. No further workup was performed and no additional treatment provided with close primary care followup recommended. Diabetic nurse educator made recommendations and provided education. Close follow-up with [facility] warranted for monitoring and adjustment of medication as needed with recent A1c level greater then 12. Potassium and phosphorus replacement was given. Repeat electrolytes in 1 week in the clinic would be helpful, including a magnesium and phosphorus. (3) SIRS (systemic inflammatory response syndrome): SIRS with acute organ dysfunction Patient met SIRS criteria with hypothermia, leukocytosis and tachycardia on admission. No clear source of sepsis was found. Empirically cefepime was given which was stopped after a couple of days. She remained afebrile with a normal white blood cell count and clinically well for at least 48 hours prior to discharge. Uncertain nidus of DKA episode as patient reports compliance with insulin and no infection present. Patient reportedly suspected a foodborne illness prior to getting sick. (4) LUCAS (acute kidney injury): Creatinine improved after fluid resuscitation. Now at baseline. (5) Seizure: She has a history of seizure disorder. No witnessed seizure activity but this was considered in the differential. Suspect confusion secondary to metabolic abnormalities from DKA as opposed to seizure. CT head and cervical spine CT were unremarkable for acute process on admission. Continues on Dilantin, will switch to PO. At time of discharge she was hemodynamically stable and afebrile and t olerating p.o. Her glucose was within range and she was mentating at baseline. Physical and Occupational Therapy evaluated her and cleared her for return home. Total Time Total Time Spent Total Time Spent (In Minutes): 60 Discharge Plan Discharge Items Patient Disposition: Home - Self-Care Reason For Visit: DKA Discharge Diagnosis: Acute metabolic encephalopathy Type 2 diabetes mellitus with ketoacidosis with coma Acute kidney injury Epilepsy SIRS with acute organ dysfunction Condition on Discharge: Good Activity: Resume your previous activity Non-emergency contact: Primary Care Provider Call non-emergency contact if: you have any medication questions and your symptoms worsen Follow-up/Referrals: Adam Mehta MD [Primary Care Provider] - (Date & Time 12/01/2021 2:40 PM Provider Adam Mehta MD Department Family Practice [facility] ) Diet: Carb Consistent or DM2 Addtl Attending Provider Instructions: Please take all medications as instructed on discharge as below. There have not been any changes made to your diabetic regimen however, you are strongly encouraged to follow-up with [facility] for possible adjustments given your uncontrolled diabetes evidenced by hemoglobin A1c greater of 12 (goal <7). Please follow while diabetes education instructions provided to you on the printed discharge instructions. Please continue to test her blood sugar multiple times a day per personal development educator instructions. Please follow-up with your primary care provider within 1 week of hospital discharge to ensure you are doing well. Notably, one of your abdominal imaging studies revealed some thickening of the colon. As your abdominal pain has improved with bowel movements, this is likely just an incidental finding, and your pain was likely related to constipation However, follow-up with primary care doctor will be to ensure this is not something related to an infection or other inflammation causing persistent abdominal pain for you. It was a pleasure taking care of you! Please call if you have any questions or problems. You can reach a [facility] hospitalist on duty at [facility] 24 hours a day by calling [phone]. Take care of yourself. Marisela Alejandro, DO [facility] Pending Studies at Discharge: No Stand-Alone Forms: [facility] Medications and DC Order Prescriptions: Continued phenytoin sodium extended [Dilantin Extended] 100 mg Capsule 200 mg PO DAILY RF: 0 Humalog Mix 50-50 KwikPen 100 unit/mL (50-50) Insulin Pen 46 unit SUBCUT QAM RF: 0 Humalog Mix 50-50 KwikPen 100 unit/mL (50-50) Insulin Pen 48 unit SUBCUT QPM RF: 0 Jardiance 25 mg Tablet 25 mg PO QPM RF: 0 Combivent Respimat 20-100 mcg/actuation Mist 1 puff INHALATION QID RF: 0 levothyroxine 75 mcg Tablet 75 mcg PO QAM RF: 0 potassium chloride 20 mEq tablet extended release 20 meq PO QAM RF: 0 atorvastatin 40 mg tablet 40 mg PO DAILY RF: 0 Ozempic 0.25 mg or 0.5 mg(2 mg/1.5 mL) pen injector 0.5 mg SUBCUT WK RF: 0 phenytoin sodium extended 100 mg capsule 300 mg PO HS RF: 0 Calcium + Vitamin D 600 mg calcium- 200 unit Tablet 1 tab PO DAILY RF: 0 Discharge Orders: Discharge Order (Routine); Ordered 11/24/21 Ordered By: Marisela Alejandro Admission Data Admit Date/Time: 11/21/21 14:58 Attending Provider: Marisela Alejandro Admit Provider: Skyler Peters Primary Care Provider: Adam Mehta Other Providers: Mark Stevens ; Skyler Peters ; [place]
[2021-11-24 16:14] VITALS: BP 142/79; PULSE 92
[2021-11-25] MEDS ORDERED: INSULIN ASPART PER UNIT SC ONE (02:00)
[2021-11-25] MEDS ORDERED: PANTOprazole 40 MG TAB PO SCH (09:00)
== END 2021-11-24 17:11 | disposition home health service (06) | DRG 637 ==
LOC: ED 11:17 → 1E 16:22 → SUATTDRO 16:22 → 1E 19:16